=== PATIENT | male | born 1960 | race Caucasian/White ===

== ENCOUNTER 2016-04-09 09:12 | Inpatient (IN) | payer OTHER ==
[2016-04-09] VITALS (15 sets, daily range): BP systolic 138–170; BP diastolic 77–98; PULSE 52–78; RESP 8–20; Ht 170.2 cm; Wt 80.3 kg
[~2016-04-09] VITALS: Ht 170.2 cm; Wt 80.3 kg
[~2016-04-09 09:12] MED LIST: AMLO-147 PO; BUPIVACAINE 0.5%/EPI (SDV) 30 ML INJ INJ ONE; CEFAZOLIN 1 GM INJ ONE; DEXAMETHASONE 4 MG/ML 1 ML INJ ONE; HYD25 PO; LISI40TA9 PO; ONDANSETRON 4 MG INJ ONE
[2016-04-09] MEDS ORDERED: SOD CHLORIDE 0.9% 1,000 ML IV SCH (10:00)
[2016-04-09] MEDS ORDERED: CEFAZOLIN 2 GM/50 ML (PMX) 50 ML IVPB SCH (10:00)
--- NOTE | 2016-04-09 10:31 | RADRPT ---
PROCEDURE: XR Chest. CLINICAL INDICATION: Preoperative chest TECHNIQUE: Chest AP portable. COMPARISON: No comparison available. FINDINGS: The mediastinal structures are unremarkable. The heart is normal in size and configuration. The pu lmonary vascularity is normal. The lung palumbo are unremarkable. No consolidation is identified. The pleural spaces are unremarkable. The axial skeleton is unremarkable. IMPRESSION: No active intrathoracic disease. RPTAT: HGDB .Jovon Melendez MD, MD Date Time Electronically viewed and signed by .Jovon Melendez MD, MD on 04/09/2016 10:30 .B/
[2016-04-09 11:11] LABS: CALCIUM 9.2 mg/dl (8.4-10.2); CREATININE 1.14 mg/dl (0.61-1.24); POTASSIUM 4.6 mmol/L (3.5-5.1)
[2016-04-09 11:15] LABS: INR 1.06; PROTIME 13.8 Sec (12.2-14.2); PT RATIO 1.1
[2016-04-09 11:16] LABS: PARTIAL THROMBOPLASTIN TIME 28.4 Sec (25.0-35.0)
[2016-04-09 11:51] LABS: BASOPHILS % 0.3 % (0.0-2.0); EOSINOPHILS # 0.2 10^3/ul (0.0-0.5); HEMATOCRIT 42.2 % (42.0-52.0); HEMOGLOBIN 14.4 g/dl (14.0-18.0); LYMPHOCYTES # 1.9 10^3/ul (0.8-2.9); LYMPHOCYTES % 23.4 % (15.0-51.0); MEAN CORPUSCULAR HEMOGLOBIN 30.1 pg (29.0-33.0); MEAN CORPUSCULAR VOLUME 88.4 fl (82.0-101.0); MEAN PLATELET VOLUME 7.4 fl (7.4-10.4); MONOCYTE # 0.6 10^3/ul (0.3-0.9); MONOCYTES % 7.6 % (0.0-11.0); NEUTROPHIL # 5.6 10^3/ul (1.6-7.5); NEUTROPHILS % 66.7 % (39.0-77.0); PLATELET COUNT 203 10^3/UL (140-440); RED BLOOD COUNT 4.77 10^6/ul (4.70-6.10); RED CELL DISTRIBUTION WIDTH 14.6 % (11.5-14.5); UNCORRECTED WBC 8.3 10^3/ul (4.8-10.8); WHITE BLOOD COUNT 8.3 10^3/ul (4.8-10.8)
[2016-04-09] MEDS ORDERED: POLYMYXIN/BACITRACIN 1L IRRIG ONE (11:57)
[2016-04-09 11:59] LABS: CONDITION 1; LH ANALYZER COMMENTS 1
[2016-04-09] MEDS ORDERED: ROCURONIUM 50 MG INJ ONE (12:05)
[2016-04-09] MEDS ORDERED: FENTAnyl 50 MCG/ML VIAL ONE ×2 (12:05→13:49)
[2016-04-09] MEDS ORDERED: PROPOFOL 20 ML ONE (12:05)
[2016-04-09] MEDS ORDERED: LIDOCAINE 2% (SDV) 5 ML INJ ONE (12:05)
[2016-04-09] MEDS ORDERED: BUPIVACAINE 0.5%/EPI (SDV) 30 ML INJ ONE (12:13)
[2016-04-09] MEDS ORDERED: MIDAZOLAM 1 MG/ML 2 ML INJ ONE (12:17)
[2016-04-09] MEDS ORDERED: ONDANSETRON 4 MG INJ IV PRN (12:30)
[2016-04-09] MEDS ORDERED: HYDROmorphONE (0.2 MG/ML) 10ML SYG IV PRN ×3 (12:30)
[2016-04-09] MEDS ORDERED: FENTAnyl 50 MCG/ML VIAL IV PRN ×3 (12:30)
[2016-04-09] MEDS ORDERED: LABETALOL HCL 20MG INJ IV PRN (12:30)
[2016-04-09] MEDS ORDERED: MEPERIDINE 25 MG INJ IV PRN (12:30)
[2016-04-09] MEDS ORDERED: OXYCODONE/ACETAMINOPHEN (5/325) TAB PO PRN ×2 (12:30)
[2016-04-09] MEDS ORDERED: POLYMYXIN/BACITRACIN 1L IRRIG IRR ONE (13:08)
[2016-04-09] MEDS ORDERED: KETOROLAC 30 MG INJ ONE (13:43)
[2016-04-09] MEDS ORDERED: LABETALOL HCL 20MG INJ ONE (13:49)
[2016-04-09] MEDS: D5W-0.45 NACL + KCL 20 MEQ 1,000 ML IV SCH (17:32)
[2016-04-09] MEDS: ONDANSETRON 4 MG INJ IV PRN (17:46)
--- NOTE | 2016-04-09 18:30 | HP ---
DATE OF ADMISSION: 04/09/2016 REASON FOR ADMISSION: Recurrent incarcerated inguinal hernia. PROCEDURE DONE: Right inguinal herniorrhaphy with mesh. HISTORY OF PRESENT ILLNESS: The patient is a 55-year-old gentleman well known to me from previous a dmission back in 09/2015. The patient has history of large right inguinal hernia and underwent tota l ____ and enterotomy and bowel decompression on 09/05/[address] Sarah. The patient's postoperati ve course was complicated by respiratory failure secondary to bilateral atelectasis. The patient un fortunately has recurrence of recurring incarcerated right inguinal hernia and therefore was brought into hospital today and underwent herniorrhaphy with mesh. The patient denies any chest pain, is b reathing comfortably. Denies any cough, headache. No reported leg pain. No reported shortness of breath. The patient did not have any vomiting. No reported focal sensory or motor symptoms. The p atient does have postoperative pain. REVIEW OF SYSTEMS: Rest of review of systems was unremarkable. PAST MEDICAL HISTORY: As stated above. PAST SURGICAL HISTORY: As stated above. ALLERGIES: NONE. SOCIAL HISTORY: No smoking, no alcohol. FAMILY HISTORY: Noncontributory. MEDICATIONS PRIOR TO ADMISSION: The patient was on: 1. Norvasc. 2. Lisinopril and hydrochlorothiazide for hypertension. PHYSICAL EXAMINATION: GENERAL: The patient is conscious, awake, alert. VITAL SIGNS: Temperature 98.8, pulse 72, respirations 14. Last blood pressure 138/77. O2 saturati on 95% on 2 L nasal cannula. HEENT: Conjunctivae and lids normal. Oropharynx clear. NECK: Supple. No mass, no thyromegaly. LUNGS: Clear to auscultation. CARDIOVASCULAR: S1, S2 normal. No murmur. ABDOMEN: Soft, nondistended. Right inguinal area has a large dressing. EXTREMITIES: No leg edema. Pedal pulses palpable. SKIN: Without acute rash. NEUROLOGIC: The patient is awake, alert, fairly oriented with no gross focal deficit. LABORATORY DATA: WBC 8.3, hemoglobin 14.4, platelets 203. Sodium 142, potassium 4.6, BUN 21, creat inine 1.1, glucose 112. IMAGING: Chest x-ray normal. ELECTROCARDIOGRAM: Normal sinus rhythm with rate of 52. IMPRESSION: 1. Recurrent incarcerated large right inguinal hernia, status post repair. 2. Hypertension. PLAN: The patient admitted on medical floor. The patient will be started on IV fluid and will rece samuel Tylenol, Percocet and IV morphine for pain control depending upon severity. Will resume his ant ihypertensive medications. The patient will be encouraged to use inspiratory spirometry. Will cont inue SCD for DVT prophylaxis. Will continue to follow from medical standpoint. Dictated By: TABATAH WILLOUGHBY/ANGELI Conf#: [id number] DID#: [id number]
--- NOTE | 2016-04-09 19:20 | RADRPT ---
Vent Rate: 52 bpm RR Interval: 0 msec WV Interval: 162 msec QRS Duration: 120 msec QT Interval: 448 msec QTC Interval: 416 msec P-R-T [place]: 58 - 21 - 83 degrees Sinus bradycardia Cannot rule out Inferior infarct , age undetermined Abnormal ECG Electronically Signed By: Rao Bingham [id number]
[2016-04-10] MEDS: ONDANSETRON 4 MG INJ IV PRN (00:33)
[2016-04-10] MEDS: D5W-0.45 NACL + KCL 20 MEQ 1,000 ML IV SCH ×5 (00:34→19:39)
[2016-04-10] MEDS: morphine 2 MG INJ IV PRN ×2 (00:37→05:22)
--- NOTE | 2016-04-10 06:45 | OPR ---
DATE OF OPERATION: 04/09/2016 PREOPERATIVE DIAGNOSIS: Recurrent incarcerated right inguinal hernia. POSTOPERATIVE DIAGNOSIS: Recurrent incarcerated right inguinal hernia. OPERATION PERFORMED: Right inguinal herniorrhaphy with mesh. ANESTHESIA: General. ANESTHESIOLOGIST: Dr. Mathis. SURGEON: Romero Sarah MD FISH BUTCHER: None. INDICATIONS FOR PROCEDURE: The patient is a 55-year-old male who was previously known to me. He pr esented with an extremely large right inguinal hernia within his entire small intestine, his omentum , his right transverse proximal descending colon as well as a portion of the stomach incarcerated in to his scrotum. He underwent repair several months ago and was doing well; however, he developed ev idence of a recurrence and was complaining of significant pain. He was counseled that the repair of this recurrence may not be accomplishable but we would attempt it due to the fact that the previous surgery had significantly distorted the anatomy and that there was very little fascial material lef t in his right groin region in which to accomplish a repair. He wished to proceed with attempted re pair. He consented and was scheduled for surgery. DESCRIPTION OF PROCEDURE: The patient was brought to the operating theater, placed under general an esthesia. The right groin was shaved, prepped and draped in usual sterile fashion. The previous ferguson rgical repair been accomplished through a midline incision. Dr. Sarah made the decision to make a r ight groin incision. This was done with 15 blade scalpel transversing the approximate locations of the internal and external inguinal rings. Subcutaneous tissue was dissected with cautery. Within t he subcutaneous space, a large direct hernia sac was identified. With meticulous dissection over se veral minutes, Dr. Sarah was able to identify what appeared to be reasonably strong fascia in 4 quad rants around this large defect. Once the hernia had been reduced, a double sided mesh plug was then placed into the defect and was sutured circumferentially with 4-0 Prolene sutures to the abdominal wall fascia, one laterally to what appeared to be a possible remnant of the inguinal ligament and a 4th one to the pubic tubercle. After this, Dr. Sarah inspected and deemed that this was the most th at could be accomplished. Therefore, the wound was irrigated. Minimal bleeding was controlled with cautery. The skin was then reapproximated with skin erasmo. The patient tolerated procedure well . ESTIMATED BLOOD LOSS: Was 20 mL. COMPLICATIONS: There were no complications and the patient was transported in stable condition [facility] recovery [facility]. Dictated By: ROMERO AGUILA/ANGELI Conf#: [id number] DID#: [id number]
[2016-04-10 07:58] VITALS: BP 135/95; RESP 18
[2016-04-10] MEDS: LISINOPRIL 20 MG TAB PO SCH (08:59)
[2016-04-10] MEDS: HYDROCHLOROTHIAZIDE 25 MG TAB PO SCH (08:59)
[2016-04-10] MEDS: AMLODIPINE 10 MG TAB PO SCH (08:59)
[2016-04-10] MEDS ORDERED: INFLUENZA VIRUS VACCINE 0.5 ML (DISPENSING) IM* ONE (09:00)
[2016-04-10] MEDS: PANTOPRAZOLE 40 MG INJ IV SCH (12:43)
--- NOTE | 2016-04-10 15:22 | PN ---
DATE: 04/10/2016 SUBJECTIVE: The patient apparently has not been able to urinate after his operation. 1. They had to put in a Lyn catheter. 2. The patient states that he has pain in the left upper quadrant which causes him to get nauseous when he lies down on his back or on the right side, but if it is on the left side lying down he feel s better. He has been n.p.o. since the operation. He has not passed any gas or any bowel movements . He states that usually he has a bowel movement every day in the morning. Today he is nauseous, bu t no vomiting. OBJECTIVE: VITAL SIGNS: Temperature 97.6, heart rate 90, respirations 18, blood pressure 105/95, saturation of 95% on 2 liters nasal cannula. ABDOMEN: Scar is visible. Soft. Maybe slight tenderness in the left upper quadrant. Lyn cathet er is in place. Lower extremities with sequential compression devices on the calves. LABORATORY RESULTS: No new labs were done today. ASSESSMENT: 1. Postop day #1, right recurrent direct inguinal hernia repair with mesh. 2. Patient has not been able to urinate post-operation (the patient states that at home he usually h as to go to the bathroom about 10 times for making urine, especially at night, about 4 times, has no cturia). Note, this patient had a very complicated scrotal hernia repair several months ago. Following that extensive repair the patient developed respiratory insufficiency where he stayed in the ICU for abou t 2 weeks. He gradually responded, was intubated and eventually survived that condition. Apparentl y the first scrotal hernia repair, per surgeon's note, the whole omentum, intestine, right colon and left colon was in the scrotal sac. No other anatomy was distorted, per the surgeon. (Considering that the patient also complains of nausea whenever he eats food, he gets severe pain in the left upp er quadrant and some nausea, and at this time has not been able to urinate; therefore, I plan to ry p him in the hospital at least 1 more day. PLAN: Keep the patient in the hospital at least 1 more day and make sure he can tolerate a diet, ma ke sure he makes bowel movements, and make sure that he urinates after we remove the Lyn, but will keep the Lyn today. Dictated By: CAPO OSEGUERA MD PS/NTS Conf#: [id number] [facility]#: [id number]
--- NOTE | 2016-04-10 15:57 | PN ---
Date/Time of Note Date/Time of Note DATE: 04/10/16 TIME: 15:54 Assessment/Plan VTE Prophylaxis VTE Prophylaxis Intervention: SCD's Lines/Catheters IV Catheter Type (from Nrsg): Peripheral IV Assessment/Plan Assessment/Plan 1. Recurrent incarcerated large right inguinal hernia, status post repair. Continue morphine as needed for pain and Zofran as needed for nausea. Patient tolerates clear liquid diet well. Advance diet per surgery. Incentive spirometer every hour while patient is awake. 2. Hypertension. Continue Norvasc and lisinopril. Sequential compression device for deep venous thrombosis prophylaxis and Protonix for peptic ulcer disease prophylaxis. Further recommendations based on clinical course. Plan of care discussed with Dr. Galloway. Subjective 24 Hr Interval Summary Free Text/Dictation Patient's tolerates a clear liquid diet well, no flatus yet, pain is well controlled. Exam/Review of Systems Vital Signs Vitals Vital Signs Date Time Temp Pulse Resp B/P Pulse Ox O2 Delivery O2 Flow Rate FiO2 04/10/16 07:58 97.6 90 18 135/95 95 04/09/16 21:45 Nasal Cannula 2.0 Intake and Output 04/09/16 04/09/16 04/10/16 15:00 23:00 07:00 Intake Total 800 ml 1550 ml Output Total 20 ml 1200 ml Balance 780 ml 350 ml Exam GENERAL: The patient is conscious, awake, alert. HEENT: Conjunctivae and lids normal. Oropharynx clear. NECK: Supple. No mass, no thyromegaly. LUNGS: Clear to auscultation. CARDIOVASCULAR: S1, S2 normal. No murmur. ABDOMEN: Soft, nondistended. Right inguinal area has a large dressing. EXTREMITIES: No leg edema. Pedal pulses palpable. SKIN: Without acute rash. NEUROLOGIC: The patient is awake, alert. Results Result Diagram: 04/09/16 1045 04/09/16 1045 Medications Medications Current Medications Ondansetron HCl (Zofran Inj) 4 mg Q6H PRN IV NAUSEA AND/OR VOMITING Last administered on 04/10/16 00:33; Admin Dose 4 MG; Start 04/09/16 at 14:00 Morphine Sulfate 2 mg 2 mg Q1H PRN IV PAIN Last administered on 04/10/16 05:22 ; Admin Dose 2 MG; Start 04/09/16 at 14:00 Potassium Chloride/Dextrose/ Sod Cl (D5-1/2ns + KCl 20 Meq) 1,000 ml @ 75 mls/ hr [id number] IV Last administered on 04/10/16 12:44; Admin Dose 75 MLS/HR; Start 04/09/16 at 13:59 Amlodipine Besylate (Norvasc) 10 mg DAILY PO Last administered on 04/10/16 08: 59; Admin Dose 10 MG; Start 04/10/16 at 09:00 Hydrochlorothiazide (Hydrochlorothiazide) 25 mg DAILY PO Last administered on 08:59; Admin Dose 25 MG; Start 04/10/16 at 09:00 Lisinopril (Zestril) 40 mg DAILY PO Last administered on 04/10/16 08:59; Admin Dose 40 MG; Start 04/10/16 at 09:00 Pantoprazole (Protonix Iv) 40 mg DAILY@06 IV Last administered on 04/10/16 12: 43; Admin Dose 40 MG; Start 04/10/16 at 12:30 JAY WEEMS Apr 10, 2016 15:57
[2016-04-10 20:34] VITALS: BP 130/81; RESP 18
[2016-04-11] MEDS: PANTOPRAZOLE 40 MG INJ IV SCH (05:49)
[2016-04-11 07:24] LABS: CREATININE 1.06 mg/dl (0.61-1.24)
[2016-04-11 07:25] LABS: CALCIUM 8.6 mg/dl (8.4-10.2)
[2016-04-11 08:06] VITALS: BP 135/85; RESP 18
[2016-04-11] MEDS: D5W-0.45 NACL + KCL 20 MEQ 1,000 ML IV SCH ×2 (08:40→23:03)
[2016-04-11] MEDS: HYDROCHLOROTHIAZIDE 25 MG TAB PO SCH (08:41)
[2016-04-11] MEDS: LISINOPRIL 20 MG TAB PO SCH (08:41)
[2016-04-11] MEDS: AMLODIPINE 10 MG TAB PO SCH (08:41)
[2016-04-11] MEDS ORDERED: ACETAMINOPHEN 325 MG TAB PO PRN (11:30)
[2016-04-11] MEDS ORDERED: HYDR-906 PO (11:41)
--- NOTE | 2016-04-11 11:43 | DS ---
Date/Time of Note Date/Time of Note DATE: 04/11/16 TIME: 11:42 Discharge Summary Admission/Discharge Info Admit Date/Time Apr 09, 2016 at 14:00 Discharge Date/Time 04/11/16 Final Diagnosis 1. Recurrent incarcerated large right inguinal hernia, status post repair. Continue morphine as needed for pain and Zofran as needed for nausea. Patient tolerates clear liquid diet well. Advance diet per surgery. Incentive spirometer every hour while patient is awake. 2. Hypertension. Continue Norvasc and lisinopril. Patient Condition: Good Hospital Course Patient admitted for repair of right inguinal hernia. Patient underwent repair and when felt to be stable per surgery, patient was sent home to follow up in clinic. Home Meds Active Scripts Amlodipine Besylate* (Amlodipine Besylate*) 10 Mg Tablet, 10 MG PO DAILY for 30 Days, TAB Prov:JAY WEEMS 09/25/15 Reported Medications Hydrochlorothiazide* (Hydrochlorothiazide*) 25 Mg Tab, 25 MG PO DAILY, #30 TAB 09/05/15 Lisinopril* (Lisinopril*) 40 Mg Tablet, 40 MG PO DAILY, #30 TAB 09/05/15 Pending Labs Laboratory Tests Test 04/11/16 05:15 Anion Gap 15 (8-16) Blood Urea Nitrogen 10mg/dl (7-20) Calcium Level 8.6mg/dl (8.4-10.2) Carbon Dioxide Level 28mmol/L (21-31) Chloride Level 103mmol/L (97-110) Creatinine 1.06mg/dl (0.61-1.24) Glucose Level 118mg/dl (70-220) Potassium Level 4.0mmol/L (3.5-5.1) Sodium Level 142mmol/L (135-144) MELANIE REDDY Apr 11, 2016 11:43
[2016-04-11 11:51] LABS: WHITE BLOOD COUNT 11.3 10^3/ul (4.8-10.8)
[2016-04-11 11:52] LABS: BASOPHILS % 0.3 % (0.0-2.0); EOSINOPHILS % 1.9 % (0.0-7.0); HEMATOCRIT 35.9 % (42.0-52.0); LYMPHOCYTES % 16.5 % (15.0-51.0); MEAN CORPUSCULAR HEMOGLOBIN 30.1 pg (29.0-33.0); MEAN CORPUSCULAR HGB CONC 33.4 g/dl (32.0-37.0); MEAN PLATELET VOLUME 9.6 fl (7.4-10.4); MONOCYTES % 9.2 % (0.0-11.0); NEUTROPHILS % 71.7 % (39.0-77.0); PLATELET COUNT 174 10^3/UL (140-440); RED BLOOD COUNT 3.99 10^6/ul (4.70-6.10); RED CELL DISTRIBUTION WIDTH 13.8 % (11.5-14.5); UNCORRECTED WBC 11.3 10^3/ul (4.8-10.8)
[2016-04-11 11:53] LABS: EOSINOPHILS # 0.2 10^3/ul (0.0-0.5); LYMPHOCYTES # 1.9 10^3/ul (0.8-2.9); NEUTROPHIL # 8.1 10^3/ul (1.6-7.5)
[2016-04-11] MEDS ORDERED: MAGNESIUM HYDROXIDE 30ML CUP PO ONE (14:00)
[2016-04-11] MEDS ORDERED: MAGNESIUM HYDROXIDE 30ML CUP PO PRN (14:00)
--- NOTE | 2016-04-11 14:00 | PN ---
DATE: 04/11/2016 Status post recurrent right inguinal hernia repair. SUBJECTIVE: He has a slight amount of pain, has not had any bowel movement since , passing gas, OBJECTIVE: VITAL SIGNS: Temperature 98, heart rate 77, respirations 18, blood pressure 135/85, saturation 95% on 2 liter nasal cannula. LABORATORY DATA: Sodium and potassium normal. Creatinine normal. WBC 11,300, has increased since operation. Hemoglobin is 12, hematocrit 35.9 with 71% neutrophils. Abdomen as before, slightly distended. Right groin area, there is more swelling to the groin area, comparing to yesterday. I am not sure if this is recurrence of the hernia or fluid accumulated there. Movement of the scrotum slightly tender. Lyn still is in place. ASSESSMENT: A 55-year-old male status post repair of the right recurrent inguinal hernia. Patient has not been able to urinate post-operation. We are going to get a consultation from Dr. Panda; actually, I called him today myself and he is going to see the patient today after noon. PLAN: Give patient milk of magnesia to make sure he does not get constipation. Watch for failure of the repairs and or hematoma formation. Dictated By: CAPO RIVERA/ANGELI Conf#: [id number] DID#: [id number] MTDD
--- NOTE | 2016-04-11 17:36 | CONS ---
DATE OF ADMISSION: 04/09/2016 DATE OF CONSULTATION: 04/11/2016 REQUESTING PHYSICIAN: Hiram Galloway MD Dear Dr. Galloway: Thank you for asking me to see this patient in urological consultation. HISTORY OF PRESENT ILLNESS: This is a 55-year-old male who underwent surgery for a recurrent large right inguinal hernia on 04/09/2016 and postop he had urinary retention and when the catheter was re moved, he was not able to urinate. The nurse tried yesterday to put the catheter in, she initially had difficulty, but then she was able to insert the catheter. The patient states that prior to his admission usually at home he does have nocturia about 2 to 3 times. His urinary stream is slow and he feels he does empty his bladder. He denies any burning or stinging on urination. There is no hi story of hematuria. He states that he was treated for "urinary tract infection" about one year ago. He has not been taking any medication for his prostate or to help him urinate. PAST MEDICAL HISTORY: Significant for a history of hypertension. He has been taking lisinopril and hydrochlorothiazide for high blood pressure as well as Norvasc. PAST SURGICAL HISTORY: He has had surgery for his hernia in September 2015. At that time it looks like he may have had enterotomy bowel decompression and the patient's postop was complicated by respirato ry failure secondary to bilateral atelectasis. He came to the hospital this time with recurrence of right inguinal hernia and underwent the surgery 2 days ago. PHYSICAL EXAMINATION: GENERAL: Reveals a 55-year-old male who weighs 80.3 kilograms. He is 67 inches tall. VITAL SIGNS: Temperature is 98, respirations 18, blood pressure 135/85, pulse is 77. ABDOMEN: He has a large low mid abdominal incision going all the way up to above the umbilicus with a large scar from it. He also does have a dressing over the right inguinal area from his inguinal hernia repair 2 days ago. The scrotum is very large and edematous and swollen. Apparently, the her nano was going down into the scrotum, according to him. RECTAL: Examination revealed a soft and mildly enlarged prostate. EXTREMITIES: Normal. LABORATORY DATA: CBC shows a white count of 11.3, hemoglobin 12.0, hematocrit 35.9. BUN is 10, cre atinine 1.06, sodium 142, potassium 4.0, chloride 103, CO2 of 28. PT is 13.8, INR 1.06, PTT 28.4. The patient did have a CT scan of the abdomen and pelvis back in September 2015 and at that time it did s how a very large bladder diverticulum. In fact, it appeared larger than the bladder itself and the prostate was not enlarged. IMPRESSION: Urinary retention postoperatively. The patient does have a large bladder diverticulum and he does have a very large scrotal area and that is because the hernia was going down into the sc rotum and now the cavity is empty. The prostate is mildly enlarged. RECOMMENDATION: I am going to start him on Flomax with the hope that, that may help a little bit an d as he ambulates and the swelling around the scrotum and the pelvic area subside, hopefully he will be able to urinate better. The diverticulum is large and that may be another factor in his retenti on. The patient may have to go home with the Lyn catheter and follow up as an outpatient. I will order a CT scan today to see that the findings are the same as before and reevaluate his prostate s ize and the bladder anatomy. Dictated By: JOSE G ROLDAN/ANGELI Conf#: [id number] DID#: [id number]
--- NOTE | 2016-04-11 18:24 | RADRPT ---
PROCEDURE: CT abdomen and pelvis without contrast. CLINICAL INDICATION: Urinary retention TECHNIQUE: CT scan of the abdomen and pelvis without contrast was performed and is reconstructed a t 2.5 mm contiguous axial intervals from the dome of the diaphragm to the inferior pubic rami.. The patient was scanned without intravenous contrast. Sagittal and coronal reformatted images were obt ained from the axial source images. The calculated radiation dose measures 931 mGy centimeters. The CTDI measures 12th mGy. COMPARISON: CT abdomen pelvis September 20, 2015 FINDINGS: Noted is a noncalcified pleural based mass on the medial aspect of the right lower lobe only partial ly included on this study measuring 3.6 by 3.3 cm. No other lung infiltrate or nodule is visualized . There is a tiny left pleural effusion. The liver is of normal size, contour and attenuation with no mass or ductal dilatation. No gallston es are visualized. No splenic, adrenal or pancreatic abnormalities present. Kidneys are of normal size and contour. No hydronephrosis, calculus or masses seen. Ureters are o f normal course and caliber with no stone. Lyn catheter is present in the urinary bladder. There is a large bladder diverticulum. There is thickening of the wall of the diverticulum. No discrete mass or stone is present. Prostate and seminal vesicles appear normal. There is no aneurysm. No adenopathy is present. There are erasmo seen along the inferior right p charmaine. Noted is a large right inguinal hernia containing nonobstructed small bowel loops. There is evidence of a herniorrhaphy immediately superjacent to the inguinal canal on the right. Fluid is s een within the scrotum. No bowel mass or obstruction is present. There is suture in the jejunum and the right upper quadr ant. The appendix is normal. No phlegmon, ascites or pneumoperitoneum is visualized. The osseous structures are intact. IMPRESSION: Large bladder diverticulum. thickened wall of the diverticulum without discrete mass. Large right inguinal hernia containing nonobstructed small bowel. Right scrotal hydrocele. Status post right pelvic herniorrhaphy. 3.6 x 3.3 cm noncalcified pleural based mass right lower lobe which was not present on prior study. Malignancy cannot be ruled out. Suggest dedicated chest CT for further evaluation. Tiny left pleural effusion. .Hair Keyes MD, MD Date Time Electronically viewed and signed by .Hair Keyes MD, MD on 04/11/2016 18:24 .A/
[2016-04-11] MEDS: TAMSULOSIN (SR) 0.4 MG CAP PO SCH (20:43)
[2016-04-11 21:00] VITALS: BP 138/87; PULSE 68; RESP 20
[2016-04-12] MEDS: PANTOPRAZOLE 40 MG INJ IV SCH (05:44)
[2016-04-12 07:51] VITALS: BP 137/81; RESP 20
[2016-04-12] MEDS: AMLODIPINE 10 MG TAB PO SCH (08:42)
[2016-04-12] MEDS: HYDROCHLOROTHIAZIDE 25 MG TAB PO SCH (08:42)
[2016-04-12] MEDS: MAGNESIUM HYDROXIDE 30ML CUP PO SCH (08:43)
[2016-04-12] MEDS: LISINOPRIL 20 MG TAB PO SCH (08:43)
--- NOTE | 2016-04-12 11:03 | PN ---
Date/Time of Note Date/Time of Note DATE: 04/12/16 TIME: 11:02 Assessment/Plan VTE Prophylaxis VTE Prophylaxis Intervention: other Lines/Catheters IV Catheter Type (from Nrsg): Peripheral IV Urinary Cath still in place: Yes Reason Cath still needed: skin wounds contaminated by urine Assessment/Plan Chief Complaint/Hosp Course 1) right inguinal hernia - s/p repair 2) urinary retention - urology working up Problems: Subjective 24 Hr Interval Summary Free Text/Dictation Patient is doing ok Exam/Review of Systems Vital Signs Vitals Vital Signs Date Time Temp Pulse Resp B/P Pulse Ox O2 Delivery O2 Flow Rate FiO2 04/12/16 07:51 98.6 61 20 137/81 96 04/11/16 21:00 Room Air 04/09/16 21:45 2.0 Intake and Output 04/11/16 04/11/16 04/12/16 15:00 23:00 07:00 Intake Total 250 ml 2100 ml 1005 ml Output Total 1430 ml 1550 ml Balance 250 ml 670 ml -545 ml Exam Constitutional: well developed Head: atraumatic, normocephalic Neck: supple Respiratory: clear to auscultation Cardiovascular: regular rate and rhythm Gastrointestinal: non-tender, soft Results Result Diagram: 04/11/1651404/11/1615 Medications Medications Current Medications Ondansetron HCl (Zofran Inj) 4 mg Q6H PRN IV NAUSEA AND/OR VOMITING Last administered on 04/10/16 00:33; Admin Dose 4 MG; Start 04/09/16 at 14:00 Morphine Sulfate 2 mg 2 mg Q1H PRN IV PAIN Last administered on 04/10/16 05:22 ; Admin Dose 2 MG; Start 04/09/16 at 14:00 Potassium Chloride/Dextrose/ Sod Cl (D5-1/2ns + KCl 20 Meq) 1,000 ml @ 75 mls/ hr [id number] IV Last administered on 04/11/16 23:03; Admin Dose 75 MLS/HR; Start 04/09/16 at 13:59 Amlodipine Besylate (Norvasc) 10 mg DAILY PO Last administered on 04/12/16 08: 42; Admin Dose 10 MG; Start 04/10/16 at 09:00 Hydrochlorothiazide (Hydrochlorothiazide) 25 mg DAILY PO Last administered on 08:42; Admin Dose 25 MG; Start 04/10/16 at 09:00 Lisinopril (Zestril) 40 mg DAILY PO Last administered on 04/12/16 08:43; Admin Dose 40 MG; Start 04/10/16 at 09:00 Pantoprazole (Protonix Iv) 40 mg DAILY@06 IV Last administered on 04/12/16 05: 44; Admin Dose 40 MG; Start 04/10/16 at 12:30 Acetaminophen (Tylenol Tab) 650 mg Q6H PRN PO PAIN AND OR ELEVATED TEMP Last administered on 04/11/16 11:33; Admin Dose 650 MG; Start 04/11/16 at 11:30 Magnesium Hydroxide (Milk Of Mag) 30 ml DAILY PO Last administered on 04/12/16 08:43; Admin Dose 30 ML; Start 04/12/16 at 09:00 Tamsulosin HCl (Flomax) 0.4 mg HS PO Last administered on 04/11/16 20:43; Admin Dose 0.4 MG; Start 04/11/16 at 21:00 MELANIE REDDY Apr 12, 2016 11:03
[2016-04-12] MEDS: D5W-0.45 NACL + KCL 20 MEQ 1,000 ML IV SCH (12:25)
[2016-04-12] MEDS ORDERED: IOHEXOL 300MG/ML 150 ML BTL ONE (15:15)
[2016-04-12] MEDS ORDERED: SOD CHLORIDE 0.9% 100 ML ONE (15:15)
--- NOTE | 2016-04-12 16:50 | PN ---
DATE: 04/12/2016 SUBJECTIVE: Does not have any specific complaint; occasional shooting pain in the right groin and s crotal area, has not had any bowel movement yet. No nausea, no vomiting. Dr. Panda, urologist larson s seen the patient and he recommended a CT scan of the abdomen and pelvis which was done and await r eport on that. OBJECTIVE: VITAL SIGNS: Stable 98.6, 61, 20, 137/81 and 96% on room air. No labs were done today. ABDOMEN: In the right groin area, there is some swelling and also the scrotum is swollen and appear s that there is fluid in the right scrotum. Bowel sounds present. EXTREMITIES: No calf tenderness. IMAGING: As I stated, CT scan was done last night and reported as follows: IMPRESSION: 1. Large bladder diverticulum is present. Thickened wall of the diverticulum without discrete mass . 2. Large right inguinal hernia containing nonobstructed small bowel. Right scrotal hydrocele. 3. Status post right pelvic herniorrhaphy. 4. 3.6 x 3.3 cm noncalcified pleural-based mass in the right lower lobe which was not present on pr ior study of 09/2015; malignancy cannot be ruled out. Suggest dedicated chest CT for further evalua tion. ASSESSMENT: A 55-year-old with a history of scrotal hernia repair in 09/2015. Now, he comes back w ith recurrent right inguinal hernia, was operated 2 days ago. Patient has not had any bowel movemen t since then and the patient has developed urinary retention. Dr. Panda has seen the patient and suggest a CT scan which was done today. I have not seen him yet. PLAN: 1. Continue current care. 2. Give some laxatives to make him to have bowel movements. 3. Awaiting Dr. Panda's recommendation. Dictated By: CAPO RIVERA/ANGELI Conf#: [id number] DID#: [id number]
--- NOTE | 2016-04-12 17:05 | PN ---
DATE: 04/12/2016 SUBJECTIVE: Urinary retention and patient has a large bladder diverticulum and also is status post repair of a large inguinal scrotal hernia. GENITOURINARY: Himself is feeling comfortable. OBJECTIVE VITAL SIGNS: His temperature is 98.6, blood pressure 137/81, pulse is 61, respirations 20. ABDOMEN: Soft. The dressing over the right inguinal hernia repair incision is still there. The sc rotum is very large and empty and it has been overstretched from the inguinal scrotal hernia that wa s repaired. EXTREMITIES: Reveal no edema. The Lyn catheter is draining clear urine. The patient had repeat CT scan of the abdomen and pelvis yesterday and that was reported as large bladder diverticulum, thi ckened wall of the diverticulum without discrete mass. The kidneys are normal size and contour, no h ydronephrosis, stones or masses. The Lyn catheter is in the urinary bladder. There is a large bl adder diverticulum. Also the patient has a 3.6 x 3.3 cm noncalcified pleural-based mass on the media l aspect of the right lower lobe, only partially included on the study. There is a tiny left pleura l effusion. The patient also does have a right inguinal hernia containing nonobstructed small bowel , right scrotal hydrocele, status post right pelvic herniorrhaphy. IMPRESSION: Urinary retention. The prostate is not large; large bladder diverticulum. PLAN: To keep the Lyn catheter in until tomorrow morning, then remove the Lyn catheter and see if he is able to urinate. In the meantime, the patient has been placed on Flomax and hopefully that would help him urinate and if he does not urinate, then he will have to have a Lyn catheter and e ventually he may need also to learn to do self-intermittent catheterization as his prostate is not b ig to cause him the obstruction. I will order a CT of the chest to try to clear the finding on the CT of the abdomen. Dictated By: JOSE G ROLDAN/ANGELI Conf#: [id number] DID#: [id number]
--- NOTE | 2016-04-12 18:19 | RADRPT ---
PROCEDURE: CT chest without and with contrast CLINICAL INDICATION: Abnormal CT abdomen and pelvis. Right-sided lung or pleural tumor suspected TECHNIQUE: CT scan of the chest without and with contrast was performed . The patient was scanned following the uncomplicated intravenous administration of 90 cc Visipaque 320 intravenous contrast. Coronal and sagittal images were reformatted. CTDI = 25.19 mGy; DLP = 905.46 mGy-cm COMPARISON: CT abdomen and pelvis 04/11/2016. Chest x-ray 04/09/2016 FINDINGS: Lungs, airway and pleura: The trachea and bronchi are patent as well as normal in caliber. As seen on the prior CT abdomen in the medial superior segment right lower lobe is an ovoid mass measuring 4 .3 x 3.3 cm with a broad-based relationship of the pleura and adjacent linear scarring or subsegment al atelectasis along the superior margin there is central hypodensity and peripheral enhancement whi ch suggest the lesion is necrotic, an infectious process is a differential diagnostic consideration. The pleural spaces are clear, without effusions. A small amount of left posterior lower lobe subse gmental atelectasis is noted. There is no evidence of emphysema. Cardiovascular, mediastinum and rubi: The heart is mildly enlarged. There is no evidence of perica rdial effusion, mild pericardial thickening is present. The thoracic aorta is normal in caliber wit hout evidence of aneurysm or dissection, mild atherosclerotic calcification of the aorta is noted. No obvious filling defects in the pulmonary arteries are identified to suggest embolism. The lymph n odes are normal in size, and no rubi abnormality is present. The esophagus is normal in caliber. Musculoskeletal and soft tissues: Moderate to severe spondylosis of the thoracic spine is present w ithout fracture, lytic or blastic lesion. There is no evidence of chest wall abnormality. The axil pa regions are unremarkable. Visualized upper abdomen. No abnormality of significance is seen. RPTAT:HJJR IMPRESSION: 1. Ovoid 4.3 x 3.3 cm mass with central hypodensity and peripheral enhancement in the medial aspect of the superior segment right lower lobe having a broad-based attachment to the pleura, findings co ncerning for primary pulmonary malignancy versus abscess. Consider CT guided aspiration/biopsy. 2. No evidence of adenopathy or pleural effusion. Reji Li, Physician Date Time Electronically viewed and signed by Reji Li Physician on 04/12/2016 18:18 JR/
[2016-04-12 20:11] VITALS: BP 133/86; RESP 18
[2016-04-12] MEDS: MINERAL OIL 30ML CUP PO SCH ×2 (21:22→21:24)
[2016-04-12] MEDS: TAMSULOSIN (SR) 0.4 MG CAP PO SCH (21:23)
[2016-04-13] MEDS: D5W-0.45 NACL + KCL 20 MEQ 1,000 ML IV SCH ×2 (02:48→17:27)
[2016-04-13] MEDS: MINERAL OIL 30ML CUP PO SCH ×3 (06:19→20:55)
[2016-04-13] MEDS: PANTOPRAZOLE (EC) 40 MG TAB PO SCH (06:20)
[2016-04-13 07:43] VITALS: BP 126/83; RESP 20
[2016-04-13] MEDS: AMLODIPINE 10 MG TAB PO SCH (08:58)
[2016-04-13] MEDS: HYDROCHLOROTHIAZIDE 25 MG TAB PO SCH (08:59)
[2016-04-13] MEDS: LISINOPRIL 20 MG TAB PO SCH (08:59)
[2016-04-13] MEDS: MAGNESIUM HYDROXIDE 30ML CUP PO SCH (09:00)
[2016-04-13] MEDS: morphine 2 MG INJ IV PRN (13:45)
--- NOTE | 2016-04-13 16:04 | PN ---
Date/Time of Note Date/Time of Note DATE: 04/13/16 TIME: 15:59 Assessment/Plan VTE Prophylaxis VTE Prophylaxis Intervention: SCD's Lines/Catheters IV Catheter Type (from Nrs): Peripheral IV Urinary Cath still in place: No Assessment/Plan Chief Complaint/Hosp Course Assessment/Plan 1. Recurrent incarcerated large right inguinal hernia, status post repair. Continue morphine as needed for pain and Zofran as needed for nausea. Advance diet per surgery. Incentive spirometer every hour while patient is awake. 2. Hypertension. Continue Norvasc and lisinopril. 3. RLL mass, Dr. Jeffery is asked to see patient in pulmonary consultation. Pending aspiration biopsy by radiology. 4. Urinary retention, resolved. Dr. Panda urology consultation is appreciated. Sequential compression device for deep venous thrombosis prophylaxis and Protonix for peptic ulcer disease prophylaxis. Further recommendations based on clinical course. Plan of care discussed with Dr. Galloway. Problems: Subjective 24 Hr Interval Summary Free Text/Dictation Patient had bowel movement, tolerates soft diet well, comfortable on room air, patient is able to void. Exam/Review of Systems Vital Signs Vitals Vital Signs Date Time Temp Pulse Resp B/P Pulse Ox O2 Delivery O2 Flow Rate FiO2 04/13/16 07:43 97.4 76 20 126/83 97 04/11/16 21:00 Room Air 04/09/16 21:45 2.0 Intake and Output 04/12/16 04/12/16 04/13/16 15:00 23:00 07:00 Intake Total 475 ml 1980 ml 1425 ml Output Total 3000 ml 2400 ml Balance 475 ml -1020 ml -975 ml Exam GENERAL: The patient is conscious, awake, alert. HEENT: Conjunctivae and lids normal. Oropharynx clear. NECK: Supple. No mass, no thyromegaly. LUNGS: Clear to auscultation. CARDIOVASCULAR: S1, S2 normal. No murmur. ABDOMEN: Soft, nondistended. Right inguinal area has a large dressing. EXTREMITIES: No leg edema. Pedal pulses palpable. SKIN: Without acute rash. NEUROLOGIC: The patient is awake, alert. Results Result Diagram: 04/11/16 0515 04/11/16 0515 Medications Medications Current Medications Ondansetron HCl (Zofran Inj) 4 mg Q6H PRN IV NAUSEA AND/OR VOMITING Last administered on 04/10/16 00:33; Admin Dose 4 MG; Start 04/09/16 at 14:00 Morphine Sulfate 2 mg 2 mg Q1H PRN IV PAIN Last administered on 04/13/16 13:45 ; Admin Dose 2 MG; Start 04/09/16 at 14:00 Potassium Chloride/Dextrose/ Sod Cl (D5-1/2ns + KCl 20 Meq) 1,000 ml @ 75 mls/ hr [id number] IV Last administered on 04/13/16 02:48; Admin Dose 75 MLS/HR; Start 04/09/16 at 13:59 Amlodipine Besylate (Norvasc) 10 mg DAILY PO Last administered on 04/13/16 08: 58; Admin Dose 10 MG; Start 04/10/16 at 09:00 Hydrochlorothiazide (Hydrochlorothiazide) 25 mg DAILY PO Last administered on 08:59; Admin Dose 25 MG; Start 04/10/16 at 09:00 Lisinopril (Zestril) 40 mg DAILY PO Last administered on 04/13/16 08:59; Admin Dose 40 MG; Start 04/10/16 at 09:00 Acetaminophen (Tylenol Tab) 650 mg Q6H PRN PO PAIN AND OR ELEVATED TEMP Last administered on 04/11/16 11:33; Admin Dose 650 MG; Start 04/11/16 at 11:30 Magnesium Hydroxide (Milk Of Mag) 30 ml DAILY PO Last administered on 04/12/16 08:43; Admin Dose 30 ML; Start 04/12/16 at 09:00 Tamsulosin HCl (Flomax) 0.4 mg HS PO Last administered on 04/12/16 21:23; Admin Dose 0.4 MG; Start 04/11/16 at 21:00 Mineral Oil (Mineral Oil) 30 ml TID PO Last administered on 04/13/16 06:19; Admin Dose 30 ML; Start 04/12/16 at 21:00 Pantoprazole (Protonix Tab) 40 mg DAILY@06 PO Last administered on 04/13/16 06: 20; Admin Dose 40 MG; Start 04/13/16 at 06:00 JAY WEEMS Apr 13, 2016 16:04
--- NOTE | 2016-04-13 16:06 | PN ---
DATE: 04/13/2016 Postop day #4. SUBJECTIVE: After removing the Lyn catheter today the patient urinated a couple of hours ago, abo ut 200 mL and then the nurse did a bladder scan and it was 500, so we informed Dr. Panda. He will insert straight catheterization in and out. The nurse did this catheterization in and out and he s aid he got 800 mL (appeared that 300 mL, also the content of the diverticulum). The patient had a b owel movement today morning. No nausea, no vomiting. OBJECTIVE: GENERAL: Awake and oriented x3. VITAL SIGNS: Temperature 97.4, heart rate 76, respiration 20, blood pressure 176/83, saturation 97% on room air. ABDOMEN: Soft. Swelling of the scrotum is slightly less today. EXTREMITIES: Legs no calf tenderness. LABORATORY: No labs today. IMAGING: Chest CT scan which was done yesterday has revealed the followin. Ovoid 4.3 x 3.3 cm mass with central hypodensity and peripheral enhancement in the medial aspect of the superior segment of the right lower lobe having a broad-based attachment to the pleura. Nasim goncalves concerning for primary pulmonary malignancy versus abscess, consider CT-guided aspiration biop sy. 2. No evidence of adenopathy or pleural effusion. ASSESSMENT: A 55-year-old gentleman with postoperative repair of a large, recurrent inguinal hernia . The patient previously has had extensive and very, very large right scrotal hernia which was oper ated on in September 2015. In that case the omentum and small bowel and part of the colon was in the her nano sac was placed back in the peritoneal cavity and also needed to have a laparotomy for that matte r. Now the hernia has recurred and Dr. Sarah did a repair 4 days ago. The patient postoperatively d eveloped urinary retention. Dr. Panda consulted. We ordered to remove the Lyn catheter today m orning which was done and as I mentioned, patient retained again 800 mL in the bladder and diverticu lum of the bladder. The patient has had bowel movement, tolerating diet. Also, CT scan of the abdo men was obtained and in that case showed some mass in the right lung area CT scan of the chest was performed which revealed presence of an ovoid mass 4.3 x 3.6 cm suggesting the possibility of m alignancy or abscess, recommended fine needle aspiration by Radiology. I discussed the matter with the patient. The patient agrees with biopsy or aspiration. PLAN: 1. Management of the urinary retention and bladder diverticulum per Dr. Moran' recommendations. 2. I am going to order a CT-guided aspiration-biopsy of the mass in the right upper lobe and pleura l space. Dictated By: CAPO OSGEUERA MD PS/ANGELI Conf#: [id number] DID#: [id number]
[2016-04-13 19:00] VITALS: BP 115/69; RESP 18
--- NOTE | 2016-04-13 19:59 | PN ---
DATE: 04/13/2016 SUBJECTIVE: Urinary retention and status post right inguinoscrotal hernia repair. The patient did have an indwelling Lyn catheter, and the catheter was removed this morning. The patient is comfor table, has voided a couple of times. OBJECTIVE: VITAL SIGNS: Temperature is 97.4, pulse is 76, respiration 20, blood pressure 126/83. ABDOMEN: Soft. He still has the dressing over the right inguinal area. GENITOURINARY: The scrotum is large but is empty from the hernia, and the swelling in the scrotum i s decreasing. The patient voided earlier today, and by the time, however, the bladder scan was done, it was over 2 hours, and the PVR was about 450. Since it was too late, it was not considered accurate. Then lat er on, the patient did void about 200 mL. His postvoid residual was 500, and when the straight cath eterization was done, 800 mL drained out. Then later on this evening, he voided 300 mL, and the PVR was 164 mL. That was about 5:30 p.m. The patient also did have a CT of the chest, and the CT of t chest did indeed show the ovoid mass 4.3 x 3.3 cm with central hypodensity and peripheral enhance ment in the medial aspect of the superior segment, right lower lobe, having a broad-based attachment to the pleura. Findings concerning for primary pulmonary malignancy versus abscess. The patient i s scheduled to have this aspirated and biopsied under CT guidance tomorrow. IMPRESSION: Urinary retention. The patient is able to void, but he has a large postvoid residual. PLAN: Continue checking his postvoid residual and do a straight catheterization on him for a postvo id residual of over 300 mL or if he does not void and the bladder scan shows over 500, then we do st raight catheterization as well. Also, for his lung mass, he is going to have a CT-guided biopsy hop efully tomorrow. Also he is on tamsulosin. We shall continue the tamsulosin and see if he does voi d well. I will also put him on low-dose urecholine since his prostate is not large and so will try the urecholine and see if that would help with his emptying the bladder. Dictated By: JOSE G ROLDAN/ANGELI Conf#: [id number] DID#: [id number]
[2016-04-13] MEDS: BETHANECHOL 10 MG TAB PO SCH (20:55)
[2016-04-13] MEDS: TAMSULOSIN (SR) 0.4 MG CAP PO SCH (20:55)
[2016-04-14] VITALS (9 sets, daily range): BP systolic 114–122; BP diastolic 62–85; PULSE 85–102; RESP 16–20
[2016-04-14] MEDS: PANTOPRAZOLE (EC) 40 MG TAB PO SCH (04:32)
[2016-04-14 05:48] LABS: BASOPHILS % 0.4 % (0.0-2.0); EOSINOPHILS # 0.4 10^3/ul (0.0-0.5); EOSINOPHILS % 5.2 % (0.0-7.0); HEMATOCRIT 38.3 % (42.0-52.0); LYMPHOCYTES # 2.3 10^3/ul (0.8-2.9); LYMPHOCYTES % 26.9 % (15.0-51.0); MEAN CORPUSCULAR HEMOGLOBIN 30.1 pg (29.0-33.0); MEAN CORPUSCULAR HGB CONC 33.9 g/dl (32.0-37.0); MEAN CORPUSCULAR VOLUME 88.7 fl (82.0-101.0); MONOCYTE # 0.8 10^3/ul (0.3-0.9); NEUTROPHIL # 4.9 10^3/ul (1.6-7.5); NEUTROPHILS % 57.5 % (39.0-77.0); PLATELET COUNT 227 10^3/UL (140-440); RED BLOOD COUNT 4.31 10^6/ul (4.70-6.10); RED CELL DISTRIBUTION WIDTH 14.4 % (11.5-14.5); UNCORRECTED WBC 8.4 10^3/ul (4.8-10.8); WHITE BLOOD COUNT 8.4 10^3/ul (4.8-10.8)
[2016-04-14 06:01] LABS: INR 1.05; PROTIME 13.7 Sec (12.2-14.2); PT RATIO 1.1
[2016-04-14 06:07] LABS: POTASSIUM 4.3 mmol/L (3.5-5.1)
[2016-04-14 06:10] LABS: CREATININE 1.12 mg/dl (0.61-1.24)
[2016-04-14 06:11] LABS: CALCIUM 8.9 mg/dl (8.4-10.2)
[2016-04-14 06:24] LABS: CONDITION 1
[2016-04-14] MEDS ORDERED: MIDAZOLAM 1 MG/ML 2 ML INJ ONE (08:35)
[2016-04-14] MEDS ORDERED: FENTAnyl 50 MCG/ML VIAL ONE (08:35)
[2016-04-14] MEDS ORDERED: LIDOCAINE 1% (MDV) 20 ML INJ ONE (08:35)
[2016-04-14] MEDS: MAGNESIUM HYDROXIDE 30ML CUP PO SCH (09:00)
[2016-04-14] MEDS: MINERAL OIL 30ML CUP PO SCH ×3 (09:00→20:05)
--- NOTE | 2016-04-14 10:33 | RADRPT ---
PROCEDURE: CT guided lung biopsy CLINICAL INDICATION: Right lower lobe mass TECHNIQUE: Informed written consent was obtained. A time-out was performed. A preliminary long line teamster CT scan of the lower chest was performed. Markers were placed on the skin for localization. The ov erlying skin of the right posterior chest was prepped and draped in the usual sterile fashion. Appr oximately 10 cc of lidocaine was injected locally for pain control. Utilizing CT guidance, a 19-gau ge outer coaxial needle was placed into the medial right lower lobe lung mass. Through this, a 20-g auge biopsy needle was placed, and multiple biopsy passes were obtained without difficulty. The pat ient tolerated procedure well. No complications occurred. The biopsy specimens were taken to [facility] for further analysis. Postprocedural CT scan revealed small pneumothorax. No significant hemor rhage was seen. COMPARISON: CT, 04/12/2016 FINDINGS: Multiple biopsy specimens with good tissue obtained. Specimens were sent to the pathology laborator y for further evaluation. IMPRESSION: 1. Successful CT guided lung biopsy. 2. Small right pneumothorax was identified at the end of the procedure - this will be followed-up r adiographically to assess stability and/or resolution. RPTAT: QQ .Simeon Liu MD, MD Date Time Electronically viewed and signed by .Simeon Liu MD, on 04/14/2016 10:32 .R/
[2016-04-14] MEDS: HYDROCHLOROTHIAZIDE 25 MG TAB PO SCH (11:03)
[2016-04-14] MEDS: BETHANECHOL 10 MG TAB PO SCH ×3 (11:04→20:04)
[2016-04-14] MEDS: AMLODIPINE 10 MG TAB PO SCH (11:04)
[2016-04-14] MEDS: LISINOPRIL 20 MG TAB PO SCH (11:04)
[2016-04-14] MEDS: D5W-0.45 NACL + KCL 20 MEQ 1,000 ML IV SCH (11:19)
--- NOTE | 2016-04-14 11:38 | CONS ---
Date/Time of Note Date/Time of Note DATE: 04/14/16 TIME: 11:30 Assessment/Plan Assessment/Plan Additional Assessment/Plan Chest x-ray and CT scan chest was reviewed next Assessment recommendations; 1. Patient admitted for repair of right recurrent inguinal hernia. 2. Incidental discovery of right lower lobe superior segment mass which is highly suggestive of primary bronchogenic carcinoma. 3. Stable hypertension 4. Patient has excellent functional status. Next Continue current treatment. Awaiting biopsy results. Based upon CT findings it appears the tumor is localized to the superior segment of the right lower lobe. A PET scan is recommended on an outpatient basis. Even if the biopsy is negative for malignancy, I would still recommend pursuing aggressive diagnostic procedure for further evaluation and the findings are highly worrisome for a malignant process as sometimes core tissue biopsies are negative on account of central necrosis. Further workup can be done on an outpatient basis. patient will also need to have a full PFT with measurement of diffusion capacity. Consultation Date/Type/Reason Admit Date/Time Apr 11, 2016 at 14:52 Date of Consultation: Apr 14, 2016 Type of Consultation: Pulmonary Reason for Consultation Patient admitted for repair of right inguinal hernia. Incidental discovery made of right lower lobe lung mass. Pulmonary consultation is for evaluation of the lung lesion. History of presenting illness; patient is a pleasant 55-year-old white male who was admitted on the second of this month for repair of recurrent right inguinal hernia the patient underwent surgery successfully. Chest x-ray was done on admission followed by a CT scan of the chest which showed a right lower lobe lung mass. Patient just returned from CT-guided needle biopsy of the lesion. Patient denies any chronic shortness of breath. Any chest pain. Any wheezing. Any cough or sputum production. According to him physically he is very active. But was hindered in his activities recently because of large right groin hernia. Past medical history; history of hypertension. History of prior right inguinal hernia repair in August of last year. Next Medications were reviewed. Allergies; none Social history; patient quit smoking 40 years ago while smoking a half a pack a day for several years. No history of alcohol or drug abuse. Family history; patient is single he does not have any children. Occupational history; patient has had miscellaneous occupations, construction etc. Review of systems; denies any headache, any visual changes. Denies any hearing loss. Any seizures. Dysphagia. Chest pain. Wheezing, cough, sputum, hemoptysis. Denies any weight loss. Denies any abdominal pain other than pain at recent surgery site. Denies any chronic urinary symptoms. Patient however did have urinary retention during this admission. Has any edema. Any orthopnea. Any skin changes. Patient is physically is very active. And according to him he can jog for 5 miles a day. General examination; middle-aged man, awake alert currently in no distress. Social History Smoking Status: Former smoker Exam/Review of Systems Vital Signs Vitals Vital Signs Date Time Temp Pulse Resp B/P Pulse Ox O2 Delivery O2 Flow Rate FiO2 04/14/16 10:55 85 18 116/85 95 Room Air 04/14/16 08:07 98.0 Intake and Output 04/13/16 04/13/16 04/14/16 15:00 23:00 07:00 Intake Total 1980 ml 1305 ml Output Total 900 ml 800 ml Balance 1080 ml 505 ml Exam H EENT examination; supple neck, no JVD. No lymphadenopathy. No cervical adenopathy. Fair dentition. Pupils are midsize reactive to light bilaterally. Extraocular movements are intact. No thyromegaly. Chest examination; clear to auscultation bilaterally. S1-S2 audible no murmurs regular rhythm. Abdomen examination soft, there are erasmo applied along the right inguinal area at recent surgery site. Bowel sounds audible. Extremity examination; no edema. There is no clubbing. Pulses 2+ bilaterally. S[employer]GE [employer] examination; no focal deficit. Results Result Diagram: 04/14/16 0510 04/14/16 0510 Results 24 hrs Laboratory Tests Test 04/14/16 05:10 Anion Gap 15 Basophils # 0.0 Basophils % 0.4 Blood Morphology Comment Blood Urea Nitrogen 15 Calcium Level 8.9 Carbon Dioxide Level 28 Chloride Level 101 Creatinine 1.12 Eosinophils # 0.4 Eosinophils % 5.2 Glucose Level 121 Hematocrit 38.3 L Hemoglobin 13.0 L INR International Normalized Ratio 1.05 Lymphocytes # 2.3 Lymphocytes % 26.9 Mean Corpuscular Hemoglobin 30.1 Mean Corpuscular Hemoglobin Concent 33.9 Mean Corpuscular Volume 88.7 Mean Platelet Volume 7.0 #L Monocytes # 0.8 Monocytes % 10.0 Neutrophils # 4.9 Neutrophils % 57.5 Nucleated Red Blood Cells # 0.0 Nucleated Red Blood Cells % 0.0 Platelet Count 227 # Potassium Level 4.3 Prothrombin Time 13.7 Prothrombin Time Ratio 1.1 Red Blood Count 4.31 L Red Cell Distribution Width 14.4 Sodium Level 140 White Blood Count 8.4 # Medications Medications Current Medications Ondansetron HCl (Zofran Inj) 4 mg Q6H PRN IV NAUSEA AND/OR VOMITING Last administered on 04/10/16 00:33; Admin Dose 4 MG; Start 04/09/16 at 14:00 Morphine Sulfate 2 mg 2 mg Q1H PRN IV PAIN Last administered on 04/13/16 13:45 ; Admin Dose 2 MG; Start 04/09/16 at 14:00 Potassium Chloride/Dextrose/ Sod Cl (D5-1/2ns + KCl 20 Meq) 1,000 ml @ 75 mls/ hr [id number] IV Last administered on 04/13/16 17:27; Admin Dose 75 MLS/HR; Start 04/09/16 at 13:59 Amlodipine Besylate (Norvasc) 10 mg DAILY PO Last administered on 04/14/16 11: 04; Admin Dose 10 MG; Start 04/10/16 at 09:00 Hydrochlorothiazide (Hydrochlorothiazide) 25 mg DAILY PO Last administered on 11:03; Admin Dose 25 MG; Start 04/10/16 at 09:00 Lisinopril (Zestril) 40 mg DAILY PO Last administered on 04/14/16 11:04; Admin Dose 40 MG; Start 04/10/16 at 09:00 Acetaminophen (Tylenol Tab) 650 mg Q6H PRN PO PAIN AND OR ELEVATED TEMP Last administered on 04/11/16 11:33; Admin Dose 650 MG; Start 04/11/16 at 11:30 Magnesium Hydroxide (Milk Of Mag) 30 ml DAILY PO Last administered on 04/12/16 08:43; Admin Dose 30 ML; Start 04/12/16 at 09:00 Tamsulosin HCl (Flomax) 0.4 mg HS PO Last administered on 04/13/16 20:55; Admin Dose 0.4 MG; Start 04/11/16 at 21:00 Mineral Oil (Mineral Oil) 30 ml TID PO Last administered on 04/13/16 06:19; Admin Dose 30 ML; Start 04/12/16 at 21:00 Pantoprazole (Protonix Tab) 40 mg DAILY@06 PO Last administered on 04/13/16 06: 20; Admin Dose 40 MG; Start 04/13/16 at 06:00 Bethanechol Chloride (Urecholine) 10 mg TID PO Last administered on 04/14/16 11 :04; Admin Dose 10 MG; Start 04/13/16 at 21:00 CORTES MAGALLANES Apr 14, 2016 11:38
--- NOTE | 2016-04-14 13:23 | RADRPT ---
PROCEDURE: XR Chest. CLINICAL INDICATION: Post lung biopsy TECHNIQUE: Single frontal chest x-ray. COMPARISON: CT guided biopsy, 04/14/2016 FINDINGS: Small to mild right pneumothorax is again noted, grossly stable when compared to the prior CT. No p leural effusion is identified. Cardiomediastinal silhouette is within normal limits. Aortic athero sclerotic calcification is noted. The osseous structures are unremarkable. IMPRESSION: 1. Small to mild right pneumothorax is again noted, grossly stable when compared to the prior CT. Continued radiographic follow-up is recommended to confirm continued stability and/or resolution. RPTAT: QQ .Simeon Liu MD, MD Date Time Electronically viewed and signed by .Simeon Liu MD, MD on 04/14/2016 13:23 .R/
--- NOTE | 2016-04-14 17:06 | PN ---
Date/Time of Note Date/Time of Note DATE: 04/14/16 TIME: 17:02 Assessment/Plan VTE Prophylaxis VTE Prophylaxis Intervention: SCD's Lines/Catheters IV C[facility]ter Type (from [facility]): Peripheral IV Urinary Cath still in place: No Assessment/Plan Chief Complaint/Hosp Course Assessment/Plan 1. Recurrent incarcerated large right inguinal hernia, status post repair. Continue morphine as needed for pain and Zofran as needed for nausea. Advance diet per surgery. Incentive spirometer every hour while patient is awake. 2. Hypertension. Continue Norvasc and lisinopril. 3. RLL mass, is is following in pulmonary consultation. Status post aspiration biopsy by radiology, follow-up on pathology results. 4. Urinary retention, resolved. Dr. Panda urology consultation is appreciated. Sequential compression device for deep venous thrombosis prophylaxis and Protonix for peptic ulcer disease prophylaxis. Further recommendations based on clinical course. Plan of care discussed with Dr. Galloway. Problems: Exam/Review of Systems Vital Signs Vitals Vital Signs Date Time Temp Pulse Resp B/P Pulse Ox O2 Delivery O2 Flow Rate FiO2 04/14/16 10:55 85 18 116/85 95 Room Air 04/14/16 10:15 2 04/14/16 10:05 98.0 Intake and Output 04/13/16 04/13/16 04/14/16 15:00 23:00 07:00 Intake Total 1980 ml 1305 ml Output Total 900 ml 800 ml Balance 1080 ml 505 ml Exam GENERAL: The patient is conscious, awake, alert. HEENT: Conjunctivae and lids normal. Oropharynx clear. NECK: Supple. No mass, no thyromegaly. LUNGS: Clear to auscultation. CARDIOVASCULAR: S1, S2 normal. No murmur. ABDOMEN: Soft, nondistended. Right inguinal area has a large dressing. EXTREMITIES: No leg edema. Pedal pulses palpable. SKIN: Without acute rash. NEUROLOGIC: The patient is awake, alert. Results Result Diagram: 04/14/16 0510 04/14/16 0510 Results 24 hrs Laboratory Tests Test 04/14/16 05:10 Anion Gap 15 Basophils # 0.0 Basophils % 0.4 Blood Morphology Comment Blood Urea Nitrogen 15 Calcium Level 8.9 Carbon Dioxide Level 28 Chloride Level 101 Creatinine 1.12 Eosinophils # 0.4 Eosinophils % 5.2 Glucose Level 121 Hematocrit 38.3 L Hemoglobin 13.0 L INR International Normalized Ratio 1.05 Lymphocytes # 2.3 Lymphocytes % 26.9 Mean Corpuscular Hemoglobin 30.1 Mean Corpuscular Hemoglobin Concent 33.9 Mean Corpuscular Volume 88.7 Mean Platelet Volume 7.0 #L Monocytes # 0.8 Monocytes % 10.0 Neutrophils # 4.9 Neutrophils % 57.5 Nucleated Red Blood Cells # 0.0 Nucleated Red Blood Cells % 0.0 Platelet Count 227 # Potassium Level 4.3 Prothrombin Time 13.7 Prothrombin Time Ratio 1.1 Red Blood Count 4.31 L Red Cell Distribution Width 14.4 Sodium Level 140 White Blood Count 8.4 # Medications Medications Current Medications Ondansetron HCl (Zofran Inj) 4 mg Q6H PRN IV NAUSEA AND/OR VOMITING Last administered on 04/10/16 00:33; Admin Dose 4 MG; Start 04/09/16 at 14:00 Morphine Sulfate 2 mg 2 mg Q1H PRN IV PAIN Last administered on 04/13/16 13:45 ; Admin Dose 2 MG; Start 04/09/16 at 14:00 Potassium Chloride/Dextrose/ Sod Cl (D5-1/2ns + KCl 20 Meq) 1,000 ml @ 75 mls/ hr [id number] IV Last administered on 04/13/16 17:27; Admin Dose 75 MLS/HR; Start 04/09/16 at 13:59 Amlodipine Besylate (Norvasc) 10 mg DAILY PO Last administered on 04/14/16 11: 04; Admin Dose 10 MG; Start 04/10/16 at 09:00 Hydrochlorothiazide (Hydrochlorothiazide) 25 mg DAILY PO Last administered on 11:03; Admin Dose 25 MG; Start 04/10/16 at 09:00 Lisinopril (Zestril) 40 mg DAILY PO Last administered on 04/14/16 11:04; Admin Dose 40 MG; Start 04/10/16 at 09:00 Acetaminophen (Tylenol Tab) 650 mg Q6H PRN PO PAIN AND OR ELEVATED TEMP Last administered on 04/11/16 11:33; Admin Dose 650 MG; Start 04/11/16 at 11:30 Magnesium Hydroxide (Milk Of Mag) 30 ml DAILY PO Last administered on 2/5/17at 08:43; Admin Dose 30 ML; Start 04/12/16 at 09:00 Tamsulosin HCl (Flomax) 0.4 mg HS PO Last administered on 04/13/16 20:55; Admin Dose 0.4 MG; Start 04/11/16 at 21:00 Mineral Oil (Mineral Oil) 30 ml TID PO Last administered on 04/13/16 06:19; Admin Dose 30 ML; Start 04/12/16 at 21:00 Pantoprazole (Protonix Tab) 40 mg DAILY@06 PO Last administered on 04/13/16 06: 20; Admin Dose 40 MG; Start 04/13/16 at 06:00 Bethanechol Chloride (Urecholine) 10 mg TID PO Last administered on 04/14/16 14 :21; Admin Dose 10 MG; Start 04/13/16 at 21:00 JAY WEEMS Apr 14, 2016 17:06
[2016-04-14] MEDS: TAMSULOSIN (SR) 0.4 MG CAP PO SCH (20:04)
--- NOTE | 2016-04-14 20:32 | PN ---
DATE: 04/14/2016 SUBJECTIVE: Feels okay. Apparently today at 10:30 a.m., he had CT-guided biopsy of the mass in the superior segment of the right lower lobe, was done in the radiology department, and the samples wer e sent to pathology evaluation (it is reported that post operation there was a small amount of pneum othorax ____). The patient already had a couple of times in and out catheterization, ____ within e bladder completely. OBJECTIVE: VITAL SIGNS: Temperature 98, pulse rate 85, respirations 18, blood pressure 106/85, saturation 95% on room air. LABORATORY DATA: Today WBC 8400, hemoglobin 13, hematocrit 38.____. No change from admission time that much. Chemistry within normal limits today. Coagulation normal. ABDOMEN: Soft. Right groin swelling of the scrotum has decreased to some extent. On the CT scan, which ____ was done reported there is a right inguinal hernia. I am not sure if this is after this is repaired or before this is repaired. If this is after this repaired, it is recurrence of his ing uinal hernia again. ____, in any case. LOWER EXTREMITY: No pitting edema, no calf tenderness. ASSESSMENT AND PLAN: A 55-year-old patient was admitted for repair of the recurrent right inguinal hernia. Incidentally, post-operation while getting abdominal CT scan for other reason, they noticed a mass in the right lower lobe superior segment. Recommend a CT scan. CT scan confirmed that one. Recommended biopsy. Today biopsy percutaneous CT-guided was performed. Waiting for pathology rep ort. Also, the patient has developed urinary retention, has a large diverticulum of the bladder. Delroy Panda is following that one. Pulmonology is following from pulmonary point of view. Will see what they decide is going to be in the next few days. Dictated By: CAPO OSEGUERA MD PS/NTS Conf#: [id number] DID#: [id number] CC: MARIO HARDY MD;*EndCC*
--- NOTE | 2016-04-14 22:44 | PN ---
DATE: 04/14/2016 SUBJECTIVE: Urinary retention. The patient has been voiding, but his postvoid residual has been hi gh and requiring straight catheterization. The patient also did have a nodule in the right lung, wh ich was biopsied under CT guidance today. OBJECTIVE: GENERAL: The patient is presently comfortable. He is afebrile. VITAL SIGNS: Temperature is 98.0, pulse is 85, respiration 18, blood pressure 116/85. LABORATORY DATA: His CBC shows a white count of 8.4, hemoglobin 13.0, hematocrit 38.3. BUN is 15, creatinine 1.12. Electrolytes are normal. The last time he voided about 450 mL, a bladder scan karen wed 408 mL, and when he was catheterized 600 mL were drained. Previously during the day, he did uri annika about 350, bladder scan showed 510, and he was catheterized for 600 mL. MEDICATIONS: The patient has been on tamsulosin 0.4 mg daily and also on 10 mg of urecholine 3 time s a day. PLAN: To continue the tamsulosin and increase the urecholine from 10 mg to 25 mg 3 times a day. Co ntinue with in and out catheterizations for postvoid residual over 300, and if he does not void for bladder volume of over 500. Dictated By: JOSE G ROLDAN/ANGELI Conf#: [id number] DID#: [id number]
[2016-04-15] MEDS: D5W-0.45 NACL + KCL 20 MEQ 1,000 ML IV SCH ×2 (01:05→16:01)
[2016-04-15] MEDS: PANTOPRAZOLE (EC) 40 MG TAB PO SCH (05:46)
[2016-04-15 06:45] LABS: BASOPHILS % 0.3 % (0.0-2.0); EOSINOPHILS # 0.4 10^3/ul (0.0-0.5); EOSINOPHILS % 4.5 % (0.0-7.0); HEMATOCRIT 37.2 % (42.0-52.0); HEMOGLOBIN 12.7 g/dl (14.0-18.0); LYMPHOCYTES # 2.2 10^3/ul (0.8-2.9); MEAN CORPUSCULAR HEMOGLOBIN 29.9 pg (29.0-33.0); MEAN PLATELET VOLUME 6.9 fl (7.4-10.4); MONOCYTE # 0.8 10^3/ul (0.3-0.9); MONOCYTES % 9.3 % (0.0-11.0); NEUTROPHIL # 5.6 10^3/ul (1.6-7.5); NEUTROPHILS % 61.9 % (39.0-77.0); PLATELET COUNT 236 10^3/UL (140-440); RED BLOOD COUNT 4.23 10^6/ul (4.70-6.10); RED CELL DISTRIBUTION WIDTH 14.6 % (11.5-14.5)
[2016-04-15 06:47] LABS: CONDITION 1; LH ANALYZER COMMENTS 1
[2016-04-15 06:54] LABS: POTASSIUM 4.5 mmol/L (3.5-5.1)
[2016-04-15 06:57] LABS: CREATININE 1.13 mg/dl (0.61-1.24)
[2016-04-15 07:41] VITALS: BP 140/87; RESP 16
[2016-04-15] MEDS: LISINOPRIL 20 MG TAB PO SCH (08:29)
[2016-04-15] MEDS: HYDROCHLOROTHIAZIDE 25 MG TAB PO SCH (08:30)
[2016-04-15] MEDS: AMLODIPINE 10 MG TAB PO SCH (08:30)
[2016-04-15] MEDS: BETHANECHOL 25 MG TAB PO SCH ×3 (08:30→20:23)
[2016-04-15] MEDS: MAGNESIUM HYDROXIDE 30ML CUP PO SCH (08:31)
[2016-04-15] MEDS: MINERAL OIL 30ML CUP PO SCH ×3 (08:31→20:24)
[2016-04-15] MEDS ORDERED: morphine 2 MG INJ IV PRN (12:00)
--- NOTE | 2016-04-15 12:56 | PN ---
DATE: 04/15/2016 SUBJECTIVE: Does not have any specific complaints. He has had bowel movement. He is urinating well . The residual volume is about 300 mL, also requiring a straight catheterization on and off. OBJECTIVE: GENERAL: Awake, alert, oriented x3. VITAL SIGNS: Temperature 97.7, pulse 78, respirations 16, blood pressure 140/87, pulse ox 99% on ro om air. ABDOMEN: Soft. The wound is clean. EXTREMITIES: No calf tenderness. LABORATORY: Sodium, potassium normal, BUN and creatinine normal. WBC 9061, 29% segmented, platelet s normal. ASSESSMENT: A 55-year-old had operation a right recurrent inguinal hernia. Postop developed urinary retention. Dr. Panda has seen the patient in urology consultation. CT scan revealed presence o f a very large diverticulum of the bladder. The patient requires several times in and out catheteri zation to empty the bladder. After using this they do a scan still retains some urine. I discussed with Dr. Panda. He does not have any intentions for operating on this patient for the diverticul um of the bladder because of previous extensive operation for hernia and mesh and other reasons. Th erefore, he is suggesting that the patient be taught and to learn how to catheterize himself in the case when he goes home and it is needed to be done. 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 We are waiting f or the results of the biopsy. PLAN: 1. Continue current care. 2. Teach the patient how to catheterize himself. 3. Awaiting the result of the biopsy of the right lung tumor. Dictated By: CAPO RIVERA/ANGELI Conf#: [id number] DID#: [id number]
--- NOTE | 2016-04-15 17:41 | PN ---
Date/Time of Note Date/Time of Note DATE: 04/15/16 TIME: 17:37 Assessment/Plan VTE Prophylaxis VTE Prophylaxis Intervention: SCD's Lines/Catheters IV Catheter Type (from Nrs): Peripheral IV Urinary Cath still in place: No Assessment/Plan Chief Complaint/Hosp Course Assessment/Plan 1. Recurrent incarcerated large right inguinal hernia, status post repair. Continue morphine as needed for pain and Zofran as needed for nausea. 2. Hypertension. Continue Norvasc and lisinopril. 3. RLL mass, is is following in pulmonary consultation. Status post aspiration biopsy by radiology, follow-up on pathology results. 4. Urinary retention. Dr. Panda is following in urology consultation. Continue Flomax and Urecholine. Continue to monitor postvoid residual, straight cath as needed . Sequential compression device for deep venous thrombosis prophylaxis and Protonix for peptic ulcer disease prophylaxis. Further recommendations based on clinical course. Plan of care discussed with Dr. Galloway. Problems: Subjective 24 Hr Interval Summary Free Text/Dictation Patient denies any nausea vomiting, continues to have urinary retention. Exam/Review of Systems Vital Signs Vitals Vital Signs Date Time Temp Pulse Resp B/P Pulse Ox O2 Delivery O2 Flow Rate FiO2 04/15/16 07:41 97.7 78 16 140/87 99 04/14/16 10:55 Room Air 04/14/16 10:15 2 Intake and Output 04/14/16 04/14/16 04/15/16 15:00 23:00 07:00 Intake Total 825 ml 52 ml 1375 ml Output Total 850 ml 800 ml 2250 ml Balance -25 ml -748 ml -875 ml Exam GENERAL: The patient is conscious, awake, alert. HEENT: Conjunctivae and lids normal. Oropharynx clear. NECK: Supple. No mass, no thyromegaly. LUNGS: Clear to auscultation. CARDIOVASCULAR: S1, S2 normal. No murmur. ABDOMEN: Soft, nondistended. Right inguinal area has a large dressing. EXTREMITIES: No leg edema. Pedal pulses palpable. SKIN: Without acute rash. NEUROLOGIC: The patient is awake, alert. Results Result Diagram: 04/15/16 0531 04/15/16 0531 Results 24 hrs Laboratory Tests Test 04/15/16 05:31 Anion Gap 16 Basophils # 0.0 Basophils % 0.3 Blood Morphology Comment Blood Urea Nitrogen 15 Calcium Level 9.0 Carbon Dioxide Level 28 Chloride Level 102 Creatinine 1.13 Eosinophils # 0.4 Eosinophils % 4.5 Glucose Level 119 Hematocrit 37.2 L Hemoglobin 12.7 L Lymphocytes # 2.2 Lymphocytes % 24.0 Mean Corpuscular Hemoglobin 29.9 Mean Corpuscular Hemoglobin Concent 34.0 Mean Corpuscular Volume 88.0 Mean Platelet Volume 6.9 L Monocytes # 0.8 Monocytes % 9.3 Neutrophils # 5.6 Neutrophils % 61.9 Nucleated Red Blood Cells # 0.0 Nucleated Red Blood Cells % 0.0 Platelet Count 236 Potassium Level 4.5 Red Blood Count 4.23 L Red Cell Distribution Width 14.6 H Sodium Level 141 White Blood Count 9.0 Medications Medications Current Medications Ondansetron HCl (Zofran Inj) 4 mg Q6H PRN IV NAUSEA AND/OR VOMITING Last administered on 04/10/16 00:33; Admin Dose 4 MG; Start 04/09/16 at 14:00 Morphine Sulfate 2 mg 2 mg Q1H PRN IV PAIN Last administered on 04/13/16 13:45 ; Admin Dose 2 MG; Start 04/09/16 at 14:00 Potassium Chloride/Dextrose/ Sod Cl (D5-1/2ns + KCl 20 Meq) 1,000 ml @ 75 mls/ hr [id number] IV Last administered on 04/15/16 16:01; Admin Dose 75 MLS/HR; Start 04/09/16 at 13:59 Amlodipine Besylate (Norvasc) 10 mg DAILY PO Last administered on 04/15/16 08: 30; Admin Dose 10 MG; Start 04/10/16 at 09:00 Hydrochlorothiazide (Hydrochlorothiazide) 25 mg DAILY PO Last administered on 08:30; Admin Dose 25 MG; Start 04/10/16 at 09:00 Lisinopril (Zestril) 40 mg DAILY PO Last administered on 04/15/16 08:29; Admin Dose 40 MG; Start 04/10/16 at 09:00 Acetaminophen (Tylenol Tab) 650 mg Q6H PRN PO PAIN AND OR ELEVATED TEMP Last administered on 04/11/16 11:33; Admin Dose 650 MG; Start 04/11/16 at 11:30 Magnesium Hydroxide (Milk Of Mag) 30 ml DAILY PO Last administered on 04/12/16 08:43; Admin Dose 30 ML; Start 04/12/16 at 09:00 Tamsulosin HCl (Flomax) 0.4 mg HS PO Last administered on 04/14/16 20:04; Admin Dose 0.4 MG; Start 04/11/16 at 21:00 Mineral Oil (Mineral Oil) 30 ml TID PO Last administered on 04/13/16 06:19; Admin Dose 30 ML; Start 04/12/16 at 21:00 Pantoprazole (Protonix Tab) 40 mg DAILY@06 PO Last administered on 04/15/16 05: 46; Admin Dose 40 MG; Start 04/13/16 at 06:00 Bethanechol Chloride (Urecholine) 25 mg TID PO Last administered on 04/15/16 13 :50; Admin Dose 25 MG; Start 04/15/16 at 09:00 JAY WEEMS Apr 15, 2016 17:41
[2016-04-15 19:55] VITALS: BP 120/58; RESP 18
--- NOTE | 2016-04-15 20:09 | PN ---
DATE: SUBJECTIVE: Urinary retention, large bladder diverticulum, high postvoid residual. The patient als o is status post right inguinoscrotal hernia repair and CT-guided biopsy of a right lung mass. The pathology still pending. The patient is feeling uncomfortable, and as he stood up today and walked around, he did have some pain, and that is because of the weight of the scrotum. OBJECTIVE: VITAL SIGNS: He is afebrile. Temperature is 97.7, pulse is 78, respirations 16, blood pressure 140 /87. ABDOMEN: Soft. GENITOURINARY: The inguinal incision is clean. The scrotum is very floppy but is empty. LABORATORY DATA: His CBC shows a white count of 9.0, hemoglobin 12.7, hematocrit 37.2. BUN is 15, creatinine 1.13. Electrolytes are normal. The pathology from the biopsy is still pending. The pat alba is able to void but small amount compared to what he retains. Last time he did void was 320 mL , and the bladder scan showed that he has 420 mL of postvoid residual, and the straight cath yielded 800 mL. Therefore, I will have the nurses teach him how to do self-intermittent catheterization. The prostate is not by itself big enough to cause him the retention. In addition, he does have a ve ry large bladder diverticulum, and if one was to operate on him for the bladder diverticulum after h e had mesh on the inguinal area for the hernia, it was going to be a lot of problem because he did h ave a big incision and a lot of scar tissue, and as I discussed it with Dr. Cabrera, it will be a mes s because of the lot of scarring tissue that he has. Dictated By: JOSE G ROLDAN/ANGELI Conf#: [id number] DID#: [id number]
[2016-04-15] MEDS: TAMSULOSIN (SR) 0.4 MG CAP PO SCH (20:23)
[2016-04-16] MEDS: D5W-0.45 NACL + KCL 20 MEQ 1,000 ML IV SCH ×3 (03:19→16:58)
[2016-04-16] MEDS: PANTOPRAZOLE (EC) 40 MG TAB PO SCH (05:11)
[2016-04-16 06:27] LABS: POTASSIUM 4.1 mmol/L (3.5-5.1)
[2016-04-16 06:29] LABS: CREATININE 1.03 mg/dl (0.61-1.24)
[2016-04-16 06:30] LABS: CALCIUM 8.6 mg/dl (8.4-10.2)
[2016-04-16 07:22] LABS: BASOPHIL # 0.1 10^3/ul (0.0-0.1); BASOPHILS % 0.6 % (0.0-2.0); EOSINOPHILS # 0.4 10^3/ul (0.0-0.5); EOSINOPHILS % 4.9 % (0.0-7.0); HEMATOCRIT 36.9 % (42.0-52.0); HEMOGLOBIN 12.7 g/dl (14.0-18.0); LYMPHOCYTES # 2.3 10^3/ul (0.8-2.9); LYMPHOCYTES % 26.6 % (15.0-51.0); MEAN CORPUSCULAR HEMOGLOBIN 30.2 pg (29.0-33.0); MEAN CORPUSCULAR HGB CONC 34.4 g/dl (32.0-37.0); MEAN CORPUSCULAR VOLUME 87.7 fl (82.0-101.0); MEAN PLATELET VOLUME 6.9 fl (7.4-10.4); MONOCYTE # 0.7 10^3/ul (0.3-0.9); MONOCYTES % 8.6 % (0.0-11.0); NEUTROPHILS % 59.3 % (39.0-77.0); PLATELET COUNT 241 10^3/UL (140-440); RED BLOOD COUNT 4.21 10^6/ul (4.70-6.10); RED CELL DISTRIBUTION WIDTH 14.4 % (11.5-14.5); UNCORRECTED WBC 8.5 10^3/ul (4.8-10.8); WHITE BLOOD COUNT 8.5 10^3/ul (4.8-10.8)
[2016-04-16 08:01] LABS: CONDITION 1
[2016-04-16] MEDS: MAGNESIUM HYDROXIDE 30ML CUP PO SCH (08:05)
[2016-04-16] MEDS: MINERAL OIL 30ML CUP PO SCH ×2 (08:05→11:47)
[2016-04-16] MEDS: AMLODIPINE 10 MG TAB PO SCH (08:07)
[2016-04-16] MEDS: LISINOPRIL 20 MG TAB PO SCH (08:07)
[2016-04-16] MEDS: HYDROCHLOROTHIAZIDE 25 MG TAB PO SCH (08:07)
[2016-04-16] MEDS: BETHANECHOL 25 MG TAB PO SCH ×3 (08:07→20:37)
[2016-04-16 08:11] VITALS: BP 121/86; RESP 16
--- NOTE | 2016-04-16 08:15 | PN ---
Date/Time of Note Date/Time of Note DATE: 04/16/16 TIME: 08:13 Assessment/Plan VTE Prophylaxis VTE Prophylaxis Intervention: SCD's Lines/Catheters IV Catheter Type (from Nrs): Peripheral IV Urinary Cath still in place: No Assessment/Plan Assessment/Plan 1. Recurrent incarcerated large right inguinal hernia, status post repair. Continue morphine as needed for pain and Zofran as needed for nausea. 2. Hypertension. Continue Norvasc and lisinopril. 3. RLL mass, is is following in pulmonary consultation. Status post aspiration biopsy by radiology, follow-up on pathology results. 4. Urinary retention. Dr. Panda is following in urology consultation. Continue Flomax and Urecholine. Continue to monitor postvoid residual, straight cath as needed . Sequential compression device for deep venous thrombosis prophylaxis and Protonix for peptic ulcer disease prophylaxis. Further recommendations based on clinical course. Plan of care discussed with Dr. Galloway. Subjective 24 Hr Interval Summary ENT: no complaints Cardiovascular: no complaints Gastrointestinal: no complaints Genitourinary: no complaints Exam/Review of Systems Vital Signs Vitals Vital Signs Date Time Temp Pulse Resp B/P Pulse Ox O2 Delivery O2 Flow Rate FiO2 04/15/16 19:55 97.7 98 18 120/58 95 04/14/16 10:55 Room Air 04/14/16 10:15 2 Intake and Output 04/15/16 04/15/16 04/16/16 15:00 23:00 07:00 Intake Total 2232 ml 1100 ml Output Total 1550 ml 487 ml Balance 682 ml 613 ml Exam Constitutional: alert, well developed Psych: no complaints Head: atraumatic Eyes: EOMI, PERRL, nl sclera ENMT: nl external ears & nose Neck: non-tender Respiratory: clear to auscultation Cardiovascular: nl pulses Gastrointestinal: non-tender, soft Musculoskeletal: nl extremities to inspection Extremities: normal pulses Neurological: nl speech Skin: nl turgor Results Result Diagram: 04/16/16 0530 04/16/16 0530 Results 24 hrs Laboratory Tests Test 04/16/16 05:30 Anion Gap 15 Basophils # 0.1 Basophils % 0.6 Blood Morphology Comment Blood Urea Nitrogen 14 Calcium Level 8.6 Carbon Dioxide Level 26 Chloride Level 102 Creatinine 1.03 Eosinophils # 0.4 Eosinophils % 4.9 Glucose Level 118 Hematocrit 36.9 L Hemoglobin 12.7 L Lymphocytes # 2.3 Lymphocytes % 26.6 Mean Corpuscular Hemoglobin 30.2 Mean Corpuscular Hemoglobin Concent 34.4 Mean Corpuscular Volume 87.7 Mean Platelet Volume 6.9 L Monocytes # 0.7 Monocytes % 8.6 Neutrophils # 5.0 Neutrophils % 59.3 Nucleated Red Blood Cells # 0.0 Nucleated Red Blood Cells % 0.0 Platelet Count 241 Potassium Level 4.1 Red Blood Count 4.21 L Red Cell Distribution Width 14.4 Sodium Level 139 White Blood Count 8.5 Medications Medications Current Medications Ondansetron HCl (Zofran Inj) 4 mg Q6H PRN IV NAUSEA AND/OR VOMITING Last administered on 04/10/16 00:33; Admin Dose 4 MG; Start 04/09/16 at 14:00 Morphine Sulfate 2 mg 2 mg Q1H PRN IV PAIN Last administered on 04/13/16 13:45 ; Admin Dose 2 MG; Start 04/09/16 at 14:00 Potassium Chloride/Dextrose/ Sod Cl (D5-1/2ns + KCl 20 Meq) 1,000 ml @ 75 mls/ hr [id number] IV Last administered on 04/16/16 05:11; Admin Dose 75 MLS/HR; Start 04/09/16 at 13:59 Amlodipine Besylate (Norvasc) 10 mg DAILY PO Last administered on 04/16/16 08: 07; Admin Dose 10 MG; Start 04/10/16 at 09:00 Hydrochlorothiazide (Hydrochlorothiazide) 25 mg DAILY PO Last administered on 08:07; Admin Dose 25 MG; Start 04/10/16 at 09:00 Lisinopril (Zestril) 40 mg DAILY PO Last administered on 04/16/16 08:07; Admin Dose 40 MG; Start 04/10/16 at 09:00 Acetaminophen (Tylenol Tab) 650 mg Q6H PRN PO PAIN AND OR ELEVATED TEMP Last administered on 04/11/16 11:33; Admin Dose 650 MG; Start 04/11/16 at 11:30 Magnesium Hydroxide (Milk Of Mag) 30 ml DAILY PO Last administered on 04/12/16 08:43; Admin Dose 30 ML; Start 04/12/16 at 09:00 Tamsulosin HCl (Flomax) 0.4 mg HS PO Last administered on 04/15/16 20:23; Admin Dose 0.4 MG; Start 04/11/16 at 21:00 Mineral Oil (Mineral Oil) 30 ml TID PO Last administered on 04/13/16 06:19; Admin Dose 30 ML; Start 04/12/16 at 21:00 Pantoprazole (Protonix Tab) 40 mg DAILY@06 PO Last administered on 04/16/16 05: 11; Admin Dose 40 MG; Start 04/13/16 at 06:00 Bethanechol Chloride (Urecholine) 25 mg TID PO Last administered on 04/16/16 08 :07; Admin Dose 25 MG; Start 04/15/16 at 09:00 ASIA SMITH Apr 16, 2016 08:15 ASIA SMITH Apr 16, 2016 08:15
--- NOTE | 2016-04-16 12:21 | PN ---
DATE: 04/16/2016 SUBJECTIVE: No new complaints. They have continued to catheterize him after he urinates. Last emmett e the residual volume was 700 mL. OBJECTIVE VITAL SIGNS: Stable, temperature 97.8. pulse 87, respiratory rate 16, blood pressure 121/86, 98% on room air. ABDOMEN: Soft. There is swelling of the scrotum and right groin, slightly less than before. The w ound is clean and clear. EXTREMITIES: Legs no calf tenderness. LABORATORY DATA: WBC 8500, hemoglobin 12.7. Chemistry within normal limits Pathology of the tumor in the right lower lobe upper segment is not back yet. ASSESSMENT: A 55-year-old male status post repair of right recurrent inguinal hernia. Postop, adal ent developed urinary retention and was evaluated by Dr. Panda. CT scan revealed presence of a ve ry large thick-walled diverticulum of the bladder. The patient has continued to urinate, but has co ntinued to retain more residual volume. Dr. Panda's urology suggestion is to teach the patient se lf-catheterization, so that when he goes home he can use self-catheterization to drain the residual volume. The result of the pathology from the biopsy is not back yet. PLAN: Continue current care. As soon as we get the pathology report, we may proceed to discharging the patient or if there is malignancy, we will consult Dr. Peng. Dictated By: CAPO RIVERA/ANGELI Conf#: [id number] DID#: [id number]
--- NOTE | 2016-04-16 14:41 | PN ---
DATE: 04/16/2016 SUBJECTIVE: Urinary retention, high postvoid residual and large bladder diverticulum. HISTORY OF PRESENT ILLNESS: The patient is status post repair of a large right inguinal hernia and a CT-guided biopsy of right lower pleural lesion. The patient is feeling comfortable. He has voide d between 200 and 350 each time; however, his postvoid residual has been high as per the bladder sca n. OBJECTIVE VITAL SIGNS: His temperature is 97.8, pulse is 87, respirations 16, blood pressure 121/86. ABDOMEN: Soft. The incision from that the hernia appears to be clean. The scrotum is very large, but empty. LABORATORY DATA: His CBC shows a white count of 8.5, hemoglobin 12.7, hematocrit 36.9. BUN is 14, creatinine 1.03. Electrolytes are normal. The biopsy from the mass of the right lung was reported as no evidence of malignancy. The patient has voided about 320 and the PVR on the bladder scan was 420, yet when he was catheteriz ed 800 mL drained. The patient is being taught how to do self-catheterization. He does have a very large diverticulum and that is why he does not empty his bladder well. His prostate is not large e nough to cause him all these problems. If one was to operate for the diverticulum, the patient did have repair of a very large right inguin al hernia and has mesh there, so there would be a lot of adhesions and that was done through the mid line and that was a repeated repair, and according to the surgeon it is going to be very tough even to get into his abdomen because of the scarring formed on the mesh. PLAN: Therefore, my recommendation to him is to do self-intermittent catheterization, and the nurse s will teach him to do that while he is in the hospital and home health nurse will follow him up at home to continue doing the same. The foster care case manager has requested from the [facility] to arrange for him to have the home health nurse and the supplies needed to help him do the self-catheterization. Dictated By: JOSE G ROLDAN/ANGELI Conf#: [id number] DID#: [id number]
[2016-04-16 20:22] VITALS: BP 122/77; RESP 18
[2016-04-16] MEDS: TAMSULOSIN (SR) 0.4 MG CAP PO SCH (20:37)
[2016-04-17] MEDS: D5W-0.45 NACL + KCL 20 MEQ 1,000 ML IV SCH (05:55)
[2016-04-17] MEDS: PANTOPRAZOLE (EC) 40 MG TAB PO SCH (05:55)
[2016-04-17 06:18] LABS: ADD SCAN DIFF NO
[2016-04-17 06:45] LABS: CREATININE 1.09 mg/dl (0.61-1.24)
[2016-04-17 06:46] LABS: CALCIUM 8.7 mg/dl (8.4-10.2)
[2016-04-17 08:11] VITALS: BP 132/93; PULSE 97; RESP 14
[2016-04-17] MEDS: HYDROCHLOROTHIAZIDE 25 MG TAB PO SCH (08:13)
[2016-04-17] MEDS: LISINOPRIL 20 MG TAB PO SCH (08:13)
[2016-04-17] MEDS: BETHANECHOL 25 MG TAB PO SCH ×2 (08:13→12:21)
[2016-04-17] MEDS: AMLODIPINE 10 MG TAB PO SCH (08:13)
[2016-04-17 09:38] LABS: BASOPHIL # 0.1 10^3/ul (0.0-0.1); BASOPHILS % 0.6 % (0.0-2.0); EOSINOPHILS # 0.4 10^3/ul (0.0-0.5); EOSINOPHILS % 4.9 % (0.0-7.0); HEMATOCRIT 37.4 % (42.0-52.0); HEMOGLOBIN 12.4 g/dl (14.0-18.0); LYMPHOCYTES # 2.3 10^3/ul (0.8-2.9); LYMPHOCYTES % 27.6 % (15.0-51.0); MEAN CORPUSCULAR HEMOGLOBIN 29.7 pg (29.0-33.0); MEAN CORPUSCULAR HGB CONC 33.2 g/dl (32.0-37.0); MEAN CORPUSCULAR VOLUME 89.7 fl (82.0-101.0); MEAN PLATELET VOLUME 8.7 fl (7.4-10.4); MONOCYTE # 0.8 10^3/ul (0.3-0.9); NEUTROPHIL # 4.7 10^3/ul (1.6-7.5); NEUTROPHILS % 56.7 % (39.0-77.0); PLATELET COUNT 248 10^3/UL (140-415); RED BLOOD COUNT 4.17 10^6/ul (4.70-6.10); RED CELL DISTRIBUTION WIDTH 13.6 % (11.5-14.5); WHITE BLOOD COUNT 8.3 10^3/ul (4.8-10.8)
--- NOTE | 2016-04-17 10:21 | PN ---
Date/Time of Note Date/Time of Note DATE: 04/17/16 TIME: 10:20 Assessment/Plan VTE Prophylaxis VTE Prophylaxis Intervention: SCD's Lines/Catheters IV Catheter Type (from [facility]): Saline Lock Urinary Cath still in place: No Assessment/Plan Chief Complaint/Hosp Course Assessment/Plan 1. Recurrent incarcerated large right inguinal hernia, status post repair. Continue morphine as needed for pain and Zofran as needed for nausea. 2. Hypertension. Continue Norvasc and lisinopril. 3. RLL mass, is is following in pulmonary consultation. Status post aspiration biopsy by radiology, follow-up on pathology results. 4. Urinary retention. Dr. Panda is following in urology consultation. Continue Flomax and Urecholine. Continue to monitor postvoid residual, straight cath as needed . Biopsy results discussed with Dr. Bacon, pulmonology, patient need an outpatient PET scan and follow-up with thoracic surgery, patient can be discharged upon arrangement by Case management for outpatient PET scan and thoracic surgery follow-up. Sequential compression device for deep venous thrombosis prophylaxis and Protonix for peptic ulcer disease prophylaxis. Further recommendations based on clinical course. Plan of care discussed with Dr. Galloway. Problems: Subjective 24 Hr Interval Summary Free Text/Dictation No acute events overnight, patient denies shortness of breath denies nausea vomiting. Exam/Review of Systems Vital Signs Vitals Vital Signs Date Time Temp Pulse Resp B/P Pulse Ox O2 Delivery O2 Flow Rate FiO2 04/17/16 08:11 98.1 97 14 132/93 99 Room Air 04/14/16 10:15 2 Intake and Output 04/16/16 04/16/16 04/17/16 15:00 23:00 07:00 Intake Total 2095 ml 900 ml Output Total 3440 ml 870 ml Balance -1345 ml 30 ml Exam GENERAL: The patient is conscious, awake, alert. HEENT: Conjunctivae and lids normal. Oropharynx clear. NECK: Supple. No mass, no thyromegaly. LUNGS: Clear to auscultation. CARDIOVASCULAR: S1, S2 normal. No murmur. ABDOMEN: Soft, nondistended. Right inguinal area has a large dressing. EXTREMITIES: No leg edema. Pedal pulses palpable. SKIN: Without acute rash. NEUROLOGIC: The patient is awake, alert. Results Result Diagram: 04/16/16 0530 04/17/16 0530 Results 24 hrs Laboratory Tests Test 04/17/16 05:30 Anion Gap 16 Blood Urea Nitrogen 12 Calcium Level 8.7 Carbon Dioxide Level 27 Chloride Level 102 Creatinine 1.09 Glucose Level 116 Potassium Level 4.0 Sodium Level 141 Medications Medications Current Medications Ondansetron HCl (Zofran Inj) 4 mg Q6H PRN IV NAUSEA AND/OR VOMITING Last administered on 04/10/16 00:33; Admin Dose 4 MG; Start 04/09/16 at 14:00 Morphine Sulfate 2 mg 2 mg Q1H PRN IV PAIN Last administered on 04/13/16 13:45 ; Admin Dose 2 MG; Start 04/09/16 at 14:00 Potassium Chloride/Dextrose/ Sod Cl (D5-1/2ns + KCl 20 Meq) 1,000 ml @ 75 mls/ hr [id number] IV Last administered on 04/17/16 05:55; Admin Dose 75 MLS/HR; Start 04/09/16 at 13:59 Amlodipine Besylate (Norvasc) 10 mg DAILY PO Last administered on 04/17/16 08: 13; Admin Dose 10 MG; Start 04/10/16 at 09:00 Hydrochlorothiazide (Hydrochlorothiazide) 25 mg DAILY PO Last administered on 08:13; Admin Dose 25 MG; Start 04/10/16 at 09:00 Lisinopril (Zestril) 40 mg DAILY PO Last administered on 04/17/16 08:13; Admin Dose 40 MG; Start 04/10/16 at 09:00 Acetaminophen (Tylenol Tab) 650 mg Q6H PRN PO PAIN AND OR ELEVATED TEMP Last administered on 04/11/16 11:33; Admin Dose 650 MG; Start 04/11/16 at 11:30 Tamsulosin HCl (Flomax) 0.4 mg HS PO Last administered on 04/16/16 20:37; Admin Dose 0.4 MG; Start 04/11/16 at 21:00 Pantoprazole (Protonix Tab) 40 mg DAILY@06 PO Last administered on 04/17/16 05 :55; Admin Dose 40 MG; Start 04/13/16 at 06:00 Bethanechol Chloride (Urecholine) 25 mg TID PO Last administered on 04/17/16 08:13; Admin Dose 25 MG; Start 04/15/16 at 09:00 JAY WEEMS Apr 17, 2016 10:21
--- NOTE | 2016-04-17 11:54 | PN ---
DATE: SUBJECTIVE: 1. Status post repair of the right inguinal hernia, recurrent. 2. Status post urinary retention requiring Lyn catheter insertion and Remeron. Follow up with Dr Patrice Panda. The patient does not have any complaint. Has had bowel movement, passing gas, has been urinating by himself also, but the post-feeding residual volume has been high, sometimes 800 mL. ASSESSMENT: The patient is status post repair of the right inguinal hernia. The patient developed urinary retention and requires Lyn catheterization later on, this is by a urologist. CT scan reve aled presence of a very large thick wall in the bladder diverticulum. Later on the Lyn was remove d. The patient is urinating, was retaining some using as well as residual. The patient is supposed to be taught self-catheterization post voiding, and if the patient , the patient can be discha rged. It should be mentioned the pulmonary mass which was biopsied by radiology. The pathology rep ort did not show any evidence of cancers. PLAN: As soon as patient is comfortable with self-catheterization, the patient can be discharged ho vt. Dictated By: CAPO OSEGUERA MD PS/NTS Conf#: [id number] DID#: [id number]
[2016-04-17 19:55] VITALS: BP 123/72; RESP 20
--- NOTE | 2016-04-18 06:49 | PN ---
DATE: 04/17/2016 SUBJECTIVE: This patient has urinary retention and a very large bladder diverticulum. He does void between 200 to 300 mL, yet his postvoid residual has been over 500. Therefore, the patient is being taught how to do self-intermittent catheterization and arrangements are being made to do that for h im to continue the same at home. OBJECTIVE FINDINGS: VITAL SIGNS: Temperature today is 98.1, pulse is 97, respirations 14, blood pressure 132/93. ABDOMEN: Soft and there is no tenderness. LABORATORY DATA: CBC shows a white count of 8.3, hemoglobin 12.4, hematocrit 37.4. BUN is 12, crea tinine 1.09. Electrolytes are normal. The arrangements have been made for him to go home with the supplies to do self-catheterization and home health nurse, as per the geriatric case manager notes. As far as the patient's lung mass that was biopsied, it was benign. He will follow up with a specialist for that. Dictated By: JOSE G ROLDAN/ANGELI Conf#: [id number] DID#: [id number]
--- NOTE | 2016-04-20 03:20 | DS ---
DATE OF ADMISSION: 04/11/2016 DATE OF DISCHARGE: 04/17/2016 FINAL DIAGNOSES: 1. Recurrent incarcerated large right inguinal hernia, status post repair. 2. Hypertension. 3. Incidental finding of right lower lobe lung mass status post aspiration biopsy by radiology. 4. Urine retention. BRIEF HISTORY: The patient is a 55-year-old gentleman patient with history of large right inguinal hernia which he underwent hernia repair with bowel decompression in August [address] Sarah. The kari willis's postoperative course was complicated by respiratory failure secondary to bilateral atelectasi s. Unfortunately, the patient has recurrence of incarcerated right inguinal hernia, and the patient was brought to the hospital and underwent herniorrhaphy with mesh by Dr. Sarah. The patient experi enced some pain and was admitted for further evaluation and management. The patient experienced todd e urinary retention and has had catheter placed during surgery; however, on removal of it, the patie nt was unable to urinate and was evaluated by Dr. Panda in urology consultation. The patient was started on Flomax and urecholine. However, the patient still continues to have a large postvoid res idual, and the patient was thought to do the in and out catheterization. The patient also underwent CT scan of the abdomen and pelvis and was noted to have incidental finding of a large, 3.6 x 3.3, n oncalcified pleural based mass in the right lower lobe which was not present on prior study. The marisela arguelles was evaluated by Dr. Chew in pulmonology consultation, and the patient underwent aspiration needle biopsy. The biopsy came back with no evidence of malignancy, no acute interstitial pneumonit is, no granulomas identified. It was positive for parenchymal scar; however, per recommendation of pulmonology, the patient required PET scan and followup with thoracic surgery consultation which cou ld be done as an outpatient. The patient's condition is improved. The patient was able to tolerate a regular diet, and pain was well controlled. The patient is discharged after case management gera almanzar for outpatient PET scan with resonance imaging, and thoracic surgery followup with Dr. Nunez was arranged. The patient also was discharged with home health for help with patient's urinary rete ntion problem with help with in and out catheterization. The patient was discharged home. CONDITION ON DISCHARGE: Hemodynamically stable. ACTIVITY: As patient tolerates. No heavy lifting for 8 weeks. DISCHARGE MEDICATIONS: The patient is given prescription for [place] for pain. The patient was norma nued on amlodipine, hydrochlorothiazide, and lisinopril. The patient was discharged by Dr. Martínez , and discharge instructions were given to the patient by Dr. Martínez. Interdisciplinary plan of c are was also established for this patient. Dictated By: JAY WEEMS VETERINARIAN HELPER for TABATHA MARTÍNEZ MD SR/NTS Conf#: [id number] DID#: [id number]
== END 2016-04-17 19:58 | disposition home or self-care (01) | DRG 988 ==
LOC: SDS 09:12 → MS2 14:00 → SDS 14:00 → MS2 16:00 → OBSVTOIN 04-11 14:52
PROVIDERS: ADMIT Surgery Surgical Oncology; ATTEND Surgery Surgical Oncology
PROC: 0YU50JZ Supplement Right Inguinal Region with Synthetic Substitute, Open Approach (ICD-10-PCS; principal; 2016-04-09 12:00)
PROC: 0BBF3ZX Excision of Right Lower Lung Lobe, Percutaneous Approach, Diagnostic (ICD-10-PCS; 2016-04-14)
DX: N99.89 Other postprocedural complications and disorders of genitourinary system (principal); K40.31 Unilateral inguinal hernia, with obstruction, without gangrene, recurrent; I10 Essential (primary) hypertension; J95.811 Postprocedural pneumothorax; N32.3 Diverticulum of bladder; R91.8 Other nonspecific abnormal finding of lung field; R33.8 Other retention of urine; Y83.2 Surgical operation with anastomosis, bypass or graft as the cause of abnormal reaction of the patient, or of later complication, without mention of misadventure at the time of the procedure; Y92.238 Other place in hospital as the place of occurrence of the external cause; G89.18 Other acute postprocedural pain
CPT/HCPCS: 71010; 71270; 74176; 77012; 80048; 85025; 85610; 85730; 87070; 87075; 87102; 87116; 88104; 88307; 88313; 90686; 93005; A4310; C1781; C9113; G0378; J0690; J1100; J1170; J1885; J2250; J2270; J2405; J3010; J3480; Q9967

== ENCOUNTER 2016-09-13 07:20 | Inpatient (IN) | payer OTHER ==
[~2016-09-13] VITALS: Ht 170.2 cm; Wt 90.2 kg
[~2016-09-13 07:20] MED LIST changes: -BUPIVACAINE 0.5%/EPI (SDV) 30 ML INJ INJ ONE; -CEFAZOLIN 1 GM INJ ONE; -DEXAMETHASONE 4 MG/ML 1 ML INJ ONE; +HYDR-906 PO; -ONDANSETRON 4 MG INJ ONE
[2016-09-13] MEDS ORDERED: SOD CHLORIDE 0.9% 1,000 ML IV STA (08:24)
[2016-09-13] MEDS ORDERED: ONDANSETRON 4 MG INJ IV STA (08:24)
[2016-09-13] MEDS ORDERED: morphine 4 MG/ML VIAL IV STA (08:46)
--- NOTE | 2016-09-13 08:50 | ERA ---
ER Documentation Chief Complaint Date/Time DATE: 09/13/16 TIME: 08:48 Chief Complaint hematuria, self cath x 4 daily HPI Patient is a 55-year-old male who presents with gradual onset, constant gross hematuria since yesterday evening associated with moderate, dull suprapubic and right lower abdominal pain. Patient also complains of shortness of breath, diaphoresis. He denies fever. He reports one episode of vomiting. Patient has a complicated surgical history including repair of a large right inguinal hernia that contained a number of intra-abdominal organs. He states that since his surgery he has not been able to completely empty his bladder and has had to self cath. Over the last month and a half, his hernia has recurred and grown bigger. ROS All systems reviewed and are negative except as per history of present illness. Medications Home Meds Reported Medications Acetaminophen with Codeine (Acetaminophen-Cod #3 Tablet) 1 Each Tablet, 1 TAB PO QHS, #20 TAB 09/13/16 Tramadol Hcl* (Ultram*) 50 Mg Tablet, 50 MG PO NEEDED Y for PAIN, TAB 09/13/16 Aspirin* (Aspirin* EC) 81 Mg Tablet.dr, 81 MG PO DAILY, TAB 09/13/16 Pantoprazole* (Protonix*) 40 Mg Tablet.dr, 40 MG PO QAM, TAB 09/13/16 Atenolol* (Atenolol*) 25 Mg Tablet, 25 MG PO BID, #60 TAB 09/13/16 Hydrochlorothiazide* (Hydrochlorothiazide*) 25 Mg Tab, 25 MG PO DAILY, #30 TAB 09/05/15 Discontinued Reported Medications Lisinopril* (Lisinopril*) 40 Mg Tablet, 40 MG PO DAILY, #30 TAB 09/05/15 Discontinued Scripts Hydrocodone/Acetaminophen ([place] 5-325 Tablet) 1 Each Tablet, 1 EACH PO Q6 for PAIN, #30 TAB Prov:MELANIE REDDY 04/11/16 Amlodipine Besylate* (Amlodipine Besylate*) 10 Mg Tablet, 10 MG PO DAILY for 30 Days, TAB Prov:JAY WEEMS 09/25/15 Allergies Allergies: Coded Allergies: No Known Drug Allergies (Verified Allergy, Unknown, 09/13/16) PMhx/Soc Past medical history: Hypertension, arthritis, right inguinal hernia, kidney stones Past surgical history: Repair of right inguinal hernia including unknown bladder surgery Social history: Denies tobacco or alcohol History of Surgery: No Anesthesia Reaction: No Hx Neurological Disorder: No Hx Respiratory Disorders: Yes (INTUBATED 08/2015) Hx Cardiac Disorders: Yes (HTN) Hx Psychiatric Problems: No Hx Miscellaneous Medical Probl: No Hx Alcohol Use: Yes (OCCASSIONAL) Hx Substance Use: No Hx Tobacco Use: No Smoking Status: Never smoker FmHx Family History: No coronary disease, No diabetes Physical Exam Vitals Vital Signs Date Time Temp Pulse Resp B/P Pulse Ox O2 Delivery O2 Flow Rate FiO2 09/13/16 11:26 60 14 115/70 100 Room Air 09/13/16 09:59 59 12 142/91 100 Room Air 09/13/16 09:14 97.4 66 20 148/93 100 Room Air 09/13/16 08:39 152/112 09/13/16 07:23 98.1 95 18 171/106 99 Physical Exam Const: Alert, appears in moderate pain, diaphoretic Head: Atraumatic Eyes: Conjunctival pallor, no icterus ENT: Normal External Ears, Nose and Mouth. Mucous membranes moist Neck: Full range of motion..~ No meningismus. No JVD Resp: Clear to auscultation bilaterally, no wheezes, no rales Cardio: Regular rate and rhythm, no murmurs Abd: Soft, nondistended. Multiple lower abdominal scars. Right inguinal hernia is soft. Tenderness to the suprapubic area, right lower quadrant, and right hernia. : Blood at urethral meatus Skin: No petechiae or rashes Back: No midline or flank tenderness Ext: No cyanosis, or edema Neur: Awake and alert, cranial nerves II through XII intact bilaterally, strength incision full in 4 extremities. Psych: Normal Mood and Affect Result Diagram: 09/13/16 0900 09/13/16 0900 Results 24 hrs Laboratory Tests Test 09/13/16 09:00 White Blood Count 15.710^3/ul Red Blood Count 4.1510^6/ul Hemoglobin 12.6g/dl Hematocrit 37.9% Mean Corpuscular Volume 91.3fl Mean Corpuscular Hemoglobin 30.4pg Mean Corpuscular Hemoglobin Concent 33.2g/dl Red Cell Distribution Width 14.5% Platelet Count 51100^3/UL Mean Platelet Volume 9.3fl Neutrophils % 84.4% Lymphocytes % 9.0% Monocytes % 5.2% Eosinophils % 0.6% Basophils % 0.4% Nucleated Red Blood Cells % 0.0/100WBC Neutrophils # 13.310^3/ul Lymphocytes # 1.410^3/ul Monocytes # 0.810^3/ul Eosinophils # 0.110^3/ul Basophils # 0.110^3/ul Nucleated Red Blood Cells # 0.010^3/ul Prothrombin Time 13.5Sec Prothrombin Time Ratio 1.1 INR International Normalized Ratio 1.03 Urine Color DK. RED Urine Clarity BLOODY Urine pH 7.0 Urine Specific [place] 1.020 Urine Ketones NEGATIVE Urine Nitrite POSITIVE Urine Bilirubin NEGATIVE Urine Urobilinogen >8.0 E.U./dL Urine Leukocyte Esterase 2+ Urine Microscopic RBC >200/HPF Urine Microscopic WBC 25-50/HPF Urine Squamous Epithelial Cells RARE/HPF Urine Bacteria FEW/HPF Urine Hemoglobin 3+ Urine Glucose 0.1%% Urine Total Protein 4+ Sodium Level 139mmol/L Potassium Level 3.9mmol/L Chloride Level 102mmol/L Carbon Dioxide Level 21mmol/L Anion Gap 20 Blood Urea Nitrogen 28mg/dl Creatinine 1.35mg/dl Glucose Level 201mg/dl Calcium Level 9.3mg/dl Total Bilirubin 0.3mg/dl Direct Bilirubin 0.00mg/dl Indirect Bilirubin 0.3mg/dl Aspartate Amino Transf (AST/SGOT) 17IU/L Alanine Aminotransferase (ALT/SGPT) 27IU/L Alkaline Phosphatase 72IU/L Total Protein 7.6g/dl Albumin 4.9g/dl Globulin 2.70g/dl Albumin/Globulin Ratio 1.81 Current Medications Medications (Trade) Dose Ordered Sig/Tari Route PRN Reason Start Time Stop Time Status Last Admin Dose Admin Sodium Chloride (NS) 1,000 ml @ 1,000 mls/hr Q1H STAT IV 09/13/16 08:24 09/13/16 09:23 DC 09/13/16 09:22 Ondansetron HCl (Zofran Inj) 4 mg ONCE STAT IV 09/13/16 08:24 09/13/16 08:26 DC 09/13/16 09:22 Morphine Sulfate 4 mg 4 mg ONCE STAT IV 09/13/16 08:46 09/13/16 08:48 DC 09/13/16 09:22 Sodium Chloride 1,000 ml @ 1,000 mls/hr Q1H ONCE IV 09/13/16 09:00 09/13/16 09:59 DC Ceftriaxone Sodium (Rocephin) 50 ml @ 100 mls/hr ONCE ONCE IVPB 09/13/16 10:30 09/13/16 10:59 DC 09/13/16 11:26 IV Flush 10 ml 10 ml STK-MED ONCE .ROUTE 09/13/16 10:19 09/13/16 10:20 DC 09/13/16 10:33 Sodium Chloride (NS) 100 ml @ ud STK-MED ONCE .ROUTE 09/13/16 10:19 09/13/16 10:20 DC 09/13/16 10:33 Iodixanol (Visipaque Locm) 100 ml STK-MED ONCE .ROUTE 09/13/16 10:19 09/13/16 10:20 DC 09/13/16 10:33 Ondansetron HCl (Zofran Inj) 4 mg BRIDGE ORDER PRN IV NAUSEA AND/OR VOMITING 09/13/16 13:00 09/14/16 12:59 Acetaminophen (Tylenol Tab) 650 mg ER BRIDGE PRN PO MILD PAIN/FEVER 09/13/16 13:00 09/14/16 12:59 Procedures/MDM EKG read by me: Time 0837, rate 77 Rhythm: Normal sinus [place]: Normal Intervals: Nonspecific intraventricular conduction delay ST-T waves: no ischemic changes Ectopy: No Q-waves: Inferior Q waves, poor R-wave progression Impression: No evidence of ischemia or arrhythmia MDM: Patient is a 55-year-old male with history of right inguinal hernia and bladder diverticulum who performs straight catheterization 4 times a day. Since yesterday, he is noted blood in his urine. He has also had lower abdominal pain. The patient is found to have a urinary tract infection and leukocytosis. A CT scan did not demonstrate any surgical pathology. Lyn catheter was placed, and is draining grossly bloody urine. The patient's hemoglobin is 12.6. The patient is not on any blood thinners, but takes 81 mg aspirin. Urine culture was sent, and the patient was given ceftriaxone. There are no signs of sepsis. I discussed the case with Dr. Panda, the patient's urologist, and he requested admission until the urine has cleared. Will consult on the patient. The patient will be admitted by Dr. Mcallister. Departure Diagnosis: Primary Impression: Hematuria Additional Impression: Urinary tract infection Qualified Code: N39.0 - Urinary tract infection with hematuria, site unspecified Condition: Stable NERI CHATMAN MD Sep 13, 2016 08:50
[2016-09-13] MEDS: SOD CHLORIDE 0.9% 1,000 ML IV ONE ×2 (09:22→13:06)
[2016-09-13 09:29] LABS: ADD SCAN DIFF NO
[2016-09-13 09:31] LABS: BASOPHIL # 0.1 10^3/ul (0.0-0.1); BASOPHILS % 0.4 % (0.0-2.0); EOSINOPHILS # 0.1 10^3/ul (0.0-0.5); EOSINOPHILS % 0.6 % (0.0-7.0); HEMATOCRIT 37.9 % (42.0-52.0); HEMOGLOBIN 12.6 g/dl (14.0-18.0); LYMPHOCYTES # 1.4 10^3/ul (0.8-2.9); MEAN CORPUSCULAR HEMOGLOBIN 30.4 pg (29.0-33.0); MEAN CORPUSCULAR HGB CONC 33.2 g/dl (32.0-37.0); MEAN CORPUSCULAR VOLUME 91.3 fl (82.0-101.0); MEAN PLATELET VOLUME 9.3 fl (7.4-10.4); MONOCYTE # 0.8 10^3/ul (0.3-0.9); MONOCYTES % 5.2 % (0.0-11.0); NEUTROPHIL # 13.3 10^3/ul (1.6-7.5); NEUTROPHILS % 84.4 % (39.0-77.0); PLATELET COUNT 192 10^3/UL (140-415); RED BLOOD COUNT 4.15 10^6/ul (4.70-6.10); RED CELL DISTRIBUTION WIDTH 14.5 % (11.5-14.5); WHITE BLOOD COUNT 15.7 10^3/ul (4.8-10.8)
[2016-09-13 09:46] LABS: INR 1.03; PROTIME 13.5 Sec (12.2-14.2); PT RATIO 1.1
[2016-09-13 09:48] LABS: ALBUMIN 4.9 g/dl (3.3-4.9); ALBUMIN/GLOBULIN RATIO 1.81; BILIRUBIN,INDIRECT 0.3 mg/dl (0-1.1); BILIRUBIN,TOTAL 0.3 mg/dl (0.2-1.3); CALCIUM 9.3 mg/dl (8.4-10.2); CREATININE 1.35 mg/dl (0.61-1.24); POTASSIUM 3.9 mmol/L (3.5-5.1); TOTAL PROTEIN 7.6 g/dl (6.1-8.1)
[2016-09-13 10:01] LABS: ADD UMIC YES; UR BILIRUBIN (Dip) NEGATIVE (NEGATIVE); UR BLOOD (Dip) 3+ (NEGATIVE); UR COLOR DK. RED (YELLOW); UR KETONES (Dip) NEGATIVE (NEGATIVE); UR LEUKOCYTE ESTERASE (Dip) 2+ (NEGATIVE); UR NITRITE (Dip) POSITIVE (NEGATIVE); UR TOTAL PROTEIN (Dip) 4+ (NEGATIVE); UR UROBILINOGEN (Dip) >8.0 E.U./dL (0.1-1.0)
[2016-09-13 10:02] LABS: UR CLARITY BLOODY (CLEAR)
[2016-09-13 10:04] LABS: UR SQUAMOUS EPITHELIAL CELL RARE /HPF (FEW); URINE RBCS >200 /HPF (0)
[2016-09-13 10:05] LABS: UR BACTERIA FEW /HPF (NONE SEEN)
[2016-09-13] MEDS ORDERED: IODIXANOL LOCM 100 ML BTL ONE (10:19)
[2016-09-13] MEDS ORDERED: SOD CHLORIDE 0.9% 100 ML ONE (10:19)
[2016-09-13] MEDS ORDERED: CEFTRIAXONE 2 GM/50 ML (PMX) 50 ML IVPB ONE (10:30)
--- NOTE | 2016-09-13 11:00 | RADRPT ---
PROCEDURE: CT Abdomen and Pelvis with contrast. CLINICAL INDICATION: Abdominal pain. Hematuria. TECHNIQUE: CT scan of the abdomen and pelvis with and without contrast was performed on a multidet milagro high-resolution CT scanner. The patient was scanned following the uncomplicated intravenous a dministration of 100 cc of Omnipaque 300. Coronal and sagittal reformatted images were obtained fro m the axial source images. Images were reviewed on a high-resolution PACS workstation. The followin g dose reduction techniques were used: Automated exposure control, adjustment of the mA and/or kV ac cording to patient size and use of iterative reconstruction technique. The total exam CTDI equals 19 .1 mGy and the total exam DLP equals 997 mGy-cm. COMPARISON: CT dated 04/11/2016, 09/20/2015 FINDINGS: CT abdomen: 3 cm pleural-based nodule in right lung base is unchanged from previous exams dating back to September 24. The heart size is normal. No pericardial effusion identified. The liver demonstrates normal size and density. No liver mass identified. The gallbladder is decompressed, but grossly unremarkable. There is no intrahepatic or extrahepatic biliary dilatation. The spleen is normal in size. No focal splenic abnormality identified. No gross abnormality of the stomach is identified. The pancreas is unremarkable. The adrenal glands appear normal. The kidneys are unremarkable. There is no evidence of renal mass, renal calculi or hydronephrosis. The aorta is of normal caliber. No adenopathy identified. HILARIA suture in right upper quadrant is consistent with small bowel anastomoses, unchanged from previo us exams. The bowel and mesentery are unremarkable. CT pelvis: The urinary bladder is filled with high-density material, likely hematoma in the provided history of hematuria. Large left anterior urinary bladder diverticulum is unchanged from previous exam. Lyn catheter terminates within the bladder diverticulum, unchanged. There is urinary bladder thickening, suggesting cystitis. Right inguinal hernia measures 11 x 10 x 7 cm and is increased from 7.6 cm on previous exam. Right inguinal hernia contains nonobstructed small bowel, nonobstructed cecum, normal-appearing appe ndix, vascular structures and mesenteric fat. Low anterior abdominal wall herniorrhaphy mesh is unchanged from previous exam. The pelvic sidewalls and inguinal regions are clear. The sigmoid colon and rectum are remarkable for sigmoid diverticulosis. No adenopathy, free fluid or inflammatory change identified. The osseous structures are remarkable for degenerative spondylosis of the spine. No osteolytic or osteoblastic lesion is detected. IMPRESSION: 1. The urinary bladder is filled with high-density material, likely hematoma, given the provided hi story of hematuria. Underlying mass cannot be excluded. Cystoscopy is suggested for further evalua tion. 2. Large left anterior urinary bladder diverticulum, unchanged. 3. Thickening of the urinary bladder wall suggesting cystitis. 4. Satisfactory position of Lyn catheter. 5. 3 cm mass in the right lung base, likely round atelectasis, unchanged from previous exam. 6. Large right inguinal hernia containing nonobstructed cecum and small bowel increased to 11.4 cm, compared to 7.6 cm on previous exam. 7. Moderate diverticulosis of the descending and sigmoid colon, without inflammatory change to sugg est diverticulitis. RPTAT: QQ .Tung Frazier MD, MD Date Time Electronically viewed and signed by .Tung Frazier MD, MD on 09/13/2016 11:00 .M/
[2016-09-13] MEDS ORDERED: ATEN-51 PO (11:41)
[2016-09-13] MEDS ORDERED: ASPI-664 PO (11:41)
[2016-09-13] MEDS ORDERED: PANT40TA3 PO (11:41)
[2016-09-13] MEDS ORDERED: TRAM-40 PO (11:42)
[2016-09-13] MEDS ORDERED: ACET1TAB40 PO (11:43)
[2016-09-13] MEDS ORDERED: ACETAMINOPHEN 325 MG TAB PO PRN (13:00)
[2016-09-13] MEDS ORDERED: ONDANSETRON 4 MG INJ IV PRN ×2 (13:00→18:00)
[2016-09-13 13:57] VITALS: TEMP 97.4
[2016-09-13 14:20] VITALS: Ht 170.2 cm; Wt 90.2 kg
[2016-09-13 14:30] VITALS: BP 125/68; PULSE 78; RESP 18
[2016-09-13 15:07] VITALS: BP 127/76; RESP 18
[2016-09-13] MEDS ORDERED: morphine 10 MG INJ IM PRN (18:00)
--- NOTE | 2016-09-13 18:47 | CONS ---
Date/Time of Note Date/Time of Note DATE: 09/13/16 TIME: 18:27 Assessment/Plan Assessment/Plan Chief Complaint/Hosp Course Gross hematuria and urinary retention, patient also has a large bladder diverticulum, rule out urinary tract infection. Plan keep the three-way Lyn catheter in place ,start continuous bladder irrigation with normal saline and continue him on the antibiotics Consider cystoscopy to evaluate the degree of obstruction and also have more information about the bladder diverticulum that he has Problems: Consultation Date/Type/Reason Admit Date/Time Sep 13, 2016 at 12:59 Date of Consultation: Sep 13, 2016 Type of Consultation: urology Reason for Consultation Gross hematuria Hx of Present Illness This is a 55-year-old male who presented to the emergency room with gross hematuria for the past 24 hours. He is known to have a history of large inguino -scrotal hernia which was repaired in August 2015 and again in April 2016.Again it reoccurred and in fact it has increased in size than it was before. He also has a history of large bladder diverticulum and urinary retention. He has been doing self intermittent catheterization to empty his bladder. Yesterday morning he woke up and did the catheterization and the urine was clear. However at noon his urine turned bloody and today he came in to the emergency room, he was having grossly bloody urine with blood clots .He was seen in the emergency room and a CAT scan was done and that showed the bladder to have blood clots in it and have urinary retention even with him having an indwelling Lyn catheter . Therefore the patient was admitted for further care Subjective hx not possible: other (Patient complaining of abdominal and suprapubic pain. Also pain from his right inguino- scrotal hernia) Constitutional: no complaints Eyes: no complaints ENT: no complaints Respiratory: no complaints, No shortness of breath Cardiovascular: no complaints, No chest pain Gastrointestinal: pain, No nausea, No vomiting Musculoskeletal: no complaints Skin: no complaints Neurologic: no complaints Endocrine: no complaints Lymphatic: no complaints Psychological: no complaints Past Medical History Medical History: hypertension, other (Urinary retention) Past Surgical History Past Surgical Hx: other (Right large inguinal hernia repair 2. The hernia has reoccurred and is larger now than it was before) Family History Significant Family History: no pertinent family hx Social History Alcohol Use: none Smoking Status: Former smoker Exam/Review of Systems Vital Signs Vitals Vital Signs Date Time Temp Pulse Resp B/P Pulse Ox O2 Delivery O2 Flow Rate FiO2 09/13/16 15:07 97.4 72 18 127/76 100 09/13/16 13:57 Room Air Exam Constitutional: alert, oriented, well developed Psych: no complaints Head: normocephalic Eyes: nl conjunctiva ENMT: nl external ears & nose Neck: supple Respiratory: normal air movement, No wheezing Cardiovascular: regular rate and rhythm Gastrointestinal: other (Large inguinal hernia going into the scrotum), soft, surgical scars Musculoskeletal: nl extremities to inspection Extremities: No edema, No tenderness Neurological: nl mental status, nl speech Skin: nl turgor Results Result Diagram: 09/13/16 0900 09/13/16 0900 Results 24 hrs Laboratory Tests Test 09/13/16 09:00 White Blood Count 15.7 #H Red Blood Count 4.15 L Hemoglobin 12.6 L Hematocrit 37.9 L Mean Corpuscular Volume 91.3 Mean Corpuscular Hemoglobin 30.4 Mean Corpuscular Hemoglobin Concent 33.2 Red Cell Distribution Width 14.5 Platelet Count 192 # Mean Platelet Volume 9.3 Neutrophils % 84.4 H Lymphocytes % 9.0 L Monocytes % 5.2 Eosinophils % 0.6 Basophils % 0.4 Nucleated Red Blood Cells % 0.0 Neutrophils # 13.3 H Lymphocytes # 1.4 Monocytes # 0.8 Eosinophils # 0.1 Basophils # 0.1 Nucleated Red Blood Cells # 0.0 Prothrombin Time 13.5 Prothrombin Time Ratio 1.1 INR International Normalized Ratio 1.03 Urine Color DK. RED Urine Clarity BLOODY Urine pH 7.0 Urine Specific [place] 1.020 Urine Ketones NEGATIVE Urine Nitrite POSITIVE H Urine Bilirubin NEGATIVE Urine Urobilinogen >8.0 E.U./dL H Urine Leukocyte Esterase 2+ H Urine Microscopic RBC >200 Urine Microscopic WBC 25-50 Urine Squamous Epithelial Cells RARE Urine Bacteria FEW A Urine Hemoglobin 3+ H Urine Glucose 0.1% H Urine Total Protein 4+ H Sodium Level 139 Potassium Level 3.9 Chloride Level 102 Carbon Dioxide Level 21 Anion Gap 20 H Blood Urea Nitrogen 28 H Creatinine 1.35 H Glucose Level 201 Calcium Level 9.3 Total Bilirubin 0.3 Direct Bilirubin 0.00 Indirect Bilirubin 0.3 Aspartate Amino Transf (AST/SGOT) 17 Alanine Aminotransferase (ALT/SGPT) 27 Alkaline Phosphatase 72 Total Protein 7.6 Albumin 4.9 Globulin 2.70 Albumin/Globulin Ratio 1.81 CT scan of abdomen and pelvis: 1. The urinary bladder is filled with high-density material, likely hematoma, given the provided history of hematuria. Underlying mass cannot be excluded. Cystoscopy is suggested for further evaluation. 2. Large left anterior urinary bladder diverticulum, unchanged. 3. Thickening of the urinary bladder wall suggesting cystitis. 4. Satisfactory position of Lyn catheter. 5. 3 cm mass in the right lung base, likely round atelectasis, unchanged from previous exam. 6. Large right inguinal hernia containing nonobstructed cecum and small bowel increased to 11.4 cm, compared to 7.6 cm on previous exam. 7. Moderate diverticulosis of the descending and sigmoid colon, without inflammatory change to suggest diverticulitis. Medications Medications Current Medications Ceftriaxone Sodium (Rocephin) 50 ml @ 100 mls/hr Q24H IVPB ; Start 09/14/16 at 11:30 Ondansetron HCl (Zofran Inj) 4 mg Q6H PRN IV NAUSEA AND/OR VOMITING; Start 09/13 at 18:00 Morphine Sulfate (morphine) 2 mg Q4H PRN IV PAIN; Start 09/13/16 at 18:30 Procedures Procedures The Lyn catheter that he had was removed. The genital area was prepped and draped in the usual sterile manner. 2% lidocaine gel was injected into the urethra and waited for 5 minutes for it to work as local anesthetic. The #24 [place]ian three-way Lyn catheter was inserted .the balloon inflated was 10 mL of sterile water. The bladder was irrigated blood clots were removed and then continuous bladder irrigation was started with normal saline JOSE G CUMMINGS MD Sep 13, 2016 18:38
[2016-09-13] MEDS: morphine 2 MG INJ IV PRN (18:57)
[2016-09-13 19:52] VITALS: BP 131/79; RESP 16
[2016-09-13] MEDS: ATENOLOL 25 MG TAB PO SCH (20:39)
[2016-09-13 21:40] VITALS: BP 129/78; PULSE 79
[2016-09-14 02:00] VITALS: BP 123/87; PULSE 69; RESP 16
[2016-09-14 05:05] LABS: ADD SCAN DIFF NO
[2016-09-14 05:12] LABS: BASOPHIL # 0.1 10^3/ul (0.0-0.1); BASOPHILS % 0.5 % (0.0-2.0); EOSINOPHILS # 0.2 10^3/ul (0.0-0.5); EOSINOPHILS % 1.7 % (0.0-7.0); HEMATOCRIT 31.5 % (42.0-52.0); HEMOGLOBIN 10.3 g/dl (14.0-18.0); LYMPHOCYTES # 2.5 10^3/ul (0.8-2.9); LYMPHOCYTES % 20.3 % (15.0-51.0); MEAN CORPUSCULAR HGB CONC 32.7 g/dl (32.0-37.0); MEAN CORPUSCULAR VOLUME 91.8 fl (82.0-101.0); MEAN PLATELET VOLUME 9.3 fl (7.4-10.4); MONOCYTES % 8.6 % (0.0-11.0); NEUTROPHIL # 8.3 10^3/ul (1.6-7.5); NEUTROPHILS % 68.4 % (39.0-77.0); PLATELET COUNT 171 10^3/UL (140-415); RED BLOOD COUNT 3.43 10^6/ul (4.70-6.10); RED CELL DISTRIBUTION WIDTH 14.9 % (11.5-14.5); WHITE BLOOD COUNT 12.1 10^3/ul (4.8-10.8)
[2016-09-14 05:31] LABS: CALCIUM 8.6 mg/dl (8.4-10.2); CREATININE 1.02 mg/dl (0.61-1.24); POTASSIUM 3.5 mmol/L (3.5-5.1)
[2016-09-14] MEDS: PANTOPRAZOLE (EC) 40 MG TAB PO SCH (05:35)
[2016-09-14] MEDS: morphine 2 MG INJ IV PRN ×2 (07:18→11:57)
[2016-09-14 08:35] VITALS: BP 128/74; RESP 16
[2016-09-14] MEDS: HYDROCHLOROTHIAZIDE 25 MG TAB PO SCH (08:38)
[2016-09-14] MEDS: ATENOLOL 25 MG TAB PO SCH ×2 (08:38→20:23)
[2016-09-14] MEDS: ASPIRIN 81 MG TAB PO SCH (09:00)
--- NOTE | 2016-09-14 11:12 | HP ---
Date/Time of Note Date/Time of Note DATE: 09/14/16 TIME: 10:56 Assessment/Plan VTE Prophylaxis VTE Prophylaxis Intervention: SCD's Lines/Catheters [facility] (from [facility] Saline Lock Urinary Cath still in place: Yes Reason Cath still needed: urinary retention Assessment/Plan Assessment/Plan -Acute cystitis. Continue ceftriaxone follow-up on urine culture. Dr. Panda is following in urology consultation. Continue bladder irrigation. -Hematuria secondary to acute cystitis, continue to monitor H&H. -Urinary retention -Bladder diverticulum -Hypertension -Recurrent right inguinal hernia, Dr. Sarah to evaluate patient in surgical consultation Further recommendations based on clinical course. Plan of care discussed with Dr. Galloway. HPI/ROS Admit Date/Time Admit Date/Time Sep 13, 2016 at 12:59 Hx of Present Illness The patient is a 55-year-old gentleman patient with history of recurrence of large right inguinal hernia, s/p hernia repair with bowel decompression in August 2015 and April [address] Sarah. Patient with history of atelectasis and right lung mass, status post biopsy at previous admission which came back negative for malignancy. Patient with history of bladder diverticulum and urinary retention who is been doing self catheterization at home. He presented to the emergency room with complaints of hematuria and blood clots in the urine. Patient underwent CT scan of the abdomen and pelvis in the emergency room which revealed high density material consistent with hematoma, thickening of the urinary bladder bladder wall suggesting cystitis, a large bladder diverticulum, right inguinal hernia increased in size, and 3 cm mass in right lung based unchanged from previous exam. Patient was diagnosed with acute cystitis and was started on ceftriaxone. ROS Eyes: no complaints ENT: no complaints Respiratory: no complaints, No shortness of breath Cardiovascular: no complaints, No chest pain Gastrointestinal: pain, No nausea, No vomiting Musculoskeletal: no complaints Skin: no complaints Neurologic: no complaints Lymphatic: no complaints Psychological: no complaints PMH/Family/Social Past Medical History Medical History: hypertension, other (Urinary retention) Past Surgical History Per HPI Past Surgical Hx: other (Right large inguinal hernia repair 2. The hernia has reoccurred and is larger now than it was before) Family History Significant Family History: no pertinent family hx Social History Alcohol Use: none Smoking Status: Former smoker Drug Use: none Exam/Review of Systems Vital Signs Vitals Vital Signs Date Time Temp Pulse Resp B/P Pulse Ox O2 Delivery O2 Flow Rate FiO2 09/14/16 08:35 98.4 88 16 128/74 97 09/14/16 02:00 Room Air Intake and Output 09/13/16 09/13/16 09/14/16 15:00 23:00 07:00 Intake Total 1340 ml 260 ml Output Total 750 ml 900 ml Balance 590 ml -640 ml Exam Constitutional: alert, oriented Head: atraumatic, normocephalic Neck: supple Respiratory: normal air movement Cardiovascular: nl pulses Gastrointestinal: non-tender, soft Genitourinary - Male: other (Lyn catheter, inguinal hernia) Musculoskeletal: nl extremities to inspection Extremities: normal pulses Neurological: nl mental status Labs Result Diagram: 09/14/1644209/14/16442 Medications Medications Current Medications Ceftriaxone Sodium (Rocephin) 50 ml @ 100 mls/hr Q24H IVPB ; Start 09/14/16 at 11:30 Ondansetron HCl (Zofran Inj) 4 mg Q6H PRN IV NAUSEA AND/OR VOMITING; Start 09/13 at 18:00 Morphine Sulfate (morphine) 2 mg Q4H PRN IV PAIN Last administered on 07:18; Admin Dose 2 MG; Start 09/13/16 at 18:30 Aspirin (Aspirin) 81 mg DAILY PO ; Start 09/14/16 at 09:00 Atenolol (Tenormin) 25 mg BID PO Last administered on 09/14/16 08:38; Admin Dose 25 MG; Start 09/13/16 at 21:00 Hydrochlorothiazide (Hydrochlorothiazide) 25 mg DAILY PO Last administered on 08:38; Admin Dose 25 MG; Start 09/14/16 at 09:00 Pantoprazole (Protonix Tab) 40 mg DAILY@06 PO Last administered on 09/14/16 05 :35; Admin Dose 40 MG; Start 09/14/16 at 06:00 JAY WEEMS Sep 14, 2016 11:07
[2016-09-14] MEDS ORDERED: CEFTRIAXONE 1 GM/50 ML (PMX) 50 ML IVPB SCH (11:30)
--- NOTE | 2016-09-14 12:52 | PN ---
Date/Time of Note Date/Time of Note DATE: 09/14/16 TIME: 12:45 Assessment/Plan VTE Prophylaxis VTE Prophylaxis Intervention: SCD's Lines/Catheters IV Catheter Type (from [facility]): Saline Lock Urinary Cath still in place: Yes Reason Cath still needed: urinary retention, other (indicate) (Gross hematuria requiring continuous bladder irrigation) Assessment/Plan Chief Complaint/Hosp Course Gross hematuria and urinary retention, patient also has a large bladder diverticulum, rule out urinary tract infection. Plan keep the three-way Lyn catheter in place ,start continuous bladder irrigation with normal saline and continue him on the antibiotics Consider cystoscopy to evaluate the degree of obstruction and also have more information about the bladder diverticulum that he has Problems: Assessment/Plan Plan cystoscopy and possible transurethral resection of bladder tumors and possible bladder fulguration tomorrow at 1230 . I have explained the procedure to the patient the possible findings answered all his questions. he is agreeable to proceed Subjective 24 Hr Interval Summary Free Text/Dictation Patient is having bladder spasms and continues to have a gross hematuria. Constitutional: No febrile Eyes: no complaints ENT: no complaints Respiratory: no complaints Cardiovascular: No edema Gastrointestinal: No nausea, No vomiting Genitourinary: hematuria Musculoskeletal: no complaints Skin: no complaints Neurologic: no complaints Endocrine: no complaints Psychological: no complaints Immunologic: no complaints Exam/Review of Systems Vital Signs Vitals Vital Signs Date Time Temp Pulse Resp B/P Pulse Ox O2 Delivery O2 Flow Rate FiO2 09/14/16 08:35 98.4 88 16 128/74 97 09/14/16 02:00 Room Air Intake and Output 09/13/16 09/13/16 09/14/16 15:00 23:00 07:00 Intake Total 1340 ml 260 ml Output Total 750 ml 900 ml Balance 590 ml -640 ml Exam Constitutional: alert, oriented, No distress Psych: no complaints Head: normocephalic Eyes: nl conjunctiva ENMT: nl external ears & nose Neck: supple Respiratory: normal air movement Cardiovascular: nl pulses Gastrointestinal: non-tender, soft Genitourinary - Male: nl penis, nl scrotum, other (Lyn in place and draining blood-tinged urine with continuous bladder irrigation with normal saline) Musculoskeletal: nl extremities to inspection Extremities: normal pulses Neurological: No focal weakness Skin: nl turgor Lymph: nl lymph nodes Results Urine remains blood-tinged even though he is on continuous bladder irrigation with normal saline Result Diagram: 09/14/163 09/14/163 Results 24 hrs Laboratory Tests Test 09/14/16 04:43 White Blood Count 12.1 #H Red Blood Count 3.43 L Hemoglobin 10.3 L Hematocrit 31.5 L Mean Corpuscular Volume 91.8 Mean Corpuscular Hemoglobin 30.0 Mean Corpuscular Hemoglobin Concent 32.7 Red Cell Distribution Width 14.9 H Platelet Count 171 Mean Platelet Volume 9.3 Neutrophils % 68.4 Lymphocytes % 20.3 Monocytes % 8.6 Eosinophils % 1.7 Basophils % 0.5 Nucleated Red Blood Cells % 0.0 Neutrophils # 8.3 H Lymphocytes # 2.5 Monocytes # 1.0 H Eosinophils # 0.2 Basophils # 0.1 Nucleated Red Blood Cells # 0.0 Sodium Level 142 Potassium Level 3.5 Chloride Level 103 Carbon Dioxide Level 28 Anion Gap 15 Blood Urea Nitrogen 21 H Creatinine 1.02 Glucose Level 122 # Calcium Level 8.6 Medications Medications Current Medications Ceftriaxone Sodium (Rocephin) 50 ml @ 100 mls/hr Q24H IVPB Last administered on 09/14/16 12:15; Admin Dose 100 MLS/HR; Start 09/14/16 at 11:30 Ondansetron HCl (Zofran Inj) 4 mg Q6H PRN IV NAUSEA AND/OR VOMITING; Start 09/13 at 18:00 Morphine Sulfate (morphine) 2 mg Q4H PRN IV PAIN Last administered on 11:57; Admin Dose 2 MG; Start 09/13/16 at 18:30 Aspirin (Aspirin) 81 mg DAILY PO ; Start 09/14/16 at 09:00 Atenolol (Tenormin) 25 mg BID PO Last administered on 09/14/16 08:38; Admin Dose 25 MG; Start 09/13/16 at 21:00 Hydrochlorothiazide (Hydrochlorothiazide) 25 mg DAILY PO Last administered on 08:38; Admin Dose 25 MG; Start 09/14/16 at 09:00 Pantoprazole (Protonix Tab) 40 mg DAILY@06 PO Last administered on 09/14/16 05 :35; Admin Dose 40 MG; Start 09/14/16 at 06:00 Acetaminophen/ Hydrocodone Bitart ([place] (5/325)) 1 tab Q4H PRN PO PAIN LEVEL 4 -7; Start 09/14/16 at 12:00 JOSE G CUMMINGS MD Sep 14, 2016 12:52
[2016-09-14] MEDS: HYDROCODONE/APAP (5/325) TAB PO PRN (14:55)
[2016-09-14 15:15] VITALS: BP 119/75; RESP 16
[2016-09-14] MEDS: CEFEPIME 1GM/50 ML (PMX) 50 ML IVPB SCH (20:24)
[2016-09-14 21:00] VITALS: BP 129/80; RESP 19
[2016-09-14 22:00] VITALS: BP 118/79; PULSE 56
[2016-09-15] VITALS (14 sets, daily range): BP systolic 124–165; BP diastolic 78–106; PULSE 78–90; RESP 11–32
[2016-09-15] MEDS: morphine 2 MG INJ IV PRN (01:15)
[2016-09-15] MEDS: PANTOPRAZOLE (EC) 40 MG TAB PO SCH (05:31)
[2016-09-15 06:30] LABS: ADD SCAN DIFF NO
[2016-09-15 06:53] LABS: BASOPHIL # 0.1 10^3/ul (0.0-0.1); BASOPHILS % 0.5 % (0.0-2.0); EOSINOPHILS # 0.3 10^3/ul (0.0-0.5); EOSINOPHILS % 2.8 % (0.0-7.0); HEMATOCRIT 32.2 % (42.0-52.0); HEMOGLOBIN 10.4 g/dl (14.0-18.0); LYMPHOCYTES # 2.6 10^3/ul (0.8-2.9); LYMPHOCYTES % 24.7 % (15.0-51.0); MEAN CORPUSCULAR HEMOGLOBIN 29.9 pg (29.0-33.0); MEAN CORPUSCULAR HGB CONC 32.3 g/dl (32.0-37.0); MEAN CORPUSCULAR VOLUME 92.5 fl (82.0-101.0); MEAN PLATELET VOLUME 9.8 fl (7.4-10.4); MONOCYTE # 0.9 10^3/ul (0.3-0.9); MONOCYTES % 8.6 % (0.0-11.0); NEUTROPHIL # 6.6 10^3/ul (1.6-7.5); PLATELET COUNT 180 10^3/UL (140-415); RED BLOOD COUNT 3.48 10^6/ul (4.70-6.10); RED CELL DISTRIBUTION WIDTH 14.5 % (11.5-14.5); WHITE BLOOD COUNT 10.5 10^3/ul (4.8-10.8)
[2016-09-15 07:08] LABS: CALCIUM 8.9 mg/dl (8.4-10.2); CREATININE 1.05 mg/dl (0.61-1.24); POTASSIUM 3.7 mmol/L (3.5-5.1)
[2016-09-15] MEDS: HYDROCHLOROTHIAZIDE 25 MG TAB PO SCH (09:00)
[2016-09-15] MEDS: ATENOLOL 25 MG TAB PO SCH ×2 (09:00→20:19)
[2016-09-15] MEDS: ASPIRIN 81 MG TAB PO SCH (09:00)
[2016-09-15] MEDS: CEFEPIME 1GM/50 ML (PMX) 50 ML IVPB SCH ×2 (09:03→20:18)
[2016-09-15] MEDS ORDERED: LIDOCAINE 2% (SDV) 5 ML INJ ONE (10:53)
[2016-09-15] MEDS ORDERED: GLYCOPYRROLATE 0.4 MG INJ ONE (10:54)
[2016-09-15] MEDS ORDERED: MIDAZOLAM 1 MG/ML 2 ML INJ ONE (10:54)
[2016-09-15] MEDS ORDERED: PROPOFOL 20 ML ONE (10:54)
[2016-09-15] MEDS ORDERED: ROCURONIUM 50 MG INJ ONE (10:54)
[2016-09-15] MEDS ORDERED: ONDANSETRON 4 MG INJ ONE (10:54)
[2016-09-15] MEDS ORDERED: FENTAnyl 50 MCG/ML VIAL ONE (10:54)
[2016-09-15] MEDS ORDERED: NEOSTIGMINE 3 MG/3 ML SYRINGE ONE (10:54)
[2016-09-15] MEDS ORDERED: DEXAMETHASONE 4 MG/ML 1 ML INJ ONE (10:54)
[2016-09-15] MEDS ORDERED: MIDAZOLAM 1 MG/ML 2 ML INJ IV PRN (11:00)
[2016-09-15] MEDS ORDERED: ONDANSETRON 4 MG INJ IV PRN (11:00)
[2016-09-15] MEDS ORDERED: MEPERIDINE 25 MG INJ IV PRN (11:00)
[2016-09-15] MEDS ORDERED: OXYCODONE/ACETAMINOPHEN (5/325) TAB PO PRN ×2 (11:00)
[2016-09-15] MEDS ORDERED: hydrALAzine 20 MG INJ IV PRN (11:00)
[2016-09-15] MEDS ORDERED: DIPHENHYDRAMINE 50 MG INJ IV PRN (11:00)
[2016-09-15] MEDS ORDERED: HYDROmorphONE (0.2 MG/ML) 10ML SYG IV PRN ×2 (11:00)
[2016-09-15] MEDS ORDERED: morphine (1 MG/ML) 10ML SYRINGE IV PRN ×3 (11:00)
[2016-09-15] MEDS ORDERED: EPHEDrine SULFATE 50 MG/5 ML SYG IV PRN (11:00)
[2016-09-15] MEDS ORDERED: FENTAnyl 50 MCG/ML VIAL IV PRN ×2 (11:00)
[2016-09-15] MEDS ORDERED: LABETALOL HCL 20MG INJ IV PRN (11:00)
--- NOTE | 2016-09-15 11:51 | PN ---
Date/Time of Note Date/Time of Note DATE: 09/15/16 TIME: 11:49 Assessment/Plan VTE Prophylaxis VTE Prophylaxis Intervention: SCD's Lines/Catheters [facility] Saline Lock Urinary Cath still in place: Yes Reason Cath still needed: urinary retention Assessment/Plan Chief Complaint/Hosp Course Assessment/Plan -Acute cystitis. Continue ceftriaxone follow-up on urine culture. Dr. Panda is following in urology consultation. Continue bladder irrigation. -Hematuria secondary to acute cystitis, continue to monitor H&H. -Urinary retention -Bladder diverticulum -Hypertension -Recurrent right inguinal hernia, patient follows with Dr. Sarah as an outpatient. Further recommendations based on clinical course. Plan of care discussed with Dr. Galloway. Problems: Exam/Review of Systems Vital Signs Vitals Vital Signs Date Time Temp Pulse Resp B/P Pulse Ox O2 Delivery O2 Flow Rate FiO2 09/15/16 08:59 97.6 61 18 130/78 99 09/14/16 02:00 Room Air Intake and Output 09/14/16 09/14/16 09/15/16 15:00 23:00 07:00 Intake Total 50 ml 1050 ml 500 ml Output Total 3100 ml 5100 ml 2950 ml Balance -3050 ml -4050 ml -2450 ml Exam Constitutional: alert, oriented Head: normocephalic Neck: supple Respiratory: normal air movement Cardiovascular: nl pulses Gastrointestinal: non-tender, soft Extremities: normal pulses Neurological: nl mental status Results Result Diagram: 09/15/16 0455 09/15/16 0455 Results 24 hrs Laboratory Tests Test 09/15/16 04:55 White Blood Count 10.5 Red Blood Count 3.48 L Hemoglobin 10.4 L Hematocrit 32.2 L Mean Corpuscular Volume 92.5 Mean Corpuscular Hemoglobin 29.9 Mean Corpuscular Hemoglobin Concent 32.3 Red Cell Distribution Width 14.5 Platelet Count 180 Mean Platelet Volume 9.8 Neutrophils % 63.0 Lymphocytes % 24.7 Monocytes % 8.6 Eosinophils % 2.8 Basophils % 0.5 Nucleated Red Blood Cells % 0.0 Neutrophils # 6.6 Lymphocytes # 2.6 Monocytes # 0.9 Eosinophils # 0.3 Basophils # 0.1 Nucleated Red Blood Cells # 0.0 Sodium Level 142 Potassium Level 3.7 Chloride Level 100 Carbon Dioxide Level 29 Anion Gap 17 H Blood Urea Nitrogen 16 Creatinine 1.05 Glucose Level 115 Calcium Level 8.9 Medications Medications Current Medications Ondansetron HCl (Zofran Inj) 4 mg Q6H PRN IV NAUSEA AND/OR VOMITING; Start 09/13 at 18:00 Morphine Sulfate (morphine) 2 mg Q4H PRN IV PAIN Last administered on 01:15; Admin Dose 2 MG; Start 09/13/16 at 18:30 Aspirin (Aspirin) 81 mg DAILY PO ; Start 09/14/16 at 09:00 Atenolol (Tenormin) 25 mg BID PO Last administered on 09/14/16 20:23; Admin Dose 25 MG; Start 09/13/16 at 21:00 Hydrochlorothiazide (Hydrochlorothiazide) 25 mg DAILY PO Last administered on 08:38; Admin Dose 25 MG; Start 09/14/16 at 09:00 Pantoprazole (Protonix Tab) 40 mg DAILY@06 PO Last administered on 09/14/16 05 :35; Admin Dose 40 MG; Start 09/14/16 at 06:00 Acetaminophen/ Hydrocodone Bitart 1 tab 1 tab Q4H PRN PO PAIN LEVEL 4-7 Last administered on 09/14/16 14:55; Admin Dose 1 TAB; Start 09/14/16 at 12:00 Cefepime HCl (Maxipime 1gm/50 ml (Pmx)) 50 ml @ 100 mls/hr Q12 IVPB Last administered on 09/15/16 09:03; Admin Dose 100 MLS/HR; Start 09/14/16 at 21:00 JAY WEEMS Sep 15, 2016 11:51
[2016-09-15] MEDS ORDERED: LIDOCAINE 2% 20 ML UROJET SYRINGE ONE (12:26)
--- NOTE | 2016-09-15 12:30 | HPN ---
Date/Time of Note Date/Time of Note DATE: 09/15/16 TIME: 12:29 Interval H&P Admission Note Pt. seen H&P reviewed: No system changes JOSE G CUMMINGS MD Sep 15, 2016 12:29
[2016-09-15] MEDS ORDERED: METHYLENE BLUE 1% 10 ML INJ ONE (13:10)
--- NOTE | 2016-09-15 14:44 | OPR ---
Date/Time of Note Date/Time of Note DATE: 09/15/16 TIME: 14:23 Operative Report Procedure Date: Sep 15, 2016 Preoperative Diagnosis Gross hematuria, very large bladder diverticulum, recurrent large right inguinal scrotal hernia Postoperative Diagnosis Gross hematuria, very large bladder diverticulum, recurrent large right inguinal scrotal hernia, hemorrhagic cystitis, no evidence of bladder tumor Operation Performed Cystoscopy and fulguration of bladder, complex procedure due to the large inguinoscrotal hernia getting in the way to be able to reach the bladder. Procedure took extra time due to the abnormal anatomy, also trying to identify both ureteral orifices. I was able to locate the left ureteral orifice. The right ureteral orifice could not be seen but it most likely located distal and lateral to the right side diverticulum near the bladder neck Surgeon: JOSE G CUMMINGS MD Anesthesia: general Anesthesiologist: RAMANA BELL MD Estimated Blood Loss: minimal Specimens Blood clots from the bladder Complications: None Pt Condition Post Procedure: stable Indications Persistent gross hematuria Operative\Procedure Findings Patient has a large bladder diverticulum on the right side.On the left side where the bladder is, there is a lot of cystitis where the bleeding is coming from. The large inguinoscrotal hernia was making it difficult to reach all the way inside the bladder. I had to have the bladder empty and the assistant superintendent for curriculum hold the inguinoscrotal hernia to the right side and press on the suprapubic area to be able to see inside the bladder and fulgurate the bleeders Procedure Description Patient was brought to the operating room general endotracheal anesthesia was induced. The patient was positioned in the lithotomy position. The lower abdomen genital area upper thighs were all prepped and draped in the usual sterile manner. A #22 K[place] cystoscope was introduced under direct vision through the penile urethra all the way to the bladder .That was difficult because of the large inguinoscrotal hernia getting in the way. The length of the scope was not enough to be able to reach all the way inside the bladder. Once inside the bladder cystoscopy was done with the 30 lens and the 70 lens. There was no evidence of bladder tumor, the diverticulum itself did not have any bleeding but had blood clots and I had to irrigate them out. The bladder had areas of cystitis were the bleeders were noted. I used the round tip electrode and electrocoagulated all the bleeders. I had the anesthesiologist give the patient 5 mL of methylene blue to be able to confirm the location of the left ureteral orifice.However the right ureteral orifice could not be seen but its location was distal to the right side diverticulum and it is near the bladder neck. At the end of the procedure I passed a 0.035 zip wire and use that to introduce a 20 [place] catheter into the bladder. I wanted to make sure that the catheter goes into the bladder rather than in the in the diverticulum. At the end of the procedure the return of the urine was clear and there was no more bleeding The patient tolerated the procedure well and was transferred to recovery room in stable and satisfactory condition. JOSE G CUMMINGS MD Sep 15, 2016 14:35
--- NOTE | 2016-09-15 14:44 | CONS ---
Date/Time of Note Date/Time of Note DATE: 09/15/16 TIME: 14:44 Assessment/Plan Assessment/Plan Chief Complaint/Hosp Course No acute changes no fevers looks comfortable WBC 10.5, platelets 180 BUN 16 creatinine 1.05 Urine culture preliminary negative CT of the abdomen and pelvis on admission revealed urinary bladder filled with high density material likely hematoma underlying mass cannot be excluded Antibiotics: Cefepime Physical examination: Well-developed well-nourished middle-aged man who is alert in no distress. Head atraumatic normocephalic sclera nonicteric. Neck is supple. Chest rise symmetrical breath sounds clear bilaterally. Heart S1- S2. Abdomen soft bowel tones present extremities without cyanosis. Assessment: 1. Gross hematuria and urinary retention, remains on continuous bladder irrigation 2. Hypertension 3. Bladder diverticulum Plan: Clinically stable continue present care antibiotics pending cystoscopy. Discussed with staff Problems: Consultation Date/Type/Reason Admit Date/Time Sep 13, 2016 at 12:59 Initial Consult Date 09/13/16 Type of Consultation: ID Exam/Review of Systems Vital Signs Vitals Vital Signs Date Time Temp Pulse Resp B/P Pulse Ox O2 Delivery O2 Flow Rate FiO2 09/15/16 08:59 97.6 61 18 130/78 99 09/14/16 02:00 Room Air Intake and Output 09/14/16 09/14/16 09/15/16 15:00 23:00 07:00 Intake Total 50 ml 1050 ml 500 ml Output Total 3100 ml 5100 ml 2950 ml Balance -3050 ml -4050 ml -2450 ml Results Result Diagram: 09/15/16 0455 09/15/16 0455 Results 24 hrs Laboratory Tests Test 09/15/16 04:55 White Blood Count 10.5 Red Blood Count 3.48 L Hemoglobin 10.4 L Hematocrit 32.2 L Mean Corpuscular Volume 92.5 Mean Corpuscular Hemoglobin 29.9 Mean Corpuscular Hemoglobin Concent 32.3 Red Cell Distribution Width 14.5 Platelet Count 180 Mean Platelet Volume 9.8 Neutrophils % 63.0 Lymphocytes % 24.7 Monocytes % 8.6 Eosinophils % 2.8 Basophils % 0.5 Nucleated Red Blood Cells % 0.0 Neutrophils # 6.6 Lymphocytes # 2.6 Monocytes # 0.9 Eosinophils # 0.3 Basophils # 0.1 Nucleated Red Blood Cells # 0.0 Sodium Level 142 Potassium Level 3.7 Chloride Level 100 Carbon Dioxide Level 29 Anion Gap 17 H Blood Urea Nitrogen 16 Creatinine 1.05 Glucose Level 115 Calcium Level 8.9 Medications Medications Current Medications Ondansetron HCl (Zofran Inj) 4 mg Q6H PRN IV NAUSEA AND/OR VOMITING; Start 09/13 at 18:00 Morphine Sulfate (morphine) 2 mg Q4H PRN IV PAIN Last administered on 01:15; Admin Dose 2 MG; Start 09/13/16 at 18:30 Aspirin (Aspirin) 81 mg DAILY PO ; Start 09/14/16 at 09:00 Atenolol (Tenormin) 25 mg BID PO Last administered on 09/14/16 20:23; Admin Dose 25 MG; Start 09/13/16 at 21:00 Hydrochlorothiazide (Hydrochlorothiazide) 25 mg DAILY PO Last administered on 08:38; Admin Dose 25 MG; Start 09/14/16 at 09:00 Pantoprazole (Protonix Tab) 40 mg DAILY@06 PO Last administered on 09/14/16 05 :35; Admin Dose 40 MG; Start 09/14/16 at 06:00 Acetaminophen/ Hydrocodone Bitart 1 tab 1 tab Q4H PRN PO PAIN LEVEL 4-7 Last administered on 09/14/16 14:55; Admin Dose 1 TAB; Start 09/14/16 at 12:00 Cefepime HCl (Maxipime 1gm/50 ml (Pmx)) 50 ml @ 100 mls/hr Q12 IVPB Last administered on 09/15/16 09:03; Admin Dose 100 MLS/HR; Start 09/14/16 at 21:00 IRVIN DURAN NP Sep 15, 2016 14:44
[2016-09-15] MEDS: HYDROmorphONE (0.2 MG/ML) 10ML SYG IV PRN ×2 (14:47→15:08)
[2016-09-15] MEDS: TOLTERODINE (SR) 4 MG CAP PO SCH (16:46)
[2016-09-16 02:15] VITALS: BP 123/79; RESP 18
[2016-09-16] MEDS: PANTOPRAZOLE (EC) 40 MG TAB PO SCH (05:46)
[2016-09-16 05:59] LABS: ADD SCAN DIFF NO; BASOPHILS % 0.2 % (0.0-2.0); HEMATOCRIT 30.1 % (42.0-52.0); HEMOGLOBIN 10.2 g/dl (14.0-18.0); LYMPHOCYTES # 1.6 10^3/ul (0.8-2.9); LYMPHOCYTES % 8.2 % (15.0-51.0); MEAN CORPUSCULAR HEMOGLOBIN 30.5 pg (29.0-33.0); MEAN CORPUSCULAR HGB CONC 33.9 g/dl (32.0-37.0); MEAN CORPUSCULAR VOLUME 90.1 fl (82.0-101.0); MEAN PLATELET VOLUME 9.6 fl (7.4-10.4); MONOCYTE # 1.4 10^3/ul (0.3-0.9); MONOCYTES % 7.3 % (0.0-11.0); NEUTROPHIL # 15.8 10^3/ul (1.6-7.5); NEUTROPHILS % 83.5 % (39.0-77.0); PLATELET COUNT 190 10^3/UL (140-415); RED BLOOD COUNT 3.34 10^6/ul (4.70-6.10); RED CELL DISTRIBUTION WIDTH 14.3 % (11.5-14.5)
[2016-09-16 06:14] LABS: CALCIUM 8.8 mg/dl (8.4-10.2); CREATININE 1.1 mg/dl (0.61-1.24); POTASSIUM 3.7 mmol/L (3.5-5.1)
[2016-09-16 07:50] VITALS: BP 148/82; RESP 16
[2016-09-16] MEDS: CEFEPIME 1GM/50 ML (PMX) 50 ML IVPB SCH ×2 (08:51→20:06)
[2016-09-16] MEDS: ASPIRIN 81 MG TAB PO SCH (08:52)
[2016-09-16] MEDS: TOLTERODINE (SR) 4 MG CAP PO SCH (08:52)
[2016-09-16] MEDS: ATENOLOL 25 MG TAB PO SCH ×2 (08:53→20:07)
[2016-09-16] MEDS: HYDROCHLOROTHIAZIDE 25 MG TAB PO SCH (08:53)
--- NOTE | 2016-09-16 12:57 | PN ---
Date/Time of Note Date/Time of Note DATE: 09/16/16 TIME: 12:52 Assessment/Plan VTE Prophylaxis VTE Prophylaxis Intervention: ambulation Lines/Catheters [facility] Saline Lock Urinary Cath still in place: Yes Reason Cath still needed: urinary retention Assessment/Plan Chief Complaint/Hosp Course Gross hematuria that has cleared since the surgery yesterday. She has an indwelling Lyn catheter because of urinary retention. He could go home today from a urological standpoint and I will see him in the office in about a week to remove the Lyn catheter. Then he could resume his self-catheterization Problems: Assessment/Plan Gross hematuria that has cleared since the surgery yesterday. She has an indwelling Lyn catheter because of urinary retention. He could go home today from a urological standpoint and I will see him in the office in about a week to remove the Lyn catheter. Then he could resume his self-catheterization Subjective 24 Hr Interval Summary Constitutional: no complaints Eyes: no complaints ENT: no complaints Respiratory: no complaints Cardiovascular: no complaints Gastrointestinal: No nausea, No pain, No vomiting Genitourinary: other (Urinary retention patient has an indwelling Lyn catheter) Musculoskeletal: no complaints Skin: no complaints Neurologic: no complaints Endocrine: no complaints Lymphatic: no complaints Psychological: no complaints Exam/Review of Systems Vital Signs Vitals Vital Signs Date Time Temp Pulse Resp B/P Pulse Ox O2 Delivery O2 Flow Rate FiO2 09/16/16 07:50 98.1 82 16 148/82 98 09/15/16 15:24 Room Air Intake and Output 09/15/16 09/15/16 09/16/16 15:00 23:00 07:00 Intake Total 730 ml 340 ml Output Total 50 ml 10568 ml Balance 680 ml -9660 ml Exam Constitutional: alert, oriented Psych: no complaints Head: normocephalic Eyes: nl conjunctiva ENMT: nl external ears & nose Neck: non-tender, supple Respiratory: normal air movement Cardiovascular: nl pulses, No edema Gastrointestinal: other (Large right inguino- scrotal hernia), soft Genitourinary - Male: nl penis, nl scrotum, other (Has an indwelling Lyn catheter that is draining light bluish urine because of the methylene blue that was given to him during the surgery yesterday) Musculoskeletal: nl extremities to inspection Extremities: No calf tenderness, No edema Skin: nl turgor Lymph: nl lymph nodes Results Result Diagram: 09/16/16 0515 09/16/16 0515 Results 24 hrs Laboratory Tests Test 09/16/16 05:15 White Blood Count 19.0 #H Red Blood Count 3.34 L Hemoglobin 10.2 L Hematocrit 30.1 L Mean Corpuscular Volume 90.1 Mean Corpuscular Hemoglobin 30.5 Mean Corpuscular Hemoglobin Concent 33.9 Red Cell Distribution Width 14.3 Platelet Count 190 Mean Platelet Volume 9.6 Neutrophils % 83.5 H Lymphocytes % 8.2 L Monocytes % 7.3 Eosinophils % 0.0 Basophils % 0.2 Nucleated Red Blood Cells % 0.0 Neutrophils # 15.8 H Lymphocytes # 1.6 Monocytes # 1.4 H Eosinophils # 0.0 Basophils # 0.0 Nucleated Red Blood Cells # 0.0 Sodium Level 136 Potassium Level 3.7 Chloride Level 102 Carbon Dioxide Level 28 Anion Gap 10 # Blood Urea Nitrogen 16 Creatinine 1.10 Glucose Level 141 Calcium Level 8.8 Medications Medications Current Medications Ondansetron HCl (Zofran Inj) 4 mg Q6H PRN IV NAUSEA AND/OR VOMITING; Start 09/13 at 18:00 Morphine Sulfate (morphine) 2 mg Q4H PRN IV PAIN Last administered on 01:15; Admin Dose 2 MG; Start 09/13/16 at 18:30 Aspirin (Aspirin) 81 mg DAILY PO ; Start 09/14/16 at 09:00 Atenolol (Tenormin) 25 mg BID PO Last administered on 09/16/16 08:53; Admin Dose 25 MG; Start 09/13/16 at 21:00 Hydrochlorothiazide (Hydrochlorothiazide) 25 mg DAILY PO Last administered on 08:53; Admin Dose 25 MG; Start 09/14/16 at 09:00 Pantoprazole (Protonix Tab) 40 mg DAILY@06 PO Last administered on 09/16/16 05 :46; Admin Dose 40 MG; Start 09/14/16 at 06:00 Acetaminophen/ Hydrocodone Bitart 1 tab 1 tab Q4H PRN PO PAIN LEVEL 4-7 Last administered on 09/14/16 14:55; Admin Dose 1 TAB; Start 09/14/16 at 12:00 Cefepime HCl (Maxipime 1gm/50 ml (Pmx)) 50 ml @ 100 mls/hr Q12 IVPB Last administered on 09/16/16 08:51; Admin Dose 100 MLS/HR; Start 09/14/16 at 21:00 Tolterodine Tartrate (Detrol La) 4 mg DAILY PO Last administered on 09/16/16 08:52; Admin Dose 4 MG; Start 09/15/16 at 15:30 JOSE G CUMMINGS MD Sep 16, 2016 12:57
[2016-09-16 14:12] VITALS: BP 117/64; RESP 16
--- NOTE | 2016-09-16 14:27 | CONS ---
Date/Time of Note Date/Time of Note DATE: 09/16/16 TIME: 14:26 Assessment/Plan Assessment/Plan Chief Complaint/Hosp Course Temperature 98.1 pulse 82 respirations 16 blood pressure 148/82 saturation 98% on room air WBC 19 H&H 10.2 and 30.1 platelets 190 neutrophils 83.5 BUN 16 creatinine 1.10 Microbiology blood and urine cultures since admission remain negative CT of the abdomen and pelvis on admission revealed urinary bladder filled with high density material likely hematoma underlying mass cannot be excluded Antibiotics: Cefepime Physical examination: Well-developed well-nourished middle-aged man who is alert in no distress. Head atraumatic normocephalic sclera nonicteric. Neck is supple. Chest rise symmetrical breath sounds clear bilaterally. Heart S1- S2. Abdomen soft bowel tones present extremities without cyanosis. Assessment: 1. Gross hematuria and urinary retention, status post cystoscopy 2. Hypertension 3. Acute hemorrhagic cystitis 4. Leukocytosis likely reactive Plan: Clinically stable, continue present care, antibiotics, follow intraoperative cultures, follow urology recommendations Problems: Consultation Date/Type/Reason Admit Date/Time Sep 15, 2016 at 14:52 Initial Consult Date 09/13/16 Type of Consultation: ID Exam/Review of Systems Vital Signs Vitals Vital Signs Date Time Temp Pulse Resp B/P Pulse Ox O2 Delivery O2 Flow Rate FiO2 09/16/16 07:50 98.1 82 16 148/82 98 09/15/16 15:24 Room Air Intake and Output 09/15/16 09/15/16 09/16/16 15:00 23:00 07:00 Intake Total 730 ml 340 ml Output Total 50 ml 73765 ml Balance 680 ml -9660 ml Results Result Diagram: 09/16/16 0515 09/16/16 0515 Results 24 hrs Laboratory Tests Test 09/16/16 05:15 White Blood Count 19.0 #H Red Blood Count 3.34 L Hemoglobin 10.2 L Hematocrit 30.1 L Mean Corpuscular Volume 90.1 Mean Corpuscular Hemoglobin 30.5 Mean Corpuscular Hemoglobin Concent 33.9 Red Cell Distribution Width 14.3 Platelet Count 190 Mean Platelet Volume 9.6 Neutrophils % 83.5 H Lymphocytes % 8.2 L Monocytes % 7.3 Eosinophils % 0.0 Basophils % 0.2 Nucleated Red Blood Cells % 0.0 Neutrophils # 15.8 H Lymphocytes # 1.6 Monocytes # 1.4 H Eosinophils # 0.0 Basophils # 0.0 Nucleated Red Blood Cells # 0.0 Sodium Level 136 Potassium Level 3.7 Chloride Level 102 Carbon Dioxide Level 28 Anion Gap 10 # Blood Urea Nitrogen 16 Creatinine 1.10 Glucose Level 141 Calcium Level 8.8 Medications Medications Current Medications Ondansetron HCl (Zofran Inj) 4 mg Q6H PRN IV NAUSEA AND/OR VOMITING; Start 09/13 at 18:00 Morphine Sulfate (morphine) 2 mg Q4H PRN IV PAIN Last administered on 01:15; Admin Dose 2 MG; Start 09/13/16 at 18:30 Aspirin (Aspirin) 81 mg DAILY PO ; Start 09/14/16 at 09:00 Atenolol (Tenormin) 25 mg BID PO Last administered on 09/16/16 08:53; Admin Dose 25 MG; Start 09/13/16 at 21:00 Hydrochlorothiazide (Hydrochlorothiazide) 25 mg DAILY PO Last administered on 08:53; Admin Dose 25 MG; Start 09/14/16 at 09:00 Pantoprazole (Protonix Tab) 40 mg DAILY@06 PO Last administered on 09/16/16 05 :46; Admin Dose 40 MG; Start 09/14/16 at 06:00 Acetaminophen/ Hydrocodone Bitart 1 tab 1 tab Q4H PRN PO PAIN LEVEL 4-7 Last administered on 09/14/16 14:55; Admin Dose 1 TAB; Start 09/14/16 at 12:00 Cefepime HCl (Maxipime 1gm/50 ml (Pmx)) 50 ml @ 100 mls/hr Q12 IVPB Last administered on 09/16/16 08:51; Admin Dose 100 MLS/HR; Start 09/14/16 at 21:00 Tolterodine Tartrate (Detrol La) 4 mg DAILY PO Last administered on 09/16/16 08:52; Admin Dose 4 MG; Start 09/15/16 at 15:30 IRVIN DURAN NP Sep 16, 2016 14:26
--- NOTE | 2016-09-16 17:47 | PN ---
Date/Time of Note Date/Time of Note DATE: 09/16/16 TIME: 17:44 Assessment/Plan VTE Prophylaxis VTE Prophylaxis Intervention: SCD's Lines/Catheters [facility] Saline Lock Urinary Cath still in place: Yes Reason Cath still needed: urinary retention Assessment/Plan Chief Complaint/Hosp Course Patient with leukocytosis most likely secondary to procedure yesterday, complains of generalized weakness, continue IV fluids, monitor urinary output. Assessment/Plan -Acute cystitis. Continue ceftriaxone follow-up on urine culture. Dr. Panda is following in urology consultation. Continue bladder irrigation. -Status post cystoscopy and fulguration of bladder, continue to monitor urine output. -Hematuria secondary to acute cystitis, continue to monitor H&H. -Urinary retention -Bladder diverticulum -Hypertension -Recurrent right inguinal hernia, patient follows with Dr. Sarah as an outpatient. Further recommendations based on clinical course. Plan of care discussed with Dr. Galloway. Problems: Exam/Review of Systems Vital Signs Vitals Vital Signs Date Time Temp Pulse Resp B/P Pulse Ox O2 Delivery O2 Flow Rate FiO2 09/16/16 14:12 98.0 62 16 117/64 96 09/15/16 15:24 Room Air Intake and Output 09/15/16 09/15/16 09/16/16 15:00 23:00 07:00 Intake Total 730 ml 340 ml Output Total 50 ml 32319 ml Balance 680 ml -9660 ml Exam Constitutional: alert, oriented Head: normocephalic Neck: supple Respiratory: normal air movement Cardiovascular: nl pulses Gastrointestinal: non-tender, soft Extremities: normal pulses Neurological: nl mental status Results Result Diagram: 09/16/16 0515 09/16/16 0515 Results 24 hrs Laboratory Tests Test 09/16/16 05:15 White Blood Count 19.0 #H Red Blood Count 3.34 L Hemoglobin 10.2 L Hematocrit 30.1 L Mean Corpuscular Volume 90.1 Mean Corpuscular Hemoglobin 30.5 Mean Corpuscular Hemoglobin Concent 33.9 Red Cell Distribution Width 14.3 Platelet Count 190 Mean Platelet Volume 9.6 Neutrophils % 83.5 H Lymphocytes % 8.2 L Monocytes % 7.3 Eosinophils % 0.0 Basophils % 0.2 Nucleated Red Blood Cells % 0.0 Neutrophils # 15.8 H Lymphocytes # 1.6 Monocytes # 1.4 H Eosinophils # 0.0 Basophils # 0.0 Nucleated Red Blood Cells # 0.0 Sodium Level 136 Potassium Level 3.7 Chloride Level 102 Carbon Dioxide Level 28 Anion Gap 10 # Blood Urea Nitrogen 16 Creatinine 1.10 Glucose Level 141 Calcium Level 8.8 Medications Medications Current Medications Ondansetron HCl (Zofran Inj) 4 mg Q6H PRN IV NAUSEA AND/OR VOMITING; Start 09/13 at 18:00 Morphine Sulfate (morphine) 2 mg Q4H PRN IV PAIN Last administered on 01:15; Admin Dose 2 MG; Start 09/13/16 at 18:30 Aspirin (Aspirin) 81 mg DAILY PO ; Start 09/14/16 at 09:00 Atenolol (Tenormin) 25 mg BID PO Last administered on 09/16/16 08:53; Admin Dose 25 MG; Start 09/13/16 at 21:00 Hydrochlorothiazide (Hydrochlorothiazide) 25 mg DAILY PO Last administered on 08:53; Admin Dose 25 MG; Start 09/14/16 at 09:00 Pantoprazole (Protonix Tab) 40 mg DAILY@06 PO Last administered on 09/16/16 05 :46; Admin Dose 40 MG; Start 09/14/16 at 06:00 Acetaminophen/ Hydrocodone Bitart 1 tab 1 tab Q4H PRN PO PAIN LEVEL 4-7 Last administered on 09/14/16 14:55; Admin Dose 1 TAB; Start 09/14/16 at 12:00 Cefepime HCl (Maxipime 1gm/50 ml (Pmx)) 50 ml @ 100 mls/hr Q12 IVPB Last administered on 09/16/16 08:51; Admin Dose 100 MLS/HR; Start 09/14/16 at 21:00 Tolterodine Tartrate (Detrol La) 4 mg DAILY PO Last administered on 09/16/16 08:52; Admin Dose 4 MG; Start 09/15/16 at 15:30 JAY WEEMS Sep 16, 2016 17:47
[2016-09-16] MEDS: NS + KCL 20 MEQ 1,000 ML IV SCH (18:21)
[2016-09-16] MEDS: HYDROCODONE/APAP (5/325) TAB PO PRN (20:53)
[2016-09-16 21:07] VITALS: BP 118/79; RESP 19
[2016-09-17 05:07] LABS: ADD SCAN DIFF NO
[2016-09-17 05:10] LABS: BASOPHIL # 0.1 10^3/ul (0.0-0.1); BASOPHILS % 0.4 % (0.0-2.0); EOSINOPHILS # 0.3 10^3/ul (0.0-0.5); EOSINOPHILS % 2.1 % (0.0-7.0); HEMATOCRIT 29.8 % (42.0-52.0); HEMOGLOBIN 9.9 g/dl (14.0-18.0); LYMPHOCYTES # 3.4 10^3/ul (0.8-2.9); LYMPHOCYTES % 23.8 % (15.0-51.0); MEAN CORPUSCULAR HEMOGLOBIN 30.9 pg (29.0-33.0); MEAN CORPUSCULAR HGB CONC 33.2 g/dl (32.0-37.0); MEAN CORPUSCULAR VOLUME 93.1 fl (82.0-101.0); MEAN PLATELET VOLUME 9.3 fl (7.4-10.4); MONOCYTES % 6.6 % (0.0-11.0); NEUTROPHIL # 9.6 10^3/ul (1.6-7.5); NEUTROPHILS % 66.7 % (39.0-77.0); PLATELET COUNT 196 10^3/UL (140-415); RED CELL DISTRIBUTION WIDTH 14.5 % (11.5-14.5); WHITE BLOOD COUNT 14.4 10^3/ul (4.8-10.8)
[2016-09-17 05:34] LABS: CALCIUM 8.7 mg/dl (8.4-10.2); CREATININE 1.13 mg/dl (0.61-1.24); POTASSIUM 3.9 mmol/L (3.5-5.1)
[2016-09-17] MEDS: PANTOPRAZOLE (EC) 40 MG TAB PO SCH (05:43)
[2016-09-17] MEDS: NS + KCL 20 MEQ 1,000 ML IV SCH ×2 (07:26→19:00)
[2016-09-17] MEDS: CEFEPIME 1GM/50 ML (PMX) 50 ML IVPB SCH (08:14)
[2016-09-17] MEDS: ASPIRIN 81 MG TAB PO SCH (08:15)
[2016-09-17] MEDS: TOLTERODINE (SR) 4 MG CAP PO SCH (08:15)
[2016-09-17] MEDS: HYDROCHLOROTHIAZIDE 25 MG TAB PO SCH (08:16)
[2016-09-17] MEDS: ATENOLOL 25 MG TAB PO SCH ×2 (08:16→19:55)
[2016-09-17 08:18] VITALS: BP 152/84; RESP 18
--- NOTE | 2016-09-17 14:21 | CONS ---
Date/Time of Note Date/Time of Note DATE: 09/17/16 TIME: 14:19 Assessment/Plan Assessment/Plan Chief Complaint/Hosp Course Alert, feels good, no fevers Microbiology blood and urine cultures since admission remain negative. Pathology revealed no malignancy Antibiotics: Cefepime Physical examination: Well-developed well-nourished middle-aged man who is alert in no distress. Head atraumatic normocephalic sclera nonicteric. Neck is supple. Chest rise symmetrical breath sounds clear bilaterally. Heart S1- S2. Abdomen soft bowel tones present extremities without cyanosis. Assessment: 1. Gross hematuria and urinary retention, status post cystoscopy 2. Hypertension 3. Acute hemorrhagic cystitis 4. Leukocytosis likely reactive, improving Plan: Clinically stable, all cultures negative, will discontinue antibiotics and observe, repeat cultures as needed, follow urology recommendations Discussed with patient and RN Problems: Consultation Date/Type/Reason Admit Date/Time Sep 15, 2016 at 14:52 Initial Consult Date 09/13/16 Type of Consultation: ID Exam/Review of Systems Vital Signs Vitals Vital Signs Date Time Temp Pulse Resp B/P Pulse Ox O2 Delivery O2 Flow Rate FiO2 09/17/16 08:18 97.0 18 18 152/84 100 09/15/16 15:24 Room Air Intake and Output 09/16/16 09/16/16 09/17/16 15:00 23:00 07:00 Intake Total 50 ml 1020 ml 1440 ml Output Total 1700 ml 900 ml Balance 50 ml -680 ml 540 ml Results Result Diagram: 09/17/16 0449 09/17/16 0450 Results 24 hrs Laboratory Tests Test 09/17/16 04:49 09/17/16 04:50 White Blood Count 14.4 #H Red Blood Count 3.20 L Hemoglobin 9.9 L Hematocrit 29.8 L Mean Corpuscular Volume 93.1 Mean Corpuscular Hemoglobin 30.9 Mean Corpuscular Hemoglobin Concent 33.2 Red Cell Distribution Width 14.5 Platelet Count 196 Mean Platelet Volume 9.3 Neutrophils % 66.7 Lymphocytes % 23.8 Monocytes % 6.6 Eosinophils % 2.1 Basophils % 0.4 Nucleated Red Blood Cells % 0.0 Neutrophils # 9.6 H Lymphocytes # 3.4 H Monocytes # 1.0 H Eosinophils # 0.3 Basophils # 0.1 Nucleated Red Blood Cells # 0.0 Sodium Level 133 L Potassium Level 3.9 Chloride Level 102 Carbon Dioxide Level 28 Anion Gap 7 L Blood Urea Nitrogen 22 H Creatinine 1.13 Glucose Level 117 Calcium Level 8.7 Medications Medications Current Medications Ondansetron HCl (Zofran Inj) 4 mg Q6H PRN IV NAUSEA AND/OR VOMITING; Start 09/13 at 18:00 Morphine Sulfate (morphine) 2 mg Q4H PRN IV PAIN Last administered on 01:15; Admin Dose 2 MG; Start 09/13/16 at 18:30 Aspirin (Aspirin) 81 mg DAILY PO Last administered on 09/17/16 08:15; Admin Dose 81 MG; Start 09/14/16 at 09:00 Atenolol (Tenormin) 25 mg BID PO Last administered on 09/17/16 08:16; Admin Dose 25 MG; Start 09/13/16 at 21:00 Hydrochlorothiazide (Hydrochlorothiazide) 25 mg DAILY PO Last administered on 08:16; Admin Dose 25 MG; Start 09/14/16 at 09:00 Pantoprazole (Protonix Tab) 40 mg DAILY@06 PO Last administered on 09/17/16 05 :43; Admin Dose 40 MG; Start 09/14/16 at 06:00 Acetaminophen/ Hydrocodone Bitart 1 tab 1 tab Q4H PRN PO PAIN LEVEL 4-7 Last administered on 09/16/16 20:53; Admin Dose 1 TAB; Start 09/14/16 at 12:00 Cefepime HCl (Maxipime 1gm/50 ml (Pmx)) 50 ml @ 100 mls/hr Q12 IVPB Last administered on 09/17/16 08:14; Admin Dose 100 MLS/HR; Start 09/14/16 at 21:00 Tolterodine Tartrate 4 mg 4 mg DAILY PO Last administered on 09/17/16 08:15; Admin Dose 4 MG; Start 09/15/16 at 15:30 Potassium Chloride/Sodium Chloride (NS-KCl 20 Meq) 1,000 ml @ 80 mls/hr [id number] IV Last administered on 09/17/16 07:26; Admin Dose 80 MLS/HR; Start at 18:00 IRVIN DURAN NP Sep 17, 2016 14:21
[2016-09-17 14:38] VITALS: BP 121/75; RESP 16
[2016-09-17] MEDS: morphine 2 MG INJ IV PRN (16:18)
[2016-09-17] MEDS: HYDROCODONE/APAP (5/325) TAB PO PRN (17:22)
--- NOTE | 2016-09-17 19:08 | PN ---
Date/Time of Note Date/Time of Note DATE: 09/17/16 TIME: 19:06 Assessment/Plan VTE Prophylaxis VTE Prophylaxis Intervention: other Lines/Catheters [facility] Peripheral IV Urinary Cath still in place: Yes Reason Cath still needed: urinary retention Assessment/Plan Assessment/Plan Patient with leukocytosis most likely secondary to procedure yesterday, complains of generalized weakness, continue IV fluids, monitor urinary output. Assessment/Plan -Acute cystitis. Continue ceftriaxone follow-up on urine culture. Dr. Panda is following in urology consultation. Continue bladder irrigation. -Status post cystoscopy and fulguration of bladder, continue to monitor urine output. -Hematuria secondary to acute cystitis, continue to monitor H&H. -Urinary retention -Bladder diverticulum -Hypertension -Recurrent right inguinal hernia, patient follows with Dr. Sarah as an outpatient. Further recommendations based on clinical course. Plan of care discussed with Dr. Galloway. Exam/Review of Systems Vital Signs Vitals Vital Signs Date Time Temp Pulse Resp B/P Pulse Ox O2 Delivery O2 Flow Rate FiO2 09/17/16 14:38 97.4 61 16 121/75 99 09/15/16 15:24 Room Air Intake and Output 09/16/16 09/16/16 09/17/16 15:00 23:00 07:00 Intake Total 50 ml 1020 ml 1440 ml Output Total 1700 ml 900 ml Balance 50 ml -680 ml 540 ml Exam Constitutional: alert, oriented, well developed Respiratory: clear to auscultation, normal air movement Cardiovascular: nl pulses, regular rate and rhythm Gastrointestinal: nl liver, spleen, soft Genitourinary - Male: other (left inguinal hernia) Musculoskeletal: nl extremities to inspection Extremities: normal pulses Neurological: nl mental status, nl speech Results Result Diagram: 09/17/16 0449 09/17/16 0450 Results 24 hrs Laboratory Tests Test 09/17/16 04:49 09/17/16 04:50 White Blood Count 14.4 #H Red Blood Count 3.20 L Hemoglobin 9.9 L Hematocrit 29.8 L Mean Corpuscular Volume 93.1 Mean Corpuscular Hemoglobin 30.9 Mean Corpuscular Hemoglobin Concent 33.2 Red Cell Distribution Width 14.5 Platelet Count 196 Mean Platelet Volume 9.3 Neutrophils % 66.7 Lymphocytes % 23.8 Monocytes % 6.6 Eosinophils % 2.1 Basophils % 0.4 Nucleated Red Blood Cells % 0.0 Neutrophils # 9.6 H Lymphocytes # 3.4 H Monocytes # 1.0 H Eosinophils # 0.3 Basophils # 0.1 Nucleated Red Blood Cells # 0.0 Sodium Level 133 L Potassium Level 3.9 Chloride Level 102 Carbon Dioxide Level 28 Anion Gap 7 L Blood Urea Nitrogen 22 H Creatinine 1.13 Glucose Level 117 Calcium Level 8.7 Medications Medications Current Medications Ondansetron HCl (Zofran Inj) 4 mg Q6H PRN IV NAUSEA AND/OR VOMITING; Start 09/13 at 18:00 Morphine Sulfate (morphine) 2 mg Q4H PRN IV PAIN Last administered on 16:18; Admin Dose 2 MG; Start 09/13/16 at 18:30 Aspirin (Aspirin) 81 mg DAILY PO Last administered on 09/17/16 08:15; Admin Dose 81 MG; Start 09/14/16 at 09:00 Atenolol (Tenormin) 25 mg BID PO Last administered on 09/17/16 08:16; Admin Dose 25 MG; Start 09/13/16 at 21:00 Hydrochlorothiazide (Hydrochlorothiazide) 25 mg DAILY PO Last administered on 08:16; Admin Dose 25 MG; Start 09/14/16 at 09:00 Pantoprazole (Protonix Tab) 40 mg DAILY@06 PO Last administered on 09/17/16 05 :43; Admin Dose 40 MG; Start 09/14/16 at 06:00 Acetaminophen/ Hydrocodone Bitart (Epes (5/325)) 1 tab Q4H PRN PO PAIN LEVEL 4 -7 Last administered on 09/17/16 17:22; Admin Dose 1 TAB; Start 09/14/16 at 12: 00 Tolterodine Tartrate 4 mg 4 mg DAILY PO Last administered on 09/17/16 08:15; Admin Dose 4 MG; Start 09/15/16 at 15:30 Potassium Chloride/Sodium Chloride (NS-KCl 20 Meq) 1,000 ml @ 80 mls/hr [id number] IV Last administered on 09/17/16 07:26; Admin Dose 80 MLS/HR; Start at 18:00 ASIA SMITH Sep 17, 2016 19:07
--- NOTE | 2016-09-17 19:39 | PN ---
Date/Time of Note Date/Time of Note DATE: 09/17/16 TIME: 19:31 Assessment/Plan VTE Prophylaxis VTE Prophylaxis Intervention: ambulation Lines/Catheters IV [facility]ter [facility] (from [facility] Peripheral IV Urinary Cath still in place: Yes Reason Cath still needed: urinary retention, other (indicate) Assessment/Plan Chief Complaint/Hosp Course Gross hematuria that has cleared since the surgery . he has an indwelling Lyn catheter because of urinary retention. The hematuria has cleared Problems: Assessment/Plan Urinary retention, large bladder diverticulum and history of gross hematuria. We will keep the Lyn catheter in and once his leukocytosis is back to normal he may be discharged home with the Lyn catheter and I will see him in my office next week to remove the Lyn catheter then he could resume his self- catheterization as prior to admission Subjective 24 Hr Interval Summary Free Text/Dictation History of gross hematuria Constitutional: improved, no complaints Eyes: no complaints ENT: no complaints Respiratory: no complaints Cardiovascular: no complaints, No chest pain Gastrointestinal: no complaints, No nausea, No vomiting Genitourinary: No bleeding, No hematuria Musculoskeletal: no complaints Skin: no complaints Neurologic: no complaints Endocrine: no complaints Lymphatic: no complaints Psychological: no complaints Immunologic: no complaints Exam/Review of Systems Vital Signs Vitals Vital Signs Date Time Temp Pulse Resp B/P Pulse Ox O2 Delivery O2 Flow Rate FiO2 09/17/16 14:38 97.4 61 16 121/75 99 09/15/16 15:24 Room Air Intake and Output 09/16/16 09/16/16 09/17/16 15:00 23:00 07:00 Intake Total 50 ml 1020 ml 1440 ml Output Total 1700 ml 900 ml Balance 50 ml -680 ml 540 ml Exam Constitutional: alert, oriented Psych: no complaints Head: normocephalic Eyes: nl conjunctiva ENMT: nl external ears & nose Neck: supple Respiratory: normal air movement Cardiovascular: regular rate and rhythm, No edema Gastrointestinal: non-tender, soft Genitourinary - Male: nl penis, nl scrotum, other (Lyn catheter in place draining clear urine) Musculoskeletal: nl extremities to inspection, No swelling Skin: nl turgor Lymph: nl lymph nodes Results Result Diagram: 09/17/16 0449 09/17/16 0450 Results 24 hrs Laboratory Tests Test 09/17/16 04:49 09/17/16 04:50 White Blood Count 14.4 #H Red Blood Count 3.20 L Hemoglobin 9.9 L Hematocrit 29.8 L Mean Corpuscular Volume 93.1 Mean Corpuscular Hemoglobin 30.9 Mean Corpuscular Hemoglobin Concent 33.2 Red Cell Distribution Width 14.5 Platelet Count 196 Mean Platelet Volume 9.3 Neutrophils % 66.7 Lymphocytes % 23.8 Monocytes % 6.6 Eosinophils % 2.1 Basophils % 0.4 Nucleated Red Blood Cells % 0.0 Neutrophils # 9.6 H Lymphocytes # 3.4 H Monocytes # 1.0 H Eosinophils # 0.3 Basophils # 0.1 Nucleated Red Blood Cells # 0.0 Sodium Level 133 L Potassium Level 3.9 Chloride Level 102 Carbon Dioxide Level 28 Anion Gap 7 L Blood Urea Nitrogen 22 H Creatinine 1.13 Glucose Level 117 Calcium Level 8.7 Medications Medications Current Medications Ondansetron HCl (Zofran Inj) 4 mg Q6H PRN IV NAUSEA AND/OR VOMITING; Start 09/13 at 18:00 Morphine Sulfate (morphine) 2 mg Q4H PRN IV PAIN Last administered on 16:18; Admin Dose 2 MG; Start 09/13/16 at 18:30 Aspirin (Aspirin) 81 mg DAILY PO Last administered on 09/17/16 08:15; Admin Dose 81 MG; Start 09/14/16 at 09:00 Atenolol (Tenormin) 25 mg BID PO Last administered on 09/17/16 08:16; Admin Dose 25 MG; Start 09/13/16 at 21:00 Hydrochlorothiazide (Hydrochlorothiazide) 25 mg DAILY PO Last administered on 08:16; Admin Dose 25 MG; Start 09/14/16 at 09:00 Pantoprazole (Protonix Tab) 40 mg DAILY@06 PO Last administered on 09/17/16 05 :43; Admin Dose 40 MG; Start 09/14/16 at 06:00 Acetaminophen/ Hydrocodone Bitart ([place] (5/325)) 1 tab Q4H PRN PO PAIN LEVEL 4 -7 Last administered on 09/17/16 17:22; Admin Dose 1 TAB; Start 09/14/16 at 12: 00 Tolterodine Tartrate 4 mg 4 mg DAILY PO Last administered on 09/17/16 08:15; Admin Dose 4 MG; Start 09/15/16 at 15:30 Potassium Chloride/Sodium Chloride (NS-KCl 20 Meq) 1,000 ml @ 80 mls/hr [id number] IV Last administered on 09/17/16 07:26; Admin Dose 80 MLS/HR; Start at 18:00 JOSE G CUMMINGS MD Sep 17, 2016 19:38
[2016-09-17 20:41] VITALS: BP_SYST 130; BP_SYST 134; BP_DIAS 73; BP_DIAS 89; RESP 18
[2016-09-17 21:15] VITALS: BP 126/62; PULSE 62
[2016-09-18] MEDS: NS + KCL 20 MEQ 1,000 ML IV SCH ×2 (00:11→12:54)
[2016-09-18 02:00] VITALS: BP 130/89; RESP 18
[2016-09-18] MEDS: PANTOPRAZOLE (EC) 40 MG TAB PO SCH (06:10)
[2016-09-18 06:36] LABS: ADD SCAN DIFF NO
[2016-09-18 06:50] LABS: BASOPHIL # 0.1 10^3/ul (0.0-0.1); BASOPHILS % 0.6 % (0.0-2.0); EOSINOPHILS # 0.4 10^3/ul (0.0-0.5); EOSINOPHILS % 3.6 % (0.0-7.0); HEMATOCRIT 31.7 % (42.0-52.0); HEMOGLOBIN 10.2 g/dl (14.0-18.0); LYMPHOCYTES # 2.5 10^3/ul (0.8-2.9); LYMPHOCYTES % 22.1 % (15.0-51.0); MEAN CORPUSCULAR HEMOGLOBIN 30.3 pg (29.0-33.0); MEAN CORPUSCULAR HGB CONC 32.2 g/dl (32.0-37.0); MEAN CORPUSCULAR VOLUME 94.1 fl (82.0-101.0); MEAN PLATELET VOLUME 10.4 fl (7.4-10.4); MONOCYTES % 8.6 % (0.0-11.0); NEUTROPHIL # 7.4 10^3/ul (1.6-7.5); NEUTROPHILS % 64.7 % (39.0-77.0); PLATELET COUNT 196 10^3/UL (140-415); RED BLOOD COUNT 3.37 10^6/ul (4.70-6.10); RED CELL DISTRIBUTION WIDTH 14.8 % (11.5-14.5); WHITE BLOOD COUNT 11.4 10^3/ul (4.8-10.8)
[2016-09-18 07:12] LABS: CALCIUM 8.8 mg/dl (8.4-10.2); CREATININE 1.11 mg/dl (0.61-1.24); POTASSIUM 4.5 mmol/L (3.5-5.1)
[2016-09-18] MEDS: ATENOLOL 25 MG TAB PO SCH ×2 (08:11→20:00)
[2016-09-18] MEDS: ASPIRIN 81 MG TAB PO SCH (08:11)
[2016-09-18] MEDS: TOLTERODINE (SR) 4 MG CAP PO SCH (08:11)
[2016-09-18] MEDS: HYDROCHLOROTHIAZIDE 25 MG TAB PO SCH (08:12)
[2016-09-18 08:17] VITALS: BP 132/64; RESP 18
[2016-09-18 14:00] VITALS: BP 120/67; RESP 16
--- NOTE | 2016-09-18 18:14 | PN ---
Date/Time of Note Date/Time of Note DATE: 09/18/16 TIME: 18:09 Assessment/Plan VTE Prophylaxis VTE Prophylaxis Intervention: ambulation Lines/Catheters IV [facility]atheter Type (from [facility]): Peripheral IV Urinary Cath still in place: Yes Reason Cath still needed: urinary retention Assessment/Plan Chief Complaint/Hosp Course Gross hematuria that has cleared since the surgery . he has an indwelling Lyn catheter because of urinary retention. The hematuria started again today. Problems: Assessment/Plan The original hematuria that he came with did clear after he underwent a cystoscopy. However the patient started having hematuria again today but it is not bad like it was before. He still could go home with a Lyn catheter and will come to the office next week to remove the Lyn catheter and resume his self-catheterization Subjective 24 Hr Interval Summary Free Text/Dictation Patient had pain in the right inguinal area from the large hernia that he has. Constitutional: no complaints Eyes: no complaints ENT: no complaints Respiratory: no complaints Cardiovascular: no complaints Gastrointestinal: No nausea, No vomiting Genitourinary: hematuria, no complaints Musculoskeletal: no complaints Skin: no complaints Endocrine: no complaints Psychological: no complaints Immunologic: no complaints Exam/Review of Systems Vital Signs Vitals Vital Signs Date Time Temp Pulse Resp B/P Pulse Ox O2 Delivery O2 Flow Rate FiO2 09/18/16 14:00 97.6 64 16 120/67 98 09/15/16 15:24 Room Air Intake and Output 09/17/16 09/17/16 09/18/16 15:00 23:00 07:00 Intake Total 160 ml 2340 ml 1760 ml Output Total 2400 ml 1500 ml Balance 160 ml -60 ml 260 ml Exam Constitutional: alert, oriented Psych: no complaints Head: atraumatic, normocephalic Eyes: nl conjunctiva ENMT: nl external ears & nose Neck: supple Respiratory: normal air movement Cardiovascular: regular rate and rhythm Gastrointestinal: other (Large right inguino-scrotal hernia), soft Genitourinary - Male: nl penis, other (The Lyn catheter is draining blood- tinged urine now. Previously the urine was clear however he started having hematuria today but it is still remaining without blood clots) Musculoskeletal: nl extremities to inspection Extremities: normal pulses Skin: nl turgor Lymph: nl lymph nodes Results Result Diagram: 09/18/1652609/18/16525 Results 24 hrs Laboratory Tests Test 09/18/16 05:26 09/18/16 05:27 Sodium Level 137 Potassium Level 4.5 Chloride Level 106 Carbon Dioxide Level 26 Anion Gap 10 Blood Urea Nitrogen 17 Creatinine 1.11 Glucose Level 108 Calcium Level 8.8 White Blood Count 11.4 #H Red Blood Count 3.37 L Hemoglobin 10.2 L Hematocrit 31.7 L Mean Corpuscular Volume 94.1 Mean Corpuscular Hemoglobin 30.3 Mean Corpuscular Hemoglobin Concent 32.2 Red Cell Distribution Width 14.8 H Platelet Count 196 Mean Platelet Volume 10.4 Neutrophils % 64.7 Lymphocytes % 22.1 Monocytes % 8.6 Eosinophils % 3.6 Basophils % 0.6 Nucleated Red Blood Cells % 0.0 Neutrophils # 7.4 Lymphocytes # 2.5 Monocytes # 1.0 H Eosinophils # 0.4 Basophils # 0.1 Nucleated Red Blood Cells # 0.0 Medications Medications Current Medications Ondansetron HCl (Zofran Inj) 4 mg Q6H PRN IV NAUSEA AND/OR VOMITING; Start 09/13 at 18:00 Morphine Sulfate (morphine) 2 mg Q4H PRN IV PAIN Last administered on 16:18; Admin Dose 2 MG; Start 09/13/16 at 18:30 Aspirin (Aspirin) 81 mg DAILY PO Last administered on 09/18/16 08:11; Admin Dose 81 MG; Start 09/14/16 at 09:00 Atenolol (Tenormin) 25 mg BID PO Last administered on 09/18/16 08:11; Admin Dose 25 MG; Start 09/13/16 at 21:00 Hydrochlorothiazide (Hydrochlorothiazide) 25 mg DAILY PO Last administered on 08:12; Admin Dose 25 MG; Start 09/14/16 at 09:00 Pantoprazole (Protonix Tab) 40 mg DAILY@06 PO Last administered on 09/18/16 06 :10; Admin Dose 40 MG; Start 09/14/16 at 06:00 Acetaminophen/ Hydrocodone Bitart ([place] (5/325)) 1 tab Q4H PRN PO PAIN LEVEL 4 -7 Last administered on 09/17/16 17:22; Admin Dose 1 TAB; Start 09/14/16 at 12: 00 Tolterodine Tartrate 4 mg 4 mg DAILY PO Last administered on 09/18/16 08:11; Admin Dose 4 MG; Start 09/15/16 at 15:30 Potassium Chloride/Sodium Chloride (NS-KCl 20 Meq) 1,000 ml @ 80 mls/hr [id number] IV Last administered on 09/18/16 12:54; Admin Dose 80 MLS/HR; Start at 18:00 JOSE G CUMMINGS MD Sep 18, 2016 18:14
--- NOTE | 2016-09-20 20:49 | DS ---
Date/Time of Note Date/Time of Note DATE: 09/20/16 TIME: 20:45 Discharge Summary Admission/Discharge Info Admit Date/Time Sep 15, 2016 at 14:52 Discharge Date/Time Sep 18, 2016 at 19:49 Patient Condition: Good Hx of Present Illness The patient is a 55-year-old gentleman patient with history of recurrence of large right inguinal hernia, s/p hernia repair with bowel decompression in August 2015 and April [address] Sarah. Patient with history of atelectasis and right lung mass, status post biopsy at previous admission which came back negative for malignancy. Patient with history of bladder diverticulum and urinary retention who is been doing self catheterization at home. He presented to the emergency room with complaints of hematuria and blood clots in the urine. Patient underwent CT scan of the abdomen and pelvis in the emergency room which revealed high density material consistent with hematoma, thickening of the urinary bladder bladder wall suggesting cystitis, a large bladder diverticulum, right inguinal hernia increased in size, and 3 cm mass in right lung based unchanged from previous exam. Patient was diagnosed with acute cystitis and was started on ceftriaxone. Hospital Course -Acute cystitis. S/p bladder irrigatio and abx. Dr. Panda is following in urology consultation. Dr Santos was following in ID consultation. -Hematuria, Status post cystoscopy and fulguration of bladder by Dr Panda. D/ shirley home with Lyn. H&H was monitored, stable. -Hematuria secondary to acute cystitis, continue to monitor H&H. -Urinary retention -Bladder diverticulum -Hypertension -Recurrent right inguinal hernia, patient follows with Dr. Sarah as an outpatient. Home Meds Reported Medications Acetaminophen with Codeine (Acetaminophen-Cod #3 Tablet) 1 Each Tablet, 1 TAB PO QHS, #20 TAB 09/13/16 Tramadol Hcl* (Ultram*) 50 Mg Tablet, 50 MG PO NEEDED Y for PAIN, TAB 09/13/16 Aspirin* (Aspirin* EC) 81 Mg Tablet., 81 MG PO DAILY, TAB 09/13/16 Pantoprazole* (Protonix*) 40 Mg Tablet., 40 MG PO QAM, TAB 09/13/16 Atenolol* (Atenolol*) 25 Mg Tablet, 25 MG PO BID, #60 TAB 7/9/17 Hydrochlorothiazide* (Hydrochlorothiazide*) 25 Mg Tab, 25 MG PO DAILY, #30 TAB 09/05/15 Discontinued Reported Medications Lisinopril* (Lisinopril*) 40 Mg Tablet, 40 MG PO DAILY, #30 TAB 09/05/15 Discontinued Scripts Hydrocodone/Acetaminophen ([place] 5-325 Tablet) 1 Each Tablet, 1 EACH PO Q6 for PAIN, #30 TAB Prov:MELANIE REDDY 04/11/16 Amlodipine Besylate* (Amlodipine Besylate*) 10 Mg Tablet, 10 MG PO DAILY for 30 Days, TAB Prov:JAY WEEMS 09/25/15 Follow-up Plan f/up with Dr Panda in 1 week. Primary Care Provider [facility] Time spent on discharge: > 30 minutes JAY WEEMS Sep 20, 2016 20:49
--- NOTE | 2016-09-22 09:20 | CONS ---
DATE OF ADMISSION: 09/15/2016 DATE OF CONSULTATION: 09/14/2016 REASON FOR CONSULTATION: Antibiotic management. HISTORY OF PRESENT ILLNESS: Kem Hay is a 54-year-old male who comes in with urinary retention and urinary cystitis. His past problems include: 1. Recurrence of large right inguinal hernia. 2. Status post hernia repair with bowel decompression in August 2015 and April [address] Sarah. 3. History of atelectasis and right lung mass, status post biopsy, which came back negative for malignancy. 4. History of bladder diverticulum and urinary retention, who has been doing self-catheterization at home. Patient presents to the emergency room with hematuria and blood clots in the urine. He underwent a CT scan of the abdomen and pelvis in the emergency room, which revealed high-density material consistent with a hematoma. There was thickening of the urinary bladder and bladder wall suggesting cystitis. There was a large bladder diverticulum, right inguinal hernia increased in size and a 3 cm mass in the right lung base, basically unchanged from previous exam. He was diagnosed with acute cystitis and was started on ceftriaxone. On admission, his white count was 12.1, H and H of 10.3 and 31.5, platelet count 171,000. BUN and creatinine 21/1.02. PAST MEDICAL HISTORY: Operations as outlined, status post right large inguinal hernia repair x2. Medical history is positive for hypertension and urinary retention. FAMILY HISTORY: Noncontributory. SOCIAL HISTORY: He is a former smoker. He does not drink or abuse drugs. ALLERGIES: NONE TO PENICILLIN, SULFA OR FOODS. MEDICATION: Per chart. REVIEW OF SYSTEMS: As per HPI. PHYSICAL EXAMINATION: GENERAL: Patient is a well-developed, well-nourished male, who is alert, responsive, no acute distress. VITAL SIGNS: Stable. He is afebrile. SKIN: Without generalized rash. HEENT: Within normal limits. NECK: Supple. Lymph nodes nonpalpable. CHEST: Decreased breath sounds at the bases. CARDIAC: Without murmur or gallop. ABDOMEN: Soft, nondistended. He has multiple lower abdominal scars. Right inguinal hernia is soft. Tenderness in the suprapubic area. Right lower quadrant and right inguinal hernia. EXTREMITIES: Without cyanosis, clubbing or edema. RECTAL AND GENITAL: Exams deferred. NEUROLOGIC: No focal neurological abnormalities. IMPRESSION/PLAN: Patient comes in with a history of self- catheterization, gross hematuria and suprapubic pain and is found to have a urinary tract infection. He was started on ceftriaxone. I do not see culture results. He was seen also by Dr. Panda, who has Lyn in for urinary retention and he has continuous bladder irrigation. We will get urinalysis and culture, blood culture and he has a plan for cystoscopy and possible transurethral resection for bladder tumors and possible bladder fulguration. I believe I am going to change him to cefepime for better coverage. I will dictate my findings to Dr. Galloway and to Dr. Panda. Dictated By: Goyo Santos MD JD/alma/angie /Document#: [id number]
== END 2016-09-18 19:49 | disposition home or self-care (01) | DRG 663 ==
LOC: FTE 07:20 → PP2 12:59 → OBSVTOIN 09-15 14:52
PROVIDERS: ADMIT Internal Medicine; ATTEND Internal Medicine
PROC: 3E1K78Z Irrigation of Genitourinary Tract using Irrigating Substance, Via Natural or Artificial Opening (ICD-10-PCS; 2016-09-13)
PROC: 0W3R8ZZ Control Bleeding in Genitourinary Tract, Via Natural or Artificial Opening Endoscopic (ICD-10-PCS; principal; 2016-09-15 12:30)
DX: T83.518A Infection and inflammatory reaction due to other urinary catheter, initial encounter (principal); N30.01 Acute cystitis with hematuria; I10 Essential (primary) hypertension; K40.91 Unilateral inguinal hernia, without obstruction or gangrene, recurrent; N32.3 Diverticulum of bladder; R31.0 Gross hematuria; R33.9 Retention of urine, unspecified
CPT/HCPCS: 36415; 74177; 80048; 80053; 81001; 85025; 85610; 86850; 86900; 86901; 87040; 87086; 88304; 93005; 96374; 96375; G0378; J0692; J0696; J1100; J1170; J2250; J2270; J2405; J2710; J3010; J3480; J7030; Q9967

== ENCOUNTER 2018-05-20 12:05 | Inpatient (IN) | payer OTHER ==
[~2018-05-20] VITALS: Ht 170.2 cm; Wt 95.1 kg
[~2018-05-20 12:05] MED LIST changes: +ACET1TAB40 PO; -AMLO-147 PO; +ASPI-817 PO; +ATEN-51 PO; -HYD25 PO; -HYDR-906 PO; +HYDR25TA6 PO; -LISI40TA9 PO; +PANT40TA3 PO; +TRAM50TA PO
[2018-05-20] MEDS ORDERED: NITROGLYCERIN 2% 1 GM OINT PKT TD STA (12:25)
[2018-05-20] MEDS ORDERED: ASPIRIN 81 MG TAB PO STA (12:25)
[2018-05-20] MEDS ORDERED: NITROGLYCERIN (SL) 0.4 MG TAB SL PRN ×2 (12:30→17:00)
[2018-05-20] MEDS ORDERED: CHLO25TA2 PO (13:10)
[2018-05-20] MEDS ORDERED: ATEN100T PO (13:10)
[2018-05-20] MEDS ORDERED: MONT10TA24 PO (13:11)
[2018-05-20] MEDS ORDERED: METF500T3 PO (13:11)
[2018-05-20] MEDS ORDERED: DULO60CA59 PO (13:12)
[2018-05-20] MEDS ORDERED: CHOL100062 PO (13:12)
[2018-05-20] MEDS ORDERED: NAPR-688 PO (13:12)
[2018-05-20] MEDS ORDERED: ONDANSETRON 4 MG INJ IV PRN (13:30)
[2018-05-20] MEDS ORDERED: ACETAMINOPHEN 325 MG TAB PO PRN (13:30)
--- NOTE | 2018-05-20 13:47 | ERD ---
ER Documentation Chief Complaint Chief Complaint CHEST PAIN RADIATING TO LEFT ARM X4 DAYS, SENT PER PMD FOR EVAL HPI Patient is a 57-year-old male with hypertension and diabetes who presents with chest pain. The patient was sent to the ER by the nurse practitioner who saw him in the office today. He has had chest pain over the past 4 days. He felt a sharp pain radiating across his chest but also felt a left-sided pressure-like pain. The pain comes and goes and last hours at a time. His primary doctor is at the [facility]. ROS All systems reviewed and are negative except as per history of present illness. Medications Home Meds Reported Medications Duloxetine Hcl* (Duloxetine Hcl*) 60 Mg Capsule.dr, 60 MG PO DAILY, #30 CAP 05/20/18 Cholecalciferol* (Vitamin D3*) 1,000 Unit Tablet, 2000 UNIT PO DAILY, TAB 05/20/18 Naproxen* (Naproxen*) 500 Mg Tablet, 500 MG PO DAILY PRN for PAIN, TAB 05/20/18 Montelukast Sodium* (Montelukast Sodium*) 10 Mg Tablet, 10 MG PO QHS, #30 TAB 05/20/18 Metformin Hcl* (Metformin Hcl* ER) 500 Mg Tab.sr.24h, 500 MG PO DAILY, #30 TAB 05/20/18 Chlorthalidone* (Chlorthalidone*) 25 Mg Tablet, 25 MG PO DAILY, TAB 05/20/18 Atenolol* (Atenolol*) 100 Mg Tablet, 100 MG PO DAILY, #30 TAB 05/20/18 Pantoprazole* (Protonix*) 40 Mg Tablet., 40 MG PO QAM, TAB 09/13/16 Discontinued Reported Medications Acetaminophen with Codeine (Acetaminophen-Cod #3 Tablet) 1 Each Tablet, 1 TAB PO QHS, #20 TAB 09/13/16 Tramadol Hcl* (Ultram*) 50 Mg Tablet, 50 MG PO NEEDED PRN for PAIN, TAB 09/13/16 Aspirin* (Aspirin* EC) 81 Mg Tablet., 81 MG PO DAILY, TAB 09/13/16 Atenolol* (Atenolol*) 25 Mg Tablet, 25 MG PO BID, #60 TAB 09/13/16 Hydrochlorothiazide* (Hydrochlorothiazide*) 25 Mg Tab, 25 MG PO DAILY, #30 TAB 09/05/15 Allergies Allergies: Coded Allergies: No Known Drug Allergies (Verified Allergy, Unknown, 05/20/18) Uncoded Allergies: CANTELOUPE (Allergy, Mild, 09/14/16) PMhx/Soc History of Surgery: Yes (Hernia repair x 2 09/05/15 and 04/12/16) Anesthesia Reaction: No Hx Neurological Disorder: No Hx Respiratory Disorders: No Hx Cardiac Disorders: No Hx Psychiatric Problems: No (Depression) Hx Miscellaneous Medical Probl: No (Insomnia) Hx Alcohol Use: Yes (Once in a while.) Hx Substance Use: No Hx Tobacco Use: No Smoking Status: Never smoker FmHx Family History: No coronary disease Physical Exam Vitals Vital Signs Date Temp Pulse Resp B/P (MAP) Pulse Ox O2 O2 Flow FiO2 Time Delivery Rate 05/20/18 Nasal 2 12:52 Cannula 05/20/18 98.4 71 17 156/80 98 12:11 (105) Physical Exam Const: No acute distress Head: Atraumatic Eyes: Normal Conjunctiva ENT: Normal External Ears, Nose and Mouth. Neck: Full range of motion. No meningismus. Resp: Clear to auscultation bilaterally Cardio: Regular rate and rhythm, no murmurs Abd: Soft, non tender, non distended. Normal bowel sounds Skin: No petechiae or rashes Back: No midline or flank tenderness Ext: No cyanosis, or edema Neur: Awake and alert Psych: Normal Mood and Affect Result Diagram: 05/20/18 1243 05/20/18 1243 Results 24 hrs Laboratory Tests Test 05/20/18 12:43 White Blood Count 11.6 10^3/ul Red Blood Count 4.20 10^6/ul Hemoglobin 13.1 g/dl Hematocrit 39.7 % Mean Corpuscular Volume 94.5 fl Mean Corpuscular Hemoglobin 31.2 pg Mean Corpuscular Hemoglobin Concent 33.0 g/dl Red Cell Distribution Width 13.4 % Platelet Count 294 10^3/UL Mean Platelet Volume 8.6 fl Immature Granulocytes % 0.500 % Neutrophils % 72.4 % Lymphocytes % 15.1 % Monocytes % 8.0 % Eosinophils % 3.5 % Basophils % 0.5 % Nucleated Red Blood Cells % 0.0 /100WBC Immature Granulocytes # 0.060 10^3/ul Neutrophils # 8.4 10^3/ul Lymphocytes # 1.7 10^3/ul Monocytes # 0.9 10^3/ul Eosinophils # 0.4 10^3/ul Basophils # 0.1 10^3/ul Nucleated Red Blood Cells # 0.0 10^3/ul Sodium Level 136 mmol/L Potassium Level 3.9 mmol/L Chloride Level 98 mmol/L Carbon Dioxide Level 26 mmol/L Anion Gap 12 Blood Urea Nitrogen 28 mg/dl Creatinine 1.56 mg/dl Est Glomerular Filtrat Rate mL/min 46 mL/min Glucose Level 162 mg/dl Calcium Level 9.5 mg/dl Troponin I < 0.012 ng/ml Current Medications Medications Dose Sig/Tari Start Time Status Last (Trade) Ordered Route PRN Stop Time Admin Dose Reason Admin Aspirin 162 mg ONCE STAT 05/20/18 DC 05/20/18 (Aspirin) PO 12:25 12:46 05/20/18 12:26 1 inch ONCE STAT 05/20/18 DC 05/20/18 Nitroglycerin TD 12:25 12:46 05/20/18 12:26 (Nitroglyceri n 2% Oint) 1 tab Q5M UP TO 3 05/20/18 05/20/18 Nitroglycerin DOSES PRN 12:30 12:46 SL .CHEST (Nitroglyceri PAIN n (Sl Tab) 0.4 Mg) Ondansetron 4 mg ER BRIDGE 05/20/18 HCl (Zofran PRN IV 13:30 Inj) NAUSEA/VOMITI 05/21/18 13:29 NG 650 mg ER BRIDGE 05/20/18 Acetaminophen PRN PO 13:30 (Tylenol .MILD PAIN 05/21/18 13:29 Tab) 1-3 OR TEMP Procedures/MDM EKG #1 read by me: Rate/Rhythm: Regular rate and rhythm at a normal rate Intervals: Normal Impression: No evidence of ischemia or arrhythmia EKG #2 read by me: Rate/Rhythm: Regular rate and rhythm at a normal rate Intervals: Normal Impression: No evidence of ischemia or arrhythmia Chest x-ray negative per radiology. Patient is a 57-year-old male with cardiac risk factors who presents with chest pain. I am concerned for possible acute coronary syndrome. The patient was given aspirin and nitroglycerin. I spoke with Dr. Galloway who admitted the patient previously and the [facility] The patient will be admitted to a telemetry observation bed to rule out acute coronary syndrome. At this point I doubt pneumonia, pneumothorax, pulmonary embolism, or aortic dissection. Departure Diagnosis: Primary Impression: Chest pain Chest pain type: unspecified Qualified Codes: R07.9 - Chest pain, unspecified Condition: VA Rai MD May 20, 2018 13:47
[2018-05-20 14:44] VITALS: Ht 170.2 cm; Wt 95.1 kg
[2018-05-20 14:56] VITALS: BP 105/61; PULSE 65; RESP 18
[2018-05-20 16:05] VITALS: PULSE 69
[2018-05-20] MEDS ORDERED: ATENOLOL 50 MG TAB PO SCH (17:00)
[2018-05-20] MEDS ORDERED: GLUCAGON 1 MG INJ IM PRN (17:30)
[2018-05-20] MEDS ORDERED: GLUCOSE GEL 15 GRAM TUBE PO PRN ×2 (17:30)
[2018-05-20] MEDS ORDERED: DEXTROSE 50% 50 ML SYRINGE IV PRN ×2 (17:30)
[2018-05-20] MEDS ORDERED: GLUCOSE GEL 15 GRAM TUBE BUCCAL PRN (17:30)
--- NOTE | 2018-05-20 18:32 | HP ---
DATE OF ADMISSION: 05/20/2018 CHIEF COMPLAINT: Chest pain. HISTORY OF PRESENT ILLNESS: The patient is a 57-year-old gentleman with the history of hypertension, diabetes, recurrent large right inguinal hernia status post failed repair x2. The patient is awaiting referral to [facility] for further repair and has been followed by Dr. Sarah for his hernia. The patient came to ER with the chest pressure; however, occasionally he felt pain to be sharp sharp & radiating to the left upper extremity. The patient did not have any diaphoresis. No reported shortness of breath. No relation of pain with exertion. He denies nausea , vomiting, GERD, dysphagia,cough , sore throat or abdominal pain. No recent hematuria after last admission at [facility]. The patient did not have any dizziness or syncope. The rest of review of systems unremarkable. The patient was seen in ER and was found to have negative troponin and negative EKG for any acute changes. The patient is being referred for management. The patient denies history of headache, dizziness, syncope. No history of nausea, vomiting, diarrhea. No history of leg edema. No history of resting leg pain. No history of claudication, no history of dysuria or hematuria. No history of vomiting or diarrhea. REVIEW OF SYSTEMS: Rest of the review of systems unremarkable. PAST MEDICAL HISTORY: As stated above. In addition, the patient has history of hematuria requiring cystoscopy and fulguration of bladder. ALLERGIES: NONE. SOCIAL HISTORY: No smoking. The patient drinks 3 to 4 shots of scotch every night to help him sleep. FAMILY HISTORY: Positive for diabetes in father. PHYSICAL EXAMINATION: GENERAL: The patient is awake, alert, fairly oriented. VITAL SIGNS: Temperature 97.5, pulse 69, respirations 18, blood pressure 105/61, O2 saturation 99% on room air. HEENT: No eye discharge. Conjunctivae and lids are normal. Oropharynx clear. NECK: Supple, no mass or thyromegaly. CHEST: Fairly clear. CARDIOVASCULAR: S1, S2 normal, no murmur. GENITOURINARY: The patient has extremely large inguinal scrotal swelling from recurrent right inguinal hernia. Nontender and no change in color of skin. NEUROLOGIC: The patient is awake, alert, fairly oriented with no gross focal deficits. Peripheral pulses palpable. LABORATORY DATA: WBC 11.6, hemoglobin 13.1, platelet 294. Sodium 136, potassium 3.9, BUN 20, creatinine 1.5 up from 1.1 in 2017. Troponin negative. Chest x-ray negative. IMPRESSION: 1. Chest pain, rule out myocardial infarction. 2. ? ZAHRA Vs CKD3. 3. Hypertension. 4. Large recurrent right inguinal hernia. 5. 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 Panda. PLAN: The patient was admitted on telemetry floor. The patient will be started on aspirin, nitroglycerin, and beta jose cruz. The patient's blood pressure is close to 100, therefore, I will decrease atenolol dose to 50 mg once a day. We will also hold off on chlorthalidone since the patient has elevated creatinine. We will give trial of IV fluid and we will repeat BMP. We will obtain serial EKG and troponins. We will also obtain echocardiogram and cardiac consult from Dr. Garcia. Further management of right inguinal hernia as per Dr. Sarah as an outpatient. Dictated By: TABATHA WILLOUGHBY/ANGELI Conf#: [id number] DID#: [id number] MTDD
[2018-05-20] MEDS: SOD CHLORIDE 0.45% 1,000 ML IV SCH (18:49)
[2018-05-20 19:47] VITALS: BP 127/76; PULSE 71; RESP 18
[2018-05-20 20:00] VITALS: PULSE 66
[2018-05-20] MEDS: ZOLPIDEM 5 MG TAB PO SCH (21:13)
[2018-05-20] MEDS: MONTELUKAST 10 MG TAB PO SCH (21:13)
[2018-05-21] VITALS (11 sets, daily range): BP systolic 107–146; BP diastolic 61–88; PULSE 62–74; RESP 17–20
[2018-05-21] MEDS: SOD CHLORIDE 0.45% 1,000 ML IV SCH ×2 (07:18→19:26)
[2018-05-21] MEDS: metFORMIN (XR) 500 MG TAB PO SCH (08:54)
[2018-05-21] MEDS: DULOXETINE 30 MG CAP DR PO SCH (08:54)
[2018-05-21] MEDS: CHOLECALCIFEROL 1,000 UNIT TAB PO SCH (08:54)
[2018-05-21] MEDS: PANTOPRAZOLE (EC) 40 MG TAB PO SCH (08:54)
[2018-05-21] MEDS: ATENOLOL 50 MG TAB PO SCH (08:56)
[2018-05-21] MEDS: ASPIRIN (EC) 325 MG TAB PO SCH (08:56)
[2018-05-21] MEDS ORDERED: CHLORTHALIDONE 25 MG TAB PO SCH (09:00)
--- NOTE | 2018-05-21 13:50 | CONS ---
Consultation Date/Type/Reason Admit Date/Time May 20, 2018 at 13:31 Type of Consult Cardiology Date/Time of Note DATE: 05/21/18 TIME: 13:49 Hx of Present Illness 57 yo with CP,HTN,DM - will schedule stress test shortly, full note dictated - npo past midnight except meds # [id number] Past Medical History Home Meds Reported Medications Duloxetine Hcl* (Duloxetine Hcl*) 60 Mg Capsule.dr, 60 MG PO DAILY, #30 CAP 05/20/18 Cholecalciferol* (Vitamin D3*) 1,000 Unit Tablet, 2000 UNIT PO DAILY, TAB 05/20/18 Naproxen* (Naproxen*) 500 Mg Tablet, 500 MG PO DAILY PRN for PAIN, TAB 05/20/18 Montelukast Sodium* (Montelukast Sodium*) 10 Mg Tablet, 10 MG PO QHS, #30 TAB 05/20/18 Metformin Hcl* (Metformin Hcl* ER) 500 Mg Tab.sr.24h, 500 MG PO DAILY, #30 TAB 05/20/18 Chlorthalidone* (Chlorthalidone*) 25 Mg Tablet, 25 MG PO DAILY, TAB 05/20/18 Atenolol* (Atenolol*) 100 Mg Tablet, 100 MG PO DAILY, #30 TAB 05/20/18 Pantoprazole* (Protonix*) 40 Mg Tablet.dr, 40 MG PO QAM, TAB 09/13/16 Discontinued Reported Medications Acetaminophen with Codeine (Acetaminophen-Cod #3 Tablet) 1 Each Tablet, 1 TAB PO QHS, #20 TAB 09/13/16 Tramadol Hcl* (Ultram*) 50 Mg Tablet, 50 MG PO NEEDED PRN for PAIN, TAB 09/13/16 Aspirin* (Aspirin* EC) 81 Mg Tablet.dr, 81 MG PO DAILY, TAB 09/13/16 Atenolol* (Atenolol*) 25 Mg Tablet, 25 MG PO BID, #60 TAB 09/13/16 Hydrochlorothiazide* (Hydrochlorothiazide*) 25 Mg Tab, 25 MG PO DAILY, #30 TAB 09/05/15 Medications Current Medications Cholecalciferol (Vitamin D) 2,000 unit DAILY PO Last administered on 05/21/18at 08:54; Admin Dose 2,000 UNIT; Start 05/21/18 at 09:00 Duloxetine HCl (Cymbalta) 60 mg DAILY PO Last administered on 05/21/18at 08:54; Admin Dose 60 MG; Start 05/21/18 at 09:00 Metformin HCl (Glucophage Xr) 500 mg DAILY PO Last administered on 05/21/18at 08:54; Admin Dose 500 MG; Start 05/21/18 at 09:00 Montelukast Sodium (Singulair) 10 mg QHS PO Last administered on 05/20/18at 21:13; Admin Dose 10 MG; Start 05/20/18 at 21:00 Pantoprazole (Protonix Tab) 40 mg QAM PO Last administered on 05/21/18at 08:54; Admin Dose 40 MG; Start 05/21/18 at 09:00 Aspirin (Ecotrin) 325 mg DAILY PO Last administered on 05/21/18at 08:56; Admin Dose 325 MG; Start 05/21/18 at 09:00 Nitroglycerin (Nitroglycerin (Sl Tab) 0.4 Mg) 1 tab Q5M PRN SL ANGINA; Start 05/20/18 at 17:00 Sodium Chloride 1,000 ml @ 70 mls/hr [id number] IV Last administered on 05/21/18at 07:18; Admin Dose 70 MLS/HR; Start 05/20/18 at 17:00 Miscellaneous Information 1 ea NOTE XX ; Start 05/20/18 at 17:30 Glucose (Glutose) 15 gm Q15M PRN PO DECREASED GLUCOSE; Start 05/20/18 at 17:30 Glucose (Glutose) 22.5 gm Q15M PRN PO DECREASED GLUCOSE; Start 05/20/18 at 17:30 Dextrose (D50w Syringe) 25 ml Q15M PRN IV DECREASED GLUCOSE; Start 05/20/18 at 17:30 Dextrose (D50w Syringe) 50 ml Q15M PRN IV DECREASED GLUCOSE; Start 05/20/18 at 17:30 Glucagon (Glucagen) 1 mg Q15M PRN IM DECREASED GLUCOSE; Start 05/20/18 at 17:30 Glucose (Glutose) 15 gm Q15M PRN BUCCAL DECREASED GLUCOSE; Start 05/20/18 at 17:30 Zolpidem Tartrate (Ambien) 10 mg HS PO Last administered on 05/20/18at 21:13; Admin Dose 10 MG; Start 05/20/18 at 21:00 Atenolol (Tenormin) 50 mg DAILY PO Last administered on 05/21/18at 08:56; Admin Dose 50 MG; Start 05/21/18 at 09:00 Allergies: Coded Allergies: No Known Drug Allergies (Verified Allergy, Unknown, 05/20/18) Uncoded Allergies: CANTELOUPE (Allergy, Mild, 09/14/16) Past Surgical History Past Surgical Hx: other Social History Smoking Status: Never smoker Exam/Review of Systems Vital Signs Vitals Vital Signs Date Temp Pulse Resp B/P (MAP) Pulse Ox O2 O2 Flow FiO2 Time Delivery Rate 05/21/18 74 12:00 05/21/18 98.7 20 128/62 97 11:25 (84) 05/21/18 Room Air 07:50 05/20/18 2 12:52 Intake and Output 05/20/18 05/20/18 05/21/18 1515:00 23:00 07:00 IntakeIntake Total 350 ml BalanceBalance 350 ml Labs Result Diagram: 05/20/18 1243 05/21/18 0630 Results 24hrs Laboratory Tests Test 05/20/18 18:50 05/21/18 00:34 05/21/18 06:30 Creatine Kinase 119 104 Creatine Kinase Index 1.3 1.1 Creatinine Kinase MB (Mass) 1.50 1.11 Troponin I < 0.012 < 0.012 < 0.012 Sodium Level 138 Potassium Level 4.1 Chloride Level 98 Carbon Dioxide Level 29 Anion Gap 11 Blood Urea Nitrogen 25 H Creatinine 1.44 H Est Glomerular Filtrat Rate mL/min 50 L Glucose Level 154 Hemoglobin A1c 7.3 H Calcium Level 9.6 Total Bilirubin 0.6 Direct Bilirubin 0.00 Indirect Bilirubin 0.6 Aspartate Amino Transf (AST/SGOT) 16 Alanine Aminotransferase (ALT/SGPT) 18 Alkaline Phosphatase 119 Total Protein 8.0 Albumin 4.4 Globulin 3.60 H Albumin/Globulin Ratio 1.22 Triglycerides Level 226 H Cholesterol Level 194 LDL Cholesterol, Calculated 112 HDL Cholesterol 37 Cholesterol/HDL Ratio 5.2 Thyroid Stimulating Hormone (TSH) 2.250 Medications Medications Current Medications Cholecalciferol (Vitamin D) 2,000 unit DAILY PO Last administered on 05/21/18at 08:54; Admin Dose 2,000 UNIT; Start 05/21/18 at 09:00 Duloxetine HCl (Cymbalta) 60 mg DAILY PO Last administered on 05/21/18at 08:54; Admin Dose 60 MG; Start 05/21/18 at 09:00 Metformin HCl (Glucophage Xr) 500 mg DAILY PO Last administered on 05/21/18at 08:54; Admin Dose 500 MG; Start 05/21/18 at 09:00 Montelukast Sodium (Singulair) 10 mg QHS PO Last administered on 05/20/18at 21:13; Admin Dose 10 MG; Start 05/20/18 at 21:00 Pantoprazole (Protonix Tab) 40 mg QAM PO Last administered on 05/21/18 08:54; Admin Dose 40 MG; Start 05/21/18 at 09:00 Aspirin (Ecotrin) 325 mg DAILY PO Last administered on 05/21/18 08:56; Admin Dose 325 MG; Start 05/21/18 at 09:00 Nitroglycerin (Nitroglycerin (Sl Tab) 0.4 Mg) 1 tab Q5M PRN SL ANGINA; Start 05/20/18 at 17:00 Sodium Chloride 1,000 ml @ 70 mls/hr [id number] IV Last administered on 05/21/18at 07:18; Admin Dose 70 MLS/HR; Start 05/20/18 at 17:00 Miscellaneous Information 1 ea NOTE XX ; Start 05/20/18 at 17:30 Glucose (Glutose) 15 gm Q15M PRN PO DECREASED GLUCOSE; Start 05/20/18 at 17:30 Glucose (Glutose) 22.5 gm Q15M PRN PO DECREASED GLUCOSE; Start 05/20/18 at 17:30 Dextrose (D50w Syringe) 25 ml Q15M PRN IV DECREASED GLUCOSE; Start 05/20/18 at 17:30 Dextrose (D50w Syringe) 50 ml Q15M PRN IV DECREASED GLUCOSE; Start 05/20/18 at 17:30 Glucagon (Glucagen) 1 mg Q15M PRN IM DECREASED GLUCOSE; Start 05/20/18 at 17:30 Glucose (Glutose) 15 gm Q15M PRN BUCCAL DECREASED GLUCOSE; Start 05/20/18 at 17:30 Zolpidem Tartrate (Ambien) 10 mg HS PO Last administered on 05/20/18at 21:13; Admin Dose 10 MG; Start 05/20/18 at 21:00 Atenolol (Tenormin) 50 mg DAILY PO Last administered on 05/21/18at 08:56; Admin Dose 50 MG; Start 05/21/18 at 09:00 VIRGINIA CHRISTIANSON MD May 21, 2018 13:50
--- NOTE | 2018-05-21 16:55 | PN ---
Date/Time of Note Date/Time of Note DATE: 05/21/18 TIME: 16:55 Assessment/Plan VTE Prophylaxis Risk score (from Nsg)>0 risk: 1 SCD applied (from Nsg): No Lines/Catheters IV Catheter Type (from Nrsg): Peripheral IV Assessment/Plan Assessment/Plan 1. Chest pain, rule out myocardial infarction. 2. ? ZAHRA Vs CKD3. 3. Hypertension. 4. Large recurrent right inguinal hernia. 5. 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 Panda. Result Diagram: 05/20/18 1243 05/21/18 0630 Results 24hrs Laboratory Tests Test 05/20/18 18:50 05/21/18 00:34 05/21/18 06:30 Creatine Kinase 119 104 Creatine Kinase Index 1.3 1.1 Creatinine Kinase MB (Mass) 1.50 1.11 Troponin I < 0.012 < 0.012 < 0.012 Sodium Level 138 Potassium Level 4.1 Chloride Level 98 Carbon Dioxide Level 29 Anion Gap 11 Blood Urea Nitrogen 25 H Creatinine 1.44 H Est Glomerular Filtrat Rate mL/min 50 L Glucose Level 154 Hemoglobin A1c 7.3 H Calcium Level 9.6 Total Bilirubin 0.6 Direct Bilirubin 0.00 Indirect Bilirubin 0.6 Aspartate Amino Transf (AST/SGOT) 16 Alanine Aminotransferase (ALT/SGPT) 18 Alkaline Phosphatase 119 Total Protein 8.0 Albumin 4.4 Globulin 3.60 H Albumin/Globulin Ratio 1.22 Triglycerides Level 226 H Cholesterol Level 194 LDL Cholesterol, Calculated 112 HDL Cholesterol 37 Cholesterol/HDL Ratio 5.2 Thyroid Stimulating Hormone (TSH) 2.250 Exam/Review of Systems Exam Vitals Vital Signs Date Temp Pulse Resp B/P (MAP) Pulse Ox O2 O2 Flow FiO2 Time Delivery Rate 05/21/18 62 16:00 05/21/18 98.0 20 146/79 97 Room Air 15:09 (101) 05/20/18 2 12:52 Intake and Output 05/20/18 05/20/18 05/21/18 1515:00 23:00 07:00 IntakeIntake Total 350 ml BalanceBalance 350 ml Results Results 24hrs Laboratory Tests Test 05/20/18 18:50 05/21/18 00:34 05/21/18 06:30 Creatine Kinase 119 104 Creatine Kinase Index 1.3 1.1 Creatinine Kinase MB (Mass) 1.50 1.11 Troponin I < 0.012 < 0.012 < 0.012 Sodium Level 138 Potassium Level 4.1 Chloride Level 98 Carbon Dioxide Level 29 Anion Gap 11 Blood Urea Nitrogen 25 H Creatinine 1.44 H Est Glomerular Filtrat Rate mL/min 50 L Glucose Level 154 Hemoglobin A1c 7.3 H Calcium Level 9.6 Total Bilirubin 0.6 Direct Bilirubin 0.00 Indirect Bilirubin 0.6 Aspartate Amino Transf (AST/SGOT) 16 Alanine Aminotransferase (ALT/SGPT) 18 Alkaline Phosphatase 119 Total Protein 8.0 Albumin 4.4 Globulin 3.60 H Albumin/Globulin Ratio 1.22 Triglycerides Level 226 H Cholesterol Level 194 LDL Cholesterol, Calculated 112 HDL Cholesterol 37 Cholesterol/HDL Ratio 5.2 Thyroid Stimulating Hormone (TSH) 2.250 Medications Medication Current Medications Cholecalciferol (Vitamin D) 2,000 unit DAILY PO Last administered on 05/21/18 08:54; Admin Dose 2,000 UNIT; Start 05/21/18 at 09:00 Duloxetine HCl (Cymbalta) 60 mg DAILY PO Last administered on 05/21/18 08:54; Admin Dose 60 MG; Start 05/21/18 at 09:00 Metformin HCl (Glucophage Xr) 500 mg DAILY PO Last administered on 05/21/18 08:54; Admin Dose 500 MG; Start 05/21/18 at 09:00 Montelukast Sodium (Singulair) 10 mg QHS PO Last administered on 05/20/18 21:13; Admin Dose 10 MG; Start 05/20/18 at 21:00 Pantoprazole (Protonix Tab) 40 mg QAM PO Last administered on 05/21/18 08:54; Admin Dose 40 MG; Start 05/21/18 at 09:00 Aspirin (Ecotrin) 325 mg DAILY PO Last administered on 05/21/18 08:56; Admin Dose 325 MG; Start 05/21/18 at 09:00 Nitroglycerin (Nitroglycerin (Sl Tab) 0.4 Mg) 1 tab Q5M PRN SL ANGINA; Start 05/20/18 at 17:00 Sodium Chloride 1,000 ml @ 70 mls/hr [id number] IV Last administered on 05/21/18 07:18; Admin Dose 70 MLS/HR; Start 05/20/18 at 17:00 Miscellaneous Information 1 ea NOTE XX ; Start 05/20/18 at 17:30 Glucose (Glutose) 15 gm Q15M PRN PO DECREASED GLUCOSE; Start 05/20/18 at 17:30 Glucose (Glutose) 22.5 gm Q15M PRN PO DECREASED GLUCOSE; Start 05/20/18 at 17:30 Dextrose (D50w Syringe) 25 ml Q15M PRN IV DECREASED GLUCOSE; Start 05/20/18 at 17:30 Dextrose (D50w Syringe) 50 ml Q15M PRN IV DECREASED GLUCOSE; Start 05/20/18 at 17:30 Glucagon (Glucagen) 1 mg Q15M PRN IM DECREASED GLUCOSE; Start 05/20/18 at 17:30 Glucose (Glutose) 15 gm Q15M PRN BUCCAL DECREASED GLUCOSE; Start 05/20/18 at 17:30 Zolpidem Tartrate (Ambien) 10 mg HS PO Last administered on 05/20/18at 21:13; Admin Dose 10 MG; Start 05/20/18 at 21:00 Atenolol (Tenormin) 50 mg DAILY PO Last administered on 05/21/18at 08:56; Admin Dose 50 MG; Start 05/21/18 at 09:00 ASIA SMITH May 21, 2018 16:55
[2018-05-21] MEDS: ZOLPIDEM 5 MG TAB PO SCH (20:09)
[2018-05-21] MEDS: MONTELUKAST 10 MG TAB PO SCH (20:09)
--- NOTE | 2018-05-21 21:42 | CONS ---
DATE OF ADMISSION: 05/20/2018 DATE OF CONSULTATION: 05/21/2018 REFERRING PHYSICIAN: Tabatha Galloway MD REASON FOR EVALUATION: Precordial chest pain. HISTORY OF PRESENT ILLNESS: Mr. Hay is a 57-year-old gentleman with history of hypertension, dyslipidemia, history of renal insufficiency, hypertension, hernia, history of hematuria who comes t o the hospital now for evaluation of precordial chest pain. The patient said that he had risk strati fication of his chest pain 10 years ago, but no recent changes. The patient still reports some preco rdial discomfort. The patient's EKG shows some nonspecific ST-T changes, inferior Q-waves which are fairly small and I do not believe it to be diagnostic of acute myocardial infarction, but given multi ple risk factors for coronary artery disease, I think it would not be unreasonable to stratify the pa tient. We will try to facilitate a stress test for tomorrow if patient agrees. PAST MEDICAL HISTORY: Hypertension, dyslipidemia, history of hernia repair, history of diabetes, history of prior evaluatio n for coronary artery more than 10 years ago. ALLERGIES: NONE KNOWN. SOCIAL HISTORY: The patient has history of tobacco use. Does not drink, does not use drugs. FAMILY HISTORY: Negative for sudden cardiac and history of diabetes in the family. MEDICATIONS: Here include: 1. Duloxetine. 2. ____. 3. Metformin 500 mg p.o. once a day. 4. Aspirin 325. 5. Atenolol 50 mg p.o. once a day. 6. Montelukast. 7. Insulin on a sliding scale. 8. Nitroglycerin. 9. Sodium chloride. REVIEW OF SYSTEMS: CONSTITUTIONAL: No fevers, no chills. Chest pain as described above. HEENT: No changes in vision or hearing. CARDIAC: Chest pain reported prior, but not now. RESPIRATORY: No shortness of breath. GASTROINTESTINAL: No nausea, vomiting. GENITOURINARY: No dysuria, hematuria. NEUROLOGIC: No focal deficits. HEMATOLOGIC: No easy bruising. PSYCHIATRIC: No history of psychiatric illness. PHYSICAL EXAMINATION: VITAL SIGNS: Temperature is 97.8, heart rate 74, blood pressure is 128/62. GENERAL: He is a well-nourished gentleman in no acute distress, alert and oriented x3, aware of his condition. HEAD: Normocephalic, atraumatic. Eyes anicteric. NECK: Supple. JVD 6 to 7 cm. There is no lymphadenopathy, no thyromegaly. HEART: Soft holosystolic murmur. PMI is nondisplaced. I do not hear an S3. LUNGS: Coarse at the base. ABDOMEN: Distended, bowel sounds present. There is no hepatosplenomegaly. GENITOURINARY: Intact. EXTREMITIES: Show no clubbing, cyanosis or edema. LABORATORY DATA: White blood cell count 11.6, hemoglobin 7.1, platelets 294. INR is 1.0. Sodium 13 0, potassium 4.1, creatinine 1.4. Troponin is negative at 0.052. ECG read by me shows sinus rhythm with some nonspecific ST changes, incomplete right bundle branch bl ock pattern without evidence of ischemia. ASSESSMENT AND PLAN: 1. Precordial chest pain. The patient reported chest pain, has multiple risks for coronary artery d isease. I think it reasonable to stratify patient with a stress test while [facility]. 2. Hypertension. Blood pressure well controlled now. Continue current medical management. 3. Abnormal EKG, nonspecific ST-T changes noted. No signs of ischemia appreciated. 4. Diabetes. Continue diabetic optimization and care. 5. Renal insufficiency. Creatinine slightly elevated. Continue to avoid nephrotoxic medications. I would like to thank Dr. Galloway for referring this patient for my evaluation. Dictated By: VIRGINIA CHRISTIANSON MD ML/NTS Conf#: [id number] DID#: [id number] CC: TABATHA GALLWOAY MD;*EndCC*
[2018-05-22] VITALS (12 sets, daily range): BP systolic 125–172; BP diastolic 67–98; PULSE 68–94; RESP 19–20
[2018-05-22] MEDS ORDERED: REGADENOSON 0.4 MG/5 ML SYG ONE (08:33)
--- NOTE | 2018-05-22 09:10 | ECORPT ---
DATE OF SERVICE: REFERRING PHYSICIAN: Dr. Galloway. REASON FOR EVALUATION: Precordial chest pain. DESCRIPTION OF TEST: The patient had a successful Lexiscan injection. Blood pressure was 125/93. He had some PVCs and precordial discomfort during the stress test that, but he overall tolerated it wel l. The imaging portion of the test will be dictated separately. Dictated By: VIRGINIA CHRISTIANSON MD ML/NTS Conf#: [id number] DID#: [id number] CC: TABATHA GALLOWAY MD;*EndCC*
--- NOTE | 2018-05-22 09:10 | RADRPT ---
Echocardiogram Report Patient Name: ANA ALICIAPatient ID: [id number] : 1960 (57y 7m)Study Date: 05/21/2018 7:26:22 AM Gender: MAccession #: [id number] Tech: ALFREDO Son [facility] Location: [facility] Ref.Physician: TABATHA MARTÍNEZ Height(Cm): BSA: Weight(Kg): Quality: GoodOrder Physician: MAURICIO Account #: Procedures: Echocardiographic Report: Transthoracic echocardiogram with complete 2D, M-Mode, and doppler examination. Indications: Chest Pain. Measurements: 2D/M Mode Doppler Measurement Value Normal Range Measurement Value Normal Range LVIDd 2D 4.6 [ 4.2 - 5.8 ] cm AV Peak Matt 1.4 [ 100.0 - 170.0 ] cm/se c LVIDs 2D 3.2 [ 2.5 - 4.0 ] cm AV Peak PG 7.0 [ 2.0 - 9.0 ] mmHg LVPWd 2D 0.9 [ 0.6 - 1.0 ] cm LVOT Peak Matt 0.9 [ 70.0 - 110.0 ] cm/sec IVSd 2D 1.1 [ 0.6 - 1.0 ] cm LVOT Peak PG 3.0 [ 2.0 - 6.0 ] mmHg AoR Diam 2D 3.0 [ 2.6 - 3.4 ] cm MV E Peak Matt 0.8 [ 60.0 - 130.0 ] cm/sec EDV 2D 95.9 [ 62.0 - 150.0 ] ml MV A Peak Matt 0.9 [ 100.0 - 120.0 ] cm/se c ESV 2D 42.2 [ 21.0 - 61.0 ] ml MV E/A 1.0 [ 0.8 - 1.5 ] ratio EF 2D 56.0 [ 52.0 - 72.0 ] percent MV PHT 71.0 [ 20.0 - 100.0 ] msec LA Dimen 2D 3.7 [ 3.0 - 4.0 ] cm MV Decel Time 243 [ 104 - 258 ] msec MV Decel Stephens 3 Med E` Matt 0.1 cm/sec MV E/A 1.0 [ 0.8 - 1.5 ] ratio MVA PHT 3.1 [ 2.0 - 4.0 ] cm2 Findings: Left Ventricle: Normal left ventricular systolic function. Normal left ventricular cavity size. Normal left ventricular wall thickness. Ejection fraction is visually estimated at 55-60 %. Tissue Doppler/Mitral Doppler indices are consistent with impaired relaxation (Stage I diastolic dysfunction). Right Ventricle: Normal right ventricular size. Normal right ventricular systolic function. Left Atrium: The left atrium is normal in size. Right Atrium: The right atrium is normal in size. Ventricular septum: Normal/intact ventricular septum. Mitral Valve: Normal appearance of the mitral valve. No mitral valve regurgitation is seen. Aortic Valve: Normal appearance of the aortic valve. No aortic regurgitation. Tricuspid Valve: Normal appearance of the tricuspid valve. Unable to obtain RVSP due to minimal presence of tricuspid regurgitation. There is trace tricuspid regurgitation. Pulmonic Valve: Normal pulmonic valve appearance. No evidence of pulmonic regurgitation. Pericardium: Normal pericardium with no significant pericardial effusion. Aorta: Normal aortic root. IVC: Normal size and normal respiratory collapse consistent with normal right atrial pressure. Conclusions: Normal left ventricular systolic function. Normal left ventricular cavity size. Normal left ventricular wall thickness. Ejection fraction is visually estimated at 55-60 %. Tissue Doppler/Mitral Doppler indices are consistent with impaired relaxation (Stage I diastolic dysfunction). ). Electronically Signed By: Soren Iglesias 2018-05-22 09:08:56 PDT
--- NOTE | 2018-05-22 09:59 | CONS ---
Consult Date/Type/Reason Admit Date/Time May 20, 2018 at 13:31 Initial Consult Date Date/Time of Note DATE: 05/22/18 TIME: 09:57 Subjective NO acute events - Stress test completed - will await results. ROS: No fever, no chills, no nausea, no vomiting, no diarrhea/constipation No recent weight changes No chest pain, no PND, no orthopnea - mild SOB No dizziness, blurred vision No thirst, no heat or cold intolerance Objective Vitals Vital Signs Date Temp Pulse Resp B/P (MAP) Pulse Ox O2 O2 Flow FiO2 Time Delivery Rate 05/22/18 78 08:02 05/22/18 97.8 20 159/98 97 07:12 (118) 05/22/18 Room Air 00:00 05/20/18 2 12:52 Intake and Output 05/21/18 05/21/18 05/22/18 1515:00 23:00 07:00 IntakeIntake Total 490 ml 1340 ml 500 ml BalanceBalance 490 ml 1340 ml 500 ml Exam General: WN/WD/NAD, AOx 3 HEENT: Unicetric/atraumatic/EOMI (follow commands) NECK: JVD elevated, no thyromegaly Lymph: no lymphadenopathy HEART: regular with no S3, II/ systolic murmur at apex LUNGS: Coarse sounds ABD: soft, NT, ND, +BS : Intact Neuro: non focal SKIN: chronic changes EXT: trace edema Results/Medications Result Diagram: 05/22/18 0541 05/22/18 0541 Results 24 hrs Laboratory Tests Test 05/22/18 05:41 White Blood Count 9.7 Red Blood Count 4.34 L Hemoglobin 13.5 L Hematocrit 41.1 L Mean Corpuscular Volume 94.7 Mean Corpuscular Hemoglobin 31.1 Mean Corpuscular Hemoglobin Concent 32.8 Red Cell Distribution Width 13.4 Platelet Count 291 Mean Platelet Volume 9.2 Immature Granulocytes % 0.400 Neutrophils % 63.9 Lymphocytes % 18.2 Monocytes % 11.0 Eosinophils % 5.8 Basophils % 0.7 Nucleated Red Blood Cells % 0.0 Immature Granulocytes # 0.040 H Neutrophils # 6.2 Lymphocytes # 1.8 Monocytes # 1.1 H Eosinophils # 0.6 H Basophils # 0.1 Nucleated Red Blood Cells # 0.0 Sodium Level 140 Potassium Level 4.1 Chloride Level 101 Carbon Dioxide Level 27 Anion Gap 12 Blood Urea Nitrogen 22 H Creatinine 1.28 H Est Glomerular Filtrat Rate mL/min 58 L Glucose Level 145 Calcium Level 9.5 Home Meds Reported Medications Duloxetine Hcl* (Duloxetine Hcl*) 60 Mg Capsule.dr, 60 MG PO DAILY, #30 CAP 05/20/18 Cholecalciferol* (Vitamin D3*) 1,000 Unit Tablet, 2000 UNIT PO DAILY, TAB 05/20/18 Naproxen* (Naproxen*) 500 Mg Tablet, 500 MG PO DAILY PRN for PAIN, TAB 05/20/18 Montelukast Sodium* (Montelukast Sodium*) 10 Mg Tablet, 10 MG PO QHS, #30 TAB 05/20/18 Metformin Hcl* (Metformin Hcl* ER) 500 Mg Tab.sr.24h, 500 MG PO DAILY, #30 TAB 05/20/18 Chlorthalidone* (Chlorthalidone*) 25 Mg Tablet, 25 MG PO DAILY, TAB 05/20/18 Atenolol* (Atenolol*) 100 Mg Tablet, 100 MG PO DAILY, #30 TAB 05/20/18 Pantoprazole* (Protonix*) 40 Mg Tablet.dr, 40 MG PO QAM, TAB 09/13/16 Discontinued Reported Medications Acetaminophen with Codeine (Acetaminophen-Cod #3 Tablet) 1 Each Tablet, 1 TAB PO QHS, #20 TAB 09/13/16 Tramadol Hcl* (Ultram*) 50 Mg Tablet, 50 MG PO NEEDED PRN for PAIN, TAB 09/13/16 Aspirin* (Aspirin* EC) 81 Mg Tablet.dr, 81 MG PO DAILY, TAB 09/13/16 Atenolol* (Atenolol*) 25 Mg Tablet, 25 MG PO BID, #60 TAB 09/13/16 Hydrochlorothiazide* (Hydrochlorothiazide*) 25 Mg Tab, 25 MG PO DAILY, #30 TAB 09/05/15 Medications Current Medications Cholecalciferol (Vitamin D) 2,000 unit DAILY PO Last administered on 05/21/18at 08:54; Admin Dose 2,000 UNIT; Start 05/21/18 at 09:00 Duloxetine HCl (Cymbalta) 60 mg DAILY PO Last administered on 05/21/18at 08:54; Admin Dose 60 MG; Start 05/21/18 at 09:00 Metformin HCl (Glucophage Xr) 500 mg DAILY PO Last administered on 05/21/18 08:54; Admin Dose 500 MG; Start 05/21/18 at 09:00 Montelukast Sodium (Singulair) 10 mg QHS PO Last administered on 05/21/18at 20:09; Admin Dose 10 MG; Start 05/20/18 at 21:00 Pantoprazole (Protonix Tab) 40 mg QAM PO Last administered on 05/21/18 08:54; Admin Dose 40 MG; Start 05/21/18 at 09:00 Aspirin (Ecotrin) 325 mg DAILY PO Last administered on 05/21/18 08:56; Admin D ose 325 MG; Start 05/21/18 at 09:00 Nitroglycerin (Nitroglycerin (Sl Tab) 0.4 Mg) 1 tab Q5M PRN SL ANGINA; Start 05/20/18 at 17:00 Sodium Chloride 1,000 ml @ 70 mls/hr [id number] IV Last administered on 05/21/18 19:26; Admin Dose 70 MLS/HR; Start 05/20/18 at 17:00 Miscellaneous Information 1 ea NOTE XX ; Start 05/20/18 at 17:30 Glucose (Glutose) 15 gm Q15M PRN PO DECREASED GLUCOSE; Start 05/20/18 at 17:30 Glucose (Glutose) 22.5 gm Q15M PRN PO DECREASED GLUCOSE; Start 05/20/18 at 17:30 Dextrose (D50w Syringe) 25 ml Q15M PRN IV DECREASED GLUCOSE; Start 05/20/18 at 17:30 Dextrose (D50w Syringe) 50 ml Q15M PRN IV DECREASED GLUCOSE; Start 05/20/18 at 17:30 Glucagon (Glucagen) 1 mg Q15M PRN IM DECREASED GLUCOSE; Start 05/20/18 at 17:30 Glucose (Glutose) 15 gm Q15M PRN BUCCAL DECREASED GLUCOSE; Start 05/20/18 at 17:30 Zolpidem Tartrate (Ambien) 10 mg HS PO Last administered on 05/21/18 20:09; Admin Dose 10 MG; Start 05/20/18 at 21:00 Atenolol (Tenormin) 50 mg DAILY PO Last administered on 05/21/18 08:56; Admin Dose 50 MG; Start 05/21/18 at 09:00 Assessment/Plan Hospital Course (Demo Recall) 1. Precordial chest pain. The patient reported chest pain, has multiple risks for coronary artery disease. I think it reasonable to stratify patient with a stress test while he is here in the hospital. Stress test done, will await results. 2. Hypertension. Blood pressure well controlled now. Continue current medical management. A little high - will follow post am meds. 3. Abnormal EKG, nonspecific ST-T changes noted. No signs of ischemia ap preciated. 4. Diabetes. Continue diabetic optimization and care. Rx perw primary tteam. 5. Renal insufficiency. Creatinine slightly elevated. Continue to avoid nephrotoxic medications. VIRGINIA CHRISTIANSON MD May 22, 2018 09:59
[2018-05-22] MEDS: PANTOPRAZOLE (EC) 40 MG TAB PO SCH (10:22)
[2018-05-22] MEDS: CHOLECALCIFEROL 1,000 UNIT TAB PO SCH (10:23)
[2018-05-22] MEDS: ASPIRIN (EC) 325 MG TAB PO SCH (10:23)
[2018-05-22] MEDS: ATENOLOL 50 MG TAB PO SCH (10:23)
[2018-05-22] MEDS: metFORMIN (XR) 500 MG TAB PO SCH (10:23)
[2018-05-22] MEDS: DULOXETINE 30 MG CAP DR PO SCH (10:23)
--- NOTE | 2018-05-22 15:28 | PN ---
Date/Time of Note Date/Time of Note DATE: 05/22/18 TIME: 15:26 Assessment/Plan VTE Prophylaxis Risk score (from Nsg)>0 risk: 1 SCD applied (from Nsg): No Lines/Catheters IV Catheter Type (from Nrsg): Peripheral IV Assessment/Plan Assessment/Plan 1. Chest pain, rule out myocardial infarction. 2. ? ZAHRA Vs CKD3.- BUN/Cr trended down today 3. Hypertension. 4. Large recurrent right inguinal hernia. 5. 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 Panda. Result Diagram: 05/22/1854005/22/18 0541 Results 24hrs Laboratory Tests Test 05/22/18 05:41 White Blood Count 9.7 Red Blood Count 4.34 L Hemoglobin 13.5 L Hematocrit 41.1 L Mean Corpuscular Volume 94.7 Mean Corpuscular Hemoglobin 31.1 Mean Corpuscular Hemoglobin Concent 32.8 Red Cell Distribution Width 13.4 Platelet Count 291 Mean Platelet Volume 9.2 Immature Granulocytes % 0.400 Neutrophils % 63.9 Lymphocytes % 18.2 Monocytes % 11.0 Eosinophils % 5.8 Basophils % 0.7 Nucleated Red Blood Cells % 0.0 Immature Granulocytes # 0.040 H Neutrophils # 6.2 Lymphocytes # 1.8 Monocytes # 1.1 H Eosinophils # 0.6 H Basophils # 0.1 Nucleated Red Blood Cells # 0.0 Sodium Level 140 Potassium Level 4.1 Chloride Level 101 Carbon Dioxide Level 27 Anion Gap 12 Blood Urea Nitrogen 22 H Creatinine 1.28 H Est Glomerular Filtrat Rate mL/min 58 L Glucose Level 145 Calcium Level 9.5 Exam/Review of Systems Exam Vitals Vital Signs Date Temp Pulse Resp B/P (MAP) Pulse Ox O2 O2 Flow FiO2 Time Delivery Rate 05/22/18 98.5 71 20 172/94 98 15:13 (120) 05/22/18 Room Air 00:00 05/20/18 2 12:52 Intake and Output 05/21/18 05/21/18 05/22/18 1414:59 22:59 06:59 IntakeIntake Total 490 ml 1340 ml 500 ml BalanceBalance 490 ml 1340 ml 500 ml Constitutional: alert, well developed Eyes: nl lids, nl sclera ENMT: nl external ears & nose Neck: non-tender Respiratory: clear to auscultation Cardiovascular: nl pulses Gastrointestinal: soft, non-tender Musculoskeletal: nl extremities to inspection Extremities: normal pulses Neurological: nl speech Skin: nl turgor Lymph: nontender Results Results 24hrs Laboratory Tests Test 05/22/18 05:41 White Blood Count 9.7 Red Blood Count 4.34 L Hemoglobin 13.5 L Hematocrit 41.1 L Mean Corpuscular Volume 94.7 Mean Corpuscular Hemoglobin 31.1 Mean Corpuscular Hemoglobin Concent 32.8 Red Cell Distribution Width 13.4 Platelet Count 291 Mean Platelet Volume 9.2 Immature Granulocytes % 0.400 Neutrophils % 63.9 Lymphocytes % 18.2 Monocytes % 11.0 Eosinophils % 5.8 Basophils % 0.7 Nucleated Red Blood Cells % 0.0 Immature Granulocytes # 0.040 H Neutrophils # 6.2 Lymphocytes # 1.8 Monocytes # 1.1 H Eosinophils # 0.6 H Basophils # 0.1 Nucleated Red Blood Cells # 0.0 Sodium Level 140 Potassium Level 4.1 Chloride Level 101 Carbon Dioxide Level 27 Anion Gap 12 Blood Urea Nitrogen 22 H Creatinine 1.28 H Est Glomerular Filtrat Rate mL/min 58 L Glucose Level 145 Calcium Level 9.5 Medications Medication Current Medications Cholecalciferol (Vitamin D) 2,000 unit DAILY PO Last administered on 05/22/18 10:23; Admin Dose 2,000 UNIT; Start 05/21/18 at 09:00 Duloxetine HCl (Cymbalta) 60 mg DAILY PO Last administered on 05/22/18 10:23; Admin Dose 60 MG; Start 05/21/18 at 09:00 Metformin HCl (Glucophage Xr) 500 mg DAILY PO Last administered on 05/22/18 10:23; Admin Dose 500 MG; Start 05/21/18 at 09:00 Montelukast Sodium (Singulair) 10 mg QHS PO Last administered on 05/21/18at 20:09; Admin Dose 10 MG; Start 05/20/18 at 21:00 Pantoprazole (Protonix Tab) 40 mg QAM PO Last administered on 05/22/18 10:22; Admin Dose 40 MG; Start 05/21/18 at 09:00 Aspirin (Ecotrin) 325 mg DAILY PO Last administered on 05/22/18 10:23; Admin Dose 325 MG; Start 05/21/18 at 09:00 Nitroglycerin (Nitroglycerin (Sl Tab) 0.4 Mg) 1 tab Q5M PRN SL ANGINA; Start 05/20/18 at 17:00 Miscellaneous Information 1 ea NOTE XX ; Start 05/20/18 at 17:30 Glucose (Glutose) 15 gm Q15M PRN PO DECREASED GLUCOSE; Start 05/20/18 at 17:30 Glucose (Glutose) 22.5 gm Q15M PRN PO DECREASED GLUCOSE; Start 05/20/18 at 17:30 Dextrose (D50w Syringe) 25 ml Q15M PRN IV DECREASED GLUCOSE; Start 05/20/18 at 17:30 Dextrose (D50w Syringe) 50 ml Q15M PRN IV DECREASED GLUCOSE; Start 05/20/18 at 17:30 Glucagon (Glucagen) 1 mg Q15M PRN IM DECREASED GLUCOSE; Start 05/20/18 at 17:30 Glucose (Glutose) 15 gm Q15M PRN BUCCAL DECREASED GLUCOSE; Start 05/20/18 at 17:30 Zolpidem Tartrate (Ambien) 10 mg HS PO Last administered on 05/21/18at 20:09; Admin Dose 10 MG; Start 05/20/18 at 21:00 Atenolol (Tenormin) 50 mg DAILY PO Last administered on 05/22/18at 10:23; Admin Dose 50 MG; Start 05/21/18 at 09:00 Hydralazine HCl (Apresoline) 10 mg Q6H PRN IV SBP >160; Start 05/22/18 at 15:30; Status ASIA ESPIONSA May 22, 2018 15:27
[2018-05-22] MEDS: hydrALAzine 20 MG INJ IV PRN (15:59)
[2018-05-22] MEDS: MONTELUKAST 10 MG TAB PO SCH (19:51)
[2018-05-22] MEDS: ZOLPIDEM 5 MG TAB PO SCH (19:53)
[2018-05-23] VITALS (36 sets, daily range): BP systolic 114–159; BP diastolic 73–100; PULSE 20–89; RESP 11–31
[2018-05-23] MEDS: metFORMIN (XR) 500 MG TAB PO SCH (08:12)
[2018-05-23] MEDS: DULOXETINE 30 MG CAP DR PO SCH (08:13)
[2018-05-23] MEDS: ASPIRIN (EC) 325 MG TAB PO SCH (08:13)
[2018-05-23] MEDS: CHOLECALCIFEROL 1,000 UNIT TAB PO SCH (08:13)
[2018-05-23] MEDS: PANTOPRAZOLE (EC) 40 MG TAB PO SCH (08:13)
[2018-05-23] MEDS: ATENOLOL 50 MG TAB PO SCH (08:14)
[2018-05-23] MEDS ORDERED: LIDOCAINE 1% (MDV) 20 ML INJ ONE (12:40)
[2018-05-23] MEDS ORDERED: IODIXANOL LOCM 100 ML BTL ONE (12:40)
[2018-05-23] MEDS ORDERED: HEPARIN 1000 UNITS/ML 10 ML INJ ONE (12:40)
[2018-05-23] MEDS ORDERED: NITROGLYCERIN (IC) 100 MCG/ML INJ ONE (12:41)
[2018-05-23] MEDS ORDERED: MIDAZOLAM 1 MG/ML 2 ML INJ ONE (12:41)
[2018-05-23] MEDS ORDERED: FENTAnyl 50 MCG/ML VIAL ONE (12:41)
[2018-05-23] MEDS ORDERED: VERAPAMIL 5 MG INJ ONE (12:42)
[2018-05-23] MEDS ORDERED: SOD CHLORIDE 0.9% 1,000 ML IV SCH (13:24)
--- NOTE | 2018-05-23 13:26 | SIPON ---
Date/Time of Note Date/Time of Note DATE: 05/23/18 TIME: 13:25 Operative Report Preoperative Diagnosis chest pain Postoperative Diagnosis 1.obstructive cad Operation/Procedure Performed 1.[facility] Surgeon see signature line integration assistant 1.Ritchie Anesthesia: moderate sedation Estimated blood loss: minimal Transfusion Required none Specimen none Grafts/Implants none Complications none CYNDI HANNON May 23, 2018 13:26
[2018-05-23] MEDS ORDERED: AL HYDROX/MG HYDROX/SIMETH 30 ML CUP PO PRN (13:30)
[2018-05-23] MEDS ORDERED: ACETAMINOPHEN 325 MG TAB PO PRN (13:30)
[2018-05-23] MEDS ORDERED: ONDANSETRON 4 MG INJ IV PRN (13:30)
[2018-05-23] MEDS ORDERED: morphine 2 MG INJ IV PRN (13:30)
--- NOTE | 2018-05-23 13:34 | CONS ---
Assessment/Plan Assessment/Plan Hospital Course (Demo Recall) IMP: 1.Chest pain-neg trop x 3. Nl EF by echo 2.abnl MPI-inferior ischemia 3.HTN 4.HL 5.DM 6. Renal insuff/failure Recc: -tele -Continue asa -start statin -Continue atenolol -C with possible PTCA/today Consultation Date/Type/Reason Admit Date/Time May 20, 2018 at 13:31 Initial Consult Date 05/20/18 Type of Consult Cardiology Reason for Consultation chest pain Requesting Provider: TABATHA MARTÍNEZ MD Date/Time of Note DATE: 05/23/18 TIME: 13:29 Exam/Review of Systems Vital Signs Vitals Vital Signs Date Temp Pulse Resp B/P (MAP) Pulse Ox O2 O2 Flow FiO2 Time Delivery Rate 05/23/18 98.2 78 20 135/78 98 12:14 (97) 05/23/18 Room Air 04:00 05/20/18 2 12:52 Intake and Output 05/22/18 05/22/18 05/23/18 1515:00 23:00 07:00 IntakeIntake Total 850 ml 200 ml BalanceBalance 850 ml 200 ml Exam Exam Review of Systems: CONSTITUTIONAL: No fevers, chills. PULMONARY: No sob CARDIOVASCULAR: No chest pain/palpitations GASTROINTESTINAL: No nausea/vomiting. GENITOURINARY: No hematuria/dysuria. MUSCULOSKELETAL: No myagias/arthalgias. PSYCHIATRIC: The patient denies depression. NEUROLOGIC: No weakness Constitutional: alert Psych: no complaints Head: normocephalic ENMT: mucosa pink and moist Neck: supple, jvd (9 cm water) Respiratory: clear to auscultation Cardiovascular: regular rate and rhythm Gastrointestinal: soft, non-tender Musculoskeletal: muscle tone (normal) Extremities: edema (none) Neurological: other (No focal deficits) Labs Result Diagram: 05/22/18 0541 05/22/18 0541 Medications Medications Current Medications Cholecalciferol (Vitamin D) 2,000 unit DAILY PO Last administered on 05/23/18at 08:13; Admin Dose 2,000 UNIT; Start 05/21/18 at 09:00 Duloxetine HCl (Cymbalta) 60 mg DAILY PO Last administered on 05/23/18at 08:13; Admin Dose 60 MG; Start 05/21/18 at 09:00 Metformin HCl (Glucophage Xr) 500 mg DAILY PO Last administered on 05/23/18at 08:12; Admin Dose 500 MG; Start 05/21/18 at 09:00 Montelukast Sodium (Singulair) 10 mg QHS PO Last administered on 05/22/18at 19:51; Admin Dose 10 MG; Start 05/20/18 at 21:00 Pantoprazole (Protonix Tab) 40 mg QAM PO Last administered on 05/23/18at 08:13; Admin Dose 40 MG; Start 05/21/18 at 09:00 Aspirin (Ecotrin) 325 mg DAILY PO Last administered on 05/23/18 08:13; Admin Dose 325 MG; Start 05/21/18 at 09:00 Nitroglycerin (Nitroglycerin (Sl Tab) 0.4 Mg) 1 tab Q5M PRN SL ANGINA; Start 05/20/18 at 17:00 Miscellaneous Information 1 ea NOTE XX ; Start 05/20/18 at 17:30 Glucose (Glutose) 15 gm Q15M PRN PO DECREASED GLUCOSE; Start 05/20/18 at 17:30 Glucose (Glutose) 22.5 gm Q15M PRN PO DECREASED GLUCOSE; Start 05/20/18 at 17:30 Dextrose (D50w Syringe) 25 ml Q15M PRN IV DECREASED GLUCOSE; Start 05/20/18 at 17:30 Dextrose (D50w Syringe) 50 ml Q15M PRN IV DECREASED GLUCOSE; Start 05/20/18 at 17:30 Glucagon (Glucagen) 1 mg Q15M PRN IM DECREASED GLUCOSE; Start 05/20/18 at 17:30 Glucose (Glutose) 15 gm Q15M PRN BUCCAL DECREASED GLUCOSE; Start 05/20/18 at 17:30 Zolpidem Tartrate (Ambien) 10 mg HS PO Last administered on 05/22/18at 19:53; Admin Dose 10 MG; Start 05/20/18 at 21:00 Atenolol (Tenormin) 50 mg DAILY PO Last administered on 05/23/18at 08:14; Admin Dose 50 MG; Start 05/21/18 at 09:00 Hydralazine HCl (Apresoline) 10 mg Q6H PRN IV SBP >160 Last administered on 05/22/18at 15:59; Admin Dose 10 MG; Start 05/22/18 at 15:30 CYNDI HANNON May 23, 2018 13:34
--- NOTE | 2018-05-23 15:00 | RADRPT ---
Vent Rate: 70 bpm RR Interval: 0 msec NE Interval: 164 msec QRS Duration: 120 msec QT Interval: 430 msec QTC Interval: 464 msec P-R-T [place]: 67 - 37 - 46 degrees Normal sinus rhythm Cannot rule out Inferior infarct , age undetermined Abnormal ECG Electronically Signed By: Huey Linares
--- NOTE | 2018-05-23 15:08 | CARRPT ---
DATE OF PROCEDURE: 05/23/2018 TYPE OF PROCEDURES: 1. Left heart catheterization. 2. Coronary angiography. 3. MEASUREMENTS: Left ventricular end-diastolic pressure. ATTENDING PHYSICIAN: Cyndi Garcia MD REFERRING PHYSICIAN: Dr. Tabatha Martínez MD INDICATION: Chest pain refractory to medical therapy, positive stress test findings for ischemia. TYPE OF ANESTHESIA: Conscious and local. BRIEF HISTORY: Mr. Hay is a 57-year-old male with history of hypertension, dyslipidemia, jeanine betes mellitus who initially had complaints of substernal chest pain. The patient ruled out for myoc ardial infarction, underwent cardiac stress test revealing positive ischemia and decreased EF. Given these findings, the patient referred for and presents today in order to undergo left heart catheteri zation to assess possibility of significant respiratory events, with chest pain and decreased EF with admit to the hospital. DESCRIPTION OF PROCEDURE: After informed consent was obtained, the patient was taken to [facility] cardiac catheterization lab where his right radial area was prepped and draped in st erile fashion, 2% lidocaine was infiltrated into right radial area in order to achieve adequate anest hesia. Using the modified Seldinger technique, the radial artery was cannulated and a 6-Divehi arter ial sheath was placed. A 6-Divehi JL3.5 catheter was used to cannulate the left main coronary ostium . With contrast injection, multiple views of left coronary system were obtained. JL3.5 was performe d a guidewire and a JR4 was used in attempt to cannulate the right coronary arterial ostium unsuccess fully. This was exchanged for a Hussein right, and then we were able to get it with that, after whi ch with contrast injection, multiple views of the right coronary arterial system were obtained, the c atheter was removed and additionally being used to cross the aortic valve and measure LVEDP pull back across the aortic valve to assess for significant gradient, which there was not. Subsequently, afte r this catheter removed, this completed the procedure, patient's sheath was removed. There were no c omplications. TR band was applied. FINDINGS: CORONARY ANGIOGRAPHY: Left main proximally is a 4 mm vessel with no significant focal stenoses. Cir cumflex proximally is a 3 mm vessel and becomes 100% occluded in its mid portion and can be seen to f ill distally with a pretty sizable circumflex system via left to left collateral flow. The LAD proxi param is a 3.5 mm vessel in its midportion has a focal 80% stenosis and then a 90% to 95% stenosis in the apical region. There are proximal branching diagonals with a 2.5 mm, no significant stenoses in several mid branch diagonals, all approximately 2 mm vessels with the most superior branch having an 80% stenosis at its ostium. The patient's right coronary artery proximally is a 3.5 mm vessel and i n its distal portion becomes 100% occluded and can be seen to fill from the left side. The left to r ight collateral flow, originating from the septal branches of the patient's LAD, risk recapitulating most of the distal portion of the patient's right coronary artery. Measurement of left ventricular end-diastolic pressure of 20 to 21. No significant aortic stenosis by gradient. TOTAL FLUOROSCOPY TIME: 5.9 minutes. TOTAL CONTRAST: 60 mL. IMPRESSION: 1. Multivessel obstructive coronary artery disease involving a high-grade stenosis in the patient's LAD and then chronic total occlusions of the patient's circumflex and right coronary artery systems w ith visualization of the patient's distal vessels via left to right and left to left collateral flow. 2. Mildly elevated left heart filling pressures. 3. No significant aortic stenosis by gradient. RECOMMENDATIONS: In light of procedure findings at this time would: 1. Recommend patient for a coronary artery bypass graft surgery evaluation. 2. Maximize medical management. 3. Aggressive risk factor reduction. 4. The patient will be readmitted to the telemetry floor for post-catheterization observation and co ntinuing management of any symptoms. Dictated By: CYDNI SEQUEIRA/ANGELI Conf#: [id number] DID#: [id number] CC: TABATHA MARTÍNEZ MD;*EndCC*
--- NOTE | 2018-05-23 15:29 | CONS ---
Assessment/Plan Assessment/Plan Assessment/Plan (Daily) Three-vessel coronary artery disease Patient has chronic occlusion of the right coronary artery and circumflex vessel Clinically stable at this time Chronic renal insufficiency And had cardiac catheterization done today will check creatinine level again tomorrow Plan to proceed with coronary artery bypass grafting as an outpatient Cussed with Dr. Garcia Consultation Date/Type/Reason Admit Date/Time May 20, 2018 at 13:31 Date of Consultation: May 23, 2018 Type of Consult Cardiothoracic surgery Reason for Consultation Evaluation for coronary artery bypass grafting Date/Time of Note DATE: 05/23/18 TIME: 15:26 Hx of Present Illness This is a 57-year-old male with a history of hypertension hyperlipidemia diabetes admitted because of chest pain had a cardiac catheterization done which showed three-vessel coronary artery disease involving 100% occlusion of the circumflex and right coronary artery patient has no chest pain at this time Patient does have a history of diabetes renal insufficiency hyperlipidemia Past Medical History Home Meds Reported Medications Duloxetine Hcl* (Duloxetine Hcl*) 60 Mg Capsule.dr, 60 MG PO DAILY, #30 CAP 05/20/18 Cholecalciferol* (Vitamin D3*) 1,000 Unit Tablet, 2000 UNIT PO DAILY, TAB 05/20/18 Naproxen* (Naproxen*) 500 Mg Tablet, 500 MG PO DAILY PRN for PAIN, TAB 05/20/18 Montelukast Sodium* (Montelukast Sodium*) 10 Mg Tablet, 10 MG PO QHS, #30 TAB 05/20/18 Metformin Hcl* (Metformin Hcl* ER) 500 Mg Tab.sr.24h, 500 MG PO DAILY, #30 TAB 05/20/18 Chlorthalidone* (Chlorthalidone*) 25 Mg Tablet, 25 MG PO DAILY, TAB 05/20/18 Atenolol* (Atenolol*) 100 Mg Tablet, 100 MG PO DAILY, #30 TAB 05/20/18 Pantoprazole* (Protonix*) 40 Mg Tablet., 40 MG PO QAM, TAB 09/13/16 Discontinued Reported Medications Acetaminophen with Codeine (Acetaminophen-Cod #3 Tablet) 1 Each Tablet, 1 TAB PO QHS, #20 TAB 09/13/16 Tramadol Hcl* (Ultram*) 50 Mg Tablet, 50 MG PO NEEDED PRN for PAIN, TAB 09/13/16 Aspirin* (Aspirin* EC) 81 Mg Tablet.dr, 81 MG PO DAILY, TAB 09/13/16 Atenolol* (Atenolol*) 25 Mg Tablet, 25 MG PO BID, #60 TAB 09/13/16 Hydrochlorothiazide* (Hydrochlorothiazide*) 25 Mg Tab, 25 MG PO DAILY, #30 TAB 09/05/15 Medications Current Medications Cholecalciferol (Vitamin D) 2,000 unit DAILY PO Last administered on 05/23/18at 08:13; Admin Dose 2,000 UNIT; Start 05/21/18 at 09:00 Duloxetine HCl (Cymbalta) 60 mg DAILY PO Last administered on 05/23/18at 08:13; Admin Dose 60 MG; Start 05/21/18 at 09:00 Metformin HCl (Glucophage Xr) 500 mg DAILY PO Last administered on 05/23/18at 08:12; Admin Dose 500 MG; Start 05/21/18 at 09:00 Montelukast Sodium (Singulair) 10 mg QHS PO Last administered on 05/22/18at 19:51; Admin Dose 10 MG; Start 05/20/18 at 21:00 Pantoprazole (Protonix Tab) 40 mg QAM PO Last administered on 05/23/18at 08:13; Admin Dose 40 MG; Start 05/21/18 at 09:00 Aspirin (Ecotrin) 325 mg DAILY PO Last administered on 05/23/18at 08:13; Admin Dose 325 MG; Start 05/21/18 at 09:00 Nitroglycerin (Nitroglycerin (Sl Tab) 0.4 Mg) 1 tab Q5M PRN SL ANGINA; Start 05/20/18 at 17:00 Miscellaneous Information 1 ea NOTE XX ; Start 05/20/18 at 17:30 Glucose (Glutose) 15 gm Q15M PRN PO DECREASED GLUCOSE; Start 05/20/18 at 17:30 Glucose (Glutose) 22.5 gm Q15M PRN PO DECREASED GLUCOSE; Start 05/20/18 at 17:30 Dextrose (D50w Syringe) 25 ml Q15M PRN IV DECREASED GLUCOSE; Start 05/20/18 at 17:30 Dextrose (D50w Syringe) 50 ml Q15M PRN IV DECREASED GLUCOSE; Start 05/20/18 at 17:30 Glucagon (Glucagen) 1 mg Q15M PRN IM DECREASED GLUCOSE; Start 05/20/18 at 17:30 Glucose (Glutose) 15 gm Q15M PRN BUCCAL DECREASED GLUCOSE; Start 05/20/18 at 17:30 Zolpidem Tartrate (Ambien) 10 mg HS PO Last administered on 05/22/18at 19:53; Admin Dose 10 MG; Start 05/20/18 at 21:00 Atenolol (Tenormin) 50 mg DAILY PO Last administered on 05/23/18at 08:14; Admin Dose 50 MG; Start 05/21/18 at 09:00 Hydralazine HCl (Apresoline) 10 mg Q6H PRN IV SBP >160 Last administered on 05/22/18at 15:59; Admin Dose 10 MG; Start 05/22/18 at 15:30 Miscellaneous Information (* Miscellaneous Pharmacy Order) HOLD all METFORMIN ... ONCE XX ; Start 05/23/18 at 13:30; Stop 05/25/18 at 13:29 Acetaminophen (Tylenol Tab) 650 mg Q4H PRN PO NON-CARDIAC PAIN LEVEL (1-3); Start 05/23/18 at 13:30 Morphine Sulfate (morphine) 2 mg Q2H PRN IV FOR NON CARDIAC PAIN (4-10); Start 05/23/18 at 13:30 Al Hydrox/Mg Hydrox/Simethicone (Mag-Al Plus) 30 ml Q4H PRN PO GASTROINTESTINAL UPSET; Start 05/23/18 at 13:30 Ondansetron HCl (Zofran Inj) 4 mg Q4H PRN IV NAUSEA AND/OR VOMITING; Start 05/23/18 at 13:30 Sodium Chloride 1,000 ml @ 75 mls/hr [id number] IV Last administered on 05/23/18at 13:24; Admin Dose 75 MLS/HR; Start 05/23/18 at 13:24; Stop 05/23/18 at 18:23 Allergies: Coded Allergies: No Known Drug Allergies (Verified Allergy, Unknown, 05/20/18) Uncoded Allergies: CANTELOUPE (Allergy, Mild, 09/14/16) Past Surgical History Past Surgical Hx: other Social History Smoking Status: Never smoker Exam/Review of Systems Exam Vitals Vital Signs Date Temp Pulse Resp B/P (MAP) Pulse Ox O2 O2 Flow FiO2 Time Delivery Rate 05/23/18 70 31 159/98 97 Room Air 14:40 (118) 05/23/18 98.7 13:45 05/20/18 2 12:52 Intake and Output 05/22/18 05/22/18 05/23/18 1515:00 23:00 07:00 IntakeIntake Total 850 ml 200 ml BalanceBalance 850 ml 200 ml Eyes: nl conjunctiva, EOMI, nl lids, nl sclera, PERRL ENMT: nl external ears & nose, nl lips & teeth, nl nasal mucosa & septum Neck: supple, non-tender Respiratory: clear to auscultation, normal air movement Cardiovascular: regular rate and rhythm, nl pulses Gastrointestinal: soft, nl liver, spleen, non-tender Musculoskeletal: nl extremities to inspection, nl gait and stance Extremities: normal pulses Neurological: [employer]TELLIGENCE SPECIALIST II-XII intact, nl mental status, nl speech, nl strength Results Result Diagram: 05/22/18 0541 05/22/18 0541 Results 24hrs Laboratory Tests Test 05/23/18 13:46 Bedside Glucose 119 Medications Medication Current Medications Cholecalciferol (Vitamin D) 2,000 unit DAILY PO Last administered on 05/23/18 08:13; Admin Dose 2,000 UNIT; Start 05/21/18 at 09:00 Duloxetine HCl (Cymbalta) 60 mg DAILY PO Last administered on 05/23/18 08:13; Admin Dose 60 MG; Start 05/21/18 at 09:00 Metformin HCl (Glucophage Xr) 500 mg DAILY PO Last administered on 05/23/18 08:12; Admin Dose 500 MG; Start 05/21/18 at 09:00 Montelukast Sodium (Singulair) 10 mg QHS PO Last administered on 05/22/18 19:51; Admin Dose 10 MG; Start 05/20/18 at 21:00 Pantoprazole (Protonix Tab) 40 mg QAM PO Last administered on 05/23/18 08:13; Admin Dose 40 MG; Start 05/21/18 at 09:00 Aspirin (Ecotrin) 325 mg DAILY PO Last administered on 05/23/18at 08:13; Admin Dose 325 MG; Start 05/21/18 at 09:00 Nitroglycerin (Nitroglycerin (Sl Tab) 0.4 Mg) 1 tab Q5M PRN SL ANGINA; Start 05/20/18 at 17:00 Miscellaneous Information 1 ea NOTE XX ; Start 05/20/18 at 17:30 Glucose (Glutose) 15 gm Q15M PRN PO DECREASED GLUCOSE; Start 05/20/18 at 17:30 Glucose (Glutose) 22.5 gm Q15M PRN PO DECREASED GLUCOSE; Start 05/20/18 at 17:30 Dextrose (D50w Syringe) 25 ml Q15M PRN IV DECREASED GLUCOSE; Start 05/20/18 at 17:30 Dextrose (D50w Syringe) 50 ml Q15M PRN IV DECREASED GLUCOSE; Start 05/20/18 at 17:30 Glucagon (Glucagen) 1 mg Q15M PRN IM DECREASED GLUCOSE; Start 05/20/18 at 17:30 Glucose (Glutose) 15 gm Q15M PRN BUCCAL DECREASED GLUCOSE; Start 05/20/18 at 17:30 Zolpidem Tartrate (Ambien) 10 mg HS PO Last administered on 05/22/18at 19:53; Ad min Dose 10 MG; Start 05/20/18 at 21:00 Atenolol (Tenormin) 50 mg DAILY PO Last administered on 05/23/18at 08:14; Admin Dose 50 MG; Start 05/21/18 at 09:00 Hydralazine HCl (Apresoline) 10 mg Q6H PRN IV SBP >160 Last administered on 05/22/18at 15:59; Admin Dose 10 MG; Start 05/22/18 at 15:30 Miscellaneous Information (* Miscellaneous Pharmacy Order) HOLD all METFORMIN ... ONCE XX ; Start 05/23/18 at 13:30; Stop 05/25/18 at 13:29 Acetaminophen (Tylenol Tab) 650 mg Q4H PRN PO NON-CARDIAC PAIN LEVEL (1-3); Start 05/23/18 at 13:30 Morphine Sulfate (morphine) 2 mg Q2H PRN IV FOR NON CARDIAC PAIN (4-10); Start 05/23/18 at 13:30 Al Hydrox/Mg Hydrox/Simethicone (Mag-Al Plus) 30 ml Q4H PRN PO GASTROINTESTINAL UPSET; Start 05/23/18 at 13:30 Ondansetron HCl (Zofran Inj) 4 mg Q4H PRN IV NAUSEA AND/OR VOMITING; Start 05/23/18 at 13:30 Sodium Chloride 1,000 ml @ 75 mls/hr [id number] IV Last administered on 05/23/18at 13:24; Admin Dose 75 MLS/HR; Start 05/23/18 at 13:24; Stop 05/23/18 at 18:23 BOYD KRAUSE MD May 23, 2018 15:29
--- NOTE | 2018-05-23 17:58 | PN ---
Date/Time of Note Date/Time of Note DATE: 05/23/18 TIME: 17:54 Assessment/Plan VTE Prophylaxis Risk score (from Ns)>0 risk: 2 SCD applied (from Ns): Yes Pharmacological prophylaxis: NA/contraindicated Pharm contraindication: surgical contra Lines/Catheters IV [facility] Type [facility]from [facility] Peripheral IV Assessment/Plan Hospital Course Patient status post cardiac cath today, patient denies any chest pain denies any shortness of breath, continue to monitor on telemetry floor overnight. Assessment/Plan -Three-vessel coronary artery disease chronic occlusion of the right coronary artery and circumflex vessel. Status post evaluation by Dr. Peng in cardiothoracic surgery, plan for CABG. -Hypertension -Acute kidney injury versus chronic kidney disease -Diabetes mellitus type 2 with hemoglobin A1c 7.3 -Large recurrent right inguinal hernia -History of hematuria secondary to bladder diverticulum status post cystoscopy by Dr. Panda. Further recommendations based on clinical course. Plan of care discussed with Dr. Galloway. Result Diagram: 05/22/18 0541 05/22/18 0541 Results 24hrs Laboratory Tests Test 05/23/18 13:46 Bedside Glucose 119 Exam/Review of Systems Exam Vitals Vital Signs Date Temp Pulse Resp B/P (MAP) Pulse Ox O2 O2 Flow FiO2 Time Delivery Rate 05/23/18 61 17 127/84 96 Room Air 17:06 (98) 05/23/18 98.7 13:45 05/20/18 2 12:52 Intake and Output 05/22/18 05/22/18 05/23/18 1515:00 23:00 07:00 IntakeIntake Total 850 ml 200 ml BalanceBalance 850 ml 200 ml Constitutional: alert, oriented Respiratory: clear to auscultation Cardiovascular: regular rate and rhythm Gastrointestinal: soft, non-tender Extremities: normal pulses Neurological: nl mental status Results Results 24hrs Laboratory Tests Test 05/23/18 13:46 Bedside Glucose 119 Medications Medication Current Medications Cholecalciferol (Vitamin D) 2,000 unit DAILY PO Last administered on 05/23/18at 08:13; Admin Dose 2,000 UNIT; Start 05/21/18 at 09:00 Duloxetine HCl (Cymbalta) 60 mg DAILY PO Last administered on 05/23/18at 08:13; Admin Dose 60 MG; Start 05/21/18 at 09:00 Metformin HCl (Glucophage Xr) 500 mg DAILY PO Last administered on 05/23/18at 08:12; Admin Dose 500 MG; Start 05/21/18 at 09:00 Montelukast Sodium (Singulair) 10 mg QHS PO Last administered on 05/22/18at 19:51; Admin Dose 10 MG; Start 05/20/18 at 21:00 Pantoprazole (Protonix Tab) 40 mg QAM PO Last administered on 05/23/18at 08:13; Admin Dose 40 MG; Start 05/21/18 at 09:00 Aspirin (Ecotrin) 325 mg DAILY PO Last administered on 05/23/18 08:13; Admin Dose 325 MG; Start 05/21/18 at 09:00 Nitroglycerin (Nitroglycerin (Sl Tab) 0.4 Mg) 1 tab Q5M PRN SL ANGINA; Start 05/20/18 at 17:00 Miscellaneous Information 1 ea NOTE XX ; Start 05/20/18 at 17:30 Glucose (Glutose) 15 gm Q15M PRN PO DECREASED GLUCOSE; Start 05/20/18 at 17:30 Glucose (Glutose) 22.5 gm Q15M PRN PO DECREASED GLUCOSE; Start 05/20/18 at 17:30 Dextrose (D50w Syringe) 25 ml Q15M PRN IV DECREASED GLUCOSE; Start 05/20/18 at 17:30 Dextrose (D50w Syringe) 50 ml Q15M PRN IV DECREASED GLUCOSE; Start 05/20/18 at 17:30 Glucagon (Glucagen) 1 mg Q15M PRN IM DECREASED GLUCOSE; Start 05/20/18 at 17:30 Glucose (Glutose) 15 gm Q15M PRN BUCCAL DECREASED GLUCOSE; Start 05/20/18 at 17:30 Zolpidem Tartrate (Ambien) 10 mg HS PO Last administered on 05/22/18at 19:53; Admin Dose 10 MG; Start 05/20/18 at 21:00 Atenolol (Tenormin) 50 mg DAILY PO Last administered on 05/23/18at 08:14; Admin Dose 50 MG; Start 05/21/18 at 09:00 Hydralazine HCl (Apresoline) 10 mg Q6H PRN IV SBP >160 Last administered on 05/22/18at 15:59; Admin Dose 10 MG; Start 05/22/18 at 15:30 Miscellaneous Information (* Miscellaneous Pharmacy Order) HOLD all METFORMIN ... ONCE XX ; Start 05/23/18 at 13:30; Stop 05/25/18 at 13:29 Acetaminophen (Tylenol Tab) 650 mg Q4H PRN PO NON-CARDIAC PAIN LEVEL (1-3); Start 05/23/18 at 13:30 Morphine Sulfate (morphine) 2 mg Q2H PRN IV FOR NON CARDIAC PAIN (4-10); Start 05/23/18 at 13:30 Al Hydrox/Mg Hydrox/Simethicone (Mag-Al Plus) 30 ml Q4H PRN PO GASTROINTESTINAL UPSET; Start 05/23/18 at 13:30 Ondansetron HCl (Zofran Inj) 4 mg Q4H PRN IV NAUSEA AND/OR VOMITING; Start 05/23/18 at 13:30 Sodium Chloride 1,000 ml @ 75 mls/hr [id number] IV Last administered on 05/23/18at 13:24; Admin Dose 75 MLS/HR; Start 05/23/18 at 13:24; Stop 05/23/18 at 18:23 JAY WEEMS May 23, 2018 17:58
[2018-05-23] MEDS: ZOLPIDEM 5 MG TAB PO SCH (21:29)
[2018-05-23] MEDS: MONTELUKAST 10 MG TAB PO SCH (21:29)
[2018-05-24] VITALS (10 sets, daily range): BP systolic 115–168; BP diastolic 87–93; PULSE 71–88; RESP 18–20
[2018-05-24] MEDS: hydrALAzine 20 MG INJ IV PRN (00:31)
[2018-05-24] MEDS: PANTOPRAZOLE (EC) 40 MG TAB PO SCH (08:20)
[2018-05-24] MEDS: ASPIRIN (EC) 325 MG TAB PO SCH (08:20)
[2018-05-24] MEDS: CHOLECALCIFEROL 1,000 UNIT TAB PO SCH (08:21)
[2018-05-24] MEDS: ATENOLOL 50 MG TAB PO SCH (08:21)
[2018-05-24] MEDS: DULOXETINE 30 MG CAP DR PO SCH (08:21)
[2018-05-24] MEDS: metFORMIN (XR) 500 MG TAB PO SCH (08:23)
--- NOTE | 2018-05-24 10:32 | CONS ---
Consult Date/Type/Reason Admit Date/Time May 23, 2018 at 10:02 Initial Consult Date Requesting Provider: TABATHA MARTÍNEZ MD Date/Time of Note DATE: 05/24/18 TIME: 10:29 Subjective NO acute events - patient comfortable - post LHC - radial site looks well - will need CABG - seen by CT surgeon - likely outpt CABG to fallow. ROS: No fever, no chills, no nausea, no vomiting, no diarrhea/constipation No recent weight changes No chest pain, no PND, no orthopnea - mild SOB No dizziness, blurred vision No thirst, no heat or cold intolerance Objective Vitals Vital Signs Date Temp Pulse Resp B/P (MAP) Pulse Ox O2 O2 Flow FiO2 Time Delivery Rate 05/24/18 75 08:08 05/24/18 97.6 18 135/90 98 07:18 (105) 05/23/18 Room Air 17:06 05/20/18 2 12:52 Intake and Output 05/23/18 05/23/18 05/24/18 1515:00 23:00 07:00 IntakeIntake Total 300 ml 500 ml BalanceBalance 300 ml 500 ml Exam General: WN/WD/NAD, AOx 3 HEENT: Unicetric/atraumatic/EOMI (follows commands) NECK: JVD elevated, no thyromegaly Lymph: no lymphadenopathy HEART: regular with no S3, II/ systolic murmur at apex LUNGS: Coarse sounds ABD: soft, NT, ND, +BS : Intact Neuro: non focal SKIN: chronic changes EXT: trace edema Results/Medications Result Diagram: 05/22/18 0541 05/22/18 0541 Results 24 hrs Laboratory Tests Test 05/23/18 13:46 Bedside Glucose 119 Home Meds Reported Medications Duloxetine Hcl* (Duloxetine Hcl*) 60 Mg Capsule.dr, 60 MG PO DAILY, #30 CAP 05/20/18 Cholecalciferol* (Vitamin D3*) 1,000 Unit Tablet, 2000 UNIT PO DAILY, TAB 05/20/18 Naproxen* (Naproxen*) 500 Mg Tablet, 500 MG PO DAILY PRN for PAIN, TAB 05/20/18 Montelukast Sodium* (Montelukast Sodium*) 10 Mg Tablet, 10 MG PO QHS, #30 TAB 05/20/18 Metformin Hcl* (Metformin Hcl* ER) 500 Mg Tab.sr.24h, 500 MG PO DAILY, #30 TAB 05/20/18 Chlorthalidone* (Chlorthalidone*) 25 Mg Tablet, 25 MG PO DAILY, TAB 05/20/18 Atenolol* (Atenolol*) 100 Mg Tablet, 100 MG PO DAILY, #30 TAB 05/20/18 Pantoprazole* (Protonix*) 40 Mg Tablet.dr, 40 MG PO QAM, TAB 09/13/16 Discontinued Reported Medications Acetaminophen with Codeine (Acetaminophen-Cod #3 Tablet) 1 Each Tablet, 1 TAB PO QHS, #20 TAB 09/13/16 Tramadol Hcl* (Ultram*) 50 Mg Tablet, 50 MG PO NEEDED PRN for PAIN, TAB 09/13/16 Aspirin* (Aspirin* EC) 81 Mg Tablet.dr, 81 MG PO DAILY, TAB 09/13/16 Atenolol* (Atenolol*) 25 Mg Tablet, 25 MG PO BID, #60 TAB 09/13/16 Hydrochlorothiazide* (Hydrochlorothiazide*) 25 Mg Tab, 25 MG PO DAILY, #30 TAB 09/05/15 Medications Current Medications Cholecalciferol (Vitamin D) 2,000 unit DAILY PO Last administered on 05/24/18 08:21; Admin Dose 2,000 UNIT; Start 05/21/18 at 09:00 Duloxetine HCl (Cymbalta) 60 mg DAILY PO Last administered on 05/24/18 08:21; Admin Dose 60 MG; Start 05/21/18 at 09:00 Metformin HCl (Glucophage Xr) 500 mg DAILY PO Last administered on 05/23/18at 08:12; Admin Dose 500 MG; Start 05/21/18 at 09:00 Montelukast Sodium (Singulair) 10 mg QHS PO Last administered on 05/23/18at 21 :29; Admin Dose 10 MG; Start 05/20/18 at 21:00 Pantoprazole (Protonix Tab) 40 mg QAM PO Last administered on 05/24/18 08:20; Admin Dose 40 MG; Start 05/21/18 at 09:00 Aspirin (Ecotrin) 325 mg DAILY PO Last administered on 05/24/18 08:20; Admin Dose 325 MG; Start 05/21/18 at 09:00 Nitroglycerin (Nitroglycerin (Sl Tab) 0.4 Mg) 1 tab Q5M PRN SL ANGINA; Start 05/20/18 at 17:00 Miscellaneous Information 1 ea NOTE XX ; Start 05/20/18 at 17:30 Glucose (Glutose) 15 gm Q15M PRN PO DECREASED GLUCOSE; Start 05/20/18 at 17:30 Glucose (Glutose) 22.5 gm Q15M PRN PO DECREASED GLUCOSE; Start 05/20/18 at 17:30 Dextrose (D50w Syringe) 25 ml Q15M PRN IV DECREASED GLUCOSE; Start 05/20/18 at 17:30 Dextrose (D50w Syringe) 50 ml Q15M PRN IV DECREASED GLUCOSE; Start 05/20/18 at 17:30 Glucagon (Glucagen) 1 mg Q15M PRN IM DECREASED GLUCOSE; Start 05/20/18 at 17:30 Glucose (Glutose) 15 gm Q15M PRN BUCCAL DECREASED GLUCOSE; Start 05/20/18 at 17:30 Zolpidem Tartrate (Ambien) 10 mg HS PO Last administered on 05/23/18at 21:29; Admin Dose 10 MG; Start 05/20/18 at 21:00 Atenolol (Tenormin) 50 mg DAILY PO Last administered on 05/24/18at 08:21; Admin Dose 50 MG; Start 05/21/18 at 09:00 Hydralazine HCl (Apresoline) 10 mg Q6H PRN IV SBP >160 Last administered on 05/24/18at 00:31; Admin Dose 10 MG; Start 05/22/18 at 15:30 Miscellaneous Information (* Miscellaneous Pharmacy Order) HOLD all METFORMIN ... ONCE XX ; Start 05/23/18 at 13:30; Stop 05/25/18 at 13:29 Acetaminophen (Tylenol Tab) 650 mg Q4H PRN PO NON-CARDIAC PAIN LEVEL (1-3); Start 05/23/18 at 13:30 Morphine Sulfate (morphine) 2 mg Q2H PRN IV FOR NON CARDIAC PAIN (4-10); Start 05/23/18 at 13:30 Al Hydrox/Mg Hydrox/Simethicone (Mag-Al Plus) 30 ml Q4H PRN PO GASTROINTESTINAL UPSET; Start 05/23/18 at 13:30 Ondansetron HCl (Zofran Inj) 4 mg Q4H PRN IV NAUSEA AND/OR VOMITING; Start 05/23/18 at 13:30 Assessment/Plan Hospital Course (Demo Recall) 1. Precordial chest pain + Stres test - + [facility]- planned for outpt surgery next week. 2. Hypertension. Blood pressure well controlled now. Continue current medical management. A little high - will follow post am meds. Con't Rx. 3. Abnormal EKG, nonspecific ST-T changes noted. No signs of ischemia appreciated. 4. Diabetes. Continue diabetic optimization and care. Rx perw primary team. Treate. 5. Renal insufficiency. Creatinine slightly elevated. Continue to avoid nephrotoxic medications. Cr 1.28 - stable. VIRGINIA CHRISTIANSON MD May 24, 2018 10:32
[2018-05-24] MEDS ORDERED: LISI-313 PO (18:30)
[2018-05-24] MEDS ORDERED: ATOR40TA68 PO (18:30)
[2018-05-24] MEDS ORDERED: ATEN50TA PO (18:30)
[2018-05-24] MEDS ORDERED: NITR0.4T32 SL (18:30)
[2018-05-24] MEDS ORDERED: ASPI325T32 PO (18:30)
--- NOTE | 2018-05-29 23:01 | DS ---
Date/Time of Note Date/Time of Note DATE: 05/29/18 TIME: 22:58 Discharge Summary Admission/Discharge Info Admit Date/Time May 23, 2018 at 10:02 Discharge Date/Time May 24, 2018 at 19:22 Patient Condition: Stable Hx of Present Illness The patient is a 57-year-old gentleman with the history of hypertension, diabetes, recurrent large right inguinal hernia status post failed repair x2. The patient is awaiting referral to [facility] for further repair and has been followed by Dr. Sarah for his hernia. The patient came to ER with the chest pressure; however, occasionally he felt pain to be sharp sharp & radiating to the left upper extremity. The patient did not have any diaphoresis. No reported shortness of breath. No relation of pain with exertion. He denies nausea , vomiting, GERD, dysphagia,cough , sore throat or abdominal pain. No recent hematuria after last admission at [facility]. The patient did not have any dizziness or syncope. The rest of review of systems unremarkable. The patient was seen in ER and was found to have negative troponin and negative EKG for any acute changes. The patient is being referred for management. The patient denies history of headache, dizziness, syncope. No history of nausea, vomiting, diarrhea. No history of leg edema. No history of resting leg pain. No history of claudication, no history of dysuria or hematuria. No history of vomiting or diarrhea. Hospital Course -Three-vessel coronary artery disease chronic occlusion of the right coronary ar marcella and circumflex vessel. Status post evaluation by Dr. Peng in cardiothoracic surgery, plan for CABG as an outpatient next week. patient denies any chest pain denies any shortness of breath, DW Dr Smims, cleared for D/C and f/up with Dr Mora tomorrow. -Hypertension -Acute kidney injury versus chronic kidney disease -Diabetes mellitus type 2 with hemoglobin A1c 7.3 -Large recurrent right inguinal hernia -History of hematuria secondary to bladder diverticulum status post cystoscopy by Dr. Panda. Plan of care discussed with Dr. Galloway. Home Meds Active Scripts Lisinopril* (Lisinopril*) 5 Mg Tablet, 5 MG PO DAILY, #30 TAB Prov:JAY WEEMS 05/24/18 Atorvastatin* (Atorvastatin*) 40 Mg Tablet, 40 MG PO QHS, #30 TAB Prov:JAY WEEMS 05/24/18 Aspirin (Aspir-Demetrice) 325 Mg Tablet., 325 MG PO DAILY for 30 Days Prov:JAY WEEMS 05/24/18 Nitroglycerin* (Nitroglycerin* SL) 0.4 Mg Tab.subl, 1 TAB SL Q5M PRN for ANGINA, #1 BOTTLE Prov:JAY WEEMS 05/24/18 Atenolol* (Atenolol*) 50 Mg Tablet, 50 MG PO DAILY for 30 Days, TAB Prov:JAY WEEMS 05/24/18 Reported Medications Duloxetine Hcl* (Duloxetine Hcl*) 60 Mg Capsule.dr, 60 MG PO DAILY, #30 CAP 05/20/18 Cholecalciferol* (Vitamin D3*) 1,000 Unit Tablet, 2000 UNIT PO DAILY, TAB 05/20/18 Montelukast Sodium* (Montelukast Sodium*) 10 Mg Tablet, 10 MG PO QHS, #30 TAB 05/20/18 Metformin Hcl* (Metformin Hcl* ER) 500 Mg Tab.sr.24h, 500 MG PO DAILY, #30 TAB 05/20/18 Chlorthalidone* (Chlorthalidone*) 25 Mg Tablet, 25 MG PO DAILY, TAB 05/20/18 Pantoprazole* (Protonix*) 40 Mg Tablet.dr, 40 MG PO QAM, TAB 09/13/16 Discontinued Reported Medications Naproxen* (Naproxen*) 500 Mg Tablet, 500 MG PO DAILY PRN for PAIN, TAB 05/20/18 Atenolol* (Atenolol*) 100 Mg Tablet, 100 MG PO DAILY, #30 TAB 05/20/18 Follow-up Plan Follow-up with Dr. Peng in the office tomorrow [facility] Time spent on discharge: > 30 minutes JAY WEEMS May 29, 2018 23:01
== END 2018-05-24 19:22 | disposition home or self-care (01) | DRG 287 ==
LOC: E/R 12:05 → TEL 13:31 → OBSVTOIN 05-23 10:02
PROVIDERS: ADMIT Internal Medicine; ATTEND Internal Medicine
PROC: 4A02XM4 Measurement of Cardiac Total Activity, External Approach (ICD-10-PCS; 2018-05-21)
PROC: 3E033HZ Introduction of Radioactive Substance into Peripheral Vein, Percutaneous Approach (ICD-10-PCS; 2018-05-21)
PROC: C22G1ZZ Tomographic (Tomo) Nuclear Medicine Imaging of Myocardium using Technetium 99m (Tc-99m) (ICD-10-PCS; 2018-05-21)
PROC: B211YZZ Fluoroscopy of Multiple Coronary Arteries using Other Contrast (ICD-10-PCS; 2018-05-23)
PROC: 4A023N7 Measurement of Cardiac Sampling and Pressure, Left Heart, Percutaneous Approach (ICD-10-PCS; principal; 2018-05-23 12:00)
DX: I25.10 Atherosclerotic heart disease of native coronary artery without angina pectoris (principal); E78.5 Hyperlipidemia, unspecified; K40.90 Unilateral inguinal hernia, without obstruction or gangrene, not specified as recurrent; I25.82 Chronic total occlusion of coronary artery; I10 Essential (primary) hypertension; E11.9 Type 2 diabetes mellitus without complications; N28.9 Disorder of kidney and ureter, unspecified
CPT/HCPCS: 36415; 71045; 78452; 80048; 80053; 80061; 82550; 82553; 82962; 83036; 84443; 84484; 85025; 93005; 93017; 93306; 93458; G0378; A4310; A9500; A9505; C1887; J0360; J1644; J2250; J2785; J3010; J7030; Q9967

== ENCOUNTER 2018-05-31 08:29 | Day surgery (SDC) | payer OTHER ==
[2018-05-30 16:11] VITALS: BMI 31.8
[~2018-05-31] VITALS: Ht 170.2 cm; Wt 91.8 kg
[~2018-05-31 08:29] MED LIST changes: -ACET1TAB40 PO; -ASPI-817 PO; +ASPI325T32 PO; -ATEN-51 PO; +ATEN50TA PO; +ATOR40TA68 PO; +CHLO25TA2 PO; +CHOL100062 PO; +DULO60CA59 PO; -HYDR25TA6 PO; +LISI-313 PO; +METF500T3 PO; +MONT10TA24 PO; +NITR0.4T32 SL; -TRAM50TA PO
[2018-05-31 09:57] VITALS: Ht 170.2 cm; Wt 91.8 kg
[2018-05-31 09:58] VITALS: BP 142/78; PULSE 51; RESP 18
[2018-05-31] MEDS ORDERED: EPINEPHrine 4 MG in DEXTROSE 5% 246 ML IV SCH (10:00)
[2018-05-31] MEDS ORDERED: INSULIN HUMAN REGULAR 100 UNIT in SOD CHLORIDE 0.9% 99 ML IV SCH (10:00)
[2018-05-31] MEDS ORDERED: PHENYLephrine 20MG IN 250 ML 250 ML IV SCH (10:00)
[2018-05-31] MEDS ORDERED: PHENYLephrine 0.25% 15 ML NAS SPRAY NASAL ONE (11:00)
[2018-05-31 11:45] VITALS: BP 158/96; PULSE 77; RESP 16
[2018-06-04] MEDS ORDERED: INFLUENZA VIRUS VACCINE 0.5 ML (DISPENSING) IM* ONE (10:00)
== END 2018-05-31 12:00 | disposition home or self-care (01) ==
LOC: REC 08:29 → UNDOADMIN 08:29 → SDS 08:29 → EDSTATUS 11:00 → UNDODISIN 12:00 → SDS 12:00
PROVIDERS: ATTEND Thoracic Surgery (Cardiothoracic Vascular Surgery)
DX: R07.9 Chest pain, unspecified (principal); Z53.8 Procedure and treatment not carried out for other reasons
CPT/HCPCS: 80048; 81001; 82962; 85025; 85610; 85730; 86850; 86900; 86901; 86920; J0171; J1815; J2370; J7070; Z7610; J3010

== ENCOUNTER 2018-08-30 05:18 | Inpatient (IN) | payer OTHER ==
[2018-08-29 12:02] VITALS: Ht 170.2 cm; Wt 91.5 kg
[2018-08-30] VITALS (37 sets, daily range): BP systolic 84–130; BP diastolic 52–79; PULSE 68–99; RESP 9–31; TEMP 96.1–97.5
[~2018-08-30] VITALS: Ht 170.2 cm; Wt 91.5 kg
[2018-08-30] MEDS ORDERED: ROCURONIUM 50 MG INJ ONE ×2 (06:37→10:40)
[2018-08-30] MEDS ORDERED: SUCCINYLCHOLINE CHLORIDE 100 MG/5 ML SYG IV ONE (06:37)
[2018-08-30] MEDS ORDERED: MIDAZOLAM 1 MG/ML 2 ML INJ ONE ×2 (06:38)
[2018-08-30] MEDS ORDERED: PHENYLephrine (100 MCG/ML) 10ML SYG ONE (06:42)
[2018-08-30] MEDS ORDERED: HEPARIN 10,000 UNITS/ML 1 ML INJ ONE (06:44)
[2018-08-30] MEDS ORDERED: CEFAZOLIN 1 GM INJ ONE (06:47)
[2018-08-30] MEDS ORDERED: LIDOCAINE 2% (SDV) 5 ML INJ ONE (06:51)
[2018-08-30] MEDS ORDERED: ERGO2000 PO (07:07)
[2018-08-30] MEDS ORDERED: DULO30CA47 PO (07:08)
[2018-08-30] MEDS ORDERED: FEXO180T13 PO (07:09)
[2018-08-30] MEDS ORDERED: DIPH25CA42 PO (07:10)
--- NOTE | 2018-08-30 07:17 | PREAC ---
Date/Time of Note Date/Time of Note DATE: 08/30/18 TIME: 07:15 Anesthesia Eval and Record Evaluation Time Pre-Procedure Interview DATE: 08/30/18 TIME: 07:15 Age 57 Sex male NPO: 8 hrs Preoperative diagnosis CAD Planned procedure CABG Past Medical History Past Medical History: Includes Cardio: HTN, Dyslipidemia Endo: Diabetes Pulm: Smoking Hx GI: Obesity Surgery & Anesthesia Issues No known issue Meds Anticoagulation: No Beta Brandy within 24 hr: Yes Active Scripts Lisinopril* (Lisinopril*) 5 Mg Tablet, 5 MG PO DAILY, #30 TAB Prov:JAY WEEMS 05/24/18 Atorvastatin* (Atorvastatin*) 40 Mg Tablet, 40 MG PO QHS, #30 TAB Prov:DAILY WEEMSETLANA 05/24/18 Aspirin (Aspir-Demetrice) 325 Mg Tablet.dr, 325 MG PO DAILY for 30 Days [facility] 05/24/18 Nitroglycerin* (Nitroglycerin* SL) 0.4 Mg Tab.subl, 1 TAB SL Q5M PRN for ANGINA, #1 BOTTLE Prov:JAY WEEMS 05/24/18 Atenolol* (Atenolol*) 50 Mg Tablet, 50 MG PO DAILY for 30 Days, TAB Prov:SAM WEEMSLANA 05/24/18 Reported Medications Diphenhydramine Hcl (Banophen) 25 Mg Capsule, 25 MG PO QHS, CAP 08/30/18 Fexofenadine Hcl* (Fexofenadine Hcl*) 180 Mg Tablet, 180 MG PO DAILY, #30 TAB 08/30/18 Duloxetine Hcl* (Duloxetine Hcl*) 30 Mg Capsule.dr, 30 MG PO DAILY, #30 CAP 08/30/18 Ergocalciferol (Vitamin D2) (VITAMIN D2) 2,000 Unit Tablet, 2000 UNIT PO DAILY, TAB 08/30/18 Montelukast Sodium* (Montelukast Sodium*) 10 Mg Tablet, 10 MG PO QHS, #30 TAB 05/20/18 Metformin Hcl* (Metformin Hcl* ER) 500 Mg Tab.sr.24h, 500 MG PO DAILY, #30 TAB 05/20/18 Chlorthalidone* (Chlorthalidone*) 25 Mg Tablet, 25 MG PO DAILY, TAB 05/20/18 Pantoprazole* (Protonix*) 40 Mg Tablet.dr, 40 MG PO QAM, TAB 09/13/16 Discontinued Reported Medications Duloxetine Hcl* (Duloxetine Hcl*) 60 Mg Capsule.dr, 60 MG PO DAILY, #30 CAP 05/20/18 Cholecalciferol* (Vitamin D3*) 1,000 Unit Tablet, 2000 UNIT PO DAILY, TAB 05/20/18 Current Medications Epinephrine 4 mg/ Dextrose 250 ml @ 0 mls/hr INTRA-OP IV ; Start 08/30/18 at 07:30; Stop 08/30/18 at 14:00 Phenylephrine HCl 250 ml @ 0 mls/hr INTRA-OP IV ; Start 08/30/18 at 07:30; Stop 08/30/18 at 14:00 Insulin Human Regular 100 unit/ Sodium Chloride 100 ml @ 0 mls/hr INTRA-OP IV ; Start 08/30/18 at 07:30; Stop 08/30/18 at 14:00 Sodium Chloride 1,000 ml @ 0 mls/hr Q0M IV ; Start 08/30/18 at 07:30; Status UNV Meds reviewed: Yes Allergies Coded Allergies: No Known Drug Allergies (Verified Allergy, Unknown, 08/30/18) Uncoded Allergies: CANTELOUPE (Allergy, Mild, 09/14/16) Allergies Reviewed: Yes Labs/Studies Labs Reviewed: Reviewed by anesthesiologist Blood Bank Test 08/29/18 12:05 Antibody Screen NEGATIVE Blood Product Summary Counts Blood Type O POSITIVE Crossmatch Red Blood Cells test: N/A Pre-procedure Exam Last vitals Vital Signs Date Temp Pulse Resp B/P (MAP) Pulse Ox O2 O2 Flow FiO2 Time Delivery Rate 08/30/18 98.4 68 18 126/79 100 Room Air 06:09 (95) Airway: Adequate mouth opening Mallampati: Mallampati III Teeth: Normal Lung: Normal Heart: Normal ASA Physical Status ASA physical status: 3 Emergency: None Planned Anesthetic General/MAC: ETT Pre-operative Attestations Prior to commencing anesthesia and surgery, the patient was re-evaluated, there was verification of: *The patient's identity *The results of appropriate recent lab work and preoperative vital signs *The above evaluation not changing prior to induction *Anesthetic plan, risk benefits, alternative and complications discussed with patient/family; questions answered; patient/family understands, accepts and wishes to proceed. OVI BRO MD Aug 30, 2018 07:17
[2018-08-30] MEDS ORDERED: EPINEPHrine 4 MG in DEXTROSE 5% 246 ML IV SCH (07:30)
[2018-08-30] MEDS ORDERED: PHENYLephrine 20MG IN 250 ML 250 ML IV SCH ×2 (07:30→22:30)
[2018-08-30] MEDS ORDERED: INSULIN HUMAN REGULAR 100 UNIT in SOD CHLORIDE 0.9% 99 ML IV SCH (07:30)
[2018-08-30] MEDS ORDERED: SOD CHLORIDE 0.9% 1,000 ML IV SCH (07:30)
--- NOTE | 2018-08-30 07:42 | HPN ---
Date/Time of Note Date/Time of Note DATE: 08/30/18 TIME: 07:41 Interval H&P Admission Note Pt. seen H&P reviewed: No system changes BOYD KRAUSE MD Aug 30, 2018 07:42
[2018-08-30] MEDS ORDERED: AMINOCAPROIC ACID 5 GM INJ ONE ×3 (07:45→08:44)
[2018-08-30] MEDS ORDERED: LIDOCAINE 100 MG SYRINGE ONE (08:43)
[2018-08-30] MEDS ORDERED: PHENYLephrine 10 MG INJ ONE (08:43)
[2018-08-30] MEDS ORDERED: NA BICARBONATE 8.4% 50 ML SYG ONE ×2 (08:43→10:27)
[2018-08-30] MEDS ORDERED: CA CHLORIDE 10% 10 ML SYRINGE ONE (08:43)
[2018-08-30] MEDS ORDERED: POTASSIUM CHLORIDE 40 MEQ INJ ONE (08:44)
[2018-08-30] MEDS ORDERED: FUROSEMIDE 20 MG INJ ONE (08:44)
[2018-08-30] MEDS ORDERED: MAGNESIUM SULFATE (MG) 50% 10 ML INJ ONE (08:44)
[2018-08-30] MEDS ORDERED: ALBUMIN HUMAN 25% 100 ML ONE (08:44)
[2018-08-30] MEDS ORDERED: NORepinephrine 4 MG INJ ONE (08:44)
[2018-08-30] MEDS ORDERED: HEPARIN 1000 UNITS/ML 10 ML INJ ONE ×2 (08:44→09:15)
[2018-08-30] MEDS ORDERED: MANNITOL 20% 500 ML ONE (08:44)
[2018-08-30] MEDS ORDERED: VANCOMYCIN 1 GM INJ ONE (09:14)
[2018-08-30] MEDS ORDERED: PAPAVERINE 60 MG INJ ONE (09:15)
[2018-08-30] MEDS ORDERED: hydrALAzine 20 MG INJ ONE (09:19)
[2018-08-30] MEDS ORDERED: PROTAMINE 250 MG INJ ONE (10:32)
--- NOTE | 2018-08-30 15:13 | OPR ---
Date/Time of Note Date/Time of Note DATE: 08/30/18 TIME: 15:08 Operative Report Procedure Date: Aug 30, 2018 Preoperative Diagnosis Coronary artery disease Postoperative Diagnosis Same Operation/Procedure Performed CASTELLON to LAD Saphenous vein graft to PDA Saphenous vein graft to obtuse marginal branch of the circumflex Endoscopic saphenous vein harvest from the right lower extremity Surgeon see signature line Operations Manager Station Syed Cabrera Anesthesia Type: general Estimated Blood Loss: other Transfusion none Specimen None Grafts/Implants none Complications none Disposition: other Procedure Description Patient was placed in supine position prepped and draped in usual sterile fashion timeout was called antibiotics was given Transesophageal echocardiogram was done no evidence of any major valvular leaks were noted ejection fraction was about 50% Sternotomy incision was made from the sternal notch down to the xiphoid process saphenous vein was harvested using endoscopic technique from the right lower extremity The sternum was open left internal mammary artery was harvested using electrocautery and titanium clips Pericardium open patient fully heparinized cannulation sutures all 3-0 Prolene were applied to the distal ascending aorta mid ascending aorta body of the right atrium right atrial appendage After adequate documentation of a CT aorta was cannulated followed by two-stage venous cannula antegrade and retrograde cardioplegia cannula Heart was placed on cardiopulmonary bypass cross-clamp applied to the soft part of the aorta heart was arrested using antegrade and retrograde cardioplegia given every 15 to 20 minutes topical slush was applied to the surface of the heart cardioplegia was also given to the veins as where they were being constructed We proceeded with distal anastomosis saphenous vein vein was used for PDA and obtuse marginal branch of the circumflex and mammary artery was anastomosed to the LAD all distal anastomoses were done to 8 mm longitudinal coronary arteriotomy 7-0 Prolene continuous suture technique and site fashion to the beveled end of the vein or the mammary artery the proximal to anastomosis were done on the same cross-clamp 4.5 mm punch 6-0 Prolene continuous suture technique Cross-clamp removed the graft and the heart the aired patient came off cardio primary bypass with minimal support Protamine given cannulas removed sutures tied to mediastinal tubes and a right pleural tube was placed brought out through the lower stab was secured to skin using 2-0 silk sutures The sternum was closed using the cable system [id number] x4 linea alba and the deep tissues were irrigated and closed in 2 layers of #0 Vicryl suture for the linea alba and the deep 2-0 Vicryl suture for subcu 4-0 Monocryl suture for running subcuticular skin closure the leg was closed in a similar fashion patien t tolerated procedure well BOYD KRAUSE MD Aug 30, 2018 15:13
[2018-08-30] MEDS ORDERED: ONDANSETRON 4 MG INJ IV PRN (15:30)
[2018-08-30] MEDS ORDERED: NITROGLYCERIN 50 MG/D5W (PMX) 250 ML IV SCH (15:30)
[2018-08-30] MEDS ORDERED: DEXTROSE 50% 50 ML SYRINGE IV PRN ×2 (16:00)
[2018-08-30] MEDS: HYDROmorphONE 0.5 MG/0.5 ML SYG IV PRN ×6 (16:22→23:06)
[2018-08-30] MEDS: INSULIN HUMAN REGULAR 100 UNIT in SOD CHLORIDE 0.9% 99 ML IV SCH (16:31)
[2018-08-30] MEDS: ACCU-CHEK XX SCH ×8 (16:43→22:59)
[2018-08-30] MEDS: CEFAZOLIN 1 GM/50 ML (PMX) 50 ML IVPB SCH (16:44)
[2018-08-30] MEDS: POTASSIUM CHLORIDE 40 MEQ, CALCIUM CHLORIDE 10% 1 GM in DEXTROSE 5%-0.225% NACL 1,000 ML IV SCH (17:29)
[2018-08-30] MEDS: POTASSIUM CHLORIDE 50 ML IVPB PRN (17:33)
[2018-08-30] MEDS: FAMOTIDINE 20 MG INJ IV SCH (21:15)
[2018-08-30] MEDS: OXYCODONE/ACETAMINOPHEN (5/325) TAB PO PRN (21:47)
[2018-08-31] VITALS (78 sets, daily range): BP systolic 83–146; BP diastolic 50–129; PULSE 79–94; RESP 9–30; TEMP 97.5–97.6
[2018-08-31] MEDS: CEFAZOLIN 1 GM/50 ML (PMX) 50 ML IVPB SCH ×2 (00:07→06:40)
[2018-08-31] MEDS: ACCU-CHEK XX SCH ×12 (00:15→11:00)
[2018-08-31] MEDS: HYDROmorphONE 0.5 MG/0.5 ML SYG IV PRN ×6 (00:49→21:09)
[2018-08-31] MEDS: POTASSIUM CHLORIDE 50 ML IVPB PRN ×2 (01:54→10:10)
--- NOTE | 2018-08-31 06:57 | PAC ---
Date/Time of Note Date/Time of Note DATE: 08/31/18 TIME: 06:57 Post-Anesthesia Notes Post-Anesthesia Note Last documented vital signs Vital Signs Date Temp Pulse Resp B/P (MAP) Pulse Ox O2 O2 Flow FiO2 Time Delivery Rate 08/31/18 85 12 110/72 100 06:00 (85) 08/31/18 6.0 05:30 08/31/18 Simple 05:30 Mask 08/31/18 97.5 04:00 08/30/18 30 19:00 Activity: WNL Respiratory function: WNL Cardiovascular function: WNL Mental status: Baseline Pain reasonably controlled: Yes Hydration appropriate: Yes Nausea/Vomiting absent: Yes OVI BRO MD Aug 31, 2018 06:57
[2018-08-31] MEDS: INSULIN HUMAN REGULAR 100 UNIT in SOD CHLORIDE 0.9% 99 ML IV SCH (07:21)
[2018-08-31] MEDS: POTASSIUM CHLORIDE 40 MEQ, CALCIUM CHLORIDE 10% 1 GM in DEXTROSE 5%-0.225% NACL 1,000 ML IV SCH ×2 (08:18→10:17)
--- NOTE | 2018-08-31 12:31 | HP ---
Date/Time of Note Date/Time of Note DATE: 08/31/18 TIME: 12:19 Assessment/Plan VTE Prophylaxis Risk score (from Ns)>0 risk: 15 SCD applied (from Nsg): Yes Pharmacological prophylaxis: other Lines/Catheters IV Catheter Type (from Nrsg): Cordis Central line still needed: Yes Urinary Cath still in place: Yes Reason Cath still needed: urinary retention Assessment/Plan Assessment/Plan -Three-vessel coronary artery disease chronic occlusion of the right coronary artery and circumflex vessel. S/p CABG with CASTELLON to LAD, Saphenous vein graft t o PDA, Saphenous vein graft to obtuse marginal branch of the circumflex by Dr. Peng on 08/30/2018. Continue ICU care, follow-up CT surgery recommendations. Dr. Garcia is following in cardiology consultation. -Hypertension -Diabetes mellitus type 2, she is currently on insulin drip, will convert to Lantus and NovoLog. -Chronic kidney disease -Large recurrent right inguinal hernia Further recommendations based on clinical course. Plan of care discussed with Dr. Galloway. Result Diagram: 08/31/18 0430 08/31/18 0430 Results 24hrs Laboratory Tests Test 08/30/18 13:26 08/30/18 14:00 08/30/18 14:15 08/30/18 15:41 Bedside Glucose 186 206 Blood Gas BLMV Specimen Source Arterial Blood 08/30/2018 2:06: Date Drawn 00 PM Arterial Blood 7.278 *L pH (Temp corrected ) Arterial Blood 44.8 pCO2 (Temp correct) Arterial Blood 105.3 H pO2 (Temp corrected ) Arterial Blood 20.5 L HCO3 Arterial Blood -6.1 L Base Excess Arterial Blood 96.7 Oxygen Saturati on Marcio Test ACCEPTAB Arterial Blood A-Line Gas Puncture Site Arterial 0.3 Blood Carboxyhe moglobin Arterial Blood 0.3 Methemoglobin Mixed Venous 45.3 H Blood PO2 Mixed Venous 75.6 H Blood O2 Saturation Mixed Venous 11.3 Blood Total Hemoglobi n Mixed Venous 75.2 Blood Oxyhemogl obin Mixed Venous 0.2 Bld Carboxyhemo globin Mixed Venous 0.3 Blood Methemogl obin Blood Gas A-a 200.8 H O2 Differential Oxyhemoglobin 96.1 Percent Blood Gas 37.0 Temperature Blood Gas 16.0 Respiration Rate Blood Gas 17 Actual Respiration Rat e Blood Gas VENT - AC Modality FiO2 50.0 Blood Gas Tidal 500.0 Volume Blood Gas Low 5.0 PEEP Setting Blood Gas RLIM RN Critical Value Read Back Blood Gas TM Notified Whom Blood Gas 08/30/2018 2:21: Notified Time 00 PM White Blood 23.6 #H Count Red Blood Count 3.52 L Hemoglobin 10.3 #L Hematocrit 31.7 #L Mean 90.1 Corpuscular Volume Mean 29.3 Corpuscular Hemoglobin Mean 32.5 Corpuscular Hemoglobin Conc ent Red Cell 13.5 Distribution Width Platelet Count 206 # Mean Platelet 9.1 Volume Immature 0.500 H Granulocytes % Neutrophils % 86.7 H Lymphocytes % 5.2 L Monocytes % 7.1 Eosinophils % 0.2 Basophils % 0.3 Nucleated Red 0.0 Blood Cells % Immature 0.120 H Granulocytes # Neutrophils # 20.4 H Lymphocytes # 1.2 Monocytes # 1.7 H Eosinophils # 0.0 Basophils # 0.1 Nucleated Red 0.0 Blood Cells # Prothrombin 15.9 H Time Prothrombin 1.2 Time Ratio INR 1.26 International Normalized Rati o Activated 38.1 H Partial Thrombo plast Time Sodium Level 142 Potassium Level 4.4 Chloride Level 112 H Carbon Dioxide 21 Level Anion Gap 9 Blood Urea 22 H Nitrogen Creatinine 1.11 Est Glomerular > 60 Filtrat Rate mL/min Glucose Level 182 Calcium Level 8.5 Phosphorus 2.5 Level Magnesium Level 2.9 H Total Bilirubin 0.9 Direct 0.00 Bilirubin Indirect 0.9 Bilirubin Aspartate Amino 33 Transf (AST/SGO T) Alanine 22 Aminotransferas e (ALT/SGPT) Alkaline 72 Phosphatase Total Protein 6.3 Albumin 3.5 Globulin 2.80 Albumin/Globuli 1.25 n Ratio Test 08/30/18 17:15 08/30/18 18:19 08/30/18 19:18 08/30/18 19:30 Bedside Glucose 215 214 183 Blood Gas Blood Specimen arterial Source Arterial Blood 08/30/2018 7:25 Date Drawn :28 PM Arterial Blood 7.253 *L pH (Temp corrected ) Arterial Blood 44.5 pCO2 (Temp correct) Arterial Blood 102.3 H pO2 (Temp corrected ) Arterial Blood 19.2 L HCO3 Arterial Blood -7.6 L Base Excess Arterial Blood 96.5 Oxygen Saturati on Marcio Test N/A Arterial Blood A-Line Gas Puncture Site Arterial 0.3 Blood Carboxyhe moglobin Arterial Blood 0.2 Methemoglobin Blood Gas A-a 59.3 H O2 Differential Oxyhemoglobin 96.0 Percent Blood Gas 37.0 Temperature Blood Gas 22 Actual Respiration Rat e Blood Gas VENT - CPAP Modality FiO2 30.0 Blood Gas Low 5.0 PEEP Setting Blood Gas 20.0 Inspiratory Pressure Blood Gas 10 Pressure Support Blood Gas J.PACOL RN Critical Value Read Back Blood Gas Notified Whom Blood Gas 08/30/2018 7:35 Notified Time :53 PM Test 08/30/18 19:40 08/30/18 20:00 08/30/18 21:09 08/30/18 22:12 White Blood 17.4 #H Count Red Blood Count 3.38 L Hemoglobin 10.1 L Hematocrit 30.9 L Mean 91.4 Corpuscular Volume Mean 29.9 Corpuscular Hemoglobin Mean 32.7 Corpuscular Hemoglobin Conc ent Red Cell 13.6 Distribution Width Platelet Count 200 Mean Platelet 9.3 Volume Immature 0.300 Granulocytes % Neutrophils % 90.0 H Lymphocytes % 3.0 L Monocytes % 6.6 Eosinophils % 0.0 Basophils % 0.1 Nucleated Red 0.0 Blood Cells % Immature 0.060 H Granulocytes # Neutrophils # 15.7 H Lymphocytes # 0.5 L Monocytes # 1.1 H Eosinophils # 0.0 Basophils # 0.0 Nucleated Red 0.0 Blood Cells # Prothrombin 15.7 H Time Prothrombin 1.2 Time Ratio INR 1.24 International Normalized Rati o Activated 28.2 Partial Thrombo plast Time Sodium Level 143 Potassium Level 4.1 Chloride Level 112 H Carbon Dioxide 22 Level Anion Gap 9 Blood Urea 21 H Nitrogen Creatinine 1.14 Est Glomerular > 60 Filtrat Rate mL/min Glucose Level 176 Calcium Level 8.7 Phosphorus 2.5 Level Magnesium Level 2.5 Bedside Glucose 176 140 133 Test 08/30/18 22:58 08/31/18 00:14 08/31/18 01:59 08/31/18 04:04 Bedside Glucose 119 125 92 108 Test 08/31/18 04:30 08/31/18 04:55 08/31/18 05:00 08/31/18 05:02 White Blood 19.1 H Count Red Blood Count 3.47 L Hemoglobin 10.1 L Hematocrit 31.4 L Mean 90.5 Corpuscular Volume Mean 29.1 Corpuscular Hemoglobin Mean 32.2 Corpuscular Hemoglobin Conc ent Red Cell 13.7 Distribution Width Platelet Count 202 Mean Platelet 9.6 Volume Immature 0.500 H Granulocytes % Neutrophils % 87.7 H Lymphocytes % 3.6 L Monocytes % 8.1 Eosinophils % 0.0 Basophils % 0.1 Nucleated Red 0.0 Blood Cells % Immature 0.090 H Granulocytes # Neutrophils # 16.7 H Lymphocytes # 0.7 L Monocytes # 1.6 H Eosinophils # 0.0 Basophils # 0.0 Nucleated Red 0.0 Blood Cells # Sodium Level 146 H Potassium Level 4.4 Chloride Level 113 H Carbon Dioxide 23 Level Anion Gap 10 Blood Urea 21 H Nitrogen Creatinine 1.08 Est Glomerular > 60 Filtrat Rate mL/min Glucose Level 116 # Calcium Level 9.1 Magnesium Level 2.3 Prothrombin 15.0 H Time Prothrombin 1.2 Time Ratio INR 1.17 International Normalized Rati o Activated 28.3 Partial Thrombo plast Time Blood Gas Blood arterial Specimen Source Arterial Blood 08/31/2018 5:25: Date Drawn 00 AM Arterial Blood 7.282 *L pH (Temp corrected ) Arterial Blood 44.0 pCO2 (Temp correct) Arterial Blood 62.6 L pO2 (Temp corrected ) Arterial Blood 20.3 L HCO3 Arterial Blood -6.2 L Base Excess Arterial Blood 89.6 L Oxygen Saturati on Marcio Test N/A Arterial Blood A-Line Gas Puncture Site Arterial 0.3 Blood Carboxyhe moglobin Arterial Blood 0.1 Methemoglobin Blood Gas A-a 164.8 H O2 Differential Oxyhemoglobin 89.2 L Percent Blood Gas 37.0 Temperature Blood Gas NASAL CANNULA Modality FiO2 39.0 Blood Gas Henna NEGRON RN Critical Value Read Back Blood Gas Notified Whom Blood Gas 08/31/2018 5:34: Notified Time 00 AM Lab Scanned REFERENCE LAB Report Test 08/31/18 06:11 08/31/18 08:15 08/31/18 10:20 Bedside Glucose 150 112 102 HPI/ROS Admit Date/Time Admit Date/Time Aug 30, 2018 at 05:18 Hx of Present Illness The patient is a 55-year-old gentleman with hypertension, hyperlipidemia, diabetes, chronic kidney disease, large right inguinal hernia, patient was evaluated for ongoing chest pain and underwent left heart catheterization in May 2018 and was found to have triple vessel disease, patient was evaluated by Dr. Peng in CT surgery and was brought to the hospital and underwent CABG procedure yesterday. Patient is seen in ICU patient is awake alert and oriented. Patient was extubated overnight and, currently breathing comfortably on supplemental oxygen via nasal cannula, incisional pain is adequately controlled. PMH/Family/Social Past Medical History Medications Current Medications Sodium Chloride 1,000 ml @ 0 mls/hr Q0M IV ; Start 08/30/18 at 07:30 Potassium Chloride 40 meq/ Calcium Chloride 1 gm/Dextrose/ Sodium Chloride 1,030 ml @ 60 mls/hr [id number] IV Last administered on 08/31/18 10:17; Admin Dose 60 MLS/HR; Start 08/30/18 at 15:08 Ondansetron HCl (Zofran Inj) 4 mg Q6H PRN IV NAUSEA AND/OR VOMITING Last administered on 08/30/18 21:15; Admin Dose 4 MG; Start 08/30/18 at 15:30 Famotidine (Pepcid Iv) 20 mg BID@08,20 IV Last administered on 08/30/18 21:15; Admin Dose 20 MG; Start 08/30/18 at 20:00 Potassium Chloride 50 ml @ 50 mls/hr SEE DIRECTION PRN IVPB K+ LEVEL Last administered on 08/31/18 10:10; Admin Dose 50 MLS/HR; Start 08/30/18 at 15:30 Magnesium Sulfate/ Dextrose 100 ml @ 100 mls/hr PRN PRN IVPB PENDING LAB VALUE; Start 08/30/18 at 15:30 Nitroglycerin/ Dextrose 250 ml @ 1.5 mls/hr PER PROTOCOL IV Last administered on 08/30/18at 13:15; Admin Dose 15 MLS/HR; Start 08/30/18 at 15:30 Diagnostic Test (Pha) (Accu-Chek) 1 ea Q1H XX Last administered on 08/31/18 10:20; Admin Dose 1 EA; Start 08/30/18 at 16:00 Insulin Human Regular 100 unit/ Sodium Chloride 100 ml @ 0 mls/hr PER PROTOCOL IV Last administered on 08/31/18 07:21; Admin Dose 4 MLS/HR; Start 08/30/18 at 16:00 Miscellaneous Information (* Miscellaneous Pharmacy Order) Treatment of Hypoglycemia: 1.BG 51... Per protocol XX ; Start 08/30/18 at 16:00 Dextrose (D50w Syringe) 25 ml Q15M PRN IV .DECREASED GLUCOSE; Start 08/30/18 at 16:00 Dextrose (D50w Syringe) 50 ml Q15M PRN IV .DECREASED GLUCOSE; Start 08/30/18 at 16:00 Hydromorphone HCl (Dilaudid) 0.2 mg Q1H PRN IV PAIN LEVEL 1-5 Last administered on 08/31/18at 11:24; Admin Dose 0.2 MG; Start 08/30/18 at 21:00 Hydromorphone HCl (Dilaudid) 0.4 mg Q1H PRN IV PAIN LEVEL 6-10 Last administered on 08/31/18at 04:26; Admin Dose 0.4 MG; Start 08/30/18 at 21:00 Oxycodone/ Acetaminophen (Percocet (5/ 325)) 1 tab Q3H PRN PO PAIN LEVEL 1-5; Start 08/30/18 at 21:00 Oxycodone/ Acetaminophen (Percocet (5/ 325)) 2 tab Q3H PRN PO PAIN LEVEL 6-10 Last administered on 08/30/18at 21:47; Admin Dose 2 TAB; Start 08/30/18 at 21:00 Phenylephrine HCl 250 ml @ 75 mls/hr TITRATE IV ; Start 08/30/18 at 22:30 Coded Allergies: No Known Drug Allergies (Verified Allergy, Unknown, 08/30/18) Uncoded Allergies: CANTELOUPE (Allergy, Mild, 09/14/16) Past Surgical History Past Surgical Hx: other (Status post multiple hernia repairs for right recurrent inguinal hernia, status post cystoscopy and fulguration for bladder diverticulum by Dr. Panda, status post right lung mass biopsy which was negative for malignancy, status post left heart catheterization in May 2018) Family History Significant Family History: diabetes (Patient's father) Social History Alcohol Use: occasionally Smoking Status: Former smoker Drug Use: none Exam/Review of Systems Vital Signs Vitals Vital Signs Date Temp Pulse Resp B/P (MAP) Pulse Ox O2 O2 Flow FiO2 Time Delivery Rate 08/31/18 97.8 82 18 113/87 89 12:00 (96) 08/31/18 Nasal 10:00 Cannula 08/31/18 6.0 05:30 08/30/18 30 19:00 Intake and Output 08/30/18 08/30/18 08/31/18 1515:00 23:00 07:00 IntakeIntake Total 812 ml 992.0 ml 1052.0 ml OutputOutput Total 2510 ml 1123 ml 542 ml BalanceBalance -1698 ml -131.0 ml 510.0 ml Exam Constitutional: alert, oriented Head: normocephalic Neck: supple Respiratory: diminished breath sounds Cardiovascular: regular rate and rhythm, other (Mid chest incision, chest tubes) Gastrointestinal: soft, non-tender Genitourinary - Male: other (Large right inguinal hernia) Musculoskeletal: nl extremities to inspection Extremities: normal pulses, other (Right lower extremities status post surgery) Neurological: nl mental status Skin: nl JAY Molina Aug 31, 2018 12:30
[2018-08-31] MEDS ORDERED: GLUCOSE GEL 15 GRAM TUBE BUCCAL PRN (13:00)
[2018-08-31] MEDS ORDERED: DEXTROSE 50% 50 ML SYRINGE IV PRN ×2 (13:00)
[2018-08-31] MEDS ORDERED: GLUCOSE GEL 15 GRAM TUBE PO PRN ×2 (13:00)
[2018-08-31] MEDS ORDERED: GLUCAGON 1 MG INJ IM PRN (13:00)
[2018-08-31] MEDS: FAMOTIDINE 20 MG INJ IV SCH ×2 (13:10→20:06)
[2018-08-31] MEDS: INSULIN ASPART [NOVOLOG] 3 ML PEN SC SCH ×3 (17:29→20:52)
--- NOTE | 2018-08-31 18:23 | CONS ---
DATE OF ADMISSION: 08/30/2018 DATE OF CONSULTATION: 08/31/2018 REASON FOR CONSULTATION: Coronary artery disease, status post CABG, postoperative management, manage ment of coronary artery disease. REQUESTING PHYSICIAN: Dr. Boyd Peng. HISTORY OF PRESENT ILLNESS: Mr. Hay is a 57-year-old male with history of hypertension, dysl ipidemia and diabetes mellitus, who initially with substernal chest pain and underwent a cardiac test ing with positive ischemia with decreased EF. Given these findings, the patient was referred for and underwent a left heart catheterization on 05/23/2018 revealing multivessel obstructive coronary rony ry disease involving high-grade stenosis of the patient's LAD and a chronic total occlusion of the pa tient's circumflex and right coronary artery and recapitulates these vessels via left to right and __ __ collateral flow. The patient did not want to undergo a CABG at that time and wanted to be dischar ged without other intervention and to think about it at home. The patient then discharged home and d id not follow up with cardiology and CT surgery for multiple weeks then followed up with CT surgery a nd subsequently agreed to undergo surgery and was brought to coronary artery bypass graft surgery and underwent the surgery on 08/30/2018, receiving a CASTELLON to LAD, SVG to PDA, SVG to OM without complica tions. He had been admitted to the ICU. Postoperatively, the patient has now been extubated and wea ave off of pressure support, continued to complain of mild substernal chest pain. The patient's ches t pain is positional when he is on his left side and better when he is on his back and sitting up. PAST MEDICAL HISTORY: As above in HPI. MEDICATIONS CURRENTLY IN HOSPITAL: 1. Dilaudid. 2. Pepcid. 3. Zofran p.r.n. 4. Potassium chloride. 5. Nitro. 6. IV fluid hydration. ALLERGIES: NO KNOWN DRUG ALLERGIES. SOCIAL HISTORY: No current tobacco, ETOH or illicit drug use. FAMILY HISTORY: No history of sudden cardiac or early CAD. REVIEW OF SYSTEMS: As above in HPI. CONSTITUTIONAL: No fevers or chills. PULMONARY: No current shortness of breath. CARDIOVASCULAR: No current chest pain. GASTROINTESTINAL: No vomiting. GENITOURINARY: No hematuria. MUSCULOSKELETAL: Degenerative joint disease. PSYCHIATRIC: The patient denies depression. NEUROLOGIC: No documented history of CVA. ENDOCRINE: Diabetes mellitus. PHYSICAL EXAMINATION: VITAL SIGNS: Temperature 97.8, blood pressure 113/87, pulse 82, respiration 18 and satting 89%. GENERAL: The patient is alert, awake, complaining of chest pain at the sternotomy site. NECK: JVP approximately 9 cm of water. CHEST: Decreased breath sounds at bases bilaterally, but fair air movement throughout. HEART: Regular rate and rhythm. Normal S1, S2, I/ systolic murmur. Nondisplaced PMI. ABDOMEN: Positive bowel sounds, soft. EXTREMITIES: Trace edema, 1+ pulses bilateral posterior tibial. LABORATORIES: Most recently from today, white blood cell count 19.1, hemoglobin 10.1 and platelet co unt 202. Sodium 146, potassium 4.4, creatinine 1.0 and BUN 21. INR 1.1. ABG revealing a pH of 7.28 2, PaO2 of 62 and pCO2 of 44. IMAGING STUDIES: Chest x-ray from the revealing a suboptimal pulmonary ____ with bibasilar atel ectasis, mild pulmonary vascular congestion. ECG from the revealing sinus rhythm, rate of 85, normal axis with borderline inferior Q's, nonsp ecific ST-T wave abnormalities. No significant ST elevations. IMPRESSION: 1. Postop day #1 status post coronary artery bypass graft surgery x3, receiving CASTELLON to LAD, SVG to OM, SVG to PDA. 2. A postoperative chest pain with EKG without significant changes and positional, question of muscu loskeletal pain at the sternotomy site, question of pericarditis. 3. Hypertension, currently under reasonable control. 4. History of dyslipidemia. 5. Abnormal echocardiogram with isolated inferior Q in III. 6. Mild acidosis. 7. Anemia, mild. 8. Leukocytosis, ongoing. RECOMMENDATIONS: 1. At this time, we would maintain patient in ICU on close monitoring. 2. We will follow the patient's vital signs closely and give a single dose of Lasix to assure good v olume status. 3. We will start patient on low dose beta jose cruz for prevention of postoperative arrhythmias and a low dose aspirin for graft patency. 4. Continue to follow serial EKGs to assess for significant ongoing changes. 5. Check a fasting lipid panel for general risk stratification and initiate lipid-lowering medicatio n as necessary. Thank you for allowing me to take part in the care of this patient. I will continue to follow along very closely with you with further recommendations will be made as the patient progresses through her inpatient hospital clinical course. Dictated By: CYNDI SEQUEIRA/ANGELI Conf#: [id number] DID#: [id number] CC: BOYD PENG MD;*EndCC*
--- NOTE | 2018-08-31 19:47 | PN ---
Date/Time of Note Date/Time of Note DATE: 08/31/18 TIME: 19:46 Assessment/Plan Lines/Catheters IV Catheter Type (from Nrsg): Cordis Lyn in Place (from Nrsg): Yes Assessment/Plan Assessment/Plan SP CABG Stable post op Will DC Cordus Ambulate DC Lyn Subjective 24 Hr Interval Summary Constitutional: improved Pain Control: mild Exam/Review of Systems Vital Signs Vitals Vital Signs Date Temp Pulse Resp B/P (MAP) Pulse Ox O2 O2 Flow FiO2 Time Delivery Rate 08/31/18 84 11 97/85 (89) 97 18:30 08/31/18 Nasal 17:00 Cannula 08/31/18 98.4 16:00 08/31/18 4.0 16:00 08/30/18 30 19:00 Intake and Output 08/30/18 08/30/18 08/31/18 1515:00 23:00 07:00 IntakeIntake Total 812 ml 992.0 ml 1052.0 ml OutputOutput Total 2510 ml 1123 ml 542 ml BalanceBalance -1698 ml -131.0 ml 510.0 ml Exam Eyes: nl conjunctiva, EOMI, nl lids, nl sclera ENMT: nl external ears & nose, nl lips & teeth, nl nasal mucosa & septum, mucosa pink and moist Neck: supple, non-tender Respiratory: clear to auscultation, normal air movement Cardiovascular: regular rate and rhythm, nl pulses Musculoskeletal: nl extremities to inspection, nl gait and stance Results Result Diagram: 08/31/18 0430 08/31/18 043 BOYD KRAUSE MD Aug 31, 2018 19:47
[2018-08-31] MEDS: INSULIN GLARGINE [LANTus] (100 UNITS/ML) SYG SC SCH (20:08)
[2018-08-31] MEDS: METOPROLOL 25 MG TAB PO SCH (20:57)
[2018-08-31] MEDS: OXYCODONE/ACETAMINOPHEN (5/325) TAB PO PRN (23:11)
[2018-09-01] VITALS (34 sets, daily range): BP systolic 95–138; BP diastolic 58–103; PULSE 74–103; RESP 10–25
[2018-09-01] MEDS: HYDROmorphONE 0.5 MG/0.5 ML SYG IV PRN ×5 (01:25→16:14)
[2018-09-01] MEDS: ACCU-CHEK XX SCH (01:28)
[2018-09-01] MEDS: OXYCODONE/ACETAMINOPHEN (5/325) TAB PO PRN ×2 (03:37→19:59)
[2018-09-01] MEDS: POTASSIUM CHLORIDE 40 MEQ, CALCIUM CHLORIDE 10% 1 GM in DEXTROSE 5%-0.225% NACL 1,000 ML IV SCH (05:00)
[2018-09-01] MEDS: PANTOPRAZOLE (EC) 40 MG TAB PO SCH (05:34)
[2018-09-01] MEDS: INSULIN ASPART [NOVOLOG] 3 ML PEN SC SCH ×7 (07:52→21:00)
[2018-09-01] MEDS: ASPIRIN 81 MG TAB PO SCH (08:24)
[2018-09-01] MEDS: METOPROLOL 25 MG TAB PO SCH ×2 (08:24→21:10)
--- NOTE | 2018-09-01 11:33 | CONS ---
Assessment/Plan Assessment/Plan Hospital Course (Demo Recall) IMPRESSION: 1. Postop day #2 status post coronary artery bypass graft surgery x3, receiving CASTELLON to LAD, SVG to OM, SVG to PDA. 2. Postoperative chest pain with EKG without significant changes and positional, question of musculoskeletal pain at the sternotomy site, question of pericarditis.-resolved at this time 3. Hypertension, currently under reasonable control. 4. History of dyslipidemia. 5. Abnormal echocardiogram with isolated inferior Q in III- no sig changes on serial ecg 6. Mild acidosis. 7. Anemia, mild. 8. Leukocytosis, ongoing. Recc: -In ICU -serial ecg's -continue low dose BB -Continue ASA -will give dose of lasix and stop IVF -Follow drain output and d/c when possible -pain control -OOB to chair Consultation Date/Type/Reason Admit Date/Time Aug 30, 2018 at 05:18 Initial Consult Date 08/31/18 Type of Consult Cardiology Reason for Consultation cad s/p cabg Requesting Provider: BOYD KRAUSE MD Date/Time of Note DATE: 09/01/18 TIME: 11:29 Exam/Review of Systems Vital Signs Vitals Vital Signs Date Temp Pulse Resp B/P (MAP) Pulse Ox O2 O2 Flow FiO2 Time Delivery Rate 09/01/18 79 16 95/80 (85) Nasal 09:30 Cannula 09/01/18 98.4 100 4.0 08:00 08/30/18 30 19:00 Intake and Output 08/31/18 08/31/18 09/01/18 1515:00 23:00 07:00 IntakeIntake Total 1717 ml 1360 ml 560 ml OutputOutput Total 397 ml 419 ml 446 ml BalanceBalance 1320 ml 941 ml 114 ml Exam Exam Review of Systems: CONSTITUTIONAL: No fevers, chills. PULMONARY: No sob CARDIOVASCULAR: No chest pain/palpitations GASTROINTESTINAL: No nausea/vomiting. GENITOURINARY: No hematuria/dysuria. MUSCULOSKELETAL: No myagias/arthalgias. PSYCHIATRIC: The patient denies depression. NEUROLOGIC: No weakness Constitutional: alert Psych: no complaints Head: normocephalic ENMT: mucosa pink and moist Neck: supple, jvd (9 cm water) Respiratory: diminished breath sounds (at bases/B) Cardiovascular: regular rate and rhythm Gastrointestinal: soft, non-tender Musculoskeletal: muscle tone (normal) Extremities: pitting pedal edema (trace/B LE) Neurological: other (No focal deficits) Labs Result Diagram: 09/01/1844109/01/182 Results 24hrs Laboratory Tests Test 08/31/18 12:42 08/31/18 17:19 08/31/18 20:52 09/01/18 01:28 Bedside Glucose 131 169 157 139 Test 09/01/18 04:42 09/01/18 07:47 White Blood Count 23.0 #H Red Blood Count 3.42 L Hemoglobin 10.0 L Hematocrit 31.7 L Mean Corpuscular 92.7 Volume Mean Corpuscular 29.2 Hemoglobin Mean Corpuscular 31.5 L Hemoglobin Concent Red Cell 14.1 Distribution Width Platelet Count 198 Mean Platelet Volume 9.6 Immature 0.500 H Granulocytes % Neutrophils % 87.1 H Lymphocytes % 5.2 L Monocytes % 7.0 Eosinophils % 0.0 Basophils % 0.2 Nucleated Red Blood 0.0 Cells % Immature 0.120 H Granulocytes # Neutrophils # 20.0 H Lymphocytes # 1.2 Monocytes # 1.6 H Eosinophils # 0.0 Basophils # 0.0 Nucleated Red Blood 0.0 Cells # Sodium Level 141 Potassium Level 4.7 Chloride Level 107 Carbon Dioxide Level 22 Anion Gap 12 Blood Urea Nitrogen 22 H Creatinine 1.11 Est Glomerular > 60 Filtrat Rate mL/min Glucose Level 145 Calcium Level 9.2 Bedside Glucose 141 Medications Medications Current Medications Sodium Chloride 1,000 ml @ 0 mls/hr Q0M IV ; Start 08/30/18 at 07:30 Potassium Chloride 40 meq/ Calcium Chloride 1 gm/Dextrose/ Sodium Chloride 1,030 ml @ 60 mls/hr [id number] IV Last administered on 09/01/18at 05:00; Admin Dose 60 MLS/HR; Start 08/30/18 at 15:08 Ondansetron HCl (Zofran Inj) 4 mg Q6H PRN IV NAUSEA AND/OR VOMITING Last administered on 08/30/18at 21:15; Admin Dose 4 MG; Start 08/30/18 at 15:30 Potassium Chloride 50 ml @ 50 mls/hr SEE DIRECTION PRN IVPB K+ LEVEL Last administered on 08/31/18at 10:10; Admin Dose 50 MLS/HR; Start 08/30/18 at 15:30 Magnesium Sulfate/ Dextrose 100 ml @ 100 mls/hr PRN PRN IVPB PENDING LAB VALUE; Start 08/30/18 at 15:30 Nitroglycerin/ Dextrose 250 ml @ 1.5 mls/hr PER PROTOCOL IV Last administered on 08/30/18at 13:15; Admin Dose 15 MLS/HR; Start 08/30/18 at 15:30 Hydromorphone HCl (Dilaudid) 0.2 mg Q1H PRN IV PAIN LEVEL 1-5 Last administered on 09/01/18at 08:16; Admin Dose 0.2 MG; Start 08/30/18 at 21:00 Hydromorphone HCl (Dilaudid) 0.4 mg Q1H PRN IV PAIN LEVEL 6-10 Last administered on 08/31/18at 21:09; Admin Dose 0.4 MG; Start 08/30/18 at 21:00 Oxycodone/ Acetaminophen (Percocet (5/ 325)) 1 tab Q3H PRN PO PAIN LEVEL 1-5; Start 08/30/18 at 21:00 Oxycodone/ Acetaminophen (Percocet (5/ 325)) 2 tab Q3H PRN PO PAIN LEVEL 6-10 Last administered on 09/01/18at 03:37; Admin Dose 2 TAB; Start 08/30/18 at 21:00 Phenylephrine HCl 250 ml @ 75 mls/hr TITRATE IV ; Start 08/30/18 at 22:30 Diagnostic Test (Pha) (Accu-Chek) 1 ea 02 XX ; Start 09/01/18 at 02:00 Insulin Glargine (Lantus) 14 units DAILY@2000 SC Last administered on 08/31/18at 20:08; Admin Dose 14 UNITS; Start 08/31/18 at 20:00 Insulin Aspart (Novolog Insulin Pen) 5 unit WITH MEALS SC Last administered on 09/01/18 07:52; Admin Dose 5 UNIT; Start 08/31/18 at 17:35 Insulin Aspart (Novolog Insulin Pen) NOVOLOG *MILD* ALGORITHM WITH MEALS BEDTIME SC Last administered on 09/01/18at 07:53; Admin Dose 1 UNIT; Start 08/31/18 at 17:35 Metoprolol Tartrate (Lopressor) 25 mg BID PO Last administered on 6/27/19at 08:24; Admin Dose 25 MG; Start 08/31/18 at 21:00 Aspirin (Aspirin) 81 mg DAILY PO Last administered on 09/01/18at 08:24; Admin Dose 81 MG; Start 09/01/18 at 09:00 Miscellaneous Information 1 ea NOTE XX ; Start 08/31/18 at 13:00 Glucose (Glutose) 15 gm Q15M PRN PO DECREASED GLUCOSE; Start 08/31/18 at 13:00 Glucose (Glutose) 22.5 gm Q15M PRN PO DECREASED GLUCOSE; Start 08/31/18 at 13:00 Dextrose (D50w Syringe) 25 ml Q15M PRN IV DECREASED GLUCOSE; Start 08/31/18 at 13:00 Dextrose (D50w Syringe) 50 ml Q15M PRN IV DECREASED GLUCOSE; Start 08/31/18 at 13:00 Glucagon (Glucagen) 1 mg Q15M PRN IM DECREASED GLUCOSE; Start 08/31/18 at 13:00 Glucose (Glutose) 15 gm Q15M PRN BUCCAL DECREASED GLUCOSE; Start 08/31/18 at 13:00 Pantoprazole (Protonix Tab) 40 mg DAILY@06 PO Last administered on 09/01/18at 05:34; Admin Dose 40 MG; Start 09/01/18 at 06:00 CYNDI HANNON Sep 01, 2018 11:33
[2018-09-01] MEDS ORDERED: FUROSEMIDE 20 MG INJ IV ONE (12:00)
--- NOTE | 2018-09-01 17:05 | RADRPT ---
Vent Rate: 78 bpm RR Interval: 768 msec TX Interval: 164 msec QRS Duration: 112 msec QT Interval: 376 msec QTC Interval: 429 msec P-R-T [place]: 26 - -22 - 32 degrees Sinus rhythm...normal P axis, V-rate 50- 99 Inferior infarct, old...Q >35mS, II III aVF Probable anterolateral infarct, old...Q>35mS, abnrm ST-T, V2-V6,I,aVL Electronically Signed By: Julio Sadler
--- NOTE | 2018-09-01 17:08 | RADRPT ---
Vent Rate: 85 bpm RR Interval: 708 msec ND Interval: 177 msec QRS Duration: 112 msec QT Interval: 370 msec QTC Interval: 440 msec P-R-T [place]: 56 - -26 - 18 degrees Sinus rhythm...normal P axis, V-rate 50- 99 Inferior infarct, old...Q >35mS, II III aVF Electronically Signed By: Julio Sadler
--- NOTE | 2018-09-01 20:01 | PN ---
Date/Time of Note Date/Time of Note DATE: 09/01/18 TIME: 19:54 Assessment/Plan VTE Prophylaxis Risk score (from [facility] [place]0 risk: 3 SCD applied (from [facility] [place]): No SCD contraindicated: other Pharmacological prophylaxis: NA/contraindicated Pharm contraindication: surgical contra Lines/Catheters [facility] Cordis Urinary Cath still in place: Yes Reason Cath still needed: urinary retention Assessment/Plan Hospital Course Patient denies shortness of breath denies nausea vomiting, incisional pain is well controlled, continue to monitor chest tubes output. Continue ICU care, continue PT. Assessment/Plan -Three-vessel coronary artery disease chronic occlusion of the right coronary artery and circumflex vessel. S/p CABG with CASTELLON to LAD, Saphenous vein graft to PDA, Saphenous vein graft to obtuse marginal branch of the circumflex by Dr. Peng on 08/30/2018. Continue ICU care, follow-up CT surgery recommendations. Dr. Garcia is following in cardiology consultation. -Hypertension, patient is currently normotensive, continue beta-jose cruz. -Diabetes mellitus type 2, continue Lantus and NovoLog. -Chronic kidney disease -Large recurrent right inguinal hernia Further recommendations based on clinical course. Plan of care discussed with Dr. Galloway. Result Diagram: 09/01/18 0442 09/01/18 0442 Results 24hrs Laboratory Tests Test 08/31/18 20:52 09/01/18 01:28 09/01/18 04:42 09/01/18 07:47 Bedside Glucose 157 139 141 White Blood Count 23.0 #H Red Blood Count 3.42 L Hemoglobin 10.0 L Hematocrit 31.7 L Mean Corpuscular 92.7 Volume Mean Corpuscular 29.2 Hemoglobin Mean Corpuscular 31.5 L Hemoglobin Concent Red Cell 14.1 Distribution Width Platelet Count 198 Mean Platelet Volume 9.6 Immature 0.500 H Granulocytes % Neutrophils % 87.1 H Lymphocytes % 5.2 L Monocytes % 7.0 Eosinophils % 0.0 Basophils % 0.2 Nucleated Red Blood 0.0 Cells % Immature 0.120 H Granulocytes # Neutrophils # 20.0 H Lymphocytes # 1.2 Monocytes # 1.6 H Eosinophils # 0.0 Basophils # 0.0 Nucleated Red Blood 0.0 Cells # Sodium Level 141 Potassium Level 4.7 Chloride Level 107 Carbon Dioxide Level 22 Anion Gap 12 Blood Urea Nitrogen 22 H Creatinine 1.11 Est Glomerular > 60 Filtrat Rate mL/min Glucose Level 145 Calcium Level 9.2 Test 09/01/18 12:34 09/01/18 18:10 Bedside Glucose 113 119 Exam/Review of Systems Exam Vitals Vital Signs Date Temp Pulse Resp B/P (MAP) Pulse Ox O2 O2 Flow FiO2 Time Delivery Rate 09/01/18 90 16:00 09/01/18 97 4.0 11:35 09/01/18 16 95/80 (85) Nasal 09:30 Cannula 09/01/18 98.4 08:00 08/30/18 30 19:00 Intake and Output 08/31/18 08/31/18 09/01/18 1515:00 23:00 07:00 IntakeIntake Total 1717 ml 1360 ml 560 ml OutputOutput Total 397 ml 419 ml 446 ml BalanceBalance 1320 ml 941 ml 114 ml Exam Constitutional: alert, oriented Respiratory: diminished breath sounds Cardiovascular: regular rate and rhythm, other (Mid chest incision, chest tubes) Gastrointestinal: soft, non-tender Genitourinary - Male: other (Large right inguinal hernia) Musculoskeletal: nl extremities to inspection Extremities: normal pulses, other (Right lower extremities status post surgery) Neurological: nl mental status Skin: nl turgor Results Results 24hrs Laboratory Tests Test 08/31/18 20:52 09/01/18 01:28 09/01/18 04:42 09/01/18 07:47 Bedside Glucose 157 139 141 White Blood Count 23.0 #H Red Blood Count 3.42 L Hemoglobin 10.0 L Hematocrit 31.7 L Mean Corpuscular 92.7 Volume Mean Corpuscular 29.2 Hemoglobin Mean Corpuscular 31.5 L Hemoglobin Concent Red Cell 14.1 Distribution Width Platelet Count 198 Mean Platelet Volume 9.6 Immature 0.500 H Granulocytes % Neutrophils % 87.1 H Lymphocytes % 5.2 L Monocytes % 7.0 Eosinophils % 0.0 Basophils % 0.2 Nucleated Red Blood 0.0 Cells % Immature 0.120 H Granulocytes # Neutrophils # 20.0 H Lymphocytes # 1.2 Monocytes # 1.6 H Eosinophils # 0.0 Basophils # 0.0 Nucleated Red Blood 0.0 Cells # Sodium Level 141 Potassium Level 4.7 Chloride Level 107 Carbon Dioxide Level 22 Anion Gap 12 Blood Urea Nitrogen 22 H Creatinine 1.11 Est Glomerular > 60 Filtrat Rate mL/min Glucose Level 145 Calcium Level 9.2 Test 09/01/18 12:34 09/01/18 18:10 Bedside Glucose 113 119 Medications Medication Current Medications Sodium Chloride 1,000 ml @ 0 mls/hr Q0M IV ; Start 08/30/18 at 07:30 Potassium Chloride 40 meq/ Calcium Chloride 1 gm/Dextrose/ Sodium Chloride 1,030 ml @ 60 mls/hr [id number] IV Last administered on 09/01/18at 05:00; Admin Dose 60 MLS/HR; Start 08/30/18 at 15:08; Status Hold Ondansetron HCl (Zofran Inj) 4 mg Q6H PRN IV NAUSEA AND/OR VOMITING Last administered on 08/30/18at 21:15; Admin Dose 4 MG; Start 08/30/18 at 15:30 Potassium Chloride 50 ml @ 50 mls/hr SEE DIRECTION PRN IVPB K+ LEVEL Last administered on 08/31/18at 10:10; Admin Dose 50 MLS/HR; Start 08/30/18 at 15:30 Magnesium Sulfate/ Dextrose 100 ml @ 100 mls/hr PRN PRN IVPB PENDING LAB VALUE; Start 08/30/18 at 15:30 Nitroglycerin/ Dextrose 250 ml @ 1.5 mls/hr PER PROTOCOL IV Last administered on 08/30/18at 13:15; Admin Dose 15 MLS/HR; Start 08/30/18 at 15:30 Hydromorphone HCl (Dilaudid) 0.2 mg Q1H PRN IV PAIN LEVEL 1-5 Last administered on 09/01/18at 15:11; Admin Dose 0.2 MG; Start 08/30/18 at 21:00 Hydromorphone HCl (Dilaudid) 0.4 mg Q1H PRN IV PAIN LEVEL 6-10 Last administered on 09/01/18at 16:14; Admin Dose 0.4 MG; Start 08/30/18 at 21:00 Oxycodone/ Acetaminophen (Percocet (5/ 325)) 1 tab Q3H PRN PO PAIN LEVEL 1-5; Start 08/30/18 at 21:00 Oxycodone/ Acetaminophen (Percocet (5/ 325)) 2 tab Q3H PRN PO PAIN LEVEL 6-10 Last administered on 09/01/18at 03:37; Admin Dose 2 TAB; Start 08/30/18 at 21:00 Phenylephrine HCl 250 ml @ 75 mls/hr TITRATE IV ; Start 08/30/18 at 22:30 Diagnostic Test (Pha) (Accu-Chek) 1 ea 02 XX ; Start 09/01/18 at 02:00 Insulin Glargine (Lantus) 14 units DAILY@2000 SC Last administered on 08/31/18at 20:08; Admin Dose 14 UNITS; Start 08/31/18 at 20:00 Insulin Aspart (Novolog Insulin Pen) 5 unit WITH MEALS SC Last administered on 09/01/18at 12:36; Admin Dose 5 UNIT; Start 08/31/18 at 17:35 Insulin Aspart (Novolog Insulin Pen) NOVOLOG *MILD* ALGORITHM WITH MEALS BEDTIME SC Last administered on 09/01/18at 07:53; Admin Dose 1 UNIT; Start 08/31/18 at 17:35 Metoprolol Tartrate (Lopressor) 25 mg BID PO Last administered on 09/01/18at 08:24; Admin Dose 25 MG; Start 08/31/18 at 21:00 Aspirin (Aspirin) 81 mg DAILY PO Last administered on 09/01/18at 08:24; Admin Dose 81 MG; Start 09/01/18 at 09:00 Miscellaneous Information 1 ea NOTE XX ; Start 08/31/18 at 13:00 Glucose (Glutose) 15 gm Q15M PRN PO DECREASED GLUCOSE; Start 08/31/18 at 13:00 Glucose (Glutose) 22.5 gm Q15M PRN PO DECREASED GLUCOSE; Start 08/31/18 at 13:00 Dextrose (D50w Syringe) 25 ml Q15M PRN IV DECREASED GLUCOSE; Start 08/31/18 at 13:00 Dextrose (D50w Syringe) 50 ml Q15M PRN IV DECREASED GLUCOSE; Start 08/31/18 at 13:00 Glucagon (Glucagen) 1 mg Q15M PRN IM DECREASED GLUCOSE; Start 08/31/18 at 13:00 Glucose (Glutose) 15 gm Q15M PRN BUCCAL DECREASED GLUCOSE; Start 08/31/18 at 13:00 Pantoprazole (Protonix Tab) 40 mg DAILY@06 PO Last administered on 09/01/18at 05:34; Admin Dose 40 MG; Start 09/01/18 at 06:00 JAY WEEMS Sep 01, 2018 20:01
[2018-09-01] MEDS: INSULIN GLARGINE [LANTus] (100 UNITS/ML) SYG SC SCH (20:12)
[2018-09-01] MEDS ORDERED: ALBUTEROL/IPRATROPIUM (NEB) 3 ML AMP HHN PRN (20:30)
[2018-09-02] VITALS (30 sets, daily range): BP systolic 99–145; BP diastolic 50–117; PULSE 80–111; RESP 11–25
[2018-09-02] MEDS: ACCU-CHEK XX SCH (01:40)
[2018-09-02] MEDS: INSULIN ASPART [NOVOLOG] 3 ML PEN SC SCH ×7 (07:35→21:00)
[2018-09-02] MEDS: PANTOPRAZOLE (EC) 40 MG TAB PO SCH (08:28)
[2018-09-02] MEDS: METOPROLOL 25 MG TAB PO SCH ×2 (08:28→21:06)
[2018-09-02] MEDS: ASPIRIN 81 MG TAB PO SCH (08:28)
--- NOTE | 2018-09-02 08:56 | PN ---
Date/Time of Note Date/Time of Note DATE: 09/02/18 TIME: 08:56 Assessment/Plan VTE Prophylaxis Risk score (from Nsg)>0 risk: 8 SCD applied (from Nsg): Yes Lines/Catheters IV Catheter Type (from Nrsg): Cordis Urinary Cath still in place: Yes Reason Cath still needed: urinary retention Assessment/Plan Assessment/Plan -Three-vessel coronary artery disease chronic occlusion of the right coronary artery and circumflex vessel. S/p CABG with CASTELLON to LAD, Saphenous vein graft to PDA, Saphenous vein graft to obtuse marginal branch of the circumflex by Dr. Peng on 08/30/2018. Continue ICU care, follow-up CT surgery recommendations. Dr. Garcia is following in cardiology consultation. -Hypertension, patient is currently normotensive, continue beta-jose cruz. -Diabetes mellitus type 2, continue Lantus and NovoLog. -Chronic kidney disease -Large recurrent right inguinal hernia Total critical care time spent 30 mins.Further recommendations based on clinical course. Plan of care discussed with Dr. Galloway. Result Diagram: 09/02/18 0439 09/02/18 0439 Results 24hrs Laboratory Tests Test 09/01/18 12:34 09/01/18 18:10 09/01/18 21:15 09/02/18 01:38 Bedside Glucose 113 119 138 148 Test 09/02/18 04:39 09/02/18 08:22 White Blood Count 15.0 #H Red Blood Count 3.34 L Hemoglobin 9.8 L Hematocrit 29.6 L Mean Corpuscular 88.6 Volume Mean Corpuscular 29.3 Hemoglobin Mean Corpuscular 33.1 Hemoglobin Concent Red Cell 14.0 Distribution Width Platelet Count 180 Mean Platelet Volume 9.4 Immature 0.600 H Granulocytes % Neutrophils % 84.4 H Lymphocytes % 7.8 L Monocytes % 6.0 Eosinophils % 0.9 Basophils % 0.3 Nucleated Red Blood 0.0 Cells % Immature 0.090 H Granulocytes # Neutrophils # 12.7 H Lymphocytes # 1.2 Monocytes # 0.9 Eosinophils # 0.1 Basophils # 0.1 Nucleated Red Blood 0.0 Cells # Sodium Level 138 Potassium Level 4.5 Chloride Level 102 Carbon Dioxide Level 27 Anion Gap 9 Blood Urea Nitrogen 23 H Creatinine 1.04 Est Glomerular > 60 Filtrat Rate mL/min Glucose Level 144 Calcium Level 9.4 Magnesium Level 1.8 Bedside Glucose 125 Exam/Review of Systems Exam Vitals Vital Signs Date Temp Pulse Resp B/P (MAP) Pulse Ox O2 O2 Flow FiO2 Time Delivery Rate 09/02/18 99 24 124/82 95 Nasal 07:00 (96) Cannula 09/02/18 98.7 04:00 09/02/18 4.0 03:42 08/30/18 30 19:00 Intake and Output 09/01/18 09/01/18 09/02/18 1515:00 23:00 07:00 IntakeIntake Total 1280 ml 700 ml 100 ml OutputOutput Total 540 ml 1394 ml 952 ml BalanceBalance 740 ml -694 ml -852 ml Results Results 24hrs Laboratory Tests Test 09/01/18 12:34 09/01/18 18:10 09/01/18 21:15 09/02/18 01:38 Bedside Glucose 113 119 138 148 Test 09/02/18 04:39 09/02/18 08:22 White Blood Count 15.0 #H Red Blood Count 3.34 L Hemoglobin 9.8 L Hematocrit 29.6 L Mean Corpuscular 88.6 Volume Mean Corpuscular 29.3 Hemoglobin Mean Corpuscular 33.1 Hemoglobin Concent Red Cell 14.0 Distribution Width Platelet Count 180 Mean Platelet Volume 9.4 Immature 0.600 H Granulocytes % Neutrophils % 84.4 H Lymphocytes % 7.8 L Monocytes % 6.0 Eosinophils % 0.9 Basophils % 0.3 Nucleated Red Blood 0.0 Cells % Immature 0.090 H Granulocytes # Neutrophils # 12.7 H Lymphocytes # 1.2 Monocytes # 0.9 Eosinophils # 0.1 Basophils # 0.1 Nucleated Red Blood 0.0 Cells # Sodium Level 138 Potassium Level 4.5 Chloride Level 102 Carbon Dioxide Level 27 Anion Gap 9 Blood Urea Nitrogen 23 H Creatinine 1.04 Est Glomerular > 60 Filtrat Rate mL/min Glucose Level 144 Calcium Level 9.4 Magnesium Level 1.8 Bedside Glucose 125 Medications Medication Current Medications Potassium Chloride 40 meq/ Calcium Chloride 1 gm/Dextrose/ Sodium Chloride 1,030 ml @ 60 mls/hr [id number] IV Last administered on 09/01/18at 05:00; Admin Dose 60 MLS/HR; Start 08/30/18 at 15:08; Status Hold Ondansetron HCl (Zofran Inj) 4 mg Q6H PRN IV NAUSEA AND/OR VOMITING Last ad ministered on 08/30/18 21:15; Admin Dose 4 MG; Start 08/30/18 at 15:30 Potassium Chloride 50 ml @ 50 mls/hr SEE DIRECTION PRN IVPB K+ LEVEL Last administered on 08/31/18 10:10; Admin Dose 50 MLS/HR; Start 08/30/18 at 15:30 Magnesium Sulfate/ Dextrose 100 ml @ 100 mls/hr PRN PRN IVPB PENDING LAB VALUE; Start 08/30/18 at 15:30 Nitroglycerin/ Dextrose 250 ml @ 1.5 mls/hr PER PROTOCOL IV Last administered on 08/30/18 13:15; Admin Dose 15 MLS/HR; Start 08/30/18 at 15:30 Hydromorphone HCl (Dilaudid) 0.2 mg Q1H PRN IV PAIN LEVEL 1-5 Last administered on 09/01/18 15:11; Admin Dose 0.2 MG; Start 08/30/18 at 21:00 Hydromorphone HCl (Dilaudid) 0.4 mg Q1H PRN IV PAIN LEVEL 6-10 Last administer ed on 09/01/18 16:14; Admin Dose 0.4 MG; Start 08/30/18 at 21:00 Oxycodone/ Acetaminophen (Percocet (5/ 325)) 1 tab Q3H PRN PO PAIN LEVEL 1-5; Start 08/30/18 at 21:00 Oxycodone/ Acetaminophen (Percocet (5/ 325)) 2 tab Q3H PRN PO PAIN LEVEL 6-10 Last administered on 09/01/18 19:59; Admin Dose 2 TAB; Start 08/30/18 at 21:00 Phenylephrine HCl 250 ml @ 75 mls/hr TITRATE IV ; Start 08/30/18 at 22:30 Diagnostic Test (Pha) (Accu-Chek) 1 ea 02 XX ; Start 09/01/18 at 02:00 Insulin Glargine (Lantus) 14 units DAILY@2000 SC Last administered on 09/01/18 20:12; Admin Dose 14 UNITS; Start 08/31/18 at 20:00 Insulin Aspart (Novolog Insulin Pen) 5 unit WITH MEALS SC Last administered on 6/27/19at 12:36; Admin Dose 5 UNIT; Start 08/31/18 at 17:35 Insulin Aspart (Novolog Insulin Pen) NOVOLOG *MILD* ALGORITHM WITH MEALS BEDTIME SC Last administered on 09/01/18 07:53; Admin Dose 1 UNIT; Start at 17:35 Metoprolol Tartrate (Lopressor) 25 mg BID PO Last administered on 09/02/18 08:28; Admin Dose 25 MG; Start 08/31/18 at 21:00 Aspirin (Aspirin) 81 mg DAILY PO Last administered on 09/02/18 08:28; Admin Dose 81 MG; Start 09/01/18 at 09:00 Miscellaneous Information 1 ea NOTE XX ; Start 08/31/18 at 13:00 Glucose (Glutose) 15 gm Q15M PRN PO DECREASED GLUCOSE; Start 08/31/18 at 13:00 Glucose (Glutose) 22.5 gm Q15M PRN PO DECREASED GLUCOSE; Start 08/31/18 at 13:00 Dextrose (D50w Syringe) 25 ml Q15M PRN IV DECREASED GLUCOSE; Start 08/31/18 at 13:00 Dextrose (D50w Syringe) 50 ml Q15M PRN IV DECREASED GLUCOSE; Start 08/31/18 at 13:00 Glucagon (Glucagen) 1 mg Q15M PRN IM DECREASED GLUCOSE; Start 08/31/18 at 13:00 Glucose (Glutose) 15 gm Q15M PRN BUCCAL DECREASED GLUCOSE; Start 08/31/18 at 13:00 Pantoprazole (Protonix Tab) 40 mg DAILY@06 PO Last administered on 09/02/18 08:28; Admin Dose 40 MG; Start 09/01/18 at 06:00 Albuterol/ Ipratropium (Duoneb) 3 ml Q3H RESP THERAPY PRN HHN SHORTNESS OF BREATH; Start 09/01/18 at 20:30 ASIA SMITH Sep 02, 2018 08:56
--- NOTE | 2018-09-02 11:08 | CONS ---
Consult Date/Type/Reason Admit Date/Time Aug 30, 2018 at 05:18 Initial Consult Date Requesting Provider: BOYD KRAUSE MD Date/Time of Note DATE: 09/02/18 TIME: 11:06 Subjective No acute events - con't to improve - BP controlled - up to chair now- con't to follow. ROS: No fever, no chills, no nausea, no vomiting, no diarrhea/constipation No recent weight changes No chest pain, no PND, no orthopnea - precordial discomfort, no CP No dizziness, blurred vision No thirst, no heat or cold intolerance Objective Vitals Vital Signs Date Temp Pulse Resp B/P (MAP) Pulse Ox O2 O2 Flow FiO2 Time Delivery Rate 09/02/18 99 24 124/82 95 Nasal 07:00 (96) Cannula 09/02/18 98.7 04:00 09/02/18 4.0 03:42 08/30/18 30 19:00 Intake and Output 09/01/18 09/01/18 09/02/18 1515:00 23:00 07:00 IntakeIntake Total 1280 ml 700 ml 100 ml OutputOutput Total 540 ml 1394 ml 952 ml BalanceBalance 740 ml -694 ml -852 ml Exam General: WN/WD/NAD, AOx 3 HEENT: Unicetric/atraumatic/EOMI (follow commands) NECK: JVD elevated, no thyromegaly Lymph: no lymphadenopathy HEART: regular with no S3, II/ systolic murmur at apex - scar, no rub LUNGS: Coarse sounds ABD: soft, NT, ND, +BS : Intact Neuro: non focal SKIN: chronic changes EXT: trace edema Results/Medications Result Diagram: 09/02/18 0439 09/02/18 0439 Results 24 hrs Laboratory Tests Test 09/01/18 12:34 09/01/18 18:10 09/01/18 21:15 09/02/18 01:38 Bedside Glucose 113 119 138 148 Test 09/02/18 04:39 09/02/18 08:22 White Blood Count 15.0 #H Red Blood Count 3.34 L Hemoglobin 9.8 L Hematocrit 29.6 L Mean Corpuscular 88.6 Volume Mean Corpuscular 29.3 Hemoglobin Mean Corpuscular 33.1 Hemoglobin Concent Red Cell 14.0 Distribution Width Platelet Count 180 Mean Platelet Volume 9.4 Immature 0.600 H Granulocytes % Neutrophils % 84.4 H Lymphocytes % 7.8 L Monocytes % 6.0 Eosinophils % 0.9 Basophils % 0.3 Nucleated Red Blood 0.0 Cells % Immature 0.090 H Granulocytes # Neutrophils # 12.7 H Lymphocytes # 1.2 Monocytes # 0.9 Eosinophils # 0.1 Basophils # 0.1 Nucleated Red Blood 0.0 Cells # Sodium Level 138 Potassium Level 4.5 Chloride Level 102 Carbon Dioxide Level 27 Anion Gap 9 Blood Urea Nitrogen 23 H Creatinine 1.04 Est Glomerular > 60 Filtrat Rate mL/min Glucose Level 144 Calcium Level 9.4 Magnesium Level 1.8 Bedside Glucose 125 Home Meds Active Scripts Lisinopril* (Lisinopril*) 5 Mg Tablet, 5 MG PO DAILY, #30 TAB Prov:JAY WEEMS 05/24/18 Atorvastatin* (Atorvastatin*) 40 Mg Tablet, 40 MG PO QHS, #30 TAB Prov:JAY WEEMS 05/24/18 Aspirin (Aspir-Demetrice) 325 Mg Tablet.dr, 325 MG PO DAILY for 30 Days Prov:JAY WEEMS 05/24/18 Nitroglycerin* (Nitroglycerin* SL) 0.4 Mg Tab.subl, 1 TAB SL Q5M PRN for ANGINA, #1 BOTTLE Prov:JAY WEEMS 05/24/18 Atenolol* (Atenolol*) 50 Mg Tablet, 50 MG PO DAILY for 30 Days, TAB Prov:JAY WEEMS 05/24/18 Reported Medications Diphenhydramine Hcl (Banophen) 25 Mg Capsule, 25 MG PO QHS, CAP 08/30/18 Fexofenadine Hcl* (Fexofenadine Hcl*) 180 Mg Tablet, 180 MG PO DAILY, #30 TAB 08/30/18 Duloxetine Hcl* (Duloxetine Hcl*) 30 Mg Capsule.dr, 30 MG PO DAILY, #30 CAP 08/30/18 Ergocalciferol (Vitamin D2) (VITAMIN D2) 2,000 Unit Tablet, 2000 UNIT PO DAILY, TAB 08/30/18 Montelukast Sodium* (Montelukast Sodium*) 10 Mg Tablet, 10 MG PO QHS, #30 TAB 05/20/18 Metformin Hcl* (Metformin Hcl* ER) 500 Mg Tab.sr.24h, 500 MG PO DAILY, #30 TAB 05/20/18 Chlorthalidone* (Chlorthalidone*) 25 Mg Tablet, 25 MG PO DAILY, TAB 05/20/18 Pantoprazole* (Protonix*) 40 Mg Tablet.dr, 40 MG PO QAM, TAB 09/13/16 Discontinued Reported Medications Duloxetine Hcl* (Duloxetine Hcl*) 60 Mg Capsule.dr, 60 MG PO DAILY, #30 CAP 05/20/18 Cholecalciferol* (Vitamin D3*) 1,000 Unit Tablet, 2000 UNIT PO DAILY, TAB 05/20/18 Medications Current Medications Potassium Chloride 40 meq/ Calcium Chloride 1 gm/Dextrose/ Sodium Chloride 1,030 ml @ 60 mls/hr [id number] IV Last administered on 09/01/18at 05:00; Admin Dose 60 MLS/HR; Start 08/30/18 at 15:08; Status Hold Ondansetron HCl (Zofran Inj) 4 mg Q6H PRN IV NAUSEA AND/OR VOMITING Last admin istered on 08/30/18at 21:15; Admin Dose 4 MG; Start 08/30/18 at 15:30 Potassium Chloride 50 ml @ 50 mls/hr SEE DIRECTION PRN IVPB K+ LEVEL Last administered on 08/31/18at 10:10; Admin Dose 50 MLS/HR; Start 08/30/18 at 15:30 Magnesium Sulfate/ Dextrose 100 ml @ 100 mls/hr PRN PRN IVPB PENDING LAB KA[facility] UE; Start 08/30/18 at 15:30 Nitroglycerin/ Dextrose 250 ml @ 1.5 mls/hr PER PROTOCOL IV Last administered on 08/30/18at 13:15; Admin Dose 15 MLS/HR; Start 08/30/18 at 15:30 Hydromorphone HCl (Dilaudid) 0.2 mg Q1H PRN IV PAIN LEVEL 1-5 Last administered on 09/01/18at 15:11; Admin Dose 0.2 MG; Start 08/30/18 at 21:00 Hydromorphone HCl (Dilaudid) 0.4 mg Q1H PRN IV PAIN LEVEL 6-10 Last administered on 09/01/18at 16:14; Admin Dose 0.4 MG; Start 08/30/18 at 21:00 Oxycodone/ Acetaminophen (Percocet (5/ 325)) 1 tab Q3H PRN PO PAIN LEVEL 1-5; Start 08/30/18 at 21:00 Oxycodone/ Acetaminophen (Percocet (5/ 325)) 2 tab Q3H PRN PO PAIN LEVEL 6-10 Last administered on 09/01/18at 19:59; Admin Dose 2 TAB; Start 08/30/18 at 21:00 Phenylephrine HCl 250 ml @ 75 mls/hr TITRATE IV ; Start 08/30/18 at 22:30 Diagnostic Test (Pha) (Accu-Chek) 1 ea 02 XX ; Start 09/01/18 at 02:00 Insulin Glargine (Lantus) 14 units DAILY@2000 SC Last administered on 09/01/18at 20:12; Admin Dose 14 UNITS; Start 08/31/18 at 20:00 Insulin Aspart (Novolog Insulin Pen) 5 unit WITH MEALS SC Last administered on 09/02/18at 09:19; Admin Dose 5 UNIT; Start 08/31/18 at 17:35 Insulin Aspart (Novolog Insulin Pen) NOVOLOG *MILD* ALGORITHM WITH MEALS BEDTIME SC Last administered on 09/01/18at 07:53; Admin Dose 1 UNIT; Start 08/31/18 at 17:35 Metoprolol Tartrate (Lopressor) 25 mg BID PO Last administered on 09/02/18at 08:28; Admin Dose 25 MG; Start 08/31/18 at 21:00 Aspirin (Aspirin) 81 mg DAILY PO Last administered on 09/02/18at 08:28; Admin Dose 81 MG; Start 09/01/18 at 09:00 Miscellaneous Information 1 ea NOTE XX ; Start 08/31/18 at 13:00 Glucose (Glutose) 15 gm Q15M PRN PO DECREASED GLUCOSE; Start 08/31/18 at 13:00 Glucose (Glutose) 22.5 gm Q15M PRN PO DECREASED GLUCOSE; Start 08/31/18 at 13:00 Dextrose (D50w Syringe) 25 ml Q15M PRN IV DECREASED GLUCOSE; Start 08/31/18 at 13:00 Dextrose (D50w Syringe) 50 ml Q15M PRN IV DECREASED GLUCOSE; Start 08/31/18 at 13:00 Glucagon (Glucagen) 1 mg Q15M PRN IM DECREASED GLUCOSE; Start 08/31/18 at 13:00 Glucose (Glutose) 15 gm Q15M PRN BUCCAL DECREASED GLUCOSE; Start 08/31/18 at 13:00 Pantoprazole (Protonix Tab) 40 mg DAILY@06 PO Last administered on 09/02/18at 08:28; Admin Dose 40 MG; Start 09/01/18 at 06:00 Albuterol/ Ipratropium (Duoneb) 3 ml Q3H RESP THERAPY PRN HHN SHORTNESS OF BREATH; Start 09/01/18 at 20:30 Assessment/Plan Hospital Course (Demo Recall) 1. Postop day #3 status post coronary artery bypass graft surgery x3, receiving CASTELLON to LAD, SVG to OM, SVG to PDA. Doing well. 2. Postoperative chest pain with EKG without significant changes and positional, question of musculoskeletal pain at the sternotomy site, question of pericarditis.-resolved at this time - no new sx - no rub. 3. Hypertension, currently under reasonable control. Con't med rx. 4. History of dyslipidemia. 5. Abnormal echocardiogram with isolated inferior Q in III- no sig changes on serial ecg 6. Mild acidosis. 7. Anemia, mild - H/H stable - no bleeding. 8. Leukocytosis, ongoing - no fevers. VIRGINIA CHRISTIANSON MD Sep 02, 2018 11:08
--- NOTE | 2018-09-02 11:26 | PN ---
Date/Time of Note Date/Time of Note DATE: 09/02/18 TIME: 11:25 Assessment/Plan Lines/Catheters IV Catheter Type (from Nrsg): Cordis Lyn in Place (from Nrsg): Yes Assessment/Plan Assessment/Plan SP CABG Stable post op Will DC CT Ambulate DC planning Subjective 24 Hr Interval Summary Constitutional: improved Pain Control: mild Exam/Review of Systems Vital Signs Vitals Vital Signs Date Temp Pulse Resp B/P (MAP) Pulse Ox O2 O2 Flow FiO2 Time Delivery Rate 09/02/18 99 24 124/82 95 Nasal 07:00 (96) Cannula 09/02/18 98.7 04:00 09/02/18 4.0 03:42 08/30/18 30 19:00 Intake and Output 09/01/18 09/01/18 09/02/18 1515:00 23:00 07:00 IntakeIntake Total 1280 ml 700 ml 100 ml OutputOutput Total 540 ml 1394 ml 952 ml BalanceBalance 740 ml -694 ml -852 ml Exam Eyes: nl conjunctiva, EOMI, nl lids, nl sclera ENMT: nl external ears & nose, nl lips & teeth, nl nasal mucosa & septum, mucosa pink and moist Neck: supple, non-tender Respiratory: clear to auscultation, normal air movement Cardiovascular: regular rate and rhythm, nl pulses Gastrointestinal: soft, nl liver, spleen, non-tender Musculoskeletal: nl extremities to inspection, nl gait and stance Results Result Diagram: 09/02/18 0439 09/02/18 0439 BOYD KRAUSE MD Sep 02, 2018 11:26
[2018-09-02] MEDS: INSULIN GLARGINE [LANTus] (100 UNITS/ML) SYG SC SCH (21:16)
[2018-09-02] MEDS: HYDROmorphONE 0.5 MG/0.5 ML SYG IV PRN (22:37)
[2018-09-02] MEDS: MAGNESIUM SULFATE 1 GM/D5W 100 ML IVPB PRN (23:50)
[2018-09-03] VITALS (12 sets, daily range): BP systolic 94–134; BP diastolic 55–98; PULSE 81–107; RESP 14–21
[2018-09-03] MEDS: MAGNESIUM SULFATE 1 GM/D5W 100 ML IVPB PRN (00:43)
[2018-09-03] MEDS: ACCU-CHEK XX SCH (02:00)
[2018-09-03] MEDS: PANTOPRAZOLE (EC) 40 MG TAB PO SCH (05:21)
[2018-09-03] MEDS: INSULIN ASPART [NOVOLOG] 3 ML PEN SC SCH ×9 (07:35→21:00)
[2018-09-03] MEDS: METOPROLOL 25 MG TAB PO SCH ×2 (09:00→21:57)
--- NOTE | 2018-09-03 09:29 | PN ---
Date/Time of Note Date/Time of Note DATE: 09/03/18 TIME: 09:29 Assessment/Plan VTE Prophylaxis Risk score (from Ns)>0 risk: 9 SCD applied (from Ns): Yes Pharmacological prophylaxis: LMWH Lines/Catheters IV [facility] Saline Lock Urinary Cath still in place: No Assessment/Plan Result Diagram: 09/03/18 0440 09/03/18 0440 Results 24hrs Laboratory Tests Test 09/02/18 12:25 09/02/18 18:17 09/02/18 21:08 09/03/18 04:40 Bedside Glucose 114 114 154 White Blood Count 14.4 H Red Blood Count 3.12 L Hemoglobin 9.1 L Hematocrit 27.6 L Mean Corpuscular 88.5 Volume Mean Corpuscular 29.2 Hemoglobin Mean Corpuscular 33.0 Hemoglobin Concent Red Cell 13.9 Distribution Width Platelet Count 230 # Mean Platelet Volume 9.6 Immature 0.500 H Granulocytes % Neutrophils % 77.6 H Lymphocytes % 11.3 L Monocytes % 8.3 Eosinophils % 2.0 Basophils % 0.3 Nucleated Red Blood 0.0 Cells % Immature 0.070 H Granulocytes # Neutrophils # 11.2 H Lymphocytes # 1.6 Monocytes # 1.2 H Eosinophils # 0.3 Basophils # 0.0 Nucleated Red Blood 0.0 Cells # Sodium Level 139 Potassium Level 3.5 Chloride Level 103 Carbon Dioxide Level 26 Anion Gap 10 Blood Urea Nitrogen 20 Creatinine 0.93 Est Glomerular > 60 Filtrat Rate mL/min Glucose Level 110 Calcium Level 8.7 Test 09/03/18 08:14 Bedside Glucose 98 Subjective 24 Hr Interval Summary Free Text/Dictation Patient seems to be doing well, ambulating, eating ok. Pain from surgery is controlled Exam/Review of Systems Exam Vitals Vital Signs Date Temp Pulse Resp B/P (MAP) Pulse Ox O2 O2 Flow FiO2 Time Delivery Rate 09/03/18 83 08:00 09/03/18 16 106/79 96 Nasal 2.0 06:00 (88) Cannula 09/03/18 98.0 04:00 09/02/18 21 17:42 Intake and Output 09/02/18 09/02/18 09/03/18 1515:00 23:00 07:00 IntakeIntake Total 240 ml 150 ml 300 ml OutputOutput Total 300 ml 500 ml 800 ml BalanceBalance -60 ml -350 ml -500 ml Results Results 24hrs Laboratory Tests Test 09/02/18 12:25 09/02/18 18:17 09/02/18 21:08 09/03/18 04:40 Bedside Glucose 114 114 154 White Blood Count 14.4 H Red Blood Count 3.12 L Hemoglobin 9.1 L Hematocrit 27.6 L Mean Corpuscular 88.5 Volume Mean Corpuscular 29.2 Hemoglobin Mean Corpuscular 33.0 Hemoglobin Concent Red Cell 13.9 Distribution Width Platelet Count 230 # Mean Platelet Volume 9.6 Immature 0.500 H Granulocytes % Neutrophils % 77.6 H Lymphocytes % 11.3 L Monocytes % 8.3 Eosinophils % 2.0 Basophils % 0.3 Nucleated Red Blood 0.0 Cells % Immature 0.070 H Granulocytes # Neutrophils # 11.2 H Lymphocytes # 1.6 Monocytes # 1.2 H Eosinophils # 0.3 Basophils # 0.0 Nucleated Red Blood 0.0 Cells # Sodium Level 139 Potassium Level 3.5 Chloride Level 103 Carbon Dioxide Level 26 Anion Gap 10 Blood Urea Nitrogen 20 Creatinine 0.93 Est Glomerular > 60 Filtrat Rate mL/min Glucose Level 110 Calcium Level 8.7 Test 09/03/18 08:14 Bedside Glucose 98 Medications Medication Current Medications Potassium Chloride 40 meq/ Calcium Chloride 1 gm/Dextrose/ Sodium Chloride 1,030 ml @ 60 mls/hr [id number] IV Last administered on 09/01/18at 05:00; Admin Dose 60 MLS/HR; Start 08/30/18 at 15:08; Status Hold Ondansetron HCl (Zofran Inj) 4 mg Q6H PRN IV NAUSEA AND/OR VOMITING Last administered on 08/30/18at 21:15; Admin Dose 4 MG; Start 08/30/18 at 15:30 Potassium Chloride 50 ml @ 50 mls/hr SEE DIRECTION PRN IVPB K+ LEVEL Last administered on 08/31/18at 10:10; Admin Dose 50 MLS/HR; Start 08/30/18 at 15:30 Magnesium Sulfate/ Dextrose 100 ml @ 100 mls/hr PRN PRN IVPB PENDING LAB VALUE Last administered on 09/03/18at 00:43; Admin Dose 100 MLS/HR; Start 08/30/18 at 15:30 Nitroglycerin/ Dextrose 250 ml @ 1.5 mls/hr PER PROTOCOL IV Last administered on 08/30/18 13:15; Admin Dose 15 MLS/HR; Start 08/30/18 at 15:30 Hydromorphone HCl (Dilaudid) 0.2 mg Q1H PRN IV PAIN LEVEL 1-5 Last administered on 09/01/18 15:11; Admin Dose 0.2 MG; Start 08/30/18 at 21:00 Hydromorphone HCl (Dilaudid) 0.4 mg Q1H PRN IV PAIN LEVEL 6-10 Last administered on 09/02/18 22:37; Admin Dose 0.4 MG; Start 08/30/18 at 21:00 Oxycodone/ Acetaminophen (Percocet (5/ 325)) 1 tab Q3H PRN PO PAIN LEVEL 1-5; Start 08/30/18 at 21:00 Oxycodone/ Acetaminophen (Percocet (5/ 325)) 2 tab Q3H PRN PO PAIN LEVEL 6-10 Last administered on 09/01/18 19:59; Admin Dose 2 TAB; Start 08/30/18 at 21:00 Phenylephrine HCl 250 ml @ 75 mls/hr TITRATE IV ; Start 08/30/18 at 22:30 Diagnostic Test (Pha) (Accu-Chek) 1 ea 02 XX ; Start 09/01/18 at 02:00 Insulin Glargine (Lantus) 14 units DAILY@2000 SC Last administered on 09/02/18 21:16; Admin Dose 14 UNITS; Start 08/31/18 at 20:00 Insulin Aspart (Novolog Insulin Pen) 5 unit WITH MEALS SC Last administered on 09/02/18 18:55; Admin Dose 5 UNIT; Start 08/31/18 at 17:35 Insulin Aspart (Novolog Insulin Pen) NOVOLOG *MILD* ALGORITHM WITH MEALS BEDTIME SC Last administered on 09/01/18 07:53; Admin Dose 1 UNIT; Start 08/31/18 at 17:35 Metoprolol Tartrate (Lopressor) 25 mg BID PO Last administered on 09/02/18 21:06; Admin Dose 25 MG; Start 08/31/18 at 21:00 Aspirin (Aspirin) 81 mg DAILY PO Last administered on 09/02/18 08:28; Admin Dose 81 MG; Start 09/01/18 at 09:00 Miscellaneous Information 1 ea NOTE XX ; Start 08/31/18 at 13:00 Glucose (Glutose) 15 gm Q15M PRN PO DECREASED GLUCOSE; Start 08/31/18 at 13:00 Glucose (Glutose) 22.5 gm Q15M PRN PO DECREASED GLUCOSE; Start 08/31/18 at 13:00 Dextrose (D50w Syringe) 25 ml Q15M PRN IV DECREASED GLUCOSE; Start 08/31/18 at 13:00 Dextrose (D50w Syringe) 50 ml Q15M PRN IV DECREASED GLUCOSE; Start 08/31/18 at 13:00 Glucagon (Glucagen) 1 mg Q15M PRN IM DECREASED GLUCOSE; Start 08/31/18 at 13:00 Glucose (Glutose) 15 gm Q15M PRN BUCCAL DECREASED GLUCOSE; Start 08/31/18 at 13:00 Pantoprazole (Protonix Tab) 40 mg DAILY@06 PO Last administered on 09/03/18at 05:21; Admin Dose 40 MG; Start 09/01/18 at 06:00 Albuterol/ Ipratropium (Duoneb) 3 ml Q3H RESP THERAPY PRN HHN SHORTNESS OF BREATH; Start 09/01/18 at 20:30 MELANIE REDDY Sep 03, 2018 09:29
[2018-09-03] MEDS: ASPIRIN 81 MG TAB PO SCH (09:46)
--- NOTE | 2018-09-03 13:50 | CONS ---
Consult Date/Type/Reason Admit Date/Time Aug 30, 2018 at 05:18 Initial Consult Date Requesting Provider: BOYD KRAUSE MD Date/Time of Note DATE: 09/03/18 TIME: 13:48 Subjective NO acute events - pt comfortable - d/c CT - better now - con't Rx. ROS: No fever, no chills, no nausea, no vomiting, no diarrhea/constipation No recent weight changes No chest pain, no PND, no orthopnea - improved SOB No dizziness, blurred vision No thirst, no heat or cold intolerance Objective Vitals Vital Signs Date Temp Pulse Resp B/P (MAP) Pulse Ox O2 O2 Flow FiO2 Time Delivery Rate 09/03/18 90 12:00 09/03/18 Nasal 2.0 09:00 Cannula 09/03/18 16 106/79 96 06:00 (88) 09/03/18 98.0 04:00 09/02/18 21 17:42 Intake and Output 09/02/18 09/02/18 09/03/18 1515:00 23:00 07:00 IntakeIntake Total 240 ml 150 ml 300 ml OutputOutput Total 300 ml 500 ml 800 ml BalanceBalance -60 ml -350 ml -500 ml Results/Medications Result Diagram: 09/03/18 0440 09/03/18 0440 Results 24 hrs Laboratory Tests Test 09/02/18 18:17 09/02/18 21:08 09/03/18 04:40 09/03/18 08:14 Bedside Glucose 114 154 98 White Blood Count 14.4 H Red Blood Count 3.12 L Hemoglobin 9.1 L Hematocrit 27.6 L Mean Corpuscular 88.5 Volume Mean Corpuscular 29.2 Hemoglobin Mean Corpuscular 33.0 Hemoglobin Concent Red Cell 13.9 Distribution Width Platelet Count 230 # Mean Platelet Volume 9.6 Immature 0.500 H Granulocytes % Neutrophils % 77.6 H Lymphocytes % 11.3 L Monocytes % 8.3 Eosinophils % 2.0 Basophils % 0.3 Nucleated Red Blood 0.0 Cells % Immature 0.070 H Granulocytes # Neutrophils # 11.2 H Lymphocytes # 1.6 Monocytes # 1.2 H Eosinophils # 0.3 Basophils # 0.0 Nucleated Red Blood 0.0 Cells # Sodium Level 139 Potassium Level 3.5 Chloride Level 103 Carbon Dioxide Level 26 Anion Gap 10 Blood Urea Nitrogen 20 Creatinine 0.93 Est Glomerular > 60 Filtrat Rate mL/min Glucose Level 110 Calcium Level 8.7 Test 09/03/18 12:37 Bedside Glucose 96 Home Meds Active Scripts Lisinopril* (Lisinopril*) 5 Mg Tablet, 5 MG PO DAILY, #30 TAB Prov:JAY WEEMS 05/24/18 Atorvastatin* (Atorvastatin*) 40 Mg Tablet, 40 MG PO QHS, #30 TAB [facility] 05/24/18 Aspirin (Aspir-Demetrice) 325 Mg Tablet.dr, 325 MG PO DAILY for 30 Days Prov[facility] 05/24/18 Nitroglycerin* (Nitroglycerin* SL) 0.4 Mg Tab.subl, 1 TAB SL Q5M PRN for ANGINA, #1 BOTTLE Prov:[facility] 05/24/18 Atenolol* (Atenolol*) 50 Mg Tablet, 50 MG PO DAILY for 30 Days, TAB Prov:[facility] 05/24/18 Reported Medications Diphenhydramine Hcl (Banophen) 25 Mg Capsule, 25 MG PO QHS, CAP 08/30/18 Fexofenadine Hcl* (Fexofenadine Hcl*) 180 Mg Tablet, 180 MG PO DAILY, #30 TAB 08/30/18 Duloxetine Hcl* (Duloxetine Hcl*) 30 Mg Capsule.dr, 30 MG PO DAILY, #30 CAP 08/30/18 Ergocalciferol (Vitamin D2) (VITAMIN D2) 2,000 Unit Tablet, 2000 UNIT PO DAILY, TAB 08/30/18 Montelukast Sodium* (Montelukast Sodium*) 10 Mg Tablet, 10 MG PO QHS, #30 TAB 05/20/18 Metformin Hcl* (Metformin Hcl* ER) 500 Mg Tab.sr.24h, 500 MG PO DAILY, #30 TAB 05/20/18 Chlorthalidone* (Chlorthalidone*) 25 Mg Tablet, 25 MG PO DAILY, TAB 05/20/18 Pantoprazole* (Protonix*) 40 Mg Tablet.dr, 40 MG PO QAM, TAB 09/13/16 Discontinued Reported Medications Duloxetine Hcl* (Duloxetine Hcl*) 60 Mg Capsule.dr, 60 MG PO DAILY, #30 CAP 05/20/18 Cholecalciferol* (Vitamin D3*) 1,000 Unit Tablet, 2000 UNIT PO DAILY, TAB 05/20/18 Medications Current Medications Ondansetron HCl (Zofran Inj) 4 mg Q6H PRN IV NAUSEA AND/OR VOMITING Last administered on 08/30/18 21:15; Admin Dose 4 MG; Start 08/30/18 at 15:30 Hydromorphone HCl (Dilaudid) 0.2 mg Q1H PRN IV PAIN LEVEL 1-5 Last administered on 09/01/18 15:11; Admin Dose 0.2 MG; Start 08/30/18 at 21:00 Hydromorphone HCl (Dilaudid) 0.4 mg Q1H PRN IV PAIN LEVEL 6-10 Last administered on 09/02/18 22:37; Admin Dose 0.4 MG; Start 08/30/18 at 21:00 Oxycodone/ Acetaminophen (Percocet (5/ 325)) 1 tab Q3H PRN PO PAIN LEVEL 1-5; Start 08/30/18 at 21:00 Oxycodone/ Acetaminophen (Percocet (5/ 325)) 2 tab Q3H PRN PO PAIN LEVEL 6-10 Last administered on 09/01/18 19:59; Admin Dose 2 TAB; Start 08/30/18 at 21:00 Insulin Glargine (Lantus) 14 units DAILY@2000 SC Last administered on 09/02/18 21:16; Admin Dose 14 UNITS; Start 08/31/18 at 20:00 Insulin Aspart (Novolog Insulin Pen) 5 unit WITH MEALS SC Last administered on 09/03/18 12:58; Admin Dose 5 UNIT; Start 08/31/18 at 17:35 Insulin Aspart (Novolog Insulin Pen) NOVOLOG *MILD* ALGORITHM WITH MEALS BEDTIME SC Last administered on 09/01/18 07:53; Admin Dose 1 UNIT; Start 08/31/18 at 17:35 Metoprolol Tartrate (Lopressor) 25 mg BID PO Last administered on 09/02/18 21:06; Admin Dose 25 MG; Start 08/31/18 at 21:00 Aspirin (Aspirin) 81 mg DAILY PO Last administered on 09/03/18 09:46; Admin Dose 81 MG; Start 09/01/18 at 09:00 Miscellaneous Information 1 ea NOTE XX ; Start 08/31/18 at 13:00 Glucose (Glutose) 15 gm Q15M PRN PO DECREASED GLUCOSE; Start 08/31/18 at 13:00 Glucose (Glutose) 22.5 gm Q15M PRN PO DECREASED GLUCOSE; Start 08/31/18 at 13:00 Dextrose (D50w Syringe) 25 ml Q15M PRN IV DECREASED GLUCOSE; Start 08/31/18 at 13:00 Dextrose (D50w Syringe) 50 ml Q15M PRN IV DECREASED GLUCOSE; Start 08/31/18 at 13:00 Glucagon (Glucagen) 1 mg Q15M PRN IM DECREASED GLUCOSE; Start 08/31/18 at 13:00 Glucose (Glutose) 15 gm Q15M PRN BUCCAL DECREASED GLUCOSE; Start 08/31/18 at 13:00 Pantoprazole (Protonix Tab) 40 mg DAILY@06 PO Last administered on 09/03/18at 05:21; Admin Dose 40 MG; Start 09/01/18 at 06:00 Albuterol/ Ipratropium (Duoneb) 3 ml Q3H RESP THERAPY PRN HHN SHORTNESS OF BREATH; Start 09/01/18 at 20:30 Assessment/Plan Hospital Course (Demo Recall) 1. Postop day #4 status post coronary artery bypass graft surgery x3, receiving CASTELLON to LAD, SVG to OM, SVG to PDA. Doing well. Con't to improve - ok to tele now. 2. Postoperative chest pain with EKG without significant changes and positional, question of musculoskeletal pain at the sternotomy site, question of pericarditis.-resolved at this time - no new sx - no rub. Much better. 3. Hypertension, currently under reasonable control. Con't med rx. Treated. 4. History of dyslipidemia. 5. Abnormal echocardiogram with isolated inferior Q in III- no sig changes on serial ecg 6. Mild acidosis. 7. Anemia, mild - H/H stable - no bleeding. NO active bleed now. 8. Leukocytosis, ongoing - no fevers. VIRGINIA CHRISTIANSON MD Sep 03, 2018 13:50
--- NOTE | 2018-09-03 16:05 | PN ---
Date/Time of Note Date/Time of Note DATE: 09/03/18 TIME: 16:04 Assessment/Plan Lines/Catheters IV Catheter Type (from Nrsg): Saline Lock Lyn in Place (from Nrsg): No Assessment/Plan Assessment/Plan Status post coronary artery bypass grafting Chest tubes removed Stable postop Continue ambulation Advance diet Discharge planning Subjective 24 Hr Interval Summary Constitutional: no complaints, improved, ambulates, BM, flatus, urine output Pain Control: mild Exam/Review of Systems Vital Signs Vitals Vital Signs Date Temp Pulse Resp B/P (MAP) Pulse Ox O2 O2 Flow FiO2 Time Delivery Rate 09/03/18 97.8 99 18 119/80 98 Room Air 14:43 (93) 09/03/18 2.0 14:10 09/02/18 21 17:42 Intake and Output 09/02/18 09/02/18 09/03/18 1515:00 23:00 07:00 IntakeIntake Total 240 ml 150 ml 300 ml OutputOutput Total 300 ml 500 ml 800 ml BalanceBalance -60 ml -350 ml -500 ml Exam Eyes: nl conjunctiva, EOMI, nl lids, nl sclera ENMT: nl external ears & nose, nl lips & teeth, nl nasal mucosa & septum, mucosa pink and moist Neck: supple, non-tender Respiratory: clear to auscultation, normal air movement Cardiovascular: regular rate and rhythm, nl pulses Gastrointestinal: soft, nl liver, spleen, non-tender Musculoskeletal: nl extremities to inspection, nl gait and stance Results Result Diagram: 09/03/1843909/03/18439 BOYD KRAUSE MD Sep 03, 2018 16:05
[2018-09-03] MEDS ORDERED: LORAZEPAM 2 MG INJ IV PRN (19:00)
[2018-09-03] MEDS: INSULIN GLARGINE [LANTus] (100 UNITS/ML) SYG SC SCH (22:09)
[2018-09-04] VITALS: BP 145/83; PULSE 85; RESP 20
[2018-09-04 04:16] VITALS: BP 101/69; PULSE 90; RESP 20
[2018-09-04] MEDS: PANTOPRAZOLE (EC) 40 MG TAB PO SCH (06:20)
[2018-09-04 07:49] VITALS: BP 118/76; PULSE 89; RESP 18
[2018-09-04] MEDS: INSULIN ASPART [NOVOLOG] 3 ML PEN SC SCH ×7 (07:55→20:52)
[2018-09-04] MEDS: METOPROLOL 25 MG TAB PO SCH ×2 (08:27→20:48)
[2018-09-04] MEDS: ASPIRIN 81 MG TAB PO SCH (08:27)
--- NOTE | 2018-09-04 11:18 | PN ---
Date/Time of Note Date/Time of Note DATE: 09/04/18 TIME: 11:17 Assessment/Plan VTE Prophylaxis Risk score (from Ns)>0 risk: 2 SCD applied (from [facility] [place] No SCD contraindicated: other Pharmacological prophylaxis: LMWH Lines/Catheters IV Catheter Type (from [facility]): Saline Lock Urinary Cath still in place: No Assessment/Plan Hospital Course -Three-vessel coronary artery disease chronic occlusion of the right coronary artery and circumflex vessel. S/p CABG with CASTELLON to LAD, Saphenous vein graft to PDA, Saphenous vein graft to obtuse marginal branch of the circumflex by Dr. Peng on 08/30/2018. Continue ICU care, follow-up CT surgery recommendations. Dr. Garcia is following in cardiology consultation. -Hypertension, patient is currently normotensive, continue beta-jose cruz. -Diabetes mellitus type 2, continue Lantus and NovoLog. -Chronic kidney disease -Large recurrent right inguinal hernia Result Diagram: 09/04/18 0546 09/04/18 0546 Results 24hrs Laboratory Tests Test 09/03/18 12:37 09/03/18 17:38 09/03/18 22:00 09/04/18 05:46 Bedside Glucose 96 156 86 White Blood Count 12.0 H Red Blood Count 3.20 L Hemoglobin 9.3 L Hematocrit 27.7 L Mean Corpuscular 86.6 Volume Mean Corpuscular 29.1 Hemoglobin Mean Corpuscular 33.6 Hemoglobin Concent Red Cell 14.0 Distribution Width Platelet Count 281 # Mean Platelet Volume 9.2 Immature 0.600 H Granulocytes % Neutrophils % 66.5 Lymphocytes % 18.9 Monocytes % 10.6 Eosinophils % 3.1 Basophils % 0.3 Nucleated Red Blood 0.0 Cells % Immature 0.070 H Granulocytes # Neutrophils # 8.0 H Lymphocytes # 2.3 Monocytes # 1.3 H Eosinophils # 0.4 Basophils # 0.0 Nucleated Red Blood 0.0 Cells # Sodium Level 141 Potassium Level 3.9 Chloride Level 106 Carbon Dioxide Level 27 Anion Gap 8 Blood Urea Nitrogen 20 Creatinine 0.92 Est Glomerular > 60 Filtrat Rate mL/min Glucose Level 102 Calcium Level 8.6 Test 09/04/18 08:15 Bedside Glucose 113 Subjective 24 Hr Interval Summary Free Text/Dictation Patient still have postoperative pain but is controlled Exam/Review of Systems Exam Vitals Vital Signs Date Temp Pulse Resp B/P (MAP) Pulse Ox O2 O2 Flow FiO2 Time Delivery Rate 09/04/18 98.0 89 18 118/76 98 07:49 (90) 09/03/18 Nasal 2.0 20:30 Cannula 09/02/18 21 17:42 Intake and Output 09/03/18 09/03/18 09/04/18 1515:00 23:00 07:00 IntakeIntake Total 520 ml OutputOutput Total 600 ml 1100 ml BalanceBalance -600 ml -580 ml Constitutional: well developed Head: normocephalic, atraumatic Neck: supple Respiratory: diminished breath sounds Cardiovascular: regular rate and rhythm Gastrointestinal: soft, non-tender Extremities: normal pulses Results Results 24hrs Laboratory Tests Test 09/03/18 12:37 09/03/18 17:38 09/03/18 22:00 09/04/18 05:46 Bedside Glucose 96 156 86 White Blood Count 12.0 H Red Blood Count 3.20 L Hemoglobin 9.3 L Hematocrit 27.7 L Mean Corpuscular 86.6 Volume Mean Corpuscular 29.1 Hemoglobin Mean Corpuscular 33.6 Hemoglobin Concent Red Cell 14.0 Distribution Width Platelet Count 281 # Mean Platelet Volume 9.2 Immature 0.600 H Granulocytes % Neutrophils % 66.5 Lymphocytes % 18.9 Monocytes % 10.6 Eosinophils % 3.1 Basophils % 0.3 Nucleated Red Blood 0.0 Cells % Immature 0.070 H Granulocytes # Neutrophils # 8.0 H Lymphocytes # 2.3 Monocytes # 1.3 H Eosinophils # 0.4 Basophils # 0.0 Nucleated Red Blood 0.0 Cells # Sodium Level 141 Potassium Level 3.9 Chloride Level 106 Carbon Dioxide Level 27 Anion Gap 8 Blood Urea Nitrogen 20 Creatinine 0.92 Est Glomerular > 60 Filtrat Rate mL/min Glucose Level 102 Calcium Level 8.6 Test 09/04/18 08:15 Bedside Glucose 113 Medications Medication Current Medications Ondansetron HCl (Zofran Inj) 4 mg Q6H PRN IV NAUSEA AND/OR VOMITING Last administered on 08/30/18at 21:15; Admin Dose 4 MG; Start 08/30/18 at 15:30 Hydromorphone HCl (Dilaudid) 0.2 mg Q1H PRN IV PAIN LEVEL 1-5 Last administered on 09/01/18at 15:11; Admin Dose 0.2 MG; Start 08/30/18 at 21:00 Hydromorphone HCl (Dilaudid) 0.4 mg Q1H PRN IV PAIN LEVEL 6-10 Last administered on 09/02/18at 22:37; Admin Dose 0.4 MG; Start 08/30/18 at 21:00 Oxycodone/ Acetaminophen (Percocet (5/ 325)) 1 tab Q3H PRN PO PAIN LEVEL 1-5; Start 08/30/18 at 21:00 Oxycodone/ Acetaminophen (Percocet (5/ 325)) 2 tab Q3H PRN PO PAIN LEVEL 6-10 Last administered on 09/01/18 19:59; Admin Dose 2 TAB; Start 08/30/18 at 21:00 Insulin Glargine (Lantus) 14 units DAILY@2000 SC Last administered on 09/03/18 22:09; Admin Dose 14 UNITS; Start 08/31/18 at 20:00 Insulin Aspart (Novolog Insulin Pen) 5 unit WITH MEALS SC Last administered on 09/04/18 08:56; Admin Dose 5 UNIT; Start 08/31/18 at 17:35 Insulin Aspart (Novolog Insulin Pen) NOVOLOG *MILD* ALGORITHM WITH MEALS BEDTIME SC Last administered on 09/03/18 18:21; Admin Dose 1 UNIT; Start 08/31/18 at 17:35 Metoprolol Tartrate (Lopressor) 25 mg BID PO Last administered on 09/04/18 08:27; Admin Dose 25 MG; Start 08/31/18 at 21:00 Aspirin (Aspirin) 81 mg DAILY PO Last administered on 09/04/18 08:27; Admin Dose 81 MG; Start 09/01/18 at 09:00 Miscellaneous Information 1 ea NOTE XX ; Start 08/31/18 at 13:00 Glucose (Glutose) 15 gm Q15M PRN PO DECREASED GLUCOSE; Start 08/31/18 at 13:00 Glucose (Glutose) 22.5 gm Q15M PRN PO DECREASED GLUCOSE; Start 08/31/18 at 13:00 Dextrose (D50w Syringe) 25 ml Q15M PRN IV DECREASED GLUCOSE; Start 08/31/18 at 13:00 Dextrose (D50w Syringe) 50 ml Q15M PRN IV DECREASED GLUCOSE; Start 08/31/18 at 13:00 Glucagon (Glucagen) 1 mg Q15M PRN IM DECREASED GLUCOSE; Start 08/31/18 at 13:00 Glucose (Glutose) 15 gm Q15M PRN BUCCAL DECREASED GLUCOSE; Start 08/31/18 at 13:00 Pantoprazole (Protonix Tab) 40 mg DAILY@06 PO Last administered on 09/04/18at 06:20; Admin Dose 40 MG; Start 09/01/18 at 06:00 Albuterol/ Ipratropium (Duoneb) 3 ml Q3H RESP THERAPY PRN HHN SHORTNESS OF BREATH; Start 09/01/18 at 20:30 Lorazepam (Ativan) 1 mg Q4 PRN IV ANXIETY; Start 09/03/18 at 19:00 MELANIE REDDY Sep 04, 2018 11:18
[2018-09-04 12:44] VITALS: BP 121/73; PULSE 78; RESP 18
--- NOTE | 2018-09-04 13:54 | CONS ---
Consult Date/Type/Reason Admit Date/Time Aug 30, 2018 at 05:18 Initial Consult Date Requesting Provider: BOYD KRAUSE MD Date/Time of Note DATE: 09/04/18 TIME: 13:53 Subjective Better overall -con't to improve - no CP now. ROS: No fever, no chills, no nausea, no vomiting, no diarrhea/constipation No recent weight changes No chest pain, no PND, no orthopnea - scar pain as expected No dizziness, blurred vision No thirst, no heat or cold intolerance Objective Vitals Vital Signs Date Temp Pulse Resp B/P (MAP) Pulse Ox O2 O2 Flow FiO2 Time Delivery Rate 09/04/18 98.0 78 18 121/73 98 12:44 (89) 09/03/18 Nasal 2.0 20:30 Cannula 09/02/18 21 17:42 Intake and Output 09/03/18 09/03/18 09/04/18 1515:00 23:00 07:00 IntakeIntake Total 520 ml OutputOutput Total 600 ml 1100 ml BalanceBalance -600 ml -580 ml Exam General: WN/WD/NAD, AOx 3 HEENT: Unicetric/atraumatic/EOMI (follow commands) NECK: JVD elevated, no thyromegaly Lymph: no lymphadenopathy HEART: regular with no S3, II/ systolic murmur at apex, no RUB LUNGS: Coarse sounds ABD: soft, NT, ND, +BS : Intact Neuro: non focal SKIN: chronic changes EXT: trace edema Results/Medications Result Diagram: 09/04/18 0546 09/04/18 0546 Results 24 hrs Laboratory Tests Test 09/03/18 17:38 09/03/18 22:00 09/04/18 05:46 09/04/18 08:15 Bedside Glucose 156 86 113 White Blood Count 12.0 H Red Blood Count 3.20 L Hemoglobin 9.3 L Hematocrit 27.7 L Mean Corpuscular 86.6 Volume Mean Corpuscular 29.1 Hemoglobin Mean Corpuscular 33.6 Hemoglobin Concent Red Cell 14.0 Distribution Width Platelet Count 281 # Mean Platelet Volume 9.2 Immature 0.600 H Granulocytes % Neutrophils % 66.5 Lymphocytes % 18.9 Monocytes % 10.6 Eosinophils % 3.1 Basophils % 0.3 Nucleated Red Blood 0.0 Cells % Immature 0.070 H Granulocytes # Neutrophils # 8.0 H Lymphocytes # 2.3 Monocytes # 1.3 H Eosinophils # 0.4 Basophils # 0.0 Nucleated Red Blood 0.0 Cells # Sodium Level 141 Potassium Level 3.9 Chloride Level 106 Carbon Dioxide Level 27 Anion Gap 8 Blood Urea Nitrogen 20 Creatinine 0.92 Est Glomerular > 60 Filtrat Rate mL/min Glucose Level 102 Calcium Level 8.6 Test 09/04/18 11:58 Bedside Glucose 83 Home Meds Active Scripts Lisinopril* (Lisinopril*) 5 Mg Tablet, 5 MG PO DAILY, #30 TAB Prov:JAY WEEMS 05/24/18 Atorvastatin* (Atorvastatin*) 40 Mg Tablet, 40 MG PO QHS, #30 TAB Prov:SAM WEEMSLANA 05/24/18 Aspirin (Aspir-Demetrice) 325 Mg Tablet.dr, 325 MG PO DAILY for 30 Days Prov:CARLOS MANUELCOUNTS IN[facility] 234 [facility] 05/24/18 Nitroglycerin* (Nitroglycerin* SL) 0.4 Mg Tab.subl, 1 TAB SL Q5M PRN for ANGINA, #1 BOTTLE Prov:JAY WEEMS 05/24/18 Atenolol* (Atenolol*) 50 Mg Tablet, 50 MG PO DAILY for 30 Days, TAB Prov:SAM WEEMSLANA 05/24/18 Reported Medications Diphenhydramine Hcl (Banophen) 25 Mg Capsule, 25 MG PO QHS, CAP 08/30/18 Fexofenadine Hcl* (Fexofenadine Hcl*) 180 Mg Tablet, 180 MG PO DAILY, #30 TAB 08/30/18 Duloxetine Hcl* (Duloxetine Hcl*) 30 Mg Capsule.dr, 30 MG PO DAILY, #30 CAP 08/30/18 Ergocalciferol (Vitamin D2) (VITAMIN D2) 2,000 Unit Tablet, 2000 UNIT PO DAILY, TAB 08/30/18 Montelukast Sodium* (Montelukast Sodium*) 10 Mg Tablet, 10 MG PO QHS, #30 TAB 05/20/18 Metformin Hcl* (Metformin Hcl* ER) 500 Mg Tab.sr.24h, 500 MG PO DAILY, #30 TAB 05/20/18 Chlorthalidone* (Chlorthalidone*) 25 Mg Tablet, 25 MG PO DAILY, TAB 05/20/18 Pantoprazole* (Protonix*) 40 Mg Tablet.dr, 40 MG PO QAM, TAB 09/13/16 Discontinued Reported Medications Duloxetine Hcl* (Duloxetine Hcl*) 60 Mg Capsule.dr, 60 MG PO DAILY, #30 CAP 05/20/18 Cholecalciferol* (Vitamin D3*) 1,000 Unit Tablet, 2000 UNIT PO DAILY, TAB 05/20/18 Medications Current Medications Ondansetron HCl (Zofran Inj) 4 mg Q6H PRN IV NAUSEA AND/OR VOMITING Last administered on 08/30/18at 21:15; Admin Dose 4 MG; Start 08/30/18 at 15:30 Hydromorphone HCl (Dilaudid) 0.2 mg Q1H PRN IV PAIN LEVEL 1-5 Last administered on 09/01/18at 15:11; Admin Dose 0.2 MG; Start 08/30/18 at 21:00 Hydromorphone HCl (Dilaudid) 0.4 mg Q1H PRN IV PAIN LEVEL 6-10 Last administered on 09/02/18at 22:37; Admin Dose 0.4 MG; Start 08/30/18 at 21:00 Oxycodone/ Acetaminophen (Percocet (5/ 325)) 1 tab Q3H PRN PO PAIN LEVEL 1-5; Start 08/30/18 at 21:00 Oxycodone/ Acetaminophen (Percocet (5/ 325)) 2 tab Q3H PRN PO PAIN LEVEL 6-10 Last administered on 09/01/18at 19:59; Admin Dose 2 TAB; Start 08/30/18 at 21:00 Insulin Glargine (Lantus) 14 units DAILY@2000 SC Last administered on 09/03/18 22:09; Admin Dose 14 UNITS; Start 08/31/18 at 20:00 Insulin Aspart (Novolog Insulin Pen) 5 unit WITH MEALS SC Last administered on 09/04/18 12:18; Admin Dose 5 UNIT; Start 08/31/18 at 17:35 Insulin Aspart (Novolog Insulin Pen) NOVOLOG *MILD* ALGORITHM WITH MEALS BEDTIME SC Last administered on 09/03/18 18:21; Admin Dose 1 UNIT; Start 08/31/18 at 17:35 Metoprolol Tartrate (Lopressor) 25 mg BID PO Last administered on 6/30/19at 08:27; Admin Dose 25 MG; Start 08/31/18 at 21:00 Aspirin (Aspirin) 81 mg DAILY PO Last administered on 09/04/18at 08:27; Admin Dose 81 MG; Start 09/01/18 at 09:00 Miscellaneous Information 1 ea NOTE XX ; Start 08/31/18 at 13:00 Glucose (Glutose) 15 gm Q15M PRN PO DECREASED GLUCOSE; Start 08/31/18 at 13:00 Glucose (Glutose) 22.5 gm Q15M PRN PO DECREASED GLUCOSE; Start 08/31/18 at 13:00 Dextrose (D50w Syringe) 25 ml Q15M PRN IV DECREASED GLUCOSE; Start 08/31/18 at 13:00 Dextrose (D50w Syringe) 50 ml Q15M PRN IV DECREASED GLUCOSE; Start 08/31/18 at 13:00 Glucagon (Glucagen) 1 mg Q15M PRN IM DECREASED GLUCOSE; Start 08/31/18 at 13:00 Glucose (Glutose) 15 gm Q15M PRN BUCCAL DECREASED GLUCOSE; Start 08/31/18 at 13:00 Pantoprazole (Protonix Tab) 40 mg DAILY@06 PO Last administered on 09/04/18at 06:20; Admin Dose 40 MG; Start 09/01/18 at 06:00 Albuterol/ Ipratropium (Duoneb) 3 ml Q3H RESP THERAPY PRN HHN SHORTNESS OF BREATH; Start 09/01/18 at 20:30 Lorazepam (Ativan) 1 mg Q4 PRN IV ANXIETY; Start 09/03/18 at 19:00 Assessment/Plan Hospital Course (Demo Recall) 1. Postop day #5 status post coronary artery bypass graft surgery x3, receiving CASTELLON to LAD, SVG to OM, SVG to PDA. Doing well. Con't to improve - ok to tele now. Improving - now ambulatory - no CP,. 2. Postoperative chest pain with EKG without significant changes and positional, question of musculoskeletal pain at the sternotomy site, question of pericarditis.-resolved at this time - no new sx - no rub. Much better. 3. Hypertension, currently under reasonable control. Con't med rx. Treated. Well controlled. 4. History of dyslipidemia. 5. Abnormal echocardiogram with isolated inferior Q in III- no sig changes on serial ecg 6. Mild acidosis. 7. Anemia, mild - H/H stable - no bleeding. NO active bleed now. at 9.3 now. 8. Leukocytosis, ongoing - no fevers. IMPROVED to 12.0 VIRGINIA CHRISTIANSON MD Sep 04, 2018 13:54
[2018-09-04 15:41] VITALS: BP 127/78; PULSE 73; RESP 18
[2018-09-04 21:03] VITALS: BP 166/80; PULSE 89; RESP 20
[2018-09-04] MEDS: INSULIN GLARGINE [LANTus] (100 UNITS/ML) SYG SC SCH (22:08)
[2018-09-05] VITALS (8 sets, daily range): BP systolic 98–137; BP diastolic 60–91; PULSE 85–105; RESP 18–22
[2018-09-05] MEDS: PANTOPRAZOLE (EC) 40 MG TAB PO SCH (06:31)
[2018-09-05] MEDS: INSULIN ASPART [NOVOLOG] 3 ML PEN SC SCH ×7 (07:42→20:42)
[2018-09-05] MEDS: METOPROLOL 25 MG TAB PO SCH ×2 (08:02→21:07)
[2018-09-05] MEDS: ASPIRIN 81 MG TAB PO SCH (08:38)
--- NOTE | 2018-09-05 12:20 | CONS ---
Assessment/Plan Assessment/Plan Hospital Course (Demo Recall) IMPRESSION: 1. Postop status post coronary artery bypass graft surgery x3, receiving CASTELLON to LAD, SVG to OM, SVG to PDA. 2. Postoperative chest pain with EKG without significant changes and p ositional, question of musculoskeletal pain at the sternotomy site, question of pericarditis.-resolved at this time 3. Hypertension, currently under reasonable control. 4. History of dyslipidemia. 5. Abnormal echocardiogram with isolated inferior Q in III- no sig changes on serial ecg 6. Mild acidosis. 7. Anemia, mild. 8. Leukocytosis, ongoing. 9. L sided pleural effusion Recc: -On tele -serial ecg's -continue low dose BB -Continue ASA -pain control -ambulate as possible -start lasix diuresis Consultation Date/Type/Reason Admit Date/Time Aug 30, 2018 at 05:18 Initial Consult Date 08/31/18 Type of Consult Cardiology Reason for Consultation cabg Requesting Provider: BOYD KRAUSE MD Date/Time of Note DATE: 09/05/18 TIME: 12:17 Exam/Review of Systems Vital Signs Vitals Vital Signs Date Temp Pulse Resp B/P (MAP) Pulse Ox O2 O2 Flow FiO2 Time Delivery Rate 09/05/18 97.8 92 19 133/74 97 12:00 (93) 09/05/18 21 01:52 09/03/18 Nasal 2.0 20:30 Cannula Intake and Output 09/04/18 09/04/18 09/05/18 1515:00 23:00 07:00 IntakeIntake Total 340 ml 440 ml 1120 ml OutputOutput Total 1200 ml 700 ml BalanceBalance 340 ml -760 ml 420 ml Exam Exam Review of Systems: CONSTITUTIONAL: No fevers, chills. PULMONARY: No sob CARDIOVASCULAR: No chest pain/palpitations GASTROINTESTINAL: No nausea/vomiting. GENITOURINARY: No hematuria/dysuria. MUSCULOSKELETAL: No myagias/arthalgias. PSYCHIATRIC: The patient denies depression. NEUROLOGIC: No weakness Constitutional: alert Psych: no complaints Head: normocephalic ENMT: mucosa pink and moist Neck: supple, jvd (9 cm water) Respiratory: diminished breath sounds (at bases/B) Cardiovascular: regular rate and rhythm Gastrointestinal: soft, non-tender Musculoskeletal: muscle tone (normal) Extremities: pitting pedal edema (bilateral LE R>L) Neurological: other (No focal deficits) Labs Result Diagram: 09/05/18 0539 09/05/18 0539 Results 24hrs Laboratory Tests Test 09/04/18 17:24 09/04/18 20:52 09/05/18 05:39 09/05/18 07:41 Bedside Glucose 104 105 113 White Blood Count 12.3 H Red Blood Count 3.49 L Hemoglobin 10.0 L Hematocrit 30.4 L Mean Corpuscular 87.1 Volume Mean Corpuscular 28.7 L Hemoglobin Mean Corpuscular 32.9 Hemoglobin Concent Red Cell Distribution 14.1 Width Platelet Count 322 Mean Platelet Volume 8.6 Immature Granulocytes 0.700 H % Neutrophils % 65.5 Lymphocytes % 18.1 Monocytes % 11.6 H Eosinophils % 3.7 Basophils % 0.4 Nucleated Red Blood 0.0 Cells % Immature Granulocytes 0.080 H # Neutrophils # 8.1 H Lymphocytes # 2.2 Monocytes # 1.4 H Eosinophils # 0.5 Basophils # 0.1 Nucleated Red Blood 0.0 Cells # Sodium Level 142 Potassium Level 3.7 Chloride Level 105 Carbon Dioxide Level 27 Anion Gap 10 Blood Urea Nitrogen 22 H Creatinine 1.10 Est Glomerular Filtrat > 60 Rate mL/min Glucose Level 106 Calcium Level 8.8 Test 09/05/18 11:30 Bedside Glucose 118 Medications Medications Current Medications Ondansetron HCl (Zofran Inj) 4 mg Q6H PRN IV NAUSEA AND/OR VOMITING Last administered on 08/30/18at 21:15; Admin Dose 4 MG; Start 08/30/18 at 15:30 Hydromorphone HCl (Dilaudid) 0.2 mg Q1H PRN IV PAIN LEVEL 1-5 Last administered on 09/01/18at 15:11; Admin Dose 0.2 MG; Start 08/30/18 at 21:00 Hydromorphone HCl (Dilaudid) 0.4 mg Q1H PRN IV PAIN LEVEL 6-10 Last administered on 09/02/18at 22:37; Admin Dose 0.4 MG; Start 08/30/18 at 21:00 Oxycodone/ Acetaminophen (Percocet (5/ 325)) 1 tab Q3H PRN PO PAIN LEVEL 1-5; Start 08/30/18 at 21:00 Oxycodone/ Acetaminophen (Percocet (5/ 325)) 2 tab Q3H PRN PO PAIN LEVEL 6-10 Last administered on 09/01/18at 19:59; Admin Dose 2 TAB; Start 08/30/18 at 21:00 Insulin Glargine (Lantus) 14 units DAILY@2000 SC Last administered on 09/04/18at 22:08; Admin Dose 14 UNITS; Start 08/31/18 at 20:00 Insulin Aspart (Novolog Insulin Pen) 5 unit WITH MEALS SC Last administered on 09/05/18at 12:11; Admin Dose 5 UNIT; Start 08/31/18 at 17:35 Insulin Aspart (Novolog Insulin Pen) NOVOLOG *MILD* ALGORITHM WITH MEALS BEDTIME SC Last administered on 09/03/18at 18:21; Admin Dose 1 UNIT; Start at 17:35 Metoprolol Tartrate (Lopressor) 25 mg BID PO Last administered on 09/04/18at 20:48; Admin Dose 25 MG; Start 08/31/18 at 21:00 Aspirin (Aspirin) 81 mg DAILY PO Last administered on 09/05/18at 08:38; Admin Dose 81 MG; Start 09/01/18 at 09:00 Miscellaneous Information 1 ea NOTE XX ; Start 08/31/18 at 13:00 Glucose (Glutose) 15 gm Q15M PRN PO DECREASED GLUCOSE; Start 08/31/18 at 13:00 Glucose (Glutose) 22.5 gm Q15M PRN PO DECREASED GLUCOSE; Start 08/31/18 at 13:00 Dextrose (D50w Syringe) 25 ml Q15M PRN IV DECREASED GLUCOSE; Start 08/31/18 at 13:00 Dextrose (D50w Syringe) 50 ml Q15M PRN IV DECREASED GLUCOSE; Start 08/31/18 at 13:00 Glucagon (Glucagen) 1 mg Q15M PRN IM DECREASED GLUCOSE; Start 08/31/18 at 13:00 Glucose (Glutose) 15 gm Q15M PRN BUCCAL DECREASED GLUCOSE; Start 08/31/18 at 13:00 Pantoprazole (Protonix Tab) 40 mg DAILY@06 PO Last administered on 09/05/18at 06:31; Admin Dose 40 MG; Start 09/01/18 at 06:00 Albuterol/ Ipratropium (Duoneb) 3 ml Q3H RESP THERAPY PRN HHN SHORTNESS OF BREATH; Start 09/01/18 at 20:30 Lorazepam (Ativan) 1 mg Q4 PRN IV ANXIETY; Start 09/03/18 at 19:00 CYNDI HANNON Sep 05, 2018 12:20
[2018-09-05] MEDS ORDERED: FUROSEMIDE 20 MG INJ IV ONE (12:30)
[2018-09-05] MEDS: HYDROmorphONE 0.5 MG/0.5 ML SYG IV PRN (14:40)
--- NOTE | 2018-09-05 17:48 | PN ---
Date/Time of Note Date/Time of Note DATE: 09/05/18 TIME: 17:47 Assessment/Plan Lines/Catheters IV Catheter Type (from Nrsg): Saline Lock Lyn in Place (from Nrsg): No Assessment/Plan Assessment/Plan Status post coronary artery bypass grafting Hemodynamically stable Continue ambulation Discharge planning Subjective 24 Hr Interval Summary Constitutional: improved Pain Control: mild Exam/Review of Systems Vital Signs Vitals Vital Signs Date Temp Pulse Resp B/P (MAP) Pulse Ox O2 O2 Flow FiO2 Time Delivery Rate 09/05/18 98.3 85 18 127/91 97 15:43 (103) 09/05/18 21 01:52 09/03/18 Nasal 2.0 20:30 Cannula Intake and Output 09/04/18 09/04/18 09/05/18 1515:00 23:00 07:00 IntakeIntake Total 340 ml 440 ml 1120 ml OutputOutput Total 1200 ml 700 ml BalanceBalance 340 ml -760 ml 420 ml Exam Eyes: nl conjunctiva, EOMI, nl lids, nl sclera ENMT: nl external ears & nose, nl lips & teeth, nl nasal mucosa & septum, mucosa pink and moist Neck: supple, non-tender Respiratory: clear to auscultation, normal air movement Cardiovascular: regular rate and rhythm, nl pulses Gastrointestinal: soft, nl liver, spleen, non-tender Musculoskeletal: nl extremities to inspection, nl gait and stance Results Result Diagram: 09/05/18 0539 09/05/18 0539 BOYD KRAUSE MD Sep 05, 2018 17:48
--- NOTE | 2018-09-05 18:10 | PN ---
Date/Time of Note Date/Time of Note DATE: 09/05/18 TIME: 18:08 Assessment/Plan VTE Prophylaxis Risk score (from Ns)>0 risk: 2 SCD applied (from Ns): Yes Pharmacological prophylaxis: NA/contraindicated Pharm contraindication: surgical contra Lines/Catheters IV C[facility] Type (from [facility] Saline Lock Urinary Cath still in place: No Assessment/Plan Hospital Course Pt is tachycardic, denies SOB, complains of incisional pain worse at nights, encouraged to take PO pain medication. Overall recovering very well, ambulates frequently. Assessment/Plan -Three-vessel coronary artery disease chronic occlusion of the right coronary artery and circumflex vessel. S/p CABG with CASTELLON to LAD, Saphenous vein graft to PDA, Saphenous vein graft to obtuse marginal branch of the circumflex by Dr. Peng on 08/30/2018. Continue Aspirin aand Metoprolol. Dr. Garcia is following in cardiology consultation. -Hypertension, patient is currently normotensive, continue beta-jose cruz. -Diabetes mellitus type 2, continue Lantus and NovoLog. -Chronic kidney disease -Large recurrent right inguinal hernia Further recommendations based on clinical course. Plan of care discussed with Dr. Galloway. Result Diagram: 09/05/18 0539 09/05/18 0539 Results 24hrs Laboratory Tests Test 09/04/18 20:52 09/05/18 05:39 09/05/18 07:41 09/05/18 11:30 Bedside Glucose 105 113 118 White Blood Count 12.3 H Red Blood Count 3.49 L Hemoglobin 10.0 L Hematocrit 30.4 L Mean Corpuscular Volume 87.1 Mean Corpuscular 28.7 L Hemoglobin Mean Corpuscular 32.9 Hemoglobin Concent Red Cell Distribution 14.1 Width Platelet Count 322 Mean Platelet Volume 8.6 Immature Granulocytes % 0.700 H Neutrophils % 65.5 Lymphocytes % 18.1 Monocytes % 11.6 H Eosinophils % 3.7 Basophils % 0.4 Nucleated Red Blood 0.0 Cells % Immature Granulocytes # 0.080 H Neutrophils # 8.1 H Lymphocytes # 2.2 Monocytes # 1.4 H Eosinophils # 0.5 Basophils # 0.1 Nucleated Red Blood 0.0 Cells # Sodium Level 142 Potassium Level 3.7 Chloride Level 105 Carbon Dioxide Level 27 Anion Gap 10 Blood Urea Nitrogen 22 H Creatinine 1.10 Est Glomerular Filtrat > 60 Rate mL/min Glucose Level 106 Calcium Level 8.8 Test 09/05/18 17:26 Bedside Glucose 105 Exam/Review of Systems Exam Vitals Vital Signs Date Temp Pulse Resp B/P (MAP) Pulse Ox O2 O2 Flow FiO2 Time Delivery Rate 09/05/18 98.3 85 18 127/91 97 15:43 (103) 09/05/18 21 01:52 09/03/18 Nasal 2.0 20:30 Cannula Intake and Output 09/04/18 09/04/18 09/05/18 1515:00 23:00 07:00 IntakeIntake Total 340 ml 440 ml 1120 ml OutputOutput Total 1200 ml 700 ml BalanceBalance 340 ml -760 ml 420 ml Constitutional: alert, oriented Head: normocephalic Neck: supple Respiratory: diminished breath sounds Cardiovascular: regular rate and rhythm, other (s/p CABG) Musculoskeletal: nl extremities to inspection Extremities: normal pulses Neurological: nl mental status Results Results 24hrs Laboratory Tests Test 09/04/18 20:52 09/05/18 05:39 09/05/18 07:41 09/05/18 11:30 Bedside Glucose 105 113 118 White Blood Count 12.3 H Red Blood Count 3.49 L Hemoglobin 10.0 L Hematocrit 30.4 L Mean Corpuscular Volume 87.1 Mean Corpuscular 28.7 L Hemoglobin Mean Corpuscular 32.9 Hemoglobin Concent Red Cell Distribution 14.1 Width Platelet Count 322 Mean Platelet Volume 8.6 Immature Granulocytes % 0.700 H Neutrophils % 65.5 Lymphocytes % 18.1 Monocytes % 11.6 H Eosinophils % 3.7 Basophils % 0.4 Nucleated Red Blood 0.0 Cells % Immature Granulocytes # 0.080 H Neutrophils # 8.1 H Lymphocytes # 2.2 Monocytes # 1.4 H Eosinophils # 0.5 Basophils # 0.1 Nucleated Red Blood 0.0 Cells # Sodium Level 142 Potassium Level 3.7 Chloride Level 105 Carbon Dioxide Level 27 Anion Gap 10 Blood Urea Nitrogen 22 H Creatinine 1.10 Est Glomerular Filtrat > 60 Rate mL/min Glucose Level 106 Calcium Level 8.8 Test 09/05/18 17:26 Bedside Glucose 105 Medications Medication Current Medications Ondansetron HCl (Zofran Inj) 4 mg Q6H PRN IV NAUSEA AND/OR VOMITING Last administered on 08/30/18 21:15; Admin Dose 4 MG; Start 08/30/18 at 15:30 Hydromorphone HCl (Dilaudid) 0.2 mg Q1H PRN IV PAIN LEVEL 1-5 Last administered on 09/01/18 15:11; Admin Dose 0.2 MG; Start 08/30/18 at 21:00 Hydromorphone HCl (Dilaudid) 0.4 mg Q1H PRN IV PAIN LEVEL 6-10 Last administered on 09/05/18 14:40; Admin Dose 0.4 MG; Start 08/30/18 at 21:00 Oxycodone/ Acetaminophen (Percocet (5/ 325)) 1 tab Q3H PRN PO PAIN LEVEL 1-5; Start 08/30/18 at 21:00 Oxycodone/ Acetaminophen (Percocet (5/ 325)) 2 tab Q3H PRN PO PAIN LEVEL 6-10 Last administered on 09/01/18 19:59; Admin Dose 2 TAB; Start 08/30/18 at 21:00 Insulin Glargine (Lantus) 14 units DAILY@2000 SC Last administered on 09/04/18 22:08; Admin Dose 14 UNITS; Start 08/31/18 at 20:00 Insulin Aspart (Novolog Insulin Pen) 5 unit WITH MEALS SC Last administered on 09/05/18 17:28; Admin Dose 5 UNIT; Start 08/31/18 at 17:35 Insulin Aspart (Novolog Insulin Pen) NOVOLOG *MILD* ALGORITHM WITH MEALS BEDTIME SC Last administered on 09/03/18 18:21; Admin Dose 1 UNIT; Start 08/31/18 at 17:35 Metoprolol Tartrate (Lopressor) 25 mg BID PO Last administered on 09/04/18 20:48; Admin Dose 25 MG; Start 08/31/18 at 21:00 Aspirin (Aspirin) 81 mg DAILY PO Last administered on 09/05/18 08:38; Admin Dose 81 MG; Start 09/01/18 at 09:00 Miscellaneous Information 1 ea NOTE XX ; Start 08/31/18 at 13:00 Glucose (Glutose) 15 gm Q15M PRN PO DECREASED GLUCOSE; Start 08/31/18 at 13:00 Glucose (Glutose) 22.5 gm Q15M PRN PO DECREASED GLUCOSE; Start 08/31/18 at 13:00 Dextrose (D50w Syringe) 25 ml Q15M PRN IV DECREASED GLUCOSE; Start 08/31/18 at 13:00 Dextrose (D50w Syringe) 50 ml Q15M PRN IV DECREASED GLUCOSE; Start 08/31/18 at 13:00 Glucagon (Glucagen) 1 mg Q15M PRN IM DECREASED GLUCOSE; Start 08/31/18 at 13:00 Glucose (Glutose) 15 gm Q15M PRN BUCCAL DECREASED GLUCOSE; Start 08/31/18 at 13:00 Pantoprazole (Protonix Tab) 40 mg DAILY@06 PO Last administered on 09/05/18at 06:31; Admin Dose 40 MG; Start 09/01/18 at 06:00 Albuterol/ Ipratropium (Duoneb) 3 ml Q3H RESP THERAPY PRN HHN SHORTNESS OF BREATH; Start 09/01/18 at 20:30 Lorazepam (Ativan) 1 mg Q4 PRN IV ANXIETY; Start 09/03/18 at 19:00 Furosemide (Lasix) 20 mg DAILY IV ; Start 09/06/18 at 09:00 JAY WEEMS Sep 05, 2018 18:09
[2018-09-05] MEDS: INSULIN GLARGINE [LANTus] (100 UNITS/ML) SYG SC SCH (22:51)
[2018-09-05] MEDS: OXYCODONE/ACETAMINOPHEN (5/325) TAB PO PRN (23:39)
[2018-09-06 03:29] VITALS: BP 126/90; PULSE 93; RESP 18
[2018-09-06] MEDS: PANTOPRAZOLE (EC) 40 MG TAB PO SCH (06:00)
[2018-09-06 07:19] VITALS: BP 128/83; PULSE 97; RESP 18
[2018-09-06] MEDS: INSULIN ASPART [NOVOLOG] 3 ML PEN SC SCH ×7 (07:45→20:30)
[2018-09-06] MEDS: FUROSEMIDE 20 MG INJ IV SCH (08:15)
[2018-09-06] MEDS: ASPIRIN 81 MG TAB PO SCH (08:15)
[2018-09-06] MEDS: METOPROLOL 25 MG TAB PO SCH ×2 (08:17→20:28)
--- NOTE | 2018-09-06 09:23 | CONS ---
Consult Date/Type/Reason Admit Date/Time Aug 30, 2018 at 05:18 Initial Consult Date Requesting Provider: BOYD KRAUSE MD Date/Time of Note DATE: 09/06/18 TIME: 09:21 Subjective Pt better - ambulatory - occasional CP at [facility] - not SOB now. ROS: No fever, no chills, no nausea, no vomiting, no diarrhea/constipation No recent weight changes No chest pain, no PND, no orthopnea - improved SOB No dizziness, blurred vision No thirst, no heat or cold intolerance Objective Vitals Vital Signs Date Temp Pulse Resp B/P (MAP) Pulse Ox O2 O2 Flow FiO2 Time Delivery Rate 09/06/18 97.8 97 18 128/83 95 07:19 (98) 09/06/18 Room Air 03:29 09/05/18 21 01:52 09/03/18 2.0 20:30 Intake and Output 09/05/18 09/05/18 09/06/18 1515:00 23:00 07:00 IntakeIntake Total 1140 ml 900 ml OutputOutput Total 1550 ml 1100 ml 1250 ml BalanceBalance -410 ml -1100 ml -350 ml Exam General: WN/WD/NAD, AOx 3 HEENT: Unicetric/atraumatic/EOMI (follows commands) NECK: JVD elevated, no thyromegaly Lymph: no lymphadenopathy HEART: regular with no S3, II/ systolic murmur at apex, PMI L LUNGS: Coarse sounds ABD: soft, NT, ND, +BS : Intact Neuro: non focal SKIN: chronic changes EXT: 1+ edema Results/Medications Result Diagram: 09/06/1871209/06/1813 Results 24 hrs Laboratory Tests Test 09/05/18 11:30 09/05/18 17:26 09/05/18 20:35 09/06/18 02:40 Bedside Glucose 118 105 147 128 Test 09/06/18 07:13 09/06/18 07:44 White Blood Count 11.7 H Red Blood Count 3.30 L Hemoglobin 9.6 L Hematocrit 29.5 L Mean Corpuscular Volume 89.4 Mean Corpuscular 29.1 Hemoglobin Mean Corpuscular 32.5 Hemoglobin Concent Red Cell Distribution 14.2 Width Platelet Count 343 Mean Platelet Volume 8.6 Immature Granulocytes % 0.700 H Neutrophils % 66.9 Lymphocytes % 16.9 Monocytes % 11.1 H Eosinophils % 4.1 Basophils % 0.3 Nucleated Red Blood 0.0 Cells % Immature Granulocytes # 0.080 H Neutrophils # 7.8 H Lymphocytes # 2.0 Monocytes # 1.3 H Eosinophils # 0.5 Basophils # 0.0 Nucleated Red Blood 0.0 Cells # Sodium Level 142 Potassium Level 4.3 Chloride Level 104 Carbon Dioxide Level 27 Anion Gap 11 Blood Urea Nitrogen 19 Creatinine 1.14 Est Glomerular Filtrat > 60 Rate mL/min Glucose Level 107 Calcium Level 8.9 Bedside Glucose 114 Home Meds Active Scripts Lisinopril* (Lisinopril*) 5 Mg Tablet, 5 MG PO DAILY, #30 TAB Prov:JAY WEEMS 05/24/18 Atorvastatin* (Atorvastatin*) 40 Mg Tablet, 40 MG PO QHS, #30 TAB Prov:JAY WEEMS 05/24/18 Aspirin (Aspir-Demetrice) 325 Mg Tablet.dr, 325 MG PO DAILY for 30 Days Prov:JAY WEEMS 05/24/18 Nitroglycerin* (Nitroglycerin* SL) 0.4 Mg Tab.subl, 1 TAB SL Q5M PRN for ANGINA, #1 BOTTLE Prov:JAY WEEMS 05/24/18 Atenolol* (Atenolol*) 50 Mg Tablet, 50 MG PO DAILY for 30 Days, TAB Prov:JAY WEEMS 05/24/18 Reported Medications Diphenhydramine Hcl (Banophen) 25 Mg Capsule, 25 MG PO QHS, CAP 08/30/18 Fexofenadine Hcl* (Fexofenadine Hcl*) 180 Mg Tablet, 180 MG PO DAILY, #30 TAB 08/30/18 Duloxetine Hcl* (Duloxetine Hcl*) 30 Mg Capsule.dr, 30 MG PO DAILY, #30 CAP 08/30/18 Ergocalciferol (Vitamin D2) (VITAMIN D2) 2,000 Unit Tablet, 2000 UNIT PO DAILY, TAB 08/30/18 Montelukast Sodium* (Montelukast Sodium*) 10 Mg Tablet, 10 MG PO QHS, #30 TAB 05/20/18 Metformin Hcl* (Metformin Hcl* ER) 500 Mg Tab.sr.24h, 500 MG PO DAILY, #30 TAB 05/20/18 Chlorthalidone* (Chlorthalidone*) 25 Mg Tablet, 25 MG PO DAILY, TAB 05/20/18 Pantoprazole* (Protonix*) 40 Mg Tablet.dr, 40 MG PO QAM, TAB 09/13/16 Discontinued Reported Medications Duloxetine Hcl* (Duloxetine Hcl*) 60 Mg Capsule.dr, 60 MG PO DAILY, #30 CAP 05/20/18 Cholecalciferol* (Vitamin D3*) 1,000 Unit Tablet, 2000 UNIT PO DAILY, TAB 05/20/18 Medications Current Medications Ondansetron HCl (Zofran Inj) 4 mg Q6H PRN IV NAUSEA AND/OR VOMITING Last administered on 08/30/18at 21:15; Admin Dose 4 MG; Start 08/30/18 at 15:30 Hydromorphone HCl (Dilaudid) 0.2 mg Q1H PRN IV PAIN LEVEL 1-5 Last administered on 09/01/18at 15:11; Admin Dose 0.2 MG; Start 08/30/18 at 21:00 Hydromorphone HCl (Dilaudid) 0.4 mg Q1H PRN IV PAIN LEVEL 6-10 Last administered on 09/05/18at 14:40; Admin Dose 0.4 MG; Start 08/30/18 at 21:00 Oxycodone/ Acetaminophen (Percocet (5/ 325)) 1 tab Q3H PRN PO PAIN LEVEL 1-5 Last administered on 09/05/18at 23:39; Admin Dose 1 TAB; Start 08/30/18 at 21:00 Oxycodone/ Acetaminophen (Percocet (5/ 325)) 2 tab Q3H PRN PO PAIN LEVEL 6-10 Last administered on 09/01/18at 19:59; Admin Dose 2 TAB; Start 08/30/18 at 21:00 Insulin Glargine (Lantus) 14 units DAILY@2000 SC Last administered on 09/05/18at 22:51; Admin Dose 14 UNITS; Start 08/31/18 at 20:00 Insulin Aspart (Novolog Insulin Pen) 5 unit WITH MEALS SC Last administered on 09/06/18 07:47; Admin Dose 5 UNIT; Start 08/31/18 at 17:35 Insulin Aspart (Novolog Insulin Pen) NOVOLOG *MILD* ALGORITHM WITH MEALS BEDTIME SC Last administered on 09/03/18at 18:21; Admin Dose 1 UNIT; Start 08/31/18 at 17:35 Metoprolol Tartrate (Lopressor) 25 mg BID PO Last administered on 09/06/18at 08:17; Admin Dose 25 MG; Start 08/31/18 at 21:00 Aspirin (Aspirin) 81 mg DAILY PO Last administered on 09/06/18at 08:15; Admin Dose 81 MG; Start 09/01/18 at 09:00 Miscellaneous Information 1 ea NOTE XX ; Start 08/31/18 at 13:00 Glucose (Glutose) 15 gm Q15M PRN PO DECREASED GLUCOSE; Start 08/31/18 at 13:00 Glucose (Glutose) 22.5 gm Q15M PRN PO DECREASED GLUCOSE; Start 08/31/18 at 13:00 Dextrose (D50w Syringe) 25 ml Q15M PRN IV DECREASED GLUCOSE; Start 08/31/18 at 13:00 Dextrose (D50w Syringe) 50 ml Q15M PRN IV DECREASED GLUCOSE; Start 08/31/18 at 13:00 Glucagon (Glucagen) 1 mg Q15M PRN IM DECREASED GLUCOSE; Start 08/31/18 at 13:00 Glucose (Glutose) 15 gm Q15M PRN BUCCAL DECREASED GLUCOSE; Start 08/31/18 at 13:00 Pantoprazole (Protonix Tab) 40 mg DAILY@06 PO Last administered on 09/06/18at 06:00; Admin Dose 40 MG; Start 09/01/18 at 06:00 Albuterol/ Ipratropium (Duoneb) 3 ml Q3H RESP THERAPY PRN HHN SHORTNESS OF BREATH; Start 09/01/18 at 20:30 Lorazepam (Ativan) 1 mg Q4 PRN IV ANXIETY; Start 09/03/18 at 19:00 Furosemide (Lasix) 20 mg DAILY IV Last administered on 09/06/18at 08:15; Admin Dose 20 MG; Start 09/06/18 at 09:00 Assessment/Plan Hospital Course (Demo Recall) 1. Postop day #7 status post coronary artery bypass graft surgery x3, receiving CASTELLON to LAD, SVG to OM, SVG to PDA. Doing well. Con't to improve - ok to tele now. Improving - now ambulatory - no CP. Doing well- ambulatory. 2. Postoperative chest pain with EKG without significant changes and pos itional, question of musculoskeletal pain at the sternotomy site, question of pericarditis.-resolved at this time - no new sx - no rub. Much better. STABLE/ 3. Hypertension, currently under reasonable control. Con't med rx. Treated. Well controlled. 4. History of dyslipidemia. 5. Abnormal echocardiogram with isolated inferior Q in III- no sig changes on serial ecg 6. Mild acidosis. 7. Anemia, mild - H/H stable - no bleeding. NO active bleed now. at 9.3 now. 8. Leukocytosis, ongoing - no fevers. IMPROVED to 11.0 9. LE edema - elevation advised. VIRGINIA CHRISTIANSON MD Sep 06, 2018 09:23
[2018-09-06 11:43] VITALS: BP 111/71; PULSE 89; RESP 17
[2018-09-06] MEDS: HYDROmorphONE 0.5 MG/0.5 ML SYG IV PRN (14:29)
[2018-09-06] MEDS: OXYCODONE/ACETAMINOPHEN (5/325) TAB PO PRN ×2 (15:18→22:38)
[2018-09-06 15:52] VITALS: BP 121/85; PULSE 98; RESP 18
--- NOTE | 2018-09-06 16:18 | PN ---
Date/Time of Note Date/Time of Note DATE: 09/06/18 TIME: 16:18 Assessment/Plan VTE Prophylaxis Risk score (from [facility])>0 risk: 4 SCD applied (from [facility]): Yes Pharmacological prophylaxis: NA/contraindicated Pharm contraindication: surgical contra Lines/Catheters [facility] (from [facility] Saline Lock Urinary Cath still in place: No Assessment/Plan Hospital Course Patient's complaints of and chest pain, had a long interval not to take any pain medication, Dilaudid given patient is encouraged to take Percocet every 6 hours. Chest x-ray from today noted patient status post Lasix earlier. Stable vital signs. Continue close telemetry monitoring. Assessment/Plan -Three-vessel coronary artery disease chronic occlusion of the right coronary artery and circumflex vessel. S/p CABG with CASTELLON to LAD, Saphenous vein graft to PDA, Saphenous vein graft to obtuse marginal branch of the circumflex by Dr. Peng on 08/30/2018. Continue Aspirin aand Metoprolol. Dr. Garcia is following in cardiology consultation. -Hypertension, patient is currently normotensive, continue beta-jose cruz. -Diabetes mellitus type 2, continue Lantus and NovoLog. -Chronic kidney disease -Large recurrent right inguinal hernia Further recommendations based on clinical course. Plan of care discussed with Dr. Galloway. Result Diagram: 09/06/18 0713 09/06/18 0713 Results 24hrs Laboratory Tests Test 09/05/18 17:26 09/05/18 20:35 09/06/18 02:40 09/06/18 07:13 Bedside Glucose 105 147 128 White Blood Count 11.7 H Red Blood Count 3.30 L Hemoglobin 9.6 L Hematocrit 29.5 L Mean Corpuscular Volume 89.4 Mean Corpuscular 29.1 Hemoglobin Mean Corpuscular 32.5 Hemoglobin Concent Red Cell Distribution 14.2 Width Platelet Count 343 Mean Platelet Volume 8.6 Immature Granulocytes % 0.700 H Neutrophils % 66.9 Lymphocytes % 16.9 Monocytes % 11.1 H Eosinophils % 4.1 Basophils % 0.3 Nucleated Red Blood 0.0 Cells % Immature Granulocytes # 0.080 H Neutrophils # 7.8 H Lymphocytes # 2.0 Monocytes # 1.3 H Eosinophils # 0.5 Basophils # 0.0 Nucleated Red Blood 0.0 Cells # Sodium Level 142 Potassium Level 4.3 Chloride Level 104 Carbon Dioxide Level 27 Anion Gap 11 Blood Urea Nitrogen 19 Creatinine 1.14 Est Glomerular Filtrat > 60 Rate mL/min Glucose Level 107 Calcium Level 8.9 Test 09/06/18 07:44 09/06/18 11:38 Bedside Glucose 114 125 Exam/Review of Systems Exam Vitals Vital Signs Date Temp Pulse Resp B/P (MAP) Pulse Ox O2 O2 Flow FiO2 Time Delivery Rate 09/06/18 97.8 98 18 121/85 96 15:52 (97) 09/06/18 Room Air 03:29 09/05/18 21 01:52 09/03/18 2.0 20:30 Intake and Output 09/05/18 09/05/18 09/06/18 1515:00 23:00 07:00 IntakeIntake Total 1140 ml 900 ml OutputOutput Total 1550 ml 1100 ml 1250 ml BalanceBalance -410 ml -1100 ml -350 ml Exam Constitutional: alert, oriented Head: normocephalic Neck: supple Respiratory: diminished breath sounds Cardiovascular: regular rate and rhythm, other (s/p CABG) Musculoskeletal: nl extremities to inspection Extremities: normal pulses Neurological: nl mental status Results Results 24hrs Laboratory Tests Test 09/05/18 17:26 09/05/18 20:35 09/06/18 02:40 09/06/18 07:13 Bedside Glucose 105 147 128 White Blood Count 11.7 H Red Blood Count 3.30 L Hemoglobin 9.6 L Hematocrit 29.5 L Mean Corpuscular Volume 89.4 Mean Corpuscular 29.1 Hemoglobin Mean Corpuscular 32.5 Hemoglobin Concent Red Cell Distribution 14.2 Width Platelet Count 343 Mean Platelet Volume 8.6 Immature Granulocytes % 0.700 H Neutrophils % 66.9 Lymphocytes % 16.9 Monocytes % 11.1 H Eosinophils % 4.1 Basophils % 0.3 Nucleated Red Blood 0.0 Cells % Immature Granulocytes # 0.080 H Neutrophils # 7.8 H Lymphocytes # 2.0 Monocytes # 1.3 H Eosinophils # 0.5 Basophils # 0.0 Nucleated Red Blood 0.0 Cells # Sodium Level 142 Potassium Level 4.3 Chloride Level 104 Carbon Dioxide Level 27 Anion Gap 11 Blood Urea Nitrogen 19 Creatinine 1.14 Est Glomerular Filtrat > 60 Rate mL/min Glucose Level 107 Calcium Level 8.9 Test 09/06/18 07:44 09/06/18 11:38 Bedside Glucose 114 125 Medications Medication Current Medications Ondansetron HCl (Zofran Inj) 4 mg Q6H PRN IV NAUSEA AND/OR VOMITING Last administered on 08/30/18 21:15; Admin Dose 4 MG; Start 08/30/18 at 15:30 Hydromorphone HCl (Dilaudid) 0.2 mg Q1H PRN IV PAIN LEVEL 1-5 Last administered on 09/01/18 15:11; Admin Dose 0.2 MG; Start 08/30/18 at 21:00 Hydromorphone HCl (Dilaudid) 0.4 mg Q1H PRN IV PAIN LEVEL 6-10 Last administered on 09/06/18 14:29; Admin Dose 0.4 MG; Start 08/30/18 at 21:00 Oxycodone/ Acetaminophen (Percocet (5/ 325)) 1 tab Q3H PRN PO PAIN LEVEL 1-5 Last administered on 09/06/18 15:18; Admin Dose 1 TAB; Start 08/30/18 at 21:00 Oxycodone/ Acetaminophen (Percocet (5/ 325)) 2 tab Q3H PRN PO PAIN LEVEL 6-10 Last administered on 09/01/18 19:59; Admin Dose 2 TAB; Start 08/30/18 at 21:00 Insulin Glargine (Lantus) 14 units DAILY@2000 SC Last administered on 09/05/18 22:51; Admin Dose 14 UNITS; Start 08/31/18 at 20:00 Insulin Aspart (Novolog Insulin Pen) 5 unit WITH MEALS SC Last administered on 09/06/18 11:41; Admin Dose 5 UNIT; Start 08/31/18 at 17:35 Insulin Aspart (Novolog Insulin Pen) NOVOLOG *MILD* ALGORITHM WITH MEALS BEDTIME SC Last administered on 09/03/18 18:21; Admin Dose 1 UNIT; Start 08/31/18 at 17:35 Metoprolol Tartrate (Lopressor) 25 mg BID PO Last administered on 09/06/18 08:17; Admin Dose 25 MG; Start 08/31/18 at 21:00 Aspirin (Aspirin) 81 mg DAILY PO Last administered on 09/06/18 08:15; Admin Dose 81 MG; Start 09/01/18 at 09:00 Miscellaneous Information 1 ea NOTE XX ; Start 08/31/18 at 13:00 Glucose (Glutose) 15 gm Q15M PRN PO DECREASED GLUCOSE; Start 08/31/18 at 13:00 Glucose (Glutose) 22.5 gm Q15M PRN PO DECREASED GLUCOSE; Start 08/31/18 at 13:00 Dextrose (D50w Syringe) 25 ml Q15M PRN IV DECREASED GLUCOSE; Start 08/31/18 at 13:00 Dextrose (D50w Syringe) 50 ml Q15M PRN IV DECREASED GLUCOSE; Start 08/31/18 at 13:00 Glucagon (Glucagen) 1 mg Q15M PRN IM DECREASED GLUCOSE; Start 08/31/18 at 13:00 Glucose (Glutose) 15 gm Q15M PRN BUCCAL DECREASED GLUCOSE; Start 08/31/18 at 1 3:00 Pantoprazole (Protonix Tab) 40 mg DAILY@06 PO Last administered on 09/06/18at 06:00; Admin Dose 40 MG; Start 09/01/18 at 06:00 Albuterol/ Ipratropium (Duoneb) 3 ml Q3H RESP THERAPY PRN HHN SHORTNESS OF BREATH; Start 09/01/18 at 20:30 Lorazepam (Ativan) 1 mg Q4 PRN IV ANXIETY; Start 09/03/18 at 19:00 Furosemide (Lasix) 20 mg DAILY IV Last administered on 09/06/18at 08:15; Admin Dose 20 MG; Start 09/06/18 at 09:00 JAY WEEMS Sep 06, 2018 16:18
[2018-09-06 19:19] VITALS: BP 116/66; PULSE 95; RESP 19
[2018-09-06] MEDS: INSULIN GLARGINE [LANTus] (100 UNITS/ML) SYG SC SCH (20:35)
[2018-09-06 23:35] VITALS: BP 96/60; PULSE 98; RESP 18
[2018-09-07] MEDS: PANTOPRAZOLE (EC) 40 MG TAB PO SCH (05:35)
[2018-09-07] MEDS: OXYCODONE/ACETAMINOPHEN (5/325) TAB PO PRN ×3 (05:37→16:01)
[2018-09-07 06:07] VITALS: BP 116/68; PULSE 98; RESP 18
[2018-09-07 07:24] VITALS: BP 128/71; PULSE 98; RESP 16
[2018-09-07] MEDS: INSULIN ASPART [NOVOLOG] 3 ML PEN SC SCH ×6 (07:55→18:10)
[2018-09-07] MEDS: FUROSEMIDE 20 MG INJ IV SCH (10:06)
[2018-09-07] MEDS: ASPIRIN 81 MG TAB PO SCH (10:06)
[2018-09-07] MEDS: METOPROLOL 25 MG TAB PO SCH (10:07)
[2018-09-07 11:43] VITALS: BP 119/72; PULSE 98; RESP 18
--- NOTE | 2018-09-07 13:18 | PN ---
Date/Time of Note Date/Time of Note DATE: 09/07/18 TIME: 13:17 Assessment/Plan Lines/Catheters IV Catheter Type (from Nrsg): Saline Lock Lyn in Place (from Nrsg): No Assessment/Plan Assessment/Plan Status post coronary artery bypass grafting Stable postop We will continue ambulation Discharge planning per medicine Subjective 24 Hr Interval Summary Constitutional: improved Pain Control: mild Exam/Review of Systems Vital Signs Vitals Vital Signs Date Temp Pulse Resp B/P (MAP) Pulse Ox O2 O2 Flow FiO2 Time Delivery Rate 09/07/18 98.7 98 18 119/72 98 Room Air 11:43 (88) 09/05/18 21 01:52 09/03/18 2.0 20:30 Intake and Output 09/06/18 09/06/18 09/07/18 1515:00 23:00 07:00 IntakeIntake Total 1110 ml 590 ml OutputOutput Total 400 ml 1250 ml 400 ml BalanceBalance 710 ml -660 ml -400 ml Exam Eyes: nl conjunctiva, EOMI, nl lids, nl sclera ENMT: nl external ears & nose, nl lips & teeth, nl nasal mucosa & septum, mucosa pink and moist Neck: supple, non-tender Respiratory: clear to auscultation, normal air movement Cardiovascular: regular rate and rhythm, nl pulses; No bruits, No diastolic murmur, No edema, No gallop, No irregular rhythm, No jugular venous distention (JVD), No murmurs/extra sounds, No rub, No systolic murmur, No S3, No S4, No other Gastrointestinal: soft, nl liver, spleen, non-tender Results Result Diagram: 09/07/18 0528 09/07/18 0528 BOYD KRAUSE MD Sep 07, 2018 13:18
--- NOTE | 2018-09-07 13:44 | CONS ---
Assessment/Plan Assessment/Plan Hospital Course (Demo Recall) IMPRESSION: 1. Postop status post coronary artery bypass graft surgery x3, receiving CASTELLON to LAD, SVG to OM, SVG to PDA. 2. Postoperative chest pain with EKG without significant changes and p ositional, question of musculoskeletal pain at the sternotomy site, question of pericarditis.-resolved at this time 3. Hypertension, currently under reasonable control. 4. History of dyslipidemia. 5. Abnormal echocardiogram with isolated inferior Q in III- no sig changes on serial ecg 6. Mild acidosis. 7. Anemia, mild. 8. Leukocytosis, ongoing. 9. L sided pleural effusion 10. CHF-diastolic acute on chronic 11. Chest pain and intermittent leg pain-at sternotomy site now improved Recc: -On tele -serial ecg's -continue low dose BB -Continue ASA -pain control -PT -Continue gentle lasix diuresis -d/c planning Consultation Date/Type/Reason Admit Date/Time Aug 30, 2018 at 05:18 Initial Consult Date 08/31/18 Type of Consult Cardiology Reason for Consultation s/p cabg Requesting Provider: BOYD KRAUSE MD Date/Time of Note DATE: 09/07/18 TIME: 13:39 Exam/Review of Systems Vital Signs Vitals Vital Signs Date Temp Pulse Resp B/P (MAP) Pulse Ox O2 O2 Flow FiO2 Time Delivery Rate 09/07/18 98.7 98 18 119/72 98 Room Air 11:43 (88) 09/05/18 21 01:52 09/03/18 2.0 20:30 Intake and Output 09/06/18 09/06/18 09/07/18 1414:59 22:59 06:59 IntakeIntake Total 1110 ml 590 ml OutputOutput Total 400 ml 1250 ml 400 ml BalanceBalance 710 ml -660 ml -400 ml Exam Exam Review of Systems: CONSTITUTIONAL: No fevers, chills. PULMONARY: No sob CARDIOVASCULAR:resolved chest pain GASTROINTESTINAL: No nausea/vomiting. GENITOURINARY: No hematuria/dysuria. MUSCULOSKELETAL: No myagias/arthalgias. PSYCHIATRIC: The patient denies depression. NEUROLOGIC: No weakness Constitutional: alert Psych: no complaints Head: normocephalic ENMT: mucosa pink and moist Neck: supple, jvd (9 cm water) Respiratory: diminished breath sounds (at bases/B) Cardiovascular: regular rate and rhythm Gastrointestinal: soft, non-tender Musculoskeletal: muscle tone (normal) Extremities: pitting pedal edema (trace to mild R>L) Neurological: other (no focal deficits) Labs Result Diagram: 09/07/1828 09/07/18527 Results 24hrs Laboratory Tests Test 09/06/18 17:19 09/06/18 20:24 09/07/18 05:28 09/07/18 08:10 Bedside Glucose 133 145 130 White Blood Count 12.2 H Red Blood Count 3.34 L Hemoglobin 9.7 L Hematocrit 29.4 L Mean Corpuscular Volume 88.0 Mean Corpuscular 29.0 Hemoglobin Mean Corpuscular 33.0 Hemoglobin Concent Red Cell Distribution 14.4 Width Platelet Count 320 Mean Platelet Volume 8.6 Immature Granulocytes % 0.700 H Neutrophils % 71.8 Lymphocytes % 14.8 L Monocytes % 8.6 Eosinophils % 3.7 Basophils % 0.4 Nucleated Red Blood 0.0 Cells % Immature Granulocytes # 0.090 H Neutrophils # 8.7 H Lymphocytes # 1.8 Monocytes # 1.0 H Eosinophils # 0.5 Basophils # 0.1 Nucleated Red Blood 0.0 Cells # Sodium Level 140 Potassium Level 4.4 Chloride Level 104 Carbon Dioxide Level 28 Anion Gap 8 Blood Urea Nitrogen 18 Creatinine 1.17 Est Glomerular Filtrat > 60 Rate mL/min Glucose Level 114 Calcium Level 8.9 Test 09/07/18 11:52 Bedside Glucose 123 Medications Medications Current Medications Ondansetron HCl (Zofran Inj) 4 mg Q6H PRN IV NAUSEA AND/OR VOMITING Last administered on 08/30/18at 21:15; Admin Dose 4 MG; Start 08/30/18 at 15:30 Hydromorphone HCl (Dilaudid) 0.2 mg Q1H PRN IV PAIN LEVEL 1-5 Last administered on 09/01/18at 15:11; Admin Dose 0.2 MG; Start 08/30/18 at 21:00 Hydromorphone HCl (Dilaudid) 0.4 mg Q1H PRN IV PAIN LEVEL 6-10 Last administered on 09/06/18at 14:29; Admin Dose 0.4 MG; Start 08/30/18 at 21:00 Oxycodone/ Acetaminophen (Percocet (5/ 325)) 1 tab Q3H PRN PO PAIN LEVEL 1-5 Last administered on 09/07/18 10:16; Admin Dose 1 TAB; Start 08/30/18 at 21:00 Oxycodone/ Acetaminophen (Percocet (5/ 325)) 2 tab Q3H PRN PO PAIN LEVEL 6-10 Last administered on 09/01/18 19:59; Admin Dose 2 TAB; Start 08/30/18 at 21:00 Insulin Glargine (Lantus) 14 units DAILY@2000 SC Last administered on 09/06/18 20:35; Admin Dose 14 UNITS; Start 08/31/18 at 20:00 Insulin Aspart (Novolog Insulin Pen) 5 unit WITH MEALS SC Last administered on 09/07/18 12:22; Admin Dose 5 UNIT; Start 08/31/18 at 17:35 Insulin Aspart (Novolog Insulin Pen) NOVOLOG *MILD* ALGORITHM WITH MEALS BEDTIME SC Last administered on 09/03/18 18:21; Admin Dose 1 UNIT; Start 08/31/18 at 17:35 Metoprolol Tartrate (Lopressor) 25 mg BID PO Last administered on 09/07/18 10:07; Admin Dose 25 MG; Start 08/31/18 at 21:00 Aspirin (Aspirin) 81 mg DAILY PO Last administered on 09/07/18 10:06; Admin Dose 81 MG; Start 09/01/18 at 09:00 Miscellaneous Information 1 ea NOTE XX ; Start 08/31/18 at 13:00 Glucose (Glutose) 15 gm Q15M PRN PO DECREASED GLUCOSE; Start 08/31/18 at 13:00 Glucose (Glutose) 22.5 gm Q15M PRN PO DECREASED GLUCOSE; Start 08/31/18 at 13:00 Dextrose (D50w Syringe) 25 ml Q15M PRN IV DECREASED GLUCOSE; Start 08/31/18 at 13:00 Dextrose (D50w Syringe) 50 ml Q15M PRN IV DECREASED GLUCOSE; Start 08/31/18 at 13:00 Glucagon (Glucagen) 1 mg Q15M PRN IM DECREASED GLUCOSE; Start 08/31/18 at 13:00 Glucose (Glutose) 15 gm Q15M PRN BUCCAL DECREASED GLUCOSE; Start 08/31/18 at 13:00 Pantoprazole (Protonix Tab) 40 mg DAILY@06 PO Last administered on 09/07/18at 05:35; Admin Dose 40 MG; Start 09/01/18 at 06:00 Albuterol/ Ipratropium (Duoneb) 3 ml Q3H RESP THERAPY PRN HHN SHORTNESS OF BREATH; Start 09/01/18 at 20:30 Lorazepam (Ativan) 1 mg Q4 PRN IV ANXIETY; Start 09/03/18 at 19:00 Furosemide (Lasix) 20 mg DAILY IV Last administered on 09/07/18at 10:06; Admin Dose 20 MG; Start 09/06/18 at 09:00 CYNDI HANNON Sep 07, 2018 13:44
[2018-09-07] MEDS ORDERED: METO-448 PO (15:01)
[2018-09-07] MEDS ORDERED: LAS20 PO (15:01)
[2018-09-07] MEDS ORDERED: HYDR-4011 PO (15:01)
[2018-09-07] MEDS ORDERED: Insulin Glargine SC (15:01)
[2018-09-07] MEDS ORDERED: ASPI-831 PO (15:01)
[2018-09-07] MEDS ORDERED: PANT40TA3 PO (15:01)
[2018-09-07] MEDS ORDERED: NOVO3I SC (15:01)
[2018-09-07 15:13] VITALS: BP 127/81; PULSE 89; RESP 18
[2018-09-07] MEDS ORDERED: IBUPROFEN 600 MG TAB PO SCH (16:00)
[2018-09-07] MEDS ORDERED: COLCHICINE 0.6 MG CAP PO ONE (16:00)
--- NOTE | 2018-09-07 18:08 | DS ---
Date/Time of Note Date/Time of Note DATE: 09/07/18 TIME: 18:05 Discharge Summary Admission/Discharge Info Admit Date/Time Aug 30, 2018 at 05:18 Discharge Date/Time Patient Condition: Stable Hx of Present Illness The patient is a 55-year-old gentleman with hypertension, hyperlipidemia, diabetes, chronic kidney disease, large right inguinal hernia, patient was evaluated for ongoing chest pain and underwent left heart catheterization in May 2018 and was found to have triple vessel disease, patient was evaluated by Dr. Peng in CT surgery and was brought to the hospital and underwent CABG procedure yesterday. Patient is seen in ICU patient is awake alert and oriented. Patient was extubated overnight and, currently breathing comfortably on supplemental oxygen via nasal cannula, incisional pain is adequately controlled. Hospital Course Patient discharged home with home health RN services -Three-vessel coronary artery disease chronic occlusion of the right coronary artery and circumflex vessel. S/p CABG with CASTELLON to LAD, Saphenous vein graft to PDA, Saphenous vein graft to obtuse marginal branch of the circumflex by Dr. Peng on 08/30/2018. Continue Aspirin and Metoprolol. Dr. Garcia is following in cardiology consultation. Continue PT, patient is able to ambulate using walker, states he has walker at home. -Hypertension, patient is currently normotensive, continue beta-jose cruz. -Diabetes mellitus type 2, continue Lantus and NovoLog. -Acute on chronic CHF, continue Lasix. -Chronic kidney disease -Large recurrent right inguinal hernia Plan of care discussed with Dr. Galloway. Home Meds Active Scripts Furosemide (Lasix) 20 Mg Tab, 20 MG PO DAILY for 30 Days, TAB Prov:JAY WEEMS 09/07/18 Hydrocodone/Acetaminophen ([place] 5-325 Tablet) 1 Each Tablet, 1 EACH PO Q6, #30 TAB Prov:JAY WEEMS 09/07/18 [Insulin Glargine] 100 UNITS/ML SOLN No Conflict Check, 14 UNITS SC DAILY@1999 for 30 Days Prov:JAY WEEMS 09/07/18 Insulin Aspart* (Novolog Insulin Pen*) 100 Unit/Ml Soln, 5 UNIT SC WITH MEALS for 30 Days Prov:JAY WEEMS 09/07/18 Aspirin (Aspirin) 81 Mg Chew, 81 MG PO DAILY for 30 Days, TAB [facility] 09/07/18 Metoprolol Tartrate* (Lopressor*) 25 Mg Tab, 25 MG PO BID for 30 Days, TAB [facility] 09/07/18 Pantoprazole* (Protonix*) 40 Mg Tablet.dr, 40 MG PO QAM for 30 Days, TAB Prov:JAY WEEMS 09/07/18 Atorvastatin* (Atorvastatin*) 40 Mg Tablet, 40 MG PO QHS, #30 TAB Prov:[facility] KRUGERJAY 05/24/18 Reported Medications Ergocalciferol (Vitamin D2) (VITAMIN D2) 2,000 Unit Tablet, 2000 UNIT PO DAILY, TAB 08/30/18 Metformin Hcl* (Metformin Hcl* ER) 500 Mg Tab.sr.24h, 500 MG PO DAILY, #30 TAB 05/20/18 Discontinued Reported Medications Diphenhydramine Hcl (Banophen) 25 Mg Capsule, 25 MG PO QHS, CAP 08/30/18 Fexofenadine Hcl* (Fexofenadine Hcl*) 180 Mg Tablet, 180 MG PO DAILY, #30 TAB 08/30/18 Duloxetine Hcl* (Duloxetine Hcl*) 30 Mg Capsule.dr, 30 MG PO DAILY, #30 CAP 08/30/18 Montelukast Sodium* (Montelukast Sodium*) 10 Mg Tablet, 10 MG PO QHS, #30 TAB 05/20/18 Chlorthalidone* (Chlorthalidone*) 25 Mg Tablet, 25 MG PO DAILY, TAB 05/20/18 Discontinued Scripts Lisinopril* (Lisinopril*) 5 Mg Tablet, 5 MG PO DAILY, #30 TAB Prov:[facility] MCCULLOUGHLANA 05/24/18 Aspirin (Aspir-Demetrice) 325 Mg Tablet.dr, 325 MG PO DAILY for 30 Days Prov:[facility] 05/24/18 Nitroglycerin* (Nitroglycerin* SL) 0.4 Mg Tab.subl, 1 TAB SL Q5M PRN for ANGINA, #1 BOTTLE Prov:[facility] 05/24/18 Atenolol* (Atenolol*) 50 Mg Tablet, 50 MG PO DAILY for 30 Days, TAB Prov[facility] 05/24/18 Follow-up Plan d/c home with RN services, f/up with Dr Garcia in 1-2 weeks, f/up with Dr Peng in 2 weeks, f/up with [facility] in 2 weeks. Primary Care Provider [facility] Time spent on discharge: > 30 minutes Pending Labs Laboratory Tests Test 09/06/18 20:24 09/07/18 05:28 09/07/18 08:10 09/07/18 11:52 Bedside 145 130 123 Glucose mg/dL (70-220) mg/dL (70-220) mg/dL (70-220) White Blood 12.2 Count 10^3/ul (4.8-1 0.8) Red Blood 3.34 Count 10^6/ul (4.70- 6.10) Hemoglobin 9.7 g/dl (14.0-18. 0) Hematocrit 29.4 % (42.0-52.0) Mean 88.0 Corpuscular fl (82.0-101.0 Volume ) Mean 29.0 Corpuscular pg (29.0-33.0) Hemoglobin Mean 33.0 Corpuscular g/dl (32.0-37. Hemoglobin Conc 0) ent Red Cell 14.4 Distribution % (11.5-14.5) Width Platelet Count 320 10^3/UL (140-4 15) Mean Platelet 8.6 Volume fl (7.4-10.4) Immature 0.700 Granulocytes % % (0.001-0.429 ) Neutrophils % 71.8 % (39.0-77.0) Lymphocytes % 14.8 % (15.0-51.0) Monocytes % 8.6 % (0.0-11.0) Eosinophils % 3.7 % (0.0-7.0) Basophils % 0.4 % (0.0-2.0) Nucleated Red 0.0 Blood Cells % /100WBC (0.0-0 .0) Immature 0.090 Granulocytes # 10^3/ul (0.0-0 .031) Neutrophils # 8.7 10^3/ul (1.6-7 .5) Lymphocytes # 1.8 10^3/ul (0.8-2 .9) Monocytes # 1.0 10^3/ul (0.3-0 .9) Eosinophils # 0.5 10^3/ul (0.0-0 .5) Basophils # 0.1 10^3/ul (0.0-0 .1) Nucleated Red 0.0 Blood Cells # 10^3/ul (0.0-0 .0) Sodium Level 140 mmol/L (135-14 4) Potassium 4.4 Level mmol/L (3.5-5. 1) Chloride Level 104 mmol/L (97-110 ) Carbon Dioxide 28 Level mmol/L (21-31) Anion Gap 8 (5-13) Blood Urea 18 Nitrogen mg/dl (7-20) Creatinine 1.17 mg/dl (0.61-1. 24) Est Glomerular > 60 Filtrat mL/min (>60) Rate mL/min Glucose Level 114 mg/dl (70-220) Calcium Level 8.9 mg/dl (8.4-10. 2) Thyroid 2.050 Stimulating MIU/L (0.465-4 Hormone (TSH) .680) Test 09/07/18 18:02 Bedside 162 Glucose mg/dL (70-220) JAY WEEMS Sep 07, 2018 18:08
[2018-09-08] MEDS ORDERED: COLCHICINE 0.6 MG CAP PO SCH (09:00)
== END 2018-09-07 18:37 | disposition home health service (06) | DRG 235 ==
LOC: REC 05:18 → EDSTATUS 07:30 → ICU 13:15 → TEL 09-03 14:30
PROVIDERS: ADMIT Thoracic Surgery (Cardiothoracic Vascular Surgery); ATTEND Thoracic Surgery (Cardiothoracic Vascular Surgery)
PROC: 02100Z9 Bypass Coronary Artery, One Artery from Left Internal Mammary, Open Approach (ICD-10-PCS; 2018-08-30)
PROC: 06BP4ZZ Excision of Right Saphenous Vein, Percutaneous Endoscopic Approach (ICD-10-PCS; 2018-08-30)
PROC: 5A1221Z Performance of Cardiac Output, Continuous (ICD-10-PCS; 2018-08-30)
PROC: 30233K1 Transfusion of Nonautologous Frozen Plasma into Peripheral Vein, Percutaneous Approach (ICD-10-PCS; 2018-08-30)
PROC: 30233R1 Transfusion of Nonautologous Platelets into Peripheral Vein, Percutaneous Approach (ICD-10-PCS; 2018-08-30)
PROC: 021109W Bypass Coronary Artery, Two Arteries from Aorta with Autologous Venous Tissue, Open Approach (ICD-10-PCS; principal; 2018-08-30 07:30)
DX: I25.119 Atherosclerotic heart disease of native coronary artery with unspecified angina pectoris (principal); I50.33 Acute on chronic diastolic (congestive) heart failure; E87.2 Acidosis; I13.0 Hypertensive heart and chronic kidney disease with heart failure and stage 1 through stage 4 chronic kidney disease, or unspecified chronic kidney disease; N18.9 Chronic kidney disease, unspecified; D72.829 Elevated white blood cell count, unspecified; D64.9 Anemia, unspecified; E78.5 Hyperlipidemia, unspecified; E11.22 Type 2 diabetes mellitus with diabetic chronic kidney disease; K40.91 Unilateral inguinal hernia, without obstruction or gangrene, recurrent; E66.9 Obesity, unspecified; I25.82 Chronic total occlusion of coronary artery; Z68.30 Body mass index [BMI] 30.0-30.9, adult; Z87.891 Personal history of nicotine dependence
CPT/HCPCS: 36430; 36592; 36600; 71045; 80048; 80053; 82803; 82962; 83735; 84100; 84443; 85025; 85610; 85730; 86850; 86900; 86901; 86920; 87081; 93005; 93312; 93325; 97110; 97116; 97163; 97530; A4310; J0171; J0360; J0690; J1170; J1644; J1815; J1940; J2001; J2250; J2370; J2405; J2440; J2720; J3010; J3370; J3475; J3480; J7070; P9035; P9047; P9059